=== PATIENT | male | born 1950 | race Caucasian/White ===

== ENCOUNTER 2016-03-28 15:13 | Emergency (ER) | payer MEDICARE, MEDICAID ==
[2016-03-28] MEDS ORDERED: Albuterol 2.5 MG/3 ML NEB.SOL* (0.083%) INH ONE (15:48)
[2016-03-28 15:51] VITALS: BP 120/59
--- NOTE | 2016-03-28 15:54 | UC ---
Respiratory Complaint HPI - HPI Summary HPI Summary: patient is [place] a [place], he has had a severe cough for the past week, now he has a sore throat as well. no fever. 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 Onset/Duration: Sudden Onset, Lasting Days Timing: Constant Severity Initially: Moderate Severity Currently: Moderate Pain Intensity: 7 Pain Scale Used: 0-10 Numeric Aggravating Factors: Deep Breaths, Recumbent Position, Nothing Alleviating Factors: Nothing Associated Signs And Symptoms: Positive: Dyspnea, Wheezing, URI, Nasal Congestion, Sinus Discomfort - Risk Factors Pulmonary Embolism Risk Factors: Negative Cardiac Risk Factors: Negative Tuberculosis Risk Factors: Negative - Allergies/Home Medications Allergies/Adverse Reactions: Allergies Allergy/AdvReac Type Severity Reaction Status Date / Time Sulfa Antibiotics Allergy Hives Verified 03/28/16 15:46 Tamsulosin [From Flomax] Allergy Unknown Verified 03/28/16 15:46 Reaction Details Home Medications: Home Medications Aspirin [Aspirin Adult Low Strengt] 81 mg PO 03/28/16 [History] Benztropine Mesylate 0.5 mg PO 03/28/16 [History] Carvedilol TAB* [Coreg TAB*] 03/28/16 [History] Docusate Sodium [Colace] 100 mg PO 03/28/16 [History] Finasteride TAB* [Proscar TAB*] 5 mg PO DAILY 03/28/16 [History Confirmed ] Haloperidol TAB* [Haldol TAB*] 0.5 mg PO BID 03/28/16 [History Confirmed ] Hydrocortisone (Topical) [Anti-Itch Maximum Strengt] 1 applic 03/28/16 [History] Lisinopril [Zestril 20 MG-] 20 mg PO DAILY 03/28/16 [History Confirmed 03/28/16] [place] Carbonate 03/28/16 [History] [place] Carbonate [Lithobid] 300 mg PO 03/28/16 [History] Multiple Vitamin [Multi Vitamin] 03/28/16 [History] OLANzapine TAB* [ZyPREXA TAB*] 10 mg PO DAILY 03/28/16 [History Confirmed ] Omeprazole CAP* [Prilosec CAP* 20 MG] 20 mg PO DAILY 03/28/16 [History Confirmed 03/28/16] Psyllium DASH* [Metamucil DASH*] 1 pkt PO DAILY 03/28/16 [History Confirmed ] Simvastatin TAB(NF) [Zocor 10 MG (NF)] 03/28/16 [History] PMH/Surg Hx/FS Hx/Imm Hx Previously Healthy: Yes Cardiovascular History Of: Reports: Cardiac Disorders, Hypertension - Surgical History Surgical History: Yes Surgery Procedure, Year, and Place: right wrist - Family History Known Family History: Negative: Hypertension - Social History Alcohol Use: None Substance Use Type: None Smoking Status (MU): Never Smoked Tobacco Review of Systems Skin: Negative Eyes: Negative ENT: Sore Throat Respiratory: Shortness Of Breath, Cough Cardiovascular: Negative Gastrointestinal: Negative Genitourinary: Negative Motor: Negative Neurovascular: Negative Musculoskeletal: Negative Neurological: Negative Psychological: Negative All Other Systems Reviewed And Are Negative: Yes Physical Exam Triage Information Reviewed: Yes Appearance: Well-Nourished, Ill-Appearing, Pain Distress Vital Signs Reviewed: Yes Eye Exam: Normal Eyes: Positive: Conjunctiva Clear ENT Exam: Normal ENT: Positive: Normal ENT inspection, Pharyngeal erythema, Nasal congestion, Nasal drainage, TM red, Tonsillar exudate Dental Exam: Normal Neck exam: Normal Neck: Positive: Supple, Nontender, Enlarged Nodes @ - left side of neck Respiratory Exam: Normal Respiratory: Positive: No respiratory distress, No accessory muscle use, Rhonchi , Wheezing, Inspiration Cardiovascular Exam: Normal Cardiovascular: Positive: RRR, No Murmur, Pulses Normal Abdominal Exam: Normal Abdomen Description: Positive: Nontender, No Organomegaly, Soft Bowel Sounds: Positive: Present Musculoskeletal Exam: Normal Musculoskeletal: Positive: Strength Intact, ROM Intact, No Edema Neurological Exam: Normal Neurological: Positive: Alert, Muscle Tone Normal Psychological Exam: Normal Skin Exam: Normal Respiratory Course/Dx - Course Course Of Treatment: Hx obtained, exam performed, albuterol administered with improvemend, chest xray was neg for acute disease, recommend follow up for possible nodule. medications prescribed. - Differential Dx/Diagnosis Differential Diagnosis/HQI/PQRI: Bronchitis, Influenza, Laryngitis, Sinusitis Provider Diagnoses: possible pulmonary nodule. cough. wheezing. sore throat Discharge - Discharge Plan Condition: Stable Disposition: HOME Patient Education Materials: Wheezing (ED) Additional Instructions: REcommnedations: 1. Follow up with your primary doctor about the xray results 2. Take the cough syrup as needed every 4 hours for cough 3. use the albuterol nebulizer every 4 hours as neede for cough/SOB/wheezing. 4. Increase fluid intake as tolerated and get plenty of rest.
--- NOTE | 2016-03-28 17:00 | RAD ---
INDICATION: Shortness of breath and cough. COMPARISON: There are no prior studies available for comparison. TECHNIQUE: Dual-energy PA and lateral views of the chest were obtained. FINDINGS: The heart is within normal limits in size. Mediastinal contours appear to be within normal limits. The lungs are underinflated and grossly clear. No pleural effusion is seen. There is a small 5 mm nodular density which projects above the left lung base only seen in the PA view. The results of this exam were discussed with the referring clinician. IMPRESSION: 1. POSSIBLE PULMONARY NODULE WITHIN THE LEFT LUNG. RECOMMEND A NONCONTRAST CT OF THE CHEST FOR FURTHER EVALUATION. 2. EXPIRATORY EXAM, NO EVIDENCE FOR ACUTE FINDING.
== END 2016-03-28 17:35 | disposition home or self-care (01) ==
LOC: UCEAST 15:13
DX: J02.9 Acute pharyngitis, unspecified (principal); R05 Cough; R06.2 Wheezing; Z88.1 Allergy status to other antibiotic agents; Z88.2 Allergy status to sulfonamides; I10 Essential (primary) hypertension; Z79.82 Long term (current) use of aspirin
CPT/HCPCS: 71020; 99202; G0463

== ENCOUNTER 2016-04-06 18:05 | Emergency (ER) | payer MEDICARE, MEDICAID ==
--- NOTE | 2016-04-06 21:32 | RAD ---
HISTORY: Cough, shortness of breath, pneumonia COMPARISONS: March 28, 2016 VIEWS: 2: Frontal dual-energy and lateral views of the chest. FINDINGS: CARDIOMEDIASTINAL SILHOUETTE: The cardiomediastinal silhouette is normal. JACK: The jack are normal. PLEURA: The costophrenic angles are sharp. No pleural abnormalities are noted. LUNG PARENCHYMA: The lung volumes are low. The lungs are clear. ABDOMEN: The upper abdomen is clear. There is no subphrenic gas. BONES AND SOFT TISSUES: No bone or soft tissue abnormalities are noted. OTHER: None. IMPRESSION: 1. LOW LUNG VOLUMES. 2. AGAIN NOTED IS A NODULAR DENSITY OVERLYING THE LEFT LUNG FIELD. NOTED ON THE PREVIOUS EXAMINATION, RECOMMEND FURTHER EVALUATION WITH CT OF THE CHEST IN THE NONACUTE SETTING. 3. OTHERWISE, NO ACTIVE CARDIAC PULMONARY DISEASE
[2016-04-06 21:40] LABS: Hematocrit 37 % (42-52); Mean Corpuscular HGB Conc 33 g/dl (31-36); Mean Corpuscular Hemoglobin 30 pg (27-31); Mean Corpuscular Volume 91 fL (80-94); Mean Platelet Volume 7 um3 (7.4-10.4); Red Blood Count 4.04 10^6/ul (4.0-5.4); Red Cell Distribution Width 14 % (10.5-15); White Blood Count 11.4 10^3/ul (3.5-10.8)
[2016-04-06 21:56] LABS: Albumin 3.9 g/dL (3.2-5.2); BUN/Creatinine Ratio 17.8 (8-20); Calcium 9.1 mg/dL (8.6-10.3); EGFR African American 108.9 (>60); EGFR Non-African American 84.7 (>60); Globulin 3.7 g/dL (2-4); Potassium 4.6 mmol/L (3.5-5.0); Total Bilirubin 0.2 mg/dL (0.2-1.0); Total Protein 7.6 g/dL (6.4-8.9)
[2016-04-06] MEDS ORDERED: predniSONE TAB* 20 MG PO ONE (22:24)
[2016-04-06] MEDS ORDERED: DOXYcycline CAP(*) 100 MG PO ONE (22:25)
[2016-04-06] MEDS: Albuterol/Ipratropium NEB.SOL* Albuterol 2.5 MG/Ipratropium 0.5 MG 3 ML INH SCH ×3 (22:42→23:38)
[2016-04-06] MEDS ORDERED: Iohexol 350* (CONTRAST) 500 ML MDV IV ONE (23:06)
[2016-04-07 00:03] VITALS: BP 132/68
--- NOTE | 2016-04-07 05:09 | ED ---
Shortness of Breath - HPI Summary HPI Summary: Patient presents for evaluation of shortness of breath and cough with preceding URI. Denies chest pain, systemic symptoms. No longer smokes. No specific aggrav factors. 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 Onset/Duration: Gradual Onset Alleviating Factors: Bronchodilators Associated Signs & Symptoms: Cough (Nonproductive) - Allergy/Home Medications Allergies/Adverse Reactions: Allergies Allergy/AdvReac Type Severity Reaction Status Date / Time Sulfa Antibiotics Allergy Hives Verified 03/28/16 15:46 Tamsulosin [From Flomax] Allergy Unknown Verified 03/28/16 15:46 Reaction Details PMH/Surg Hx/FS Hx/Imm Hx Endocrine/Hematology History: Denies: Hx Diabetes Cardiovascular History: Reports: Hx Hypertension Respiratory History: Reports: Hx Chronic Obstructive Pulmonary Disease (COPD), Other Respiratory Problems/Disorders - PNA History: Denies: Hx Dialysis, Hx Renal Disease - Surgical History Surgery Procedure, Year, and Place: right wrist Infectious Disease History: No Infectious Disease History: Denies: Traveled Outside the [place] in Last 30 Days - Family History Known Family History: Negative: Hypertension - Social History Alcohol Use: None Substance Use Type: Reports: None Smoking Status (MU): Never Smoked Tobacco Review of Systems Negative: Fever, Chills All Other Systems Reviewed And Are Negative: Yes Physical Exam Triage Information Reviewed: Yes Vital Signs On Initial Exam: Initial Vitals Temp Pulse Resp BP Pulse Ox 97.4 F 67 20 128/60 98 04/06/16 18:11 04/06/16 18:11 04/06/16 18:11 04/06/16 18:11 04/06/16 18:11 Vital Signs Reviewed: Yes Appearance: Positive: Well-Appearing, No Pain Distress, Well-Nourished Skin: Positive: Warm, Skin Color Reflects Adequate Perfusion, Dry Eyes: Positive: Normal, EOMI, KATERINA ENT: Positive: Normal ENT inspection, Hearing grossly normal, Pharynx normal Respiratory/Lung Sounds: Positive: Wheezes Cardiovascular: Positive: Normal, RRR, Pulses are Symmetrical in both Upper and Lower Extremities Abdomen Description: Positive: Nontender, No Organomegaly Musculoskeletal: Positive: Normal, Strength/ROM Intact Neurological: Positive: Normal, Sensory/Motor Intact, Alert, Oriented to Person Place, Time, CN Intact II-III, Reflexes Intact Diagnostics - Vital Signs Vital Signs Temp Pulse Resp BP Pulse Ox 04/07/16 00:02 98.0 F 68 18 132/68 04/06/16 22:26 68 18 125/69 100 04/06/16 20:15 97.9 F 71 18 147/66 100 04/06/16 19:24 97.4 F 74 18 145/62 100 04/06/16 18:11 97.4 F 67 20 128/60 98 - Laboratory Lab Results: Lab Results 04/06/16 04/06/16 04/06/16 Range/Units 21:32 21:32 21:32 WBC 11.4 H (3.5-10.8) 10^3/ul RBC 4.04 (4.0-5.4) 10^6/ul Hgb 12.0 L (14.0-18.0) g/dl Hct 37 L (42-52) % MCV 91 (80-94) fL MCH 30 (27-31) pg MCHC 33 (31-36) g/dl RDW 14 (10.5-15) % Plt Count 289 (150-450) 10^3/ul MPV 7 L (7.4-10.4) um3 Neut % (Auto) 68.5 (38-83) % Lymph % (Auto) 13.9 L (25-47) % Adams % (Auto) 11.8 H (1-9) % Eos % (Auto) 5.2 (0-6) % Baso % (Auto) 0.6 (0-2) % Absolute Neuts (auto) 7.8 H (1.5-7.7) 10^3/ul Absolute Lymphs (auto) 1.6 (1.0-4.8) 10^3/ul Absolute Monos (auto) 1.3 H (0-0.8) 10^3/ul Absolute Eos (auto) 0.6 (0-0.6) 10^3/ul Absolute Basos (auto) 0.1 (0-0.2) 10^3/ul Absolute Nucleated RBC 0 10^3/ul Nucleated RBC % 0 Sodium 130 L (133-145) mmol/L Potassium 4.6 (3.5-5.0) mmol/L Chloride 99 L (101-111) mmol/L Carbon Dioxide 27 (22-32) mmol/L Anion Gap 4 (2-11) mmol/L BUN 16 (6-24) mg/dL Creatinine 0.90 (0.67-1.17) mg/dL Est GFR ( Amer) 108.9 (>60) Est GFR (Non-Af Amer) 84.7 (>60) BUN/Creatinine Ratio 17.8 (8-20) Glucose 81 (70-100) mg/dL Lactic Acid 0.6 (0.5-2.0) mmol/L Calcium 9.1 (8.6-10.3) mg/dL Total Bilirubin 0.20 (0.2-1.0) mg/dL AST 18 (13-39) U/L ALT 20 (7-52) U/L Alkaline Phosphatase 72 (34-104) U/L Total Protein 7.6 (6.4-8.9) g/dL Albumin 3.9 (3.2-5.2) g/dL Globulin 3.7 (2-4) g/dL Albumin/Globulin Ratio 1.1 (1-3) Result Diagrams: 04/06/16 21:32 04/06/16 21:32 Lab Statement: Any lab studies that have been ordered have been reviewed, and results considered in the medical decision making process. Course/Dx - Diagnoses Differential Diagnosis/HQI/PQRI: Positive: COPD Exacerbation, Pulmonary Embolism Provider Diagnoses: COPD exacerbation Discharge - Discharge Plan Condition: Improved Disposition: HOME Prescriptions: DOXYcycline CAP(*) [DOXYcycline 100MG CAP(*)] 100 mg PO BID #20 cap predniSONE TAB* [Deltasone TAB*] 60 mg PO DAILY #4 tab Patient Education Materials: COPD (Chronic Obstructive Pulmonary Disease) (ED) Referrals: Non Staff,Doctor [Primary Care Provider] -
--- NOTE | 2016-04-07 07:56 | RAD ---
INDICATION: Shortness of breath. COMPARISON: Comparison is made with a prior chest x-ray study from April 06, 2016. TECHNIQUE: A CT angiogram of the chest was performed with intravenous following intravenous injection of 86 ml of Omnipaque 350 nonionic contrast. Contiguous axial sections were obtained from the lung apices through the lung bases. Images were reconstructed in the coronal and sagittal planes. FINDINGS: There is slight motion artifact limiting the evaluation of the pulmonary arteries slightly. No intraluminal filling defect or pulmonary embolism is seen. The heart is within normal limits in size. No pericardial effusion is present. The thoracic aorta is normal in caliber and demonstrates homogeneous contrast opacification. There are mildly prominent lymph nodes present scattered within the mediastinum measuring up to 1 cm in the subcarinal region. There are also calcified subcarinal and bilateral hilar lymph nodes suggestive of old granulomatous disease. There are small bilateral pleural effusions. There is mild dependent bilateral lower lobe subsegmental atelectasis. There are several small noncalcified bilateral pulmonary nodules. There is a 4 mm nodule present in the right lower lobe, a 6 mm nodule present within the right middle lobe, a 6 mm nodule in the left lower lobe and a 6 mm nodule within the left upper lobe. No significant focal osseous abnormality is seen. IMPRESSION: 1. SLIGHTLY LIMITED EXAM, NO EVIDENCE FOR PULMONARY EMBOLISM. 2. SMALL BILATERAL PLEURAL EFFUSIONS. 3. OLD GRANULOMATOUS DISEASE AND SEVERAL SMALL BILATERAL PULMONARY NODULES. RECOMMEND A FOLLOW-UP NONCONTRAST CT OF THE CHEST IN 6 MONTHS TIME.
== END 2016-04-07 00:02 | disposition home or self-care (01) ==
LOC: ED 18:05
DX: J44.1 Chronic obstructive pulmonary disease with (acute) exacerbation (principal); R05 Cough; R06.02 Shortness of breath
CPT/HCPCS: 36415; 71020; 71275; 80053; 83605; 85025; 93005; 99282; A9270-GY; J7512; Q9967

== ENCOUNTER 2016-07-10 15:31 | Emergency (ER) | payer MEDICARE, MEDICAID ==
[2016-07-10 16:30] VITALS: BP 122/51
[2016-07-10] MEDS ORDERED: Fluorescein Sodium TOPICAL* 1 MG TEST OPHTHALMIC ONE (16:44)
[2016-07-10] MEDS ORDERED: Eye Irrigation Solution 30 ML BOTTLE RIGHT EYE ONE (16:44)
--- NOTE | 2016-07-10 16:51 | UC ---
Eye Complaint HPI - HPI Summary HPI Summary: Woke yesterday with L eye irritation, burning, and light sensitivity. Denies injury or visual changes. No hx of eye surgery. - History of Current Complaint Chief Complaint: UCEye Stated Complaint: EYE IRRITATION Time Seen by Provider: 07/10/16 16:40 Hx Obtained From: Patient Onset/Duration: Sudden Onset Timing: Constant Severity Initially: Mild Severity Currently: Mild Character: Dull Aggravating Factor(s): Light Alleviating Factor(s): Nothing Associated Signs And Symptoms: Positive: Drainage (Clear). Negative: Vision Impairment Bilateral - Allergies/Home Medications Allergies/Adverse Reactions: Allergies Allergy/AdvReac Type Severity Reaction Status Date / Time Sulfa Antibiotics Allergy Hives Verified 07/10/16 16:22 Tamsulosin [From Flomax] Allergy Unknown Verified 07/10/16 16:22 Reaction Details PMH/Surg Hx/FS Hx/Imm Hx Endocrine History Of: Denies: Diabetes Cardiovascular History Of: Reports: Cardiac Disorders, Hypertension Respiratory History Of: Reports: COPD GI/ History Of: Denies: Renal Disease - Surgical History Surgical History: Yes Surgery Procedure, Year, and Place: right wrist - Family History Known Family History: Negative: Hypertension - Social History Occupation: Disabled Lives: [employer] Alcohol Use: None Substance Use Type: None Smoking Status (MU): Never Smoked Tobacco Review of Systems Constitutional: Negative Skin: Negative Eyes: Drainage, Eye Redness, Photophobia ENT: Negative Respiratory: Negative Cardiovascular: Negative Gastrointestinal: Negative Genitourinary: Negative Motor: Negative Neurovascular: Negative Musculoskeletal: Negative Neurological: Negative Psychological: Negative All Other Systems Reviewed And Are Negative: Yes Physical Exam Triage Information Reviewed: Yes Appearance: Well-Appearing, No Pain Distress, Well-Nourished Vital Signs: Initial Vital Signs Temp 98.6 F 07/10/16 16:23 Pulse 64 07/10/16 16:23 Resp 18 07/10/16 16:23 BP 122/51 07/10/16 16:23 Pulse Ox 100 07/10/16 16:23 Vital Signs Reviewed: Yes Eye Exam: Other - PERRL, no photophobia noted on exam Eyes: Positive: Conjunctiva Inflamed - L eye, Other: - L corneal abrasion on fluorescein exam; 2-3mm linear uptake on lateral edge of L cornea ENT Exam: Normal ENT: Positive: Normal ENT inspection, Hearing grossly normal, Pharynx normal, TMs normal Dental Exam: Normal Neck exam: Normal Neck: Positive: Supple, Nontender, No Lymphadenopathy Respiratory Exam: Normal Cardiovascular Exam: Normal Cardiovascular: Positive: RRR, No Murmur Musculoskeletal Exam: Normal Neurological Exam: Normal Psychological Exam: Normal Skin Exam: Normal Eye Complaint Course/Dx - Differential Dx/Diagnosis Provider Diagnoses: L corneal abrasion Discharge - Discharge Plan Condition: Stable Disposition: HOME Patient Education Materials: Corneal Abrasion (ED) Referrals: Antoine Fisher MD [Medical Doctor] - 2 Days
[2016-07-10] MEDS ORDERED: Erythromycin OPTH OINT* APPLIC OINT LEFT EYE ONE (17:00)
== END 2016-07-10 17:16 | disposition home or self-care (01) ==
LOC: UCEAST 15:31
DX: S05.02XA Injury of conjunctiva and corneal abrasion without foreign body, left eye, initial encounter (principal); X58.XXXA Exposure to other specified factors, initial encounter; Y93.9 Activity, unspecified; Y92.9 Unspecified place or not applicable; I10 Essential (primary) hypertension; J44.9 Chronic obstructive pulmonary disease, unspecified; Z88.2 Allergy status to sulfonamides; Z88.8 Allergy status to other drugs, medicaments and biological substances
CPT/HCPCS: 99202; A9270-GY; G0463

== ENCOUNTER 2017-01-19 10:27 | Emergency (ER) | payer MEDICARE, MEDICAID ==
[2017-01-19] MEDS ORDERED: Aspirin Low Dose CHEW TAB* 81 MG PO ONE (10:36)
[2017-01-19] MEDS ORDERED: methylPREDNISolone 125 MG* 2 ML VIAL IV ONE (10:55)
[2017-01-19] MEDS ORDERED: Albuterol/Ipratropium NEB.SOL* Albuterol 2.5 MG/Ipratropium 0.5 MG 3 ML INH ONE (10:55)
--- NOTE | 2017-01-19 11:19 | RAD ---
HISTORY: Chest pain COMPARISONS: April 06, 2016, CT of the chest dated April 06, 2016 VIEWS: 4: Frontal dual-energy and lateral views of the chest. FINDINGS: CARDIOMEDIASTINAL SILHOUETTE: The cardiomediastinal silhouette is normal. JACK: The jack are normal. PLEURA: The costophrenic angles are sharp. No pleural abnormalities are noted. LUNG PARENCHYMA: The lungs are stable. ABDOMEN: The upper abdomen is clear. There is no subphrenic gas. BONES AND SOFT TISSUES: No bone or soft tissue abnormalities are noted. OTHER: None. IMPRESSION: NO ACTIVE CARDIOPULMONARY DISEASE.
[2017-01-19 11:23] LABS: Hematocrit 33 % (42-52); Hemoglobin 10.6 g/dl (14.0-18.0); Mean Corpuscular HGB Conc 32 g/dl (31-36); Mean Corpuscular Hemoglobin 28 pg (27-31); Mean Corpuscular Volume 86 fL (80-94); Mean Platelet Volume 7 um3 (7.4-10.4); Red Blood Count 3.85 10^6/ul (4.0-5.4); Red Cell Distribution Width 16 % (10.5-15); White Blood Count 11.9 10^3/ul (3.5-10.8)
[2017-01-19 11:34] LABS: Urine Bacteria Absent (Absent); Urine Bilirubin Negative (Negative); Urine Glucose Negative (Negative); Urine Nitrite Negative (Negative)
[2017-01-19 11:37] LABS: Albumin 3.4 g/dL (3.2-5.2); BUN/Creatinine Ratio 22.8 (8-20); Calcium 9.3 mg/dL (8.6-10.3); EGFR African American 126.2 (>60); EGFR Non-African American 98.1 (>60); Globulin 3.8 g/dL (2-4); Total Bilirubin 0.4 mg/dL (0.2-1.0); Total Protein 7.2 g/dL (6.4-8.9)
[2017-01-19 11:40] LABS: Troponin I 0.01 ng/mL (<0.04)
[2017-01-19 12:09] LABS: TSH (Thyroid Stimulating Horm) 2.88 mcIU/mL (0.34-5.60)
[2017-01-19] MEDS ORDERED: Meclizine TAB* 12.5 MG PO ONE (12:50)
[2017-01-19 15:11] VITALS: BP 126/67
--- NOTE | 2017-01-26 12:30 | ED ---
John Hooks Gabriel, scribed for Pete Mendieta MD on 01/19/17 at 1045 . HPI Chest Pain - HPI Summary HPI Summary: This patient is a 66 year old M BIBA to [facility] accompanied by family with a chief complaint of CP when he woke up this morning. The patient rates the pain 8 /10 in severity and describes it as radiating down his left arm. Patient reports dizziness, elevated BP, and general malaise. Patient denies nausea and vomiting. - History of Current Complaint Chief Complaint: EDChestPainROMI Time Seen by Provider: 01/19/17 10:36 Hx Obtained From: Patient, Family/Marine Operations Coordinator Onset/Duration: Started Hours Ago - this morning Timing: Constant Pain Intensity: 8 Pain Scale Used: 0-10 Numeric Chest Pain Radiates: Yes Chest Pain Radiates To:: Arm - Left Associated Signs and Symptoms: Positive: Negative - nausea, Other: - dizziness, elevated BP, and general malaise. Negative: Vomiting - Allergy/Home Medications Allergies/Adverse Reactions: Allergies Allergy/AdvReac Type Severity Reaction Status Date / Time Sulfa Antibiotics Allergy Hives Verified 07/10/16 16:22 Tamsulosin [From Flomax] Allergy Unknown Verified 07/10/16 16:22 Reaction Details Home Medications: Home Medications Acetaminophen TAB* [Tylenol TAB*] 325 mg PO Q4H PRN 01/19/17 [History Confirmed 01/19/17] Artificial Tear Solution [Natural Balance Tears 70.01-0.3 %] 2 drop BOTH EYES TID 01/19/17 [History Confirmed 01/19/17] Benztropine TAB* [Cogentin TAB*] 0.5 mg PO DAILY 01/19/17 [History Confirmed ] Ergocalciferol [Vitamin D2] 50,000 unit PO MONTHLY 01/19/17 [History Confirmed 01/19/17] GuaiFENesin DM sugar free* [Robitussin DM sugar free*] 10 ml PO Q4HR PRN MDD 60ml 01/19/17 [History Confirmed 01/19/17] Ketoconazole 2 % CREAM (NF) [Nizoral 2% CREAM (NF)] 1 applic TOPICAL BID PRN [History Confirmed 01/19/17] Levothyroxine TAB* [Synthroid TAB*] 75 mcg PO QAM 01/19/17 [History Confirmed ] Frederic Carbonate TAB* 750 mg PO BEDTIME 01/19/17 [History Confirmed 01/19/17] Metoprolol Succinate XL TAB* [Toprol XL TAB*] 25 mg PO DAILY 01/19/17 [History Confirmed 01/19/17] Multivitamins/Minerals TAB* [Theragran/minerals TAB*] 1 tab PO DAILY 01/19/17 [ History Confirmed 01/19/17] Mupirocin 2% OINT* [Bactroban 2 % Oint*] 1 applic TOPICAL BID 01/19/17 [History Confirmed 01/19/17] Valsartan TAB* [Diovan TAB*] 80 mg PO DAILY 01/19/17 [History Confirmed 01/19/17 ] PMH/Surg Hx/FS Hx/Imm Hx Previously Healthy: No Endocrine/Hematology History: Denies: Hx Diabetes Cardiovascular History: Reports: Hx Hypertension Respiratory History: Reports: Hx Chronic Obstructive Pulmonary Disease (COPD), Other Respiratory Problems/Disorders - PNA History: Denies: Hx Dialysis, Hx Renal Disease - Surgical History Surgery Procedure, Year, and Place: right wrist - Family History Known Family History: Negative: Hypertension - Social History Alcohol Use: None Substance Use Type: Reports: None Smoking Status (MU): Never Smoked Tobacco Review of Systems Constitutional: Other - general malaise Positive: Other - elevated BP Negative: Vomiting, Nausea Neurological: Other - dizziness All Other Systems Reviewed And Are Negative: Yes Physical Exam - Summary Physical Exam Summary: VITAL SIGNS: Reviewed. GENERAL: ~Patient is a elderly male who is lying comfortable in the stretcher. ~ Patient is not in any acute respiratory distress. HEAD AND FACE: No signs of trauma. ~No ecchymosis, hematomas or skull depressions. No sinus tenderness. EYES: PERRLA, EOMI x 2, No injected conjunctiva, no nystagmus. EARS: Hearing grossly intact. Ear canals and tympanic membranes are within normal limits. MOUTH: Oropharynx within normal limits. NECK: Supple, trachea is midline, no adenopathy, no JVD, no carotid bruit, no c- spine tenderness, neck with full ROM. CHEST: Symmetric, no tenderness at palpation LUNGS: Clear to auscultation bilaterally. No crackles. Patient has a lot of diffuse wheezing CVS: Regular rate and rhythm, S1 and S2 present, no murmurs or gallops appreciated. ABDOMEN: Soft, non-tender. No signs of distention. No rebound no guarding, and no masses palpated. Bowel sounds are normal. EXTREMITIES: FROM in all major joints, no edema, no cyanosis or clubbing. NEURO: Alert and oriented x 3. No acute neurological deficits. Speech is normal and follows commands. SKIN: Dry and warm Triage Information Reviewed: Yes Vital Signs On Initial Exam: Initial Vitals Temp Pulse Resp BP Pulse Ox 97.9 F 75 20 110/57 100 01/19/17 10:42 01/19/17 10:42 01/19/17 10:42 01/19/17 10:42 01/19/17 10:42 Vital Signs Reviewed: Yes Diagnostics - Vital Signs Vital Signs Temp Pulse Resp BP Pulse Ox 01/19/17 14:00 82 15 98 01/19/17 13:30 74 18 116/55 100 01/19/17 13:00 75 15 118/53 98 01/19/17 12:30 73 12 109/51 100 01/19/17 12:00 77 16 112/51 98 01/19/17 11:30 70 18 105/49 98 01/19/17 11:28 77 16 98 01/19/17 11:00 104/53 01/19/17 10:44 23 01/19/17 10:42 97.9 F 75 20 110/57 100 - Laboratory Lab Results: Lab Results 01/19/17 01/19/17 01/19/17 Range/Units 11:09 11:09 11:09 WBC 11.9 H (3.5-10.8) 10^3/ul RBC 3.85 L (4.0-5.4) 10^6/ul Hgb 10.6 L (14.0-18.0) g/dl Hct 33 L (42-52) % MCV 86 (80-94) fL MCH 28 (27-31) pg MCHC 32 (31-36) g/dl RDW 16 H (10.5-15) % Plt Count 347 (150-450) 10^3/ul MPV 7 L (7.4-10.4) um3 Neut % (Auto) 73.7 (38-83) % Lymph % (Auto) 11.5 L (25-47) % [place] % (Auto) 11.4 H (1-9) % Eos % (Auto) 2.7 (0-6) % Baso % (Auto) 0.7 (0-2) % Absolute Neuts (auto) 8.8 H (1.5-7.7) 10^3/ul Absolute Lymphs (auto) 1.4 (1.0-4.8) 10^3/ul Absolute Monos (auto) 1.4 H (0-0.8) 10^3/ul Absolute Eos (auto) 0.3 (0-0.6) 10^3/ul Absolute Basos (auto) 0.1 (0-0.2) 10^3/ul Absolute Nucleated RBC 0.01 10^3/ul Nucleated RBC % 0 Sodium 133 (133-145) mmol/L Potassium 4.0 (3.5-5.0) mmol/L Chloride 101 (101-111) mmol/L Carbon Dioxide 26 (22-32) mmol/L Anion Gap 6 (2-11) mmol/L BUN 18 (6-24) mg/dL Creatinine 0.79 (0.67-1.17) mg/dL Est GFR ( Amer) 126.2 (>60) Est GFR (Non-Af Amer) 98.1 (>60) BUN/Creatinine Ratio 22.8 H (8-20) Glucose 91 (70-100) mg/dL Lactic Acid (0.5-2.0) mmol/L Calcium 9.3 (8.6-10.3) mg/dL Total Bilirubin 0.40 (0.2-1.0) mg/dL AST 15 (13-39) U/L ALT 16 (7-52) U/L Alkaline Phosphatase 96 (34-104) U/L Total Creatine Kinase 27 (10-223) U/L CK-MB (CK-2) 0.9 (0.6-6.3) ng/mL Troponin I 0.01 (<0.04) ng/mL B-Natriuretic Peptide 27 ( - 100) pg/mL Total Protein 7.2 (6.4-8.9) g/dL Albumin 3.4 (3.2-5.2) g/dL Globulin 3.8 (2-4) g/dL Albumin/Globulin Ratio 0.9 L (1-3) TSH 2.88 (0.34-5.60) mcIU/mL Urine Color Urine Appearance Urine pH (5-9) Ur Specific [place] (1.010-1.030) Urine Protein (Negative) Urine Ketones (Negative) Urine Blood (Negative) Urine Nitrate (Negative) Urine Bilirubin (Negative) Urine Urobilinogen (Negative) Ur Leukocyte Esterase (Negative) Urine WBC (Auto) (Absent) Urine RBC (Auto) (Absent) Urine Bacteria (Absent) Urine Glucose (Negative) 01/19/17 01/19/17 01/19/17 Range/Units 11:09 11:09 14:10 WBC (3.5-10.8) 10^3/ul RBC (4.0-5.4) 10^6/ul Hgb (14.0-18.0) g/dl Hct (42-52) % MCV (80-94) fL MCH (27-31) pg MCHC (31-36) g/dl RDW (10.5-15) % Plt Count (150-450) 10^3/ul MPV (7.4-10.4) um3 Neut % (Auto) (38-83) % Lymph % (Auto) (25-47) % [place] % (Auto) (1-9) % Eos % (Auto) (0-6) % Baso % (Auto) (0-2) % Absolute Neuts (auto) (1.5-7.7) 10^3/ul Absolute Lymphs (auto) (1.0-4.8) 10^3/ul Absolute Monos (auto) (0-0.8) 10^3/ul Absolute Eos (auto) (0-0.6) 10^3/ul Absolute Basos (auto) (0-0.2) 10^3/ul Absolute Nucleated RBC 10^3/ul Nucleated RBC % Sodium (133-145) mmol/L Potassium (3.5-5.0) mmol/L Chloride (101-111) mmol/L Carbon Dioxide (22-32) mmol/L Anion Gap (2-11) mmol/L BUN (6-24) mg/dL Creatinine (0.67-1.17) mg/dL Est GFR ( Amer) (>60) Est GFR (Non-Af Amer) (>60) BUN/Creatinine Ratio (8-20) Glucose (70-100) mg/dL Lactic Acid 1.4 (0.5-2.0) mmol/L Calcium (8.6-10.3) mg/dL Total Bilirubin (0.2-1.0) mg/dL AST (13-39) U/L ALT (7-52) U/L Alkaline Phosphatase (34-104) U/L Total Creatine Kinase (10-223) U/L CK-MB (CK-2) (0.6-6.3) ng/mL Troponin I 0.02 (<0.04) ng/mL B-Natriuretic Peptide ( - 100) pg/mL Total Protein (6.4-8.9) g/dL Albumin (3.2-5.2) g/dL Globulin (2-4) g/dL Albumin/Globulin Ratio (1-3) TSH (0.34-5.60) mcIU/mL Urine Color Yellow Urine Appearance Clear Urine pH 7.0 (5-9) Ur Specific [place] 1.006 L (1.010-1.030) Urine Protein Negative (Negative) Urine Ketones Negative (Negative) Urine Blood 1+ H (Negative) Urine Nitrate Negative (Negative) Urine Bilirubin Negative (Negative) Urine Urobilinogen Negative (Negative) Ur Leukocyte Esterase Negative (Negative) Urine WBC (Auto) Trace(0-5/hpf) (Absent) Urine RBC (Auto) Trace(0-2/hpf) (Absent) Urine Bacteria Absent (Absent) Urine Glucose Negative (Negative) Result Diagrams: 01/19/17 11:09 01/19/17 11:09 Lab Statement: Any lab studies that have been ordered have been reviewed, and results considered in the medical decision making process. - Radiology CXR Radiology Interpretation Completed By: Radiologist - NO ACTIVE CARDIOPULMONARY DISEASE. ED physician has reviewed this radiology report and agrees. - EKG 10:43 Cardiac Rate: NL EKG Rhythm: Sinus Rhythm - NSR at 75 BPM EKG Interpretation: No ST elevations, there is a Q wave in Lead III, normal axis Chest Pain Course/Dx - Course Assessment/Plan: In the ED course an IV access was obtained. Patient was placed in a unit secy. Patient was started with IV fluids. P/E reveals diffuse wheezing for which patient was given Duonebs and solumedrol. Labs without any significant abnormality except for WBCs 11.9, Chronic anemia. UA negative for UTI. Troponin #1: 0.01 and Troponin # 2 (4 hours later): 0.02. EKG shows a NSR at 75 BPM w/o ST elevations. CXR impression: No acute pathology. After above medications patients symptoms have improved. He was given Antivert for dizziness. After medications he feels better. I discussed all the findings and test results with the patient. Patient was instructed to return to the emergency room immediately if any of the symptoms return or worsens. Plan of care was discussed with the patient and understands and agrees. All questions were answered at patient satisfaction. There were no further complaints or concerns. Lung exam before discharge: CTA B/L. Good air exchange. No wheezing or crackles heard. CVS: S1 and S2 present. No murmurs appreciated. Patient is alert and oriented x 3. Patient is hemodynamically stable. Patient will be discharged home with follow up PCP in the next 2-3 days - Chest Pain Differential Diagnosis/HQI/PQRI: Acute MN, ACS, Angina, CHF, Chest Wall, GI Disease - Diagnoses Provider Diagnoses: SOB (shortness of breath), Chest pain Discharge - Discharge Plan Condition: Stable Disposition: HOME Patient Education Materials: Chest Pain (ED), Dyspnea (ED) Referrals: Luis Jones MD [Primary Care Provider] - 3 Days Additional Instructions: Return to emergency department for new or worsening symptoms. The documentation as recorded by the John salvador Gabriel accurately reflects the service I personally performed and the decisions made by , Pete Mendieta MD.
== END 2017-01-19 15:19 | disposition home or self-care (01) ==
LOC: ED 10:27
DX: R06.02 Shortness of breath (principal); R07.9 Chest pain, unspecified
CPT/HCPCS: 36415; 71020; 80053; 81003; 81015; 82550; 82553; 83605; 83880; 84443; 84484; 85025; 93005; 96374; 99282; A9270-GY; J2930

== ENCOUNTER 2017-05-20 18:20 | Emergency (ER) | payer MEDICARE, MEDICAID ==
[2017-05-20 19:32] LABS: Urine Appearance Clear; Urine Blood 2+ (Negative); Urine Color Yellow; Urine Ketones Negative (Negative); Urine Protein Negative (Negative); Urine Urobilinogen Negative (Negative)
[2017-05-20 19:49] LABS: ABS Basophils 0.1 10^3/ul (0-0.2); ABS Eosinophils 0.5 10^3/ul (0-0.6); ABS Lymphocytes 1.6 10^3/ul (1.0-4.8); ABS Monocytes 1.2 10^3/ul (0-0.8); ABS Neutrophils 7.5 10^3/ul (1.5-7.7); ABS Nucleated RBC 0 10^3/ul; Eosinophil % 4.5 % (0-6); Hematocrit 33 % (42-52); Lymphocyte % 14.6 % (25-47); Mean Corpuscular HGB Conc 33 g/dl (31-36); Mean Corpuscular Hemoglobin 29 pg (27-31); Mean Corpuscular Volume 88 fL (80-94); Nucleated Red Blood Cells % 0; Platelet Count 393 10^3/ul (150-450); Red Blood Count 3.79 10^6/ul (4.0-5.4); Red Cell Distribution Width 15 % (10.5-15); White Blood Count 10.8 10^3/ul (3.5-10.8)
[2017-05-20] MEDS ORDERED: Lithium Carbonate TAB* 300 MG PO SCH (21:00)
[2017-05-20] MEDS ORDERED: OLANzapine TAB* 10 MG PO SCH (21:00)
--- NOTE | 2017-05-20 21:31 | ED ---
Bonita Hooks Edward, scribed for Jigar Devine on 05/20/17 at 1852 . Psychiatric Complaint - HPI Summary HPI Summary: 66 y/o male presents to the ED c/o feelings that he would hurt himself today, worse this evening. Pt states he had a knife and stated he wanted the knife taken away from him. Denies SI, HI now. Associated sx: hallucinations (hearing voices) this morning, shakiness. PMHx schizophrenia. - History Of Current Complaint Chief Complaint: EDMentalHealth Time Seen by Provider: 05/20/17 18:44 Hx Obtained From: Patient Onset/Duration: Lasting Hours Character: Fearful Aggravating Factor(s): Nothing Alleviating Factor(s): Nothing Associated Signs And Symptoms: Positive: Hallucinating Has Suicidal: Reports: Thoughts - Allergies/Home Medications Allergies/Adverse Reactions: Allergies Allergy/AdvReac Type Severity Reaction Status Date / Time Sulfa (Sulfonamide Allergy Hives Verified 05/20/17 20:49 Antibiotics) tamsulosin Allergy Unknown Verified 05/20/17 20:49 Reaction Details Home Medications: Home Medications Acetaminophen [Pain Relief] 650 mg PO Q4HR PRN 05/20/17 [History Confirmed 05/20] Benztropine Mesylate 0.5 mg PO DAILY 05/20/17 [History Confirmed 05/20/17] Dextran 70/Hypromellose [Natural Balance Tears 70.01-0.3 %] 1 ermias BOTH EYES TID 05/20/17 [History Confirmed 05/20/17] Finasteride TAB* [Proscar TAB*] 5 mg PO DAILY 05/20/17 [History Confirmed ] Ketoconazole 2 % CREAM (NF) [Nizoral 2% CREAM (NF)] 1 applic TOPICAL BID [History Confirmed 05/20/17] Levothyroxine TAB* [Synthroid TAB*] 75 mcg PO 0800 05/20/17 [History Confirmed 05/20/17] [place] Carbonate 750 mg PO BEDTIME 05/20/17 [History Confirmed 05/20/17] Menthol/Zinc Oxide [Gold [place] Medicated Body Powdr] 113 gm TP PRN 05/20/17 [ History] Metoprolol Succinate XL TAB* [Toprol XL TAB*] 25 mg PO DAILY 05/20/17 [History Confirmed 05/20/17] OLANZapine [Zyprexa] 10 mg PO BEDTIME 05/20/17 [History Confirmed 05/20/17] Omeprazole CAP* [Prilosec CAP* 20 MG] 20 mg PO DAILY 05/20/17 [History Confirmed 05/20/17] PMH/Surg Hx/FS Hx/Imm Hx Previously Healthy: No Endocrine/Hematology History: Denies: Hx Diabetes Cardiovascular History: Reports: Hx Hypertension Respiratory History: Reports: Hx Chronic Obstructive Pulmonary Disease (COPD), Other Respiratory Problems/Disorders - PNA History: Denies: Hx Dialysis, Hx Renal Disease - Surgical History Surgery Procedure, Year, and Place: right wrist Infectious Disease History: No Infectious Disease History: Denies: Traveled Outside the [place] in Last 30 Days - Family History Known Family History: Negative: Hypertension - Social History Alcohol Use: None Substance Use Type: Reports: None Smoking Status (MU): Never Smoked Tobacco Review of Systems Constitutional: Negative Eyes: Negative ENT: Negative Cardiovascular: Negative Respiratory: Negative Gastrointestinal: Negative Genitourinary: Negative Musculoskeletal: Negative Skin: Negative Neurological: Negative Psychological: Normal All Other Systems Reviewed And Are Negative: Yes Physical Exam - Summary Physical Exam Summary: Appearance: Well appearing, no pain distress Skin: warm, dry, reflects adequate perfusion Head/face: normal Eyes: EOMI, KATERINA ENT: normal Neck: supple, non-tender Respiratory: CTA, breath sounds present Cardiovascular: RRR, pulses symmetrical Abdomen: non-tender, soft Bowel: present Musculoskeletal: normal, strength/ROM intact Neuro: normal, sensory motor intact, A&Ox3 Psych: anxious Triage Information Reviewed: Yes Vital Signs On Initial Exam: Initial Vitals Temp Pulse Resp BP Pulse Ox 98.2 F 79 19 129/68 98 05/20/17 18:28 05/20/17 18:28 05/20/17 18:28 05/20/17 18:28 05/20/17 18:28 Vital Signs Reviewed: Yes Diagnostics - Vital Signs Vital Signs Temp Pulse Resp BP Pulse Ox 05/20/17 18:28 98.2 F 79 19 129/68 98 - Laboratory Result Diagrams: 05/20/17 19:30 05/20/17 19:30 Lab Statement: Any lab studies that have been ordered have been reviewed, and results considered in the medical decision making process. Course/Dx - Course Assessment/Plan: 66 y/o male presents to the ED c/o feelings that he would hurt himself today, worse this evening. Pt states he had a knife and stated he wanted the knife taken away from him. Denies SI, HI now. Associated sx: hallucinations (hearing voices) this morning, shakiness. PMHx schizophrenia. Pt will be signed out to evening attending pending MHE. - Differential Dx/Clinical Impression Provider Diagnosis: Acute psychosis, Suicidal ideation Discharge - Sign-Out/Discharge Documenting (check all that apply): Sign-Out Patient Signing out patient TO: Marcial Centeno Receiving patient FROM: Jigar Devine - Discharge Plan Referrals: Jason Gold MD [Medical Doctor] - The documentation as recorded by the Bonita salvador Edward accurately reflects the service I personally performed and the decisions made by , Jigar Devine.
[2017-05-21 01:46] VITALS: BP 105/69
--- NOTE | 2017-05-21 04:53 | ED ---
Bobby Hooks Nikita, scribed for Marcial Centeno MD on 05/21/17 at 0037 . Progress - Progress Note Progress Note: This patient was signed out from Dr. Devine, pending disposition, awaiting MHE. MHE was done at 0030. Denies any current SI. Feels better than when he first got here. Not a danger to himself or others at this time. Agrees with plan outlined with mental health fuel manager. The patient will be discharged. - Consult/PCP Time Called: 00:20 Course/Dx - Diagnoses Provider Diagnoses: Acute psychosis, Suicidal ideation Discharge - Sign-Out/Discharge Documenting (check all that apply): Discharge - Discharge Plan Condition: Stable Disposition: HOME Referrals: Jason Gold MD [Medical Doctor] - Additional Instructions: Per completion of a mental health evaluation, you are cleared for release and do not require inpatient psychiatric hospitalization at this time. Please go to nearest emergency room or call 911 if safety concerns arise or condition worsens. [facility]........[phone] Suicide Prevention and Crisis Services........................[phone] National Suicide Prevention Lifeline............................[phone] ( [phone]) [facility].......................[phone] Alcoholics Anonymous...............................................[phone] [facility]..............[phone] [facility] Police..............................................[phone] The documentation as recorded by the Bobby salvador Nikita accurately reflects the service I personally performed and the decisions made by me, Marcial Centeno MD.
== END 2017-05-21 01:47 | disposition home or self-care (01) ==
LOC: ED 18:20
DX: F23 Brief psychotic disorder (principal); R45.851 Suicidal ideations; Z88.2 Allergy status to sulfonamides; Z88.8 Allergy status to other drugs, medicaments and biological substances; Z79.899 Other long term (current) drug therapy; F20.9 Schizophrenia, unspecified; I10 Essential (primary) hypertension; J44.9 Chronic obstructive pulmonary disease, unspecified
CPT/HCPCS: 36415; 80053; 80307; 80320; 80329; 81003; 81015; 84443; 85025; 87086; 99285; A9270-GY; G0480

== ENCOUNTER 2018-03-29 16:23 | Observation (INO) | payer MEDICARE, MEDICAID ==
--- NOTE | 2018-03-29 17:36 | ED ---
Neurological HPI - HPI Summary HPI Summary: A 67 y/o male who was brought in by his supervisor calibration has a chief complaint of a possible CVA on 03/29/18. Per supervisor calibration, the patient had slurred speech and seemed confused. The supervisor calibration wanted to take the patient to the ED to rule out a stroke. Currently the patient says that it hurts to swallow, rating his pain as an 8/10 in severity. Per triage note, "Pt ww/ caretake who states pt had slurred speech and confusion. Per caregiver speech is not slurred at this time. Pt negative for weakness. Negative for facial droop. Rt sided facial droop noted. Pt states he has cold." In the ED room the patient seems back to baseline per supervisor calibration. He denies a Hx of CVA. He denies fever, chills, erythema (eyes), sore throat, chest pain, shortness of breath, cough, abdominal pain, vomiting, nausea, dysuria, hematuria , myalgia, edema, rash and dizziness. 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 Negative: Dizziness, Nausea /Vomiting, Fever, Chest Pain - Allergy/Home Medications Allergies/Adverse Reactions: Allergies Allergy/AdvReac Type Severity Reaction Status Date / Time neomycin Allergy Unknown Verified 03/29/18 16:40 Reaction Details Sulfa (Sulfonamide Allergy Hives Verified 05/20/17 20:49 Antibiotics) tamsulosin Allergy Unknown Verified 05/20/17 20:49 Reaction Details PMH/Surg Hx/FS Hx/Imm Hx Endocrine/Hematology History: Denies: Hx Diabetes Cardiovascular History: Reports: Hx Hypertension Respiratory History: Reports: Hx Chronic Obstructive Pulmonary Disease (COPD), Other Respiratory Problems/Disorders - PNA History: Denies: Hx Dialysis, Hx Renal Disease - Surgical History Surgery Procedure, Year, and Place: right wrist Infectious Disease History: No Infectious Disease History: Denies: Traveled Outside the [place] in Last 30 Days - Family History Known Family History: Negative: Hypertension - Social History Alcohol Use: None Substance Use Type: Reports: None Smoking Status (MU): Never Smoked Tobacco Review of Systems Negative: Fever, Chills Negative: Erythema Negative: Sore Throat Negative: Chest Pain Negative: Shortness Of Breath, Cough Negative: Abdominal Pain, Vomiting, Nausea Negative: dysuria, hematuria Negative: Myalgia, Edema Negative: Rash Neurological: Negative - dizziness, Other - positive: slurred speech and confusion 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 (-) Distressed Skin: Warm, Dry HENT: Normocephalic; Atraumatic Eyes: Conjunctiva normal Neck: Musculoskeletal ROM normal neck. (-) JVD, (-) Stridor, (-) Tracheal deviation Cardio: Rhythm regular, rate normal, Heart sounds normal; Intact distal pulses; The pedal pulses are 2+ and symmetric. Radial pulses are 2+ and symmetric. (-) Murmur Pulmonary/Chest wall: Effort normal. (-) Respiratory distress, (-) Wheezes, (-) Rales Abd: Soft, (-) epigastric tenderness, (-) Distension, (-) Guarding, (-) Rebound Musculoskeletal: (-) Edema Lymph: (-) Cervical adenopathy Neuro: Alert, Oriented x3 Psych: Mood and affect Normal Triage Information Reviewed: Yes Vital Signs On Initial Exam: Initial Vitals Temp Pulse Resp BP Pulse Ox 97.1 F 74 18 140/87 99 03/29/18 16:34 03/29/18 16:34 03/29/18 16:34 03/29/18 16:34 03/29/18 16:34 Vital Signs Reviewed: Yes - Moni Coma Scale Best Eye Response: 4 - Spontaneous Best Motor Response: 6 - Obeys Commands Best Verbal Response: 5 - Oriented Coma Scale Total: 15 Diagnostics - Vital Signs Vital Signs Temp Pulse Resp BP Pulse Ox 03/29/18 17:18 72 27 120/62 100 03/29/18 17:00 72 23 99 03/29/18 16:49 76 15 132/62 100 03/29/18 16:48 73 13 100 03/29/18 16:34 97.1 F 74 18 140/87 99 - Laboratory Result Diagrams: 03/29/18 18:04 03/29/18 18:04 Lab Statement: Any lab studies that have been ordered have been reviewed, and results considered in the medical decision making process. - Radiology CXR Radiology Interpretation Completed By: Radiologist Summary of Radiographic Findings: LOW LUNG VOLUMES. NO ACTIVE CARDIOPULMONARY DISEASE. ED physician has reviewed this imaging report. - CT Brain CT Interpretation Completed By: Radiologist Summary of CT Findings: No acute intracranial pathology. ED physician has reviewed this imaging report. - EKG 17:27 Cardiac Rate: NL EKG Rhythm: Sinus Rhythm Summary of EKG Findings: Normal sinus rhythm at 75 bpm, no STEMI. Re-Evaluation - Re-Evaluation First Eval Re-Evaluation Time: 21:04 Change: Unchanged Comment: no change in status Course/Dx - Course Course Of Treatment: A 67 y/o male who was brought in by his supervisor calibration has a chief complaint of a possible CVA on 03/29/18. Per supervisor calibration, the patient had slurred speech and seemed confused but is now at baseline. The physical exam was unremarkable. GCS 15. CXR impression: LOW LUNG VOLUMES. NO ACTIVE CARDIOPULMONARY DISEASE. Brain CT was negative. EKG at 17:27 revealed Normal sinus rhythm at 75 bpm. In the ED course he was given Xanax PO. Lab results obtained and are WNL. Discussed case with Dr Cherry, neuro, and Dr. Mattson, hospitalist, who accepted the patient for admission. The patient is agreeable with this plan. - Diagnoses Provider Diagnoses: TIA (transient ischemic attack) - Physician Notifications Discussed Care Of Patient With: Mansi Mattson Time Discussed With Above Provider: 21:00 Instructed by Provider To: Admit As Inpatient Discharge - Sign-Out/Discharge Documenting (check all that apply): Patient Departure - admit Patient Received Moderate/Deep Sedation with Procedure: No - Discharge Plan Condition: Fair Disposition: ADMITTED TO [facility] Referrals: Hang Sesay MD [Primary Care Provider] - (2-3 days) Additional Instructions: Return to the ED if you experience any new or worsening symptoms. - Attestation Statements Document Initiated by Scribe: Yes Documenting Scribe: Omar Walker Provider For Whom Scribe is Documenting (Include Credential): Trung Morris MD Scribe Attestation: I, Omar Walker, scribed for Trung Morris MD on 03/29/18 at 2110. Status of Scribe Document: Ready Consult Consult: At 21:[address] Cherry, neuro, who recommends CTA and MRI in the morning.
[2018-03-29 18:17] LABS: ABS Basophils 0.1 10^3/ul (0-0.2); ABS Eosinophils 0.8 10^3/ul (0-0.6); ABS Lymphocytes 1.5 10^3/ul (1.0-4.8); ABS Monocytes 1.1 10^3/ul (0-0.8); ABS Nucleated RBC 0 10^3/ul; Eosinophil % 6.6 %; Hematocrit 36 % (42-52); Hemoglobin 11.6 g/dl (14.0-18.0); Lymphocyte % 13.2 %; Mean Corpuscular HGB Conc 32 g/dl (31-36); Mean Corpuscular Hemoglobin 30 pg (27-31); Mean Corpuscular Volume 91 fL (80-94); Mean Platelet Volume 7.8 fL (7.4-10.4); Nucleated Red Blood Cells % 0; Platelet Count 327 10^3/ul (150-450); Red Blood Count 3.91 10^6/ul (4.00-5.40); Red Cell Distribution Width 15 % (10.5-15); White Blood Count 11.5 10^3/ul (3.5-10.8)
[2018-03-29] MEDS ORDERED: ALPRAZolam TAB* 0.5 MG PO ONE (18:40)
[2018-03-29 18:50] LABS: Albumin/Globulin Ratio 1.2 (1-3); BUN/Creatinine Ratio 17.2 (8-20); Calcium 8.8 mg/dL (8.6-10.3); EGFR Non-African American 62.8 (>60); Globulin 3.4 g/dL (2-4); Potassium 4.8 mmol/L (3.5-5.0); Total Bilirubin 0.2 mg/dL (0.2-1.0); Total Protein 7.4 g/dL (6.4-8.9)
[2018-03-29] MEDS ORDERED: Aspirin 81 mg CHEW TAB* 81 MG TAB.CHEW PO ONE (21:08)
[2018-03-29 21:09] LABS: Urine Appearance Clear; Urine Bilirubin Negative (Negative); Urine Blood Negative (Negative); Urine Color Yellow; Urine Glucose Negative (Negative); Urine Ketones Negative (Negative); Urine Nitrite Negative (Negative); Urine Protein Negative (Negative); Urine Specific Gravity 1.019 (1.010-1.030); Urine Urobilinogen Positive (Negative)
[2018-03-29 21:34] LABS: Lithium 1.09 mmol/L (0.6-1.2)
[2018-03-29] MEDS ORDERED: Al Hydrox/Mg Hydrox/Simet LIQ* 30 ML UDC PO PRN (22:13)
[2018-03-29] MEDS ORDERED: GuaiFENesin DM* 5 ML UDC PO PRN (22:16)
[2018-03-29] MEDS ORDERED: Albuterol HFA INHALER* 8 gm MDI INH PRN (22:16)
[2018-03-29] MEDS ORDERED: Iohexol 350* (CONTRAST) 500 ML MDV IV ONE (22:21)
[2018-03-29] MEDS ORDERED: Cholecalciferol TAB* 1000 UNITS PO SCH (23:00)
--- NOTE | 2018-03-30 02:33 | HP ---
CC: Dr. Sesay; Dr. Cherry * HISTORY AND PHYSICAL: DATE OF ADMISSION: 03/29/18 PRIMARY CARE PROVIDER: Dr. Sesay. CHIEF COMPLAINT: Possibility of slurred speech several hours ago. HISTORY OF PRESENT ILLNESS: Shon Pugh is a 67-year-old male with history of schizoaffective disorder, borderline personality disorder, intellectual disability, who lives at [facility]. The patient apparently was noted during daytime activities by the daytime staff that his speech was slurred and maybe he had a facial droop. When the afternoon staff arrived at 4: 00 p.m., the patient appeared to be back at baseline. Nevertheless, the patient was brought in to the ED for evaluation. Here, he was noted to have flattening of the right nasolabial folds, but comparing with his ID photograph from 2016, it appears chronic. The patient himself has no complaints. As per the patient's sizer hand from [facility], the patient has a history of attention -seeking behavior and in the past, he would be having problems with walking that would go away instantly when someone would pay attention to him. The patient would also complain of problems with breathing in the past, but that will also improve after an attention was placed towards the patient. It is likely consistent with borderline personality disorder. Nevertheless, the ED provider asked the medicine service to place the patient on overnight observation to rule out TIA. PAST MEDICAL HISTORY: Due to the patient's intellectual disability, he is a very poor historian and the past medical history is obtained from medical records that were brought in from [facility] and the past diagnoses include: 1. Pseudoparkinsonism. 2. Obstructive sleep apnea. 3. Osteoarthritis. 4. Hypothyroidism. 5. Schizoaffective disorder. 6. Factitious disorder. 7. Pedophilia. 8. Borderline personality disorder. 9. Bipolar disorder. 10. Mild intellectual disability. 11. History of prostate cancer. 12. History of asthma/COPD. 13. Dilated cardiomyopathy. MEDICATIONS: At home, include: 1. Aspirin 81 mg daily. 2. Multivitamin 1 tablet daily. 3. Colace 200 mg twice a day. 4. Coreg 25 mg twice a day. 5. Simvastatin 10 mg at bedtime. 6. Metamucil 1 packet twice a day. 7. Vitamin D 50,000 units once a month. 8. Hydrocortisone cream 1% apply 3 times daily 7 days to affected area of the face. 9. Finasteride 5 mg daily. 10. Acetaminophen on a p.r.n. basis. 11. Omeprazole 20 mg daily. 12. Benztropine 0.5 mg daily. 13. Foss 150 mg at bedtime. 14. Olanzapine 10 mg at bedtime. 15. Foss 600 mg at bedtime. 16. Metoprolol succinate 25 mg daily. 17. Levothyroxine mcg daily. 18. Diovan 80 mg daily. 19. Guaifenesin on a p.r.n. basis. 20. Albuterol inhaler on a p.r.n. basis. 21. Incruse Ellipta 1 inhalation daily. 22. Flonase 2 squirts each nostril daily. 23. Naproxen 500 mg b.i.d. 24. Triamcinolone cream apply to groin p.r.n. ALLERGIES: SULFA, FLOMAX, NEOMYCIN, and TRIPLE ANTIBIOTIC OINTMENT. FAMILY HISTORY: Unobtainable. SOCIAL HISTORY: The patient had been in [place] for approximately 3 years according to his sizer hand. The patient himself thinks it has been 3 months. The patient is not aware and sizer hand is not aware of where he was before. I am unable to determine the patient's healthcare proxy. The patient himself stated that he has no family members that are living. As a contact information , I have provided an hospice plan administrator from [facility], Rick Bryant, telephone during the daytime is [phone], extension [phone], after hours is [phone]. I also have a name to a medical billing service, Ai May, with the telephone number of [phone], extension [phone]. REVIEW OF SYSTEMS: The patient is a very poor historian. He stated in the past , he had shortness of breath, but now he does not. He denies any history of slurred speech. He denies headaches. As per medical records, the patient has a history of inappropriate sexual, verbal, and assaultive behavior in the past, but at baseline, apparently, he is oriented x3. Per the patient's sizer hand, the patient has problems with gait occasionally and he is waiting for a walker. PHYSICAL EXAMINATION GENERAL: The patient is a very pleasant 67-year-old male, who is in no acute distress. The patient stated that the date is February 2018. He remembers his date of and he remembers his age. He is rather convoluted and poor historian overall. VITAL SIGNS: Blood pressure of 132/66, heart rate of 76 and regular, respiratory rate 20, oxygen saturation 100% on room air, temperature of 97.1. HEENT: Head atraumatic, normocephalic. Eyes: Pupils are equal and reactive to light and accommodation. Oropharynx is clear. Mucosa moist. NECK: Supple. No JVD, no bruit bilaterally. RESPIRATORY: Scattered wheezes at bilateral bases. CARDIOVASCULAR: Regular rate and rhythm. No murmur. ABDOMEN: Soft, nontender, mildly distended, and tympanic to percussion. EXTREMITIES: There is +1 pitting pedal edema bilaterally. Pulses are +2 bilaterally. There is no clubbing or cyanosis. NEURO: The patient has flattening of right nasolabial fold. Speech is clear. Otherwise, cranial nerves II through XII grossly intact. Motor strength is 5/5 bilaterally in all extremities. Sensation is grossly intact. PSYCHIATRIC: The patient is oriented x2. He has troubles with date recollection. Otherwise, very poor historian, poor recall. SKIN: On evaluation of the skin, the patient has ecchymotic areas in various stages of resolution in distal bilateral lower extremities. DIAGNOSTIC STUDIES/LAB DATA: White blood cell count of 11.5, hemoglobin 11.6, hematocrit 36, and platelets 327. Sodium was 137, potassium 4.8, chloride 105, carbon dioxide 27, BUN 20, creatinine 1.16. Liver functions are unremarkable. Troponin of 0. Urinalysis is grossly unremarkable. Foss level of 1.09. The patient's portable chest x-ray read by the radiologist as "low lung volumes. No active cardiopulmonary disease." Brain CT impression: "No acute intracranial pathology." The patient's EKG shows sinus rhythm with a heart rate of 75 beats per minute with QT interval of 479 milliseconds. ASSESSMENT AND PLAN: 1. In regards to the patient's questionable transient ischemic attack, at this point, the patient appears to have flattening of right nasolabial folds. I compared it with the patient's photo ID that is in his medical records in [facility] from 2016 and he has the same flattening of nasolabial fold at that point. Otherwise, he is neurologically intact. The patient is going to be placed on overnight observation on telemetry monitored bed. Unfortunately, tomorrow is Sunday and we cannot obtain echo with bubble study or an MRI for _ ____ urgent matters. I will place the patient on neuro checks every 2 hours. Continue his aspirin and then await Dr. Cherry's recommendation. Dr. Cherry was notified by the ED service about Neurology consult in the morning. 2. In regards to the patient's chronic medical condition, the patient is going to be continued on his antipsychotics from home. 3. In regards to the patient's bipolar disorder, lithium is going to be continued. His level is appropriate. 4. For his hypothyroidism, his levothyroxine is going to be continued. 5. For his hypertension, his valsartan is going to be continued. 6. For DVT prophylaxis, the patient is going to be placed on heparin subcutaneously. 7. The patient's code status is full. I am not aware to allocate healthcare proxy at this point and there is no recommendation of healthcare proxy and recommendation from that I received from [facility]. TIME SPENT: Approximately 72 minutes was spent on admission of this patient, more than half that time was spent [id number] with the patient during the interview and physical exam. [id number]/[facility] #: [id number] MTDJude
[2018-03-30 05:42] LABS: ABS Basophils 0.1 10^3/ul (0-0.2); ABS Eosinophils 0.9 10^3/ul (0-0.6); ABS Lymphocytes 1.6 10^3/ul (1.0-4.8); ABS Monocytes 1.1 10^3/ul (0-0.8); ABS Nucleated RBC 0 10^3/ul; Eosinophil % 8.1 %; Hematocrit 34 % (42-52); Hemoglobin 11.1 g/dl (14.0-18.0); Lymphocyte % 13.7 %; Mean Corpuscular HGB Conc 33 g/dl (31-36); Mean Corpuscular Hemoglobin 30 pg (27-31); Mean Corpuscular Volume 92 fL (80-94); Mean Platelet Volume 7.8 fL (7.4-10.4); Nucleated Red Blood Cells % 0; Platelet Count 291 10^3/ul (150-450); Red Blood Count 3.71 10^6/ul (4.00-5.40); Red Cell Distribution Width 15 % (10.5-15); White Blood Count 11.7 10^3/ul (3.5-10.8)
[2018-03-30] MEDS ORDERED: Levothyroxine TAB* 75 MCG TAB PO SCH (06:00)
[2018-03-30 06:11] LABS: CO2 Carbon Dioxide 24 mmol/L (22-32); Calcium 8.7 mg/dL (8.6-10.3); Chloride 105 mmol/L (101-111); Sodium 134 mmol/L (135-145)
[2018-03-30 06:15] LABS: Anion Gap 5 mmol/L (2-11)
[2018-03-30 06:17] LABS: BUN/Creatinine Ratio 18.4 (8-20); Blood Urea Nitrogen 19 mg/dL (6-24); Cholesterol 161 mg/dL; EGFR African American 87.2 (>60); Glucose 93 mg/dL (70-100); HDL Cholesterol 48.5 mg/dL; LDL Cholesterol 99 mg/dL; Triglycerides 68 mg/dL
[2018-03-30] MEDS ORDERED: Valsartan TAB* 80 MG PO SCH (09:00)
[2018-03-30] MEDS ORDERED: Docusate CAP* 100 MG PO SCH (09:00)
[2018-03-30] MEDS ORDERED: Metoprolol Succinate XL TAB* 25 MG PO SCH (09:00)
[2018-03-30] MEDS ORDERED: Hydrochlorothiazide TAB* 25 MG PO SCH (09:00)
[2018-03-30] MEDS ORDERED: Pantoprazole TAB * 40 MG TAB PO SCH (09:00)
[2018-03-30] MEDS ORDERED: Finasteride TAB* 5 MG PO SCH ×2 (09:00)
[2018-03-30] MEDS ORDERED: Aspirin EC TAB* 81 MG TAB.EC PO SCH (09:00)
--- NOTE | 2018-03-30 11:37 | PN ---
Progress Note - Progress Note Date of Service: 03/30/18 Note: Patient admitted overnight w/ possible RT facial droop, possible TIA. Patient states RT side face felt numb yesterday, and he 'didn't feel right." States LT arm feels weak. Aide in room from [facility], knows patient, states he is talking at baseline, walking, no apparent changes. Selected Entries 03/30/18 07:39 Temperature 36.7 C Pulse Rate 62 Respiratory 18 Rate Blood Pressure 126/63 (mmHg) Alert, oriented Mild RT facial droop Speech mildly dysarthric, may be baseline Lungs; clear Heart; RRR, no murmur Abdo: soft, NT Extrem: 1+ pitting edema bilat LE Neuro: motor 5/5 UE, LE, DTR symmetric, CN II-XII otherwise intact. Echo: pending CT brain: normal CTA head/neck: normal A/P: possible TIA. Discussed w/ Dr. Cherry, he will see patient later today. In my opinion could continue aspirin, have echo and MRI as outpatient. Likely discharge home today.
[2018-03-30 12:05] VITALS: BP 110/55
[2018-03-30] MEDS ORDERED: Carvedilol TAB* 25 MG PO SCH (12:15)
--- NOTE | 2018-03-30 16:54 | CONS ---
NEUROLOGY CONSULTATION: DATE OF CONSULT: 03/30/18 LOCATION: He is in an inpatient in room 445. REFERRING PROVIDER: Dr. Mattson. PRIMARY CARE PROVIDER: Dr. Sesay. CHIEF COMPLAINT: Slurred speech, facial weakness. HISTORY OF PRESENT ILLNESS: Shon Pugh is a 67-year-old resident of [facility], who reportedly yes ter morning had some slurred speech. There was also thought to be some facial asymmetry. The [facility] staff arrived at 4 and the morning staff advised that he should be taken to the emergency room . In the emergency room, he was noted to have some facial asymmetry and stuttering speech, which was felt to be unchanged from previously. Dr. Mattson compared an ID photograph from 2016 and the facial a symmetry was there then. One of the aides who is with him today said that when they came on duty yes afternoon, he seemed to be speaking normally and looked like he normally looks. He again toda y seems to be at his baseline according to his aide who is present today. PAST MEDICAL HISTORY: Notable for drug-induced parkinsonism, obstructive sleep apnea, hypothyroidism , schizoaffective disorder, pedophilia, factitious disorder, bipolar disorder, mild intellectual disa bility, asthma, prostate cancer, dilated cardiomyopathy. MEDICATIONS: At admission included: 1. Aspirin 81 mg p.o. daily. 2. Coreg 25 mg p.o. b.i.d. 3. Finasteride 5 mg p.o. daily. 4. Benztropine 0.5 mg p.o. daily. 5. [place] 750 mg p.o. q.h.s. 6. Metoprolol 25 mg p.o. daily. 7. Levothyroxine. 8. Diovan 80 mg p.o. daily. 9. Albuterol inhaler. 10. Flonase nasal spray. 11. Naproxen. ALLERGIES: He is allergic to SULFA DRUGS and NEOMYCIN. REVIEW OF SYSTEMS: From the patient is that he feels well. He says his balance is not that great. He says he has a bad tremor. He denies headache. PHYSICAL EXAM: He has been afebrile throughout his hospital stay, most recent blood pressure 110/55, heart rate is in the 60s and regular. Respiratory rate is 19 and oxygen saturation is 100% on room air. Heart tones are distant, but there are no murmurs. There are no cervical bruits. Oral mucosa is mois t and atraumatic. Neurological Exam: Pupils react equally from 3 to 2 mm. Eye movements are choppy, but full. Visual glass are full to confrontation. Facial musculature is notable for relative flattening of the righ t nasolabial fold, but pretty good facial movement. Facial sensation to light touch is intact bilate rally. Palate and tongue appear normal and he has stuttering and tremulous dysarthria, which his aid e says is his baseline. On motor exam, he has some rigidity in the limbs, but good strength. He has a pretty severe sustention and action tremor in both hands. He has good strength in the upper and l ower extremities proximally and distally. Finger taps are otherwise normal in the hands. Reflexes are brisk and symmetric in the upper extremi ties and at the knees. He is alert and cooperative after I wake him from a nap. He clearly has some impaired memory. Fund of knowledge is poor and language is relatively simple. DIAGNOSTIC STUDIES/LAB DATA: Includes a CT angiogram of the head interpreted as normal CT angiogram of the head. CT angiogram of the neck revealed no significant stenosis of the cervical blood vessels. CT scan of the brain was interpreted as showing an arachnoid cyst in the left middle cranial fossa, b ut no other abnormalities. EKG from yesterday revealed sinus rhythm, borderline prolonged QT interval, QT corrected of 479. Other laboratory data notable for normal chemistry profile on admission, cholesterol this morning 161 and LDL 99. Glucose normal at 78 yesterday. Troponin is 0. [place] level yesterday evening was 1. 09. Urinalysis is unremarkable. IMPRESSION AND PLAN: Impression is that of a brief episode of perhaps altered speech in a chronicall y disabled individual. He has some chronic facial asymmetry. Overall, it is a very unconvincing pres entation for transient ischemic attack. I would recommend treating with a dual antiplatelet therapy with Plavix 75 mg and aspirin 81 mg for 3 to 4 weeks and then going to Plavix monotherapy. I do not think he needs to be kept in the hospital for several days for an MRI scan, but this could be done as an outpatient next week. I will arrange that through my office. I will speak with Dr. Kelly about possibly transferring him back to his home . [id number]/[facility] #: [id number]
[2018-03-30] MEDS ORDERED: OLANzapine TAB* 10 MG PO SCH (21:00)
[2018-03-30] MEDS ORDERED: Lithium Carbonate TAB* 300 MG PO SCH (21:00)
[2018-03-31] MEDS ORDERED: Clopidogrel TAB* 75 MG PO SCH (09:00)
--- NOTE | 2018-03-31 12:37 | DS ---
CC: Dr. Hang Seasy at [place] * DISCHARGE SUMMARY: DATE OF ADMISSION: 03/29/18 DATE OF DISCHARGE: 03/30/18 PRIMARY DIAGNOSIS: Suspicion of transient ischemic attack, largely ruled out. SECONDARY DIAGNOSES: 1. Parkinsonism. 2. Obstructive sleep apnea. 3. Osteoarthritis. 4. Hypothyroidism. 5. Schizoaffective disorder. 6. Factitious disorder. 7. Pedophilia. 8. Borderline personality disorder. 9. Mild intellectual disability. 10. History of prostate cancer. 11. History of asthma. 12. Chronic obstructive pulmonary disease. 13. Dilated cardiomyopathy. MEDICATIONS ON DISCHARGE: 1. Acetaminophen 650 mg q.4 hours p.r.n. headache or fever. 2. Albuterol MDI 2 puffs q.4 hours as needed for wheezing. 3. Aspirin 81 mg p.o. daily. 4. Benztropine 0.5 mg p.o. daily. 5. Carvedilol 25 mg p.o. b.i.d. 6. Vitamin D 5000 units p.o. daily. 7. Colace 200 mg p.o. b.i.d. 8. Finasteride 5 mg p.o. daily. 9. Guaifenesin with dextromethorphan 10 mL q.4 hours p.r.n. cough. 10. Hydrocortisone 1% cream topically as needed to the affected areas. 11. Levothyroxine 75 mcg p.o. q.a.m. 12. [place] carbonate 750 mg p.o. q.h.s. 13. Multivitamin 1 tab p.o. daily. 14. Olanzapine 10 mg p.o. q.p.m. 15. Omeprazole 20 mg p.o. daily. 16. Psyllium husk 1 packet p.o. b.i.d. 17. Simvastatin 10 mg p.o. q.h.s. 18. Valsartan/hydrochlorothiazide 1 tab p.o. q.a.m. 19. Clopidogrel 75 mg p.o. daily. During the hospital stay, the patient's Toprol-XL was stopped because we could not find any rationale for being on 2 beta-blockers. Patient had clopidogrel added during this hospital stay, everything else has entirely remained the same. The patient was admitted with a possible right facial droop and trouble speaking. The patient is at baseline, lives at [facility] and has mild developmental delay and multiple psychiatric issues. The patient's the suspicion of right facial droop, which was investigated with head CT, which is negative for infarct and the CT angiogram of the head and neck, which was negative for stenosis or bleed or infarct. The patient had labor work including white count 11.7, hemoglobin of 34, platelets 291. His electrolytes, LFTs, cholesterol were normal. Troponin was 0. Urinalysis was negative. [place] level was 1.09. The patient had a Neurology consult with Dr. Cherry, who felt that there was no clear evidence of a TIA. The patient had a photograph himself on his ID from 7 years ago that showed the continued right facial droop. The aide of the patient stated his speech was at baseline, which was slightly dysarthric. Please see the history and physical for full details of this hospital stay. The patient is advised to have an MRI as an outpatient in the next several days. This would fully investigate whether there is a TIA or not. The patient also is ordered for an echocardiogram because of reported history of cardiomyopathy and the possibility of a cardioembolic source. This can be also accomplished as an outpatient. DISPOSITION: To home at [facility]. ACTIVITY: As tolerated. DIET: Low salt, low fat. [id number]/[facility] #: [id number] [facility]
== END 2018-03-30 15:30 | disposition home or self-care (01) ==
LOC: ED 16:23 → MEDTELE 22:13
PROVIDERS: ADMIT Internal Medicine; ATTEND Internal Medicine
DX: R41.0 Disorientation, unspecified (principal); Z88.2 Allergy status to sulfonamides; G20 Parkinson's disease; G47.33 Obstructive sleep apnea (adult) (pediatric); M19.90 Unspecified osteoarthritis, unspecified site; E03.9 Hypothyroidism, unspecified; F25.9 Schizoaffective disorder, unspecified; F68.10 Factitious disorder imposed on self, unspecified; F65.4 Pedophilia; F60.3 Borderline personality disorder; F70 Mild intellectual disabilities; Z85.46 Personal history of malignant neoplasm of prostate; J44.9 Chronic obstructive pulmonary disease, unspecified; I42.0 Dilated cardiomyopathy; Z79.82 Long term (current) use of aspirin
CPT/HCPCS: 36415; 70450; 70496; 70498; 71045; 80048; 80053; 80061; 80178; 81003; 83605; 84484; 85025; 93005; 99284; A9270-GY; G0378; G8978-GP-CI; G8979-GP-CI; G8980-GP-CI; Q9967

== ENCOUNTER 2018-06-26 10:34 | Emergency (ER) | payer MEDICARE, MEDICAID ==
--- OUTSIDE RECORDS SUMMARY | 2018-06-26 10:48 | XMS REPORT | Continuity of Care Document ---
:1950 External Reference #:[id number] Author Name Eleno Horta MD Address [facility] [place] [address] Care Team Providers Name Role Phone Hang Sesay MD Care Team Information [employer] Supervisor Unavailable Hang Sesay MD Primary Care Physician Unavailable Payers Date Identification Numbers Payment Provider Subscriber Policy Number: [id number] Medicare Shon Pugh PayID: [id number] [facility] [address] [place] [address] Policy Number: [id number] Medicaid/Medicare Shon Pugh Group Name: [facility] Federal [employer]Civil GP PayID: [id number] [address] [place] [address] Advance Directives Description No Information Available Problems Active Problems Provider Date Acquired hypothyroidism Onset: 10/09/2016 Bipolar disorder in full remission Onset: 03/15/2016 Borderline personality disorder Onset: 03/15/2016 Cardiomyopathy Onset: 10/09/2016 Essential hypertension Onset: 03/15/2016 Gastroesophageal reflux disease without Onset: 03/15/2016 esophagitis History of malignant neoplasm of prostate Onset: 03/15/2016 Lumbosacral spondylosis without myelopathy Onset: 03/15/2016 Lung mass Onset: 07/20/2016 Malignant tumor of prostate Onset: 03/14/2018 Mild mental handicap Onset: 03/15/2016 Mixed hyperlipidemia Onset: 03/15/2016 Pedophilia Onset: 03/15/2016 Primary gonarthrosis, bilateral Onset: 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/2016 Pulmonary sarcoidosis Onset: 10/09/2016 Schizoaffective disorder Onset: 03/15/2016 Tobacco use and exposure - finding Onset: 07/20/2016 Uncomplicated moderate persistent asthma Onset: 03/14/2018 Vitamin D deficiency Onset: 03/15/2016 Screening for malignant neoplasm of colon Elneo Horta MD Onset: 2018 Chronic obstructive lung disease Eleno Horta MD Onset: 06/20/2018 Family History Description No Information Available Social History Type Date Description Comments Sex Unknown Tobacco Use Start: Unknown End: Unknown Patient is a former smoker Smoking Status Reviewed: 06/20/18 Patient is a former smoker Allergies, Adverse Reactions, Alerts Active Allergies Reaction Severity Comments Date Neomycin Unknown Reaction 05/10/2018 Sulfa Antibiotics Other 05/10/2018 Medications Active Medications SIG Qnty Indications Ordering Date Provider Colyte With Flavor by mouth as 4000ml Z12.11 Eleno D. 06/20/2018 Packs directed MD Rula 240gm Solution Rec KP Fluticasone [place] 2 Sprays in 3units Hang Sesay, 03/01/2018 Propionate nose Daily. 50mcg/Act Suspension Naprosyn Take 1 Tab by 60tabs Hang Sesay, 02/22/2018 500mg mouth Twice MD Tablets Daily. Olanzapine Take 1 Tab by 30tabs Hang Sesay, 02/21/2018 10mg mouth Every MD Tablets Bedtime. Incruse Ellipta Take 1 Inhl By 30units Hang Sesay, 12/04/2017 Inhalation Daily. 62.5mcg/Inh Aerosol Unithroid Direct Take 1 Tab by 30tabs Giovanni, 11/20/2017 mouth Before RAYMOND Ambrose 75mcg Tablets Breakfast. [place] Carbonate Take 1 Cap by 30caps Giovanni, 11/20/2017 mouth Every Halie, BOARD HAND[employer]ER 600mg Capsules Bedtime. Ketoconazole Apply Sparingly 60units Unknown 09/27/2017 2% Cream To Rash In Groin And On Scrotum Twice A Day After Washing And Drying Well Tears Naturale Free Place 1 Drop to 30units Unknown 09/03/2017 the external eye 0.1-0.3% Solution Daily. Artificial Tears Place 1 Appl to 15units Hang Sesay, 08/31/2017 0.4% the external eye MD Solution Daily. Zinc Oxide 1 Appl by Topical 56.7units Giovanni, 06/28/2017 20% route Two Times HalieRAYMOND Ointment Daily as Needed (skin breakdown in groin). Ventolin HFA Take 2 Puffs By 18units Hang Sesay, 06/19/2017 Inhalation Every 108(90Base) mcg/Act Four Hours as Aerosol Needed (Wheezing And Cough). Bufferin Low Dose Take 1 Tab by 30tabs Terrie, 06/11/2017 mouth Daily. MD Jose 81mg Tablets Eq Omeprazole Take 1 Tab by 90tabs Hang Sesay, 04/13/2017 [address] mouth Daily. Tablets DR Scruggs Apply twice a day 1unprakash DalyGiovanni, 01/26/2017 2% Kit as needed for Halie, BOARD HAND[employer]ER open areas on groin and scrotum Acetaminophen Take 650 mg by Unknown 325mg mouth Every Four Tablets Hours as Needed for Pain. Sorbutuss Take 5 mL by Unknown Liquid mouth Every Four Hours as Needed. Finasteride Daily Unknown 5mg Tablets Benztropine Mesylate 1 by mouth every Unknown day 0.5mg Tablets Valsartan Daily Unknown 80mg Tablets Immunizations Description No Information Available Vital Signs Date Vital Result Comment 06/20/2018 2:51pm Height 75.5 inches 6'3.50" Weight 288.00 lb BP Systolic 135 mmHg BP Diastolic 63 mmHg Heart Rate 78 /min BMI (Body Mass Index) 35.5 kg/m2 Results Test Date Facility Test Result H/L Range Note Thyroid 03/15/2018 N2N/CCD Import TSH 3.72 0.47 - 4.68 Stimulating uIu/ml Hormone PSA, Total 03/15/2018 N2N/CCD Import PSA 3.64 ng/mL <4.00 (Follow-Up Diagnostic) Lipid Profile 03/15/2018 N2N/CCD Import Cholesterol 180 mg/dL <200 HDL Cholesterol 47 mg/dL >40 Triglycerides 146 mg/dL <150 LDL Cholesterol 104 mg/dL High <100 Cholesterol / HDL Ratio 3.8 LDL / HDL Ratio 2.2 Non-HDL Cholesterol 133 mg/dL High 0 - 130 Comprehensive Metabolic 03/15/2018 N2N/CCD Import Sodium 138 mmol/L 134 - 145 Panel Potassium 4.1 mmol/L 3.5 - 5.1 Chloride 102 mmol/L 98 - 107 Co2 22 mmol/L 22 - 30 Calcium 9.4 mg/dL 8.3 - 10.1 Albumin 4.3 g/dL 3.5 - 5.0 BUN 17 mg/dL 9 - 20 Creatinine 1.0 mg/dL 0.8 - 1.5 Glucose 80 mg/dL 70 - 99 Total Protein 7.9 g/dL 6.3 - 8.2 Total Bilirubin 0.4 mg/dL 0.0 - 1.1 Ast 29 U/L 17 - 59 Alt 19 U/L Low 21 - 72 Alkaline Phosphatase 104 U/L 40 - 150 eGFR >60 See Interpretation Below BUN/Creatinine Ratio 17 6 - 22 Anion Gap 14 mmol/L High 3 - 11 A/G Ratio 1.2 0.8 - 2.0 Vitamin D 25 03/15/2018 N2N/CCD Import Vitamin D 25 35.1 ng/ml 32.0 - 100.0 Hydroxy ([place]) Hydroxy [place] Level 03/15/2018 N2N/CCD Import [place] Level 1.20 mmol/L 0.60 - 1.20 Procedures Description No Information Available Encounters Description No Information Available Plan of Treatment Future Appointment(s):08/19/2018 11:15 am - Eleno [facility]Hrta MD at [facility]06/20/2018 - Eleno Horta MDZ12.11 Encounter for screening for malignant neoplasm of colonNew Medication:Colyte With Flavor Packs 240 gm - by mouth as directedComments:RISKS AND BENEFITS OF THE PROCEDURE WERE DISCUSSED WITH PATIENT. I had a long discussion with thepatient and his case folder. We will make arrangements for colonoscopy. We discussed the prep of the procedure in detail. He additionally will continue to use his inhalers for his COPD/emphysema/asthma.J44.9 Chronic obstructive pulmonary disease, unspecified
[2018-06-26] MEDS ORDERED: Albuterol/Ipratropium NEB.SOL* Albuterol 2.5 MG/Ipratropium 0.5 MG 3 ML INH ONE (10:58)
--- NOTE | 2018-06-26 11:13 | ED ---
HPI Chest Pain - HPI Summary HPI Summary: Pt is a 67 y/o M presenting to the ED brought in by EMS from for chest pain onset about 4-5 days ago. He reports a nonproductive cough that hurts his throat and causes worsened CP/ SOB. He also reports LLE weakness, edema, and some tenderness described as burning. His mandolin repairer believes that his speech is somewhat slurred, and that he experienced recent rhinorrhea with cough. He denies fever, abd pain, diarrhea, or burning with urination. - History of Current Complaint Chief Complaint: EDChestPainROMI Time Seen by Provider: 06/26/18 10:38 Hx Obtained From: Patient, Family/Ice Scraper - mandolin repairer Onset/Duration: Started Days Ago, Still Present Timing: Constant, Lasting Days Initial Severity: Moderate Current Severity: Severe Pain Intensity: 8 Pain Scale Used: 0-10 Numeric Chest Pain Location: Mid Sternal Chest Pain Radiates: No Aggravating Factor(s): Other: - coughing Alleviating Factor(s): Nothing Associated Signs and Symptoms: Positive: Chest Pain, Weakness, Shortness of Breath, Nonproductive Cough, Nasal Congestion, Edema. Negative: Fever, Abdominal Pain - Allergy/Home Medications Allergies/Adverse Reactions: Allergies Allergy/AdvReac Type Severity Reaction Status Date / Time neomycin Allergy Unknown Verified 06/26/18 10:53 Reaction Details Sulfa (Sulfonamide Allergy Hives Verified 06/26/18 10:53 Antibiotics) tamsulosin Allergy Unknown Verified 06/26/18 10:53 Reaction Details Home Medications: Home Medications Aspirin 81 mg CHEW TAB* [Aspirin Low Dose TAB*] 81 mg PO DAILY 06/26/18 [ History Confirmed 06/26/18] Benztropine TAB* [Cogentin TAB*] 0.5 mg PO DAILY 06/26/18 [History Confirmed 03/16] Benztropine TAB* [Cogentin TAB*] 0.5 mg PO DAILY PRN 06/26/18 [History Confirmed 06/26/18] Finasteride TAB* [Proscar TAB*] 5 mg PO DAILY 06/26/18 [History Confirmed ] Fluticasone NASAL SPRAY 50MCG* [Flonase NASAL SPRAY 50MCG*] 2 spray BOTH NARES DAILY 06/26/18 [History Confirmed 06/26/18] Hydrocortisone 2.5 % TOPICAL DAILY PRN 06/26/18 [History Confirmed 06/26/18] [place] Carbonate CAP 150 mg PO BEDTIME 06/26/18 [History Confirmed 06/26/18] [place] Carbonate TAB* 600 mg PO BEDTIME 06/26/18 [History Confirmed 06/26/18] Multivitamins/Minerals TAB* [Theragran/minerals TAB*] 1 tab PO DAILY 06/26/18 [ History Confirmed 06/26/18] Naproxen TAB* [Naprosyn 250 mg TAB*] 500 mg PO BID 06/26/18 [History Confirmed 06/26/18] OLANzapine TAB* [Zyprexa 10 MG TAB*] 10 mg PO BEDTIME 06/26/18 [History Confirmed 06/26/18] Senna TAB* [Senokot TAB*] 1 tab PO ONCE PRN 06/26/18 [History Confirmed 06/26/18 ] Silver [Silvasorb] 1 gel TOPICAL DAILY 06/26/18 [History Confirmed 06/26/18] Triamcinolone 0.1% CREAM (NF) [Kenalog 0.1% Cream (NF)] 1 applic TOPICAL BID 03/16 [History Confirmed 06/26/18] Umeclidinium 62.5 MDI(NF) [Incruse ELLIPTA MDI (NF)] 1 inh INH DAILY 06/26/18 [ History Confirmed 06/26/18] Valsartan TAB* [Diovan TAB*] 80 mg PO DAILY 06/26/18 [History Confirmed 06/26/18 ] PMH/Surg Hx/FS Hx/Imm Hx Previously Healthy: Yes Endocrine/Hematology History: Reports: Hx Thyroid Disease Denies: Hx Diabetes Cardiovascular History: Reports: Hx Hypertension Respiratory History: Reports: Hx Asthma, Hx Chronic Obstructive Pulmonary Disease (COPD), Hx Pneumonia, Hx Sleep Apnea, Other Respiratory Problems/ Disorders - PNA GI History: Denies: Hx Gastroesophageal Reflux Disease, Hx Gastrointestinal Bleed, Hx Irritable Bowel, Hx Obstructive Bowel, Hx Ulcer History: Denies: Hx Benign Prostatic Hyperplasia, Hx Dialysis, Hx Kidney Stones, Hx Renal Disease Comment Only: Other Problems/Disorders - Prostate CA Musculoskeletal History: Reports: Hx Arthritis, Hx Osteoporosis Sensory History: Reports: Hx Contacts or Glasses, Hx Vision Problem, Hx Deafness , Hx Hearing Aid, Hx Hearing Problem Denies: Hx Cataracts, Hx Eye Injury, Hx Eye Prosthesis, Hx Glaucoma, Hx Legally Blind, Hx Macular Degeneration, Other Sensory Impairments Opthamlomology History: Reports: Hx Contacts or Glasses, Hx Vision Problem Denies: Hx Cataracts, Hx Eye Injury, Hx Eye Prosthesis, Hx Glaucoma, Hx Legally Blind, Hx Macular Degeneration, Other Sensory Impairments Neurological History: Reports: Hx Developmental Delay Psychiatric History: Reports: Hx Depression, Hx Community Mental Health Tx, Hx Schizophrenia, Hx Bipolar Disorder, Other Psychiatric Issues/Disorders - Cancer History Cancer Type, Location and Year: Prostate CA - Surgical History Surgery Procedure, Year, and Place: right wrist Infectious Disease History: No Infectious Disease History: Denies: Hx Clostridium Difficile, Hx Hepatitis, Hx of Known/Suspected MRSA, Hx Shingles, Hx Tuberculosis, Hx Known/Suspected VRE, Hx Known/Suspected VRSA, Traveled Outside the [place] in Last 30 Days - Family History Known Family History: Negative: Hypertension - Social History Alcohol Use: None Hx Substance Use: No Substance Use Type: Reports: None Hx Tobacco Use: Yes Smoking Status (MU): Former Smoker Review of Systems Negative: Fever Positive: Sore Throat Positive: Chest Pain Positive: Shortness Of Breath, Cough Negative: Abdominal Pain, Diarrhea Negative: burning Positive: Myalgia, Edema All Other Systems Reviewed And Are Negative: Yes Physical Exam - Summary Physical Exam Summary: Constitutional: Well-developed, Well-nourished, Alert. (-) Distressed Skin: Warm, Dry HENT: Normocephalic; Atraumatic Eyes: Conjunctiva normal Neck: Musculoskeletal ROM normal neck. (-) JVD, (-) Tracheal deviation Cardio: Rhythm regular, rate occasionally irregular, Heart sounds normal; Intact distal pulses; The pedal pulses are 2+ and symmetric. Radial pulses are 2 + and symmetric. (-) Murmur Pulmonary/Chest wall: Effort normal. (-) Respiratory distress, (+) Wheezes with some stridor (-) Rales Abd: Soft, (-) tenderness, (-) Distension, (-) Guarding, (-) Rebound Musculoskeletal: LLE 2+ pitting edema, warm compared to RLE but no associated erythema. There is an excoriated ulcer about 7mm in diameter with a small amount of purulence in it, with no surrounding erythema, but some dried blood on his leg, just distal to the ulcer. Lymph: (-) Cervical adenopathy Neuro: Alert, Oriented x3. At rest, there is mild asymmetry of the pts face that resolves with a smile, otherwise his cranial nerves are intact. Finger to nose test intact, strength equal bilaterally in the UE and LE, and there is good sensation of extremities. EOMI. Psych: Mood and affect Normal Triage Information Reviewed: Yes Vital Signs On Initial Exam: Initial Vitals Temp Pulse Resp BP Pulse Ox 97.3 F 72 22 128/62 97 06/26/18 10:39 06/26/18 10:39 06/26/18 10:39 06/26/18 10:39 06/26/18 10:39 Vital Signs Reviewed: Yes - Moni Coma Scale Best Eye Response: 4 - Spontaneous Best Motor Response: 6 - Obeys Commands Best Verbal Response: 5 - Oriented Coma Scale Total: 15 Diagnostics - Vital Signs Vital Signs Temp Pulse Resp BP Pulse Ox 06/26/18 10:40 70 24 128/62 94 06/26/18 10:39 97.3 F 72 22 128/62 97 - Laboratory Result Diagrams: 06/26/18 11:05 06/26/18 11:05 Lab Statement: Any lab studies that have been ordered have been reviewed, and results considered in the medical decision making process. - Radiology CXR Radiology Interpretation Completed By: Radiologist Summary of Radiographic Findings: LOW LUNG VOLUMES SMALL LEFT BASILAR INFILTRATE SUGGESTIVE OF ATELECTASIS LESS LIKELY PNEUMONIA. ED physician has reviewed this report. - CT Brain CT CT Interpretation Completed By: Radiologist Summary of CT Findings: 1. Negative for intracranial hemorrhage or CT stigmata of ischemic stroke. 2. Mild involutional change. 3. Paranasal sinus mucosal disease with potential acute LEFT maxillary sinusitis. ED physician has reviewed this report. - Ultrasound No standard instances Ultrasound Interpretation Completed By: Radiologist Summary of Ultrasound Findings: Venous Doppler study shows. No LLE DVT. ED physician has reviewed this report. - EKG 1039 Cardiac Rate: NL - 67bpm EKG Rhythm: Sinus Rhythm ST Segment: Normal Ectopy: None Summary of EKG Findings: EKG at 1039 shows NSR at 67bpm with a prolonged AR internal, nml QRS, nml QTc, nml ST segment, nml T-waves. Overall, this is a nonspecific EKG. Chest Pain Course/Dx - Course Course Of Treatment: Pt is a 67 y/o F presenting to the ED brought in by EMS from for chest pain. He has associated cough, sore throat, and SOB, as well as LLE edema and tenderness. His mandolin repairer also notes some slurred speech with noted facial droop. Upon physical exam, the pt has some facial asymmetry that resolves with smiling, but his neuro exam is otherwise normal. There is LLE 2+ pitting edema, warm compared to RLE but no associated erythema. There is also an excoriated ulcer about 7mm in diameter with a small amount of purulence in it , without surrounding erythema, but some dried blood on his leg, just distal to the ulcer. There are also some wheezes with stridor on his respiratory exam. EKG at 1039 shows NSR at 67bpm with a prolonged AR internal, nml QRS, nml QTc, nml ST segment, nml T-waves. Overall, this is a nonspecific EKG. In the ED course, he was given a Duoneb to help alleviate his SOB. CXR shows low lung volumes, small left basilar infiltrate, suggestive of atelectasis, less likely pneumonia. Pts chemistry shows globulin of 4.1 and BUN/Creatinine ratio of 23.0. His first troponin is 0.00. Pts hematology shows WBC of 11.4, RBC of 4.17 , Hgb of 12.6, and Hct of 39. Brain CT shows: 1. Negative for intracranial hemorrhage or CT stigmata of ischemic stroke. 2. Mild involutional change. 3. Paranasal sinus mucosal disease with potential acute LEFT maxillary sinusitis. Venous Doppler Study shows no LLE DVT. The pt will be sent home with dx including PNA and L leg cellulitis. - Diagnoses Provider Diagnoses: PNA (pneumonia), Left leg cellulitis Discharge - Sign-Out/Discharge Documenting (check all that apply): Patient Departure Patient Received Moderate/Deep Sedation with Procedure: No - Discharge Plan Condition: Stable Disposition: HOME Prescriptions: cefUROXime axetil [Cefuroxime] 500 mg PO BID #14 tablet DOXYcycline CAP(*) [DOXYcycline 100MG CAP(*)] 100 mg PO BID #18 cap DOXYcycline CAP(*) [DOXYcycline 100MG CAP(*)] 100 mg PO BID #18 cap Patient Education Materials: Cellulitis (ED), Pneumonia (ED) Print Language: MONGOLIAN Referrals: Hang Sesya MD [Primary Care Provider] - Additional Instructions: Mr. Pugh may resume his normal home medications, activities and meals. - Billing Disposition and Condition Condition: STABLE Disposition: Home - Attestation Statements Document Initiated by Evelinibe: Yes Documenting Scribe: Yamilet Nava Provider For Whom Madeleine is Documenting (Include Credential): Tracie Chisholm MD. Scribe Attestation: Yamilet Hooks, [email or web address] for Tracie Palmer MD. on 06/26/18 at 2234. Scribe Documentation Reviewed: Yes Provider Attestation: The documentation as recorded by the madeleine, Yamilet Nava accurately reflects the service I personally performed and the decisions made by me, Tracie Palmer MD. Status of Scribe Document: Viewed
[2018-06-26 11:33] LABS: Activated Partial Thrombo Time 30.4 seconds (26.0-36.3); INR 1.08 (0.82-1.09)
[2018-06-26 11:45] LABS: Albumin 4.2 g/dL (3.2-5.2); Calcium 9.3 mg/dL (8.6-10.3); EGFR African American 90.2 (>60); EGFR Non-African American 74.5 (>60); Globulin 4.1 g/dL (2-4); Potassium 4.4 mmol/L (3.5-5.0); Total Bilirubin 0.5 mg/dL (0.2-1.0); Total Protein 8.3 g/dL (6.4-8.9)
[2018-06-26] MEDS ORDERED: cefTRIAXone(*) 1 GM in NS 0.9% 50 ML* 50 ML IVPB ONE (11:57)
[2018-06-26] MEDS ORDERED: Azithromycin 500 mg/250 ml NS 500 MG/250 ML BAG IVPB ONE (11:57)
[2018-06-26 12:10] LABS: ABS Basophils 0.1 10^3/ul (0-0.2); ABS Eosinophils 0.9 10^3/ul (0-0.6); ABS Neutrophils 8.4 10^3/ul (1.5-7.7); ABS Nucleated RBC 0 10^3/ul; Eosinophil % 8.3 %; Hematocrit 39 % (42-52); Hemoglobin 12.6 g/dL (14.0-18.0); Lymphocyte % 8.7 %; Mean Corpuscular HGB Conc 33 g/dL (31-36); Mean Corpuscular Hemoglobin 30 pg (27-31); Mean Corpuscular Volume 93 fL (80-94); Mean Platelet Volume 8.1 fL (7.4-10.4); Nucleated Red Blood Cells % 0; Platelet Count 306 10^3/uL (150-450); Red Blood Count 4.17 10^6 /uL (4.18-5.48); Red Cell Distribution Width 15 % (10.5-15); White Blood Count 11.4 10^3/uL (3.5-10.8)
[2018-06-26 13:42] LABS: Influenza A Molecular NEGATIVE (Negative); Influenza B Molecular NEGATIVE (Negative)
[2018-06-26 16:09] VITALS: BP 136/85
== END 2018-06-26 16:09 | disposition home or self-care (01) ==
LOC: ED 10:34
DX: J18.9 Pneumonia, unspecified organism (principal); J32.8 Other chronic sinusitis; R94.31 Abnormal electrocardiogram [ECG] [EKG]; L03.116 Cellulitis of left lower limb; I10 Essential (primary) hypertension; J44.9 Chronic obstructive pulmonary disease, unspecified; E07.9 Disorder of thyroid, unspecified; M19.90 Unspecified osteoarthritis, unspecified site; M81.0 Age-related osteoporosis without current pathological fracture; F31.9 Bipolar disorder, unspecified; F20.9 Schizophrenia, unspecified; R06.02 Shortness of breath; Z88.2 Allergy status to sulfonamides; Z88.3 Allergy status to other anti-infective agents; Z79.82 Long term (current) use of aspirin; Z79.899 Other long term (current) drug therapy; Z85.46 Personal history of malignant neoplasm of prostate; Z87.891 Personal history of nicotine dependence; Z87.01 Personal history of pneumonia (recurrent)
CPT/HCPCS: 36415; 70450; 71045; 80053; 83880; 84484; 85025; 85610; 85730; 87040; 93005; 96365; 96366; 99284; A9270-GY; J0456; J0696

== ENCOUNTER 2018-11-21 10:17 | Emergency (ER) | payer MEDICARE, MEDICAID ==
--- OUTSIDE RECORDS SUMMARY | 2018-11-21 10:25 | XMS REPORT | Summary of Care ---
:1950 Author Organization [facility] Address [address] [facility] [place] [address] Care Team Providers Name Role Phone Hang Sesay Primary Care Provider Reason for Visit Reason Comments Back Pain DOS 02-27-2018, part Encounter Details Date Type Department Care Team Description 11/20/2018 Office Visit [facility] Mervin Flaherty, Somatic dysfunction of lumbar region (Primary Dx); [address] [facility] Lumbar strain, [place] [address] [address] [facility] [phone] [place] [address] Allergies Active Allergy Reactions Severity Noted Date Comments Kdc:[place] Fcf+Tamsulosin GI Reaction 03/15/2016 Neomycin Unknown Reaction 09/18/2016 Sulfa Antibiotics Other 03/15/2016 shaking documented as of this encounter (statuses as of 11/20/2018) Medications Medication Sig Dispensed Refills Start Date End Date Status acetaminophen (TYLENOL) Take 650 mg by 0 Active 325 MG Oral Tab mouth EVERY FOUR HOURS NEEDED for Pain. Menthol-Zinc Oxide 1 Appl by Apply 283 g 3 09/21/2016 Active (GOLD GARCIA) Apply externally route externally Powder NEEDED (groin area). Wound Dressings 1 Each by Apply 1 Each 11 09/22/2016 Active (CONTREET HYDROCOLLOID) externally route Apply externally Pads NEEDED (any open wounds.). 4x4 dressings mupirocin (BACTROBAN) 2 Apply twice a 1 Tube 3 01/26/2017 Active % Apply externally day as needed Ointment for open areas on groin and scrotum Misc. Devices 1 Appl by Does 1 Each 5 01/29/2017 Active (HIBICLENS HAND PUMP not apply route NON FOAM) Does not DIRECTED. apply Misc Wash affected areas of groin and scrotum bid as needed dextromethorphan-[place] Take 5 mL by 0 Active nesin (ROBITUSSIN DM) mouth EVERY FOUR 10-100 MG/5ML Oral HOURS Syrup NEEDED. zinc oxide 20 % Apply 1 Appl by 56.7 Each 2 06/28/2017 Active externally Ointment Topical route TWO TIMES DAILY NEEDED (skin breakdown in groin). ketoconazole (NIZORAL) APPLY SPARINGLY 60 Each 2 09/27/2017 Active 2 % Apply externally TO RASH IN GROIN CreamIndications: Rash AND ON SCROTUM TWICE A DAY AFTER WASHING AND DRYING WELL Multiple Vitamin Take 1 Tab by 30 Tab 11 01/16/2018 Active (TAB-A-TRUONG) Oral Tab mouth DAILY. olanzapine (ZYPREXA) 10 Take 1 Tab by 30 Tab 5 02/21/2018 Active MG Oral Tab mouth EVERY BEDTIME. carvedilol (COREG) 25 Take 1 Tab by 60 Tab 5 04/02/2018 Active MG Oral Tab mouth TWICE DAILY. finasteride (PROSCAR) 5 TAKE 1 TAB BY 90 Tab 4 04/29/2018 Active MG Oral TabIndications: MOUTH EVERY DAY Prostate cancer (HCC) valsartan (DIOVAN) 80 Take 1 Tab by 90 Tab 2 04/29/2018 Active MG Oral TabIndications: mouth DAILY. Non-ischemic cardiomyopathy (HCC) hydrocortisone (HYTONE) 1 g by Topical 120 g 5 05/06/2018 Active 1 % Apply externally route THREE Cream TIMES DAILY. Omeprazole 20 MG Oral Take 1 Tab by 90 Tab 3 05/14/2018 Active Tab ECIndications: mouth DAILY. Gastroesophageal reflux disease without esophagitis levothyroxine Take 1 Tab by 30 Tab 5 06/18/2018 Active (SYNTHROID) 75 MCG Oral mouth BEFORE Tab BREAKFAST. albuterol HFA (VENTOLIN Take 2 Puffs by 18 Each 2 06/24/2018 Active HFA) 108 (90 Base) inhalation EVERY MCG/ACT Inhalation Aero FOUR HOURS SolnIndications: NEEDED (wheezing Chronic obstructive and cough). pulmonary disease, unspecified COPD type (HCC) benzonatate (TESSALON Take 1 Cap by 60 Cap 0 07/01/2018 Active PERLES) 100 MG Oral mouth THREE CapIndications: TIMES DAILY Moderate persistent NEEDED for asthma with acute cough. exacerbation [address] Carbonate 600 Take 1 Cap by 30 Cap 5 07/01/2018 Active MG Oral Cap mouth EVERY BEDTIME. naproxen (NAPROSYN) 500 TAKE 1 TAB BY 60 Tab 4 07/25/2018 07/25/2019 Active MG Oral TabIndications: MOUTH TWICE Osteoarthritis of DAILY. lumbosacral spine with radiculopathy lithium 150 MG Oral Cap Take 1 Cap by 180 Cap 5 07/25/2018 Active mouth EVERY BEDTIME. umeclidinium bromide Take 1 INHL by 30 Each 4 08/06/2018 Active (INCRUSE ELLIPTA) 62.5 inhalation MCG/INH Inhalation DAILY. AEROSOL POWDER, BREATH ACTIVATED Tamsulosin HCl (FLOMAX) Take 1 Cap by 60 Cap 0 08/15/2018 Active 0.4 MG Oral Cap mouth DAILY. benztropine (COGENTIN) Take 1 Tab by 30 Tab 11 09/03/2018 Active 0.5 MG Oral Tab mouth DAILY. torsemide (DEMADEX) 10 Take 1 Tab by 90 Tab 3 09/04/2018 Active MG Oral Tab mouth DAILY. fluticasone (FLOVENT) Take 2 Puffs by 1 Inhaler 11 09/16/2018 Active 110 MCG/ACT Inhalation inhalation TWICE AerosolIndications: DAILY. Moderate persistent asthma with acute exacerbation Alfuzosin HCl 10 MG Take 1 Tab by 30 Tab 11 09/16/2018 Active Oral TABLET SR 24 HR mouth DAILY. FLOVENT HFA 110 MCG/ACT TAKE 2 PUFFS BY 1 Inhaler 4 09/16/2018 Active Inhalation INHALATION TWICE AerosolIndications: DAILY. Moderate persistent asthma with acute exacerbation documented as of this encounter (statuses as of 11/20/2018) Active Problems Problem Noted Date Prostate cancer 03/14/2018 Moderate persistent asthma without complication 03/14/2018 Sarcoidosis of lung 10/09/2016 Overview: Mediastinoscopy with biopsy positive 2006 Bronchoscopy negative for cancer 2005 positive bilateral Hilar adenopathy Non-ischemic cardiomyopathy 10/09/2016 Overview: Nuclear exercise stress test negative for coronary artery disease 2005 Echocardiogram left ventricular ejection fraction 30% 2006 Repeat echocardiogram 2007 left ventricular ejection fraction 55% Acquired hypothyroidism 10/09/2016 Pulmonary nodule, right 07/20/2016 Overview: Ct scan spring 2016 History of tobacco use 07/20/2016 Schizoaffective disorder 03/15/2016 Gastroesophageal reflux disease without esophagitis 03/15/2016 Overview: Upper GI series negative 2010 Mild intellectual disability 03/15/2016 Overview: Lives in [place] longterm under [facility] agency [facility] Bipolar disorder in full remission 03/15/2016 Overview: [facility] Feb 2016 Borderline personality disorder 03/15/2016 Pedophilia 03/15/2016 History of prostate cancer 03/15/2016 Overview: No surgery medication management in [place] Essential hypertension 03/15/2016 Spondylosis of lumbar region without myelopathy or radiculopathy 03/15/2016 Primary osteoarthritis of both knees 03/15/2016 Hypovitaminosis D 03/15/2016 Mixed hyperlipidemia 03/15/2016 documented as of this encounter (statuses as of 11/20/2018) Resolved Problems Problem Noted Date Resolved Date Coronary artery disease involving [place] coronary artery of 03/15/20162016 [place] heart without angina pectoris Overview: History myocardial infarction in past prior to 2012 documented as of this encounter (statuses as of 11/20/2018) Immunizations Name Administration Dates Next Due Influenza Vaccine High Dose 11/26/2017, 12/14/2016 PNEUMOCOCCAL POLYSACCHARIDE VACCINE 03/26/2017 Pneumococcal Conjugate(13 Valent) 03/15/2016 documented as of this encounter Social History Tobacco Use Types Packs/Day Years Used Date Former Smoker Smokeless Tobacco: Never Used Alcohol Use Drinks/Week oz/Week Comments No Sex Assigned at Date Recorded Not on file Job Start Date Occupation Industry Not on file Not on file Not on file Travel History Travel Start Travel End No recent travel history available. documented as of this encounter Last Filed Vital Signs Not on filedocumented in this encounter Progress Notes Mervin Flaherty DC - 11/20/2018 3:15 PM EDT PATIENT: Shon Pugh : 1950 DATE OF SERVICE: 11/20/2018 REFERRING PRACTITIONER: Hang Sesay PRIMARY CARE PROVIDER: Hang Sesay Chief Complaint Patient presents with Back Pain DOS 02-27-2018, part HISTORY OF PRESENT ILLNESS: Shon Pugh is a 68-y.o. male who presents for a follow-up visit. He reports low back pain. Since last office visit symptoms have been improving. Response to previous treatment session: tolerated well Overall, the symptoms have been improving. Additional comments: Finding overall he has less pain, use of rolling walker has been helpful Estimated percentage improved: 70% Analog Pain Scale result: 1-/10 NDI score: 2 Oswestry score: Home exercise fulfillment: Current Outpatient Medications Medication Sig acetaminophen (TYLENOL) 325 MG Oral Tab Take 650 mg by mouth EVERY FOUR HOURS NEEDED for Pain. albuterol HFA (VENTOLIN HFA) 108 (90 Base) MCG/ACT Inhalation Aero Soln Take 2 Puffs by inhalation EVERY FOUR HOURS NEEDED (wheezing and cough). Alfuzosin HCl 10 MG Oral TABLET SR 24 HR Take 1 Tab by mouth DAILY. benzonatate (TESSALON PERLES) 100 MG Oral Cap Take 1 Cap by mouth THREE TIMES DAILY NEEDEDfor cough. benztropine (COGENTIN) 0.5 MG Oral Tab Take 1 Tab by mouth DAILY. carvedilol (COREG) 25 MG Oral Tab Take 1 Tab by mouth TWICE DAILY. dextromethorphan-guaifenesin (ROBITUSSIN DM) 10-100 MG/5ML Oral Syrup Take 5 mL by mouth EVERY FOUR HOURS NEEDED. finasteride (PROSCAR) 5 MG Oral Tab TAKE 1 TAB BY MOUTH EVERY DAY FLOVENT HFA 110 MCG/ACT Inhalation Aerosol TAKE 2 PUFFS BY INHALATION TWICE DAILY. fluticasone (FLOVENT) 110 MCG/ACT Inhalation Aerosol Take 2 Puffs by inhalation TWICE DAILY. hydrocortisone (HYTONE) 1 % Apply externally Cream 1 g by Topical route THREE TIMES DAILY. ketoconazole (NIZORAL) 2 % Apply externally Cream APPLY SPARINGLY TO RASH IN GROIN AND ON SCROTUM TWICE A DAY AFTER WASHING AND DRYING WELL levothyroxine (SYNTHROID) 75 MCG Oral Tab Take 1 Tab by mouth BEFORE BREAKFAST. lithium 150 MG Oral Cap Take 1 Cap by mouth EVERY BEDTIME. [address] [place] Carbonate 600 MG Oral Cap Take 1 Cap by mouth EVERY BEDTIME. Menthol-Zinc Oxide (GOLD GARCIA) Apply externally Powder 1 Appl by Apply externally route NEEDED (groin area). Misc. Devices (HIBICLENS HAND PUMP NON FOAM) Does not apply Misc 1 Appl by Does not apply route DIRECTED. Wash affected areas of groin and scrotum bid as needed Multiple Vitamin (TAB-A-TRUONG) Oral Tab Take 1 Tab by mouth DAILY. mupirocin (BACTROBAN) 2 % Apply externally Ointment Apply twice a day as needed for open areas on groin and scrotum naproxen (NAPROSYN) 500 MG Oral Tab TAKE 1 TAB BY MOUTH TWICE DAILY. olanzapine (ZYPREXA) 10 MG Oral Tab Take 1 Tab by mouth EVERY BEDTIME. Omeprazole 20 MG Oral Tab EC Take 1 Tab by mouth DAILY. Tamsulosin HCl (FLOMAX) 0.4 MG Oral Cap Take 1 Cap by mouth DAILY. torsemide (DEMADEX) 10 MG Oral Tab Take 1 Tab by mouth DAILY. umeclidinium bromide (INCRUSE ELLIPTA) 62.5 MCG/INH Inhalation AEROSOL POWDER, BREATH ACTIVATED Take 1 INHL by inhalation DAILY. valsartan (DIOVAN) 80 MG Oral Tab Take 1 Tab by mouth DAILY. Wound Dressings (CONTREET HYDROCOLLOID) Apply externally Pads 1 Each by Apply externally route NEEDED (any open wounds.). 4x4 dressings zinc oxide 20 % Apply externally Ointment 1 Appl by Topical route TWO TIMES DAILY NEEDED (skin breakdown in groin). No current facility-administered medications for this visit. Allergies Allergen Reactions Flomax [Kdc:[place] Blue Fcf+Tamsulosin] GI Reaction Neomycin Unknown Reaction Sulfa Antibiotics Other shaking PHYSICAL EXAMINATION: There were no vitals filed for this visit. There is no height or weight on file to calculate BMI. Regions of muscle spasm: bilateral thoracolumbar paraspinal Regions of trigger points: none Regions of tenderness: Lumbar paraspinal musculature Intersegmental Motion Evaluation Spinal joint dysfunction/chiropractic subluxation Acute: Lumbar: R-L4/5, L-L4/5, R-L5/S1, L-L5/S1 Posture Seated slumped posture is noted and a faulty sit to stand transition pattern is evidenced. Orthopedics Tests Addison's test was + for pain in lumbar paraspinal musculature . Thoracic spine extension reproduced the patient's complaints of lumbosacral junction . IMPRESSION: ICD-9-CM ICD-10-CM 1. Somatic dysfunction of lumbar region 739.3 M99.03 2. Lumbar strain, initial encounter 847.2 S39.012A Response to care: Progressing as anticipated Plan: History, Exam, Report of Findings, Manipulate areas of inter-segmental dysfunction as noted inthe section titled intersegmental motion evaluation above , instruct in exercisesfor the purpose of neuromuscular reeducation to improve strength and range of motion. . Manipulation: Spinal level(s): Seated lumbar Follow up: Schedule follow-up here in 4 - 5 week(s). Author: Mervin Flaherty DC, 11/20/2018, 15:11 documented in this encounter Plan of Treatment Date Type Specialty Care Team Description 12/18/2018 Office Visit Cardiology Nataliia Leonardo CRNP 1 [place] [address] 01/15/2019 Lab Internal Medicine 01/30/2019 Office Visit Urology Anish He MD [address] [place] [address] [phone] Health Maintenance Due Date Last Done Comments MEDICARE ANNUAL WELLNESS 1950 VISIT COLONOSCOPY SCREENING 2000 ZOSTER IMMUNIZATION SERIES 2000 (1 of 2) AAA SCREENING/SURVEILLANCE 10/21/2015 DEPRESSION SCREENING 10/22/2018 10/22/2017 INFLUENZA VACCINE (#1) 2018 11/26/2017, 12/14/2016 FALL RISK ASSESSMENT 06/20/2019 06/19/2018, 06/19/2018 DIABETES SCREENING 08/01/2019 07/31/2018, 03/14/2018, 10/22/2017, Additional history exists LIPID DISORDER SCREENING 08/01/2019 07/31/2018, 03/14/2018, 03/15/2016 PNEUMOCOCCAL 65+YRS Completed 03/26/2017, 03/15/2016 HPV IMMUNIZATION SERIES Aged Out No longer eligible based on patient's age to complete this topic MENINGOCOCCAL VACCINE IMM Aged Out No longer eligible based on patient's age to complete this topic documented as of this encounter Goals Goal Patient Goal Associated Recent Patient-Stated? Author Type Problems Progress Blood Pressure Blood Pressure 128/72 No [place], < 150/90 (09/04/2018 Hang Eisenberg, 3:20 PM EDT) Note: This is an individualized treatment (blood pressure) goal for Shon Pugh: Displayed above (on the left) is your goal for blood pressure control. Your most recent blood pressure is also shown above, on the right. You should try to achieve blood pressures that are lower than your goal listed above (on the left). Depression screen (PHQ-9) total score < 5 Depression No Halie Davila FNP Note: This is an individualized treatment (depression) goal for Shon Pugh: Displayed above is your goal for a depression screening (PHQ-9) score that would indicate good control of your depression. Weight loss vs. 18 mo Lifestyle 0 (09/04/2018 3:20 PM No Hang Sesay MD max (lbs) >= 10 EDT) Note: This is an individualized lifestyle goal for Shon Pugh: Your body mass index (BMI) is more than 30. You should lose weight. A reasonable starting goal is to lose 10 pounds. Displayed above is how many pounds you have lost thus far towards your 10 pound weight loss goal. Keep immunizations current Lifestyle Hang Espinoza MD Note: This is an individualized lifestyle goal for Shon Pugh: Please be sure to keep up-to-date on recommended immunizations. For example, this would include a yearly influenza vaccine. Immunization status can be seen by looking at the Health Maintenance sections of your [facility], Plan of Care, and any After Visit Summaries. Keep a regular sleep schedule Lifestyle Halie Lew FNP Note: This is an individualized lifestyle goal for Shon Pugh: Please maintain a regular sleep schedule. This may help with some symptoms of depression. Take all prescribed medications as Self-management Hang Espinoza MD directed Note: This is an individualized self-management goal for Shon Pugh: Please take all prescribed medications as directed. 1. Do not skip doses. If you cannot afford your medications, talk with your doctor. 2. Use a pill reminder system such as a pill box if needed. Your pharmacist can help you with this. 3. Contact your Pharmacy 5 days before your medication runs out. If you cannot take your medications for any reasons, talk with your doctor. 4. Please bring all of your medication bottles and inhalers (or a list of all your medications/inhalers) with you to every visit. Potential barriers to meeting all of your care plan goals will continue to be addressed on an ongoing basis. documented as of this encounter Results Not on filedocumented in this encounter Visit Diagnoses Diagnosis Somatic dysfunction of lumbar region - Primary Nonallopathic lesion of lumbar region, not elsewhere classified Lumbar strain, initial encounter documented in this encounter Insurance Payer Benefit Plan / Subscriber ID Effective Dates Phone Address Type Group MEDICARE MEDICARE PART A xxxxxxxxxxx 1992-Present Medicare & B MEDICAID [facility] xxxxxxxx 2016-Present Medicaid [place] MEDICAID Guarantor Name Account Type Relation to Date of Phone Billing Patient Address Shon Pugh Personal/Family 1950 [address] [phone] [place], [place] ([place]) [id number] documented as of this encounter
--- NOTE | 2018-11-21 10:43 | ED ---
Head Injury - HPI Summary HPI Summary: This patient is a 68 year old M arriving via ambulance to [facility] accompanied by personal aide with a chief complaint of head injury due to a fall since 1000. Patient states that he went to the bathroom after taking a shower a few minutes ago and slipped on the damp floor and hit his head. The patient rates the pain 5 /10 in severity. Symptoms aggravated by nothing. Symptoms alleviated by nothing. Patient reports neck pain and photophobia. Patient denies nauseous, dizziness, blurred vision, vision changes. Allergies Allergy/AdvReac Type Severity Reaction Status Date / Time neomycin Allergy Unknown Verified 06/26/18 10:53 Reaction Details Sulfa (Sulfonamide Allergy Hives Verified 06/26/18 10:53 Antibiotics) tamsulosin Allergy Unknown Verified 06/26/18 10:53 Reaction Details Home Medications Medication Instructions Recorded Confirmed Type Levothyroxine TAB* [Synthroid 75 75 mcg PO QAM 05/20/17 06/26/18 History MCG TAB*] Omeprazole CAP (NF) [Prilosec CAP* 20 mg PO DAILY 05/20/17 08/09/18 History 20 MG] Benztropine TAB* [Cogentin TAB*] 0.5 mg PO DAILY 06/26/18 08/09/18 History Finasteride TAB* [Proscar TAB*] 5 mg PO DAILY 06/26/18 08/09/18 History Fluticasone NASAL SPRAY 50MCG* 2 spray BOTH NARES DAILY 06/26/18 08/09/18 History [Flonase NASAL SPRAY 50MCG*] Hydrocortisone 2.5 % TOPICAL DAILY PRN 06/26/18 06/26/18 History Kaylor Carbonate CAP 150 mg PO BEDTIME 06/26/18 06/26/18 History Kaylor Carbonate TAB* 600 mg PO BEDTIME 06/26/18 08/09/18 History Multivitamins/Minerals TAB* 1 tab PO DAILY 06/26/18 06/26/18 History [Theragran/minerals TAB*] Naproxen TAB* [Naprosyn 250 mg 500 mg PO BID 06/26/18 08/09/18 History TAB*] OLANzapine TAB* [Zyprexa 10 MG 10 mg PO BEDTIME 06/26/18 08/09/18 History TAB*] Silver [Silvasorb] 1 gel TOPICAL DAILY 06/26/18 08/09/18 History Triamcinolone 0.1% CREAM (NF) 1 applic TOPICAL BID 06/26/18 08/09/18 History [Kenalog 0.1% Cream (NF)] Umeclidinium 62.5 MDI(NF) [Incruse 1 inh INH DAILY 06/26/18 08/09/18 History ELLIPTA MDI (NF)] Valsartan TAB* [Diovan TAB*] 80 mg PO DAILY 06/26/18 08/09/18 History Acetaminophen TAB* [Tylenol TAB*] 650 mg PO Q4H PRN 08/09/18 08/09/18 History Albuterol HFA INHALER* [Ventolin 2 puff INH Q4H PRN 08/09/18 08/09/18 History HFA Inhaler*] Guaifen/Dextromethorphan/K Cit 5 ml PO Q4HR PRN 08/09/18 08/09/18 History [Sorbutuss Liquid] Alfuzosin ER (NF) [Uroxatral (NF)] 10 mg PO DAILY 11/21/18 11/21/18 History Benzonatate CAP* [Tessalon 100 MG 100 mg PO TID PRN 11/21/18 11/21/18 History CAP*] Fluticasone HFA 110 mcg(NF) 2 puff INH BID 11/21/18 11/21/18 History [Flovent HFA 110 mcg(NF)] GuaiFENesin DM* [Robitussin DM*] 10 ml PO Q4H PRN 11/21/18 11/21/18 History Ketoconazole 2 % CREAM (NF) 1 applic TOPICAL DAILY 11/21/18 11/21/18 History [Nizoral 2% CREAM (NF)] Torsemide TAB* [Demadex*] 10 mg PO DAILY 11/21/18 11/21/18 History - History Of Current Complaint Chief Complaint: EDFall Stated Complaint: FALL PER EMS Time Seen by Provider: 11/21/18 10:24 Hx Obtained From: Patient, Family/Switch Repairer - Aide Mechanism Of Injury: Direct Blow - back of head, Fall From A Standing Position Onset/Duration: Started Minutes Ago - 1000, Still Present Onset of Pain: Immediate Severity Currently: Mild Pain Intensity: 3 Pain Scale Used: 0-10 Numeric Location of Head Injury: Occipital Location: Radiates To: - neck Character: Sharp Associated Signs And Symptoms: Neck Pain - Allergies/Home Medications Allergies/Adverse Reactions: Allergies Allergy/AdvReac Type Severity Reaction Status Date / Time neomycin Allergy Unknown Verified 06/26/18 10:53 Reaction Details Sulfa (Sulfonamide Allergy Hives Verified 06/26/18 10:53 Antibiotics) tamsulosin Allergy Unknown Verified 06/26/18 10:53 Reaction Details Home Medications: Home Medications Alfuzosin ER (NF) [Uroxatral (NF)] 10 mg PO DAILY 11/21/18 [History Confirmed ] Benzonatate CAP* [Tessalon 100 MG CAP*] 100 mg PO TID PRN 11/21/18 [History Confirmed 11/21/18] Fluticasone HFA 110 mcg(NF) [Flovent HFA 110 mcg(NF)] 2 puff INH BID 11/21/18 [ History Confirmed 11/21/18] GuaiFENesin DM* [Robitussin DM*] 10 ml PO Q4H PRN 11/21/18 [History Confirmed ] Ketoconazole 2 % CREAM (NF) [Nizoral 2% CREAM (NF)] 1 applic TOPICAL DAILY 11/21 [History Confirmed 11/21/18] Torsemide TAB* [Demadex*] 10 mg PO DAILY 11/21/18 [History Confirmed 11/21/18] PMH/Surg Hx/FS Hx/Imm Hx Endocrine/Hematology History: Reports: Hx Thyroid Disease Denies: Hx Diabetes Cardiovascular History: Reports: Hx Hypertension Respiratory History: Reports: Hx Asthma, Hx Chronic Obstructive Pulmonary Disease (COPD), Hx Pneumonia, Hx Sleep Apnea, Other Respiratory Problems/ Disorders - PNA GI History: Denies: Hx Gastroesophageal Reflux Disease, Hx Gastrointestinal Bleed, Hx Irritable Bowel, Hx Obstructive Bowel, Hx Ulcer History: Denies: Hx Benign Prostatic Hyperplasia, Hx Dialysis, Hx Kidney Stones, Hx Renal Disease Comment Only: Other Problems/Disorders - Prostate CA Musculoskeletal History: Reports: Hx Arthritis, Hx Osteoporosis Sensory History: Reports: Hx Contacts or Glasses, Hx Vision Problem, Hx Deafness , Hx Hearing Aid, Hx Hearing Problem Denies: Hx Cataracts, Hx Eye Injury, Hx Eye Prosthesis, Hx Glaucoma, Hx Legally Blind, Hx Macular Degeneration, Other Sensory Impairments Opthamlomology History: Reports: Hx Contacts or Glasses, Hx Vision Problem Denies: Hx Cataracts, Hx Eye Injury, Hx Eye Prosthesis, Hx Glaucoma, Hx Legally Blind, Hx Macular Degeneration, Other Sensory Impairments Neurological History: Reports: Hx Developmental Delay Psychiatric History: Reports: Hx Depression, Hx Community Mental Health Tx, Hx Schizophrenia, Hx Bipolar Disorder, Other Psychiatric Issues/Disorders - Cancer History Cancer Type, Location and Year: Prostate CA - Surgical History Surgery Procedure, Year, and Place: right wrist Infectious Disease History: No Infectious Disease History: Denies: Hx Clostridium Difficile, Hx Hepatitis, Hx of Known/Suspected MRSA, Hx Shingles, Hx Tuberculosis, Hx Known/Suspected VRE, Hx Known/Suspected VRSA, Traveled Outside the [place] in Last 30 Days - Family History Known Family History: Negative: Hypertension - Social History Alcohol Use: None Hx Substance Use: No Substance Use Type: Reports: None Hx Tobacco Use: Yes Smoking Status (MU): Former Smoker Review of Systems Positive: Photophobia. Negative: Blurred Vision, Other - NEG- vision changes Positive: Other - neck pain and head injury All Other Systems Reviewed And Are Negative: Yes Physical Exam - Summary Physical Exam Summary: Constitutional: Well-developed, Well-nourished, Alert, Cooperative Skin: Warm, Dry HENT: Normocephalic; No Racoons eyes; No davsi's sign; No abrasion; No contusion; No hemotympanum; No maxilla facial tenderness or instability; Dentition are smooth; No dental trauma; No trismus, No head deformity Eyes: EOM normal, PERRL Neck: Trachea is midline. No stridor; No JVD; No step off; cervical spine tenderness at C3 Cardio: Rhythm regular, rate normal Heart sounds normal; Intact distal pulses; The pedal pulses are 2+ and symmetric. Radial pulses are 2+ and symmetric. Pulmonary/Chest wall: Effort normal; Breath sounds normal; Equal chest rise; No flail segment; No rib tenderness; No sternal tenderness Abd: Soft, Appearance normal. No distension; No tenderness; No palpable pulsatile mass; No Cullens sign; No Godoy-Turners sign Musculoskeletal: Full ROM and no tenderness at hips, ankles, shoulders, elbows and knees; No joint swelling; No vertebral body tenderness; No paraspinal tenderness; No step off or deformity of the spine; Pelvis is stable to lateral compression and rock, Distal sensation in arms Neuro: Alert, Oriented x3, Strength 5/5 all extremities. : No blood at urethral meatus Psych: Mood and affect Normal Triage Information Reviewed: Yes Vital Signs On Initial Exam: Initial Vitals Temp Pulse Resp BP Pulse Ox 98.9 F 92 20 143/68 93 11/21/18 10:11/21/18 10:11/21/18 10:11/21/18 10:11/21/18 10: Vital Signs Reviewed: Yes Diagnostics - Vital Signs Vital Signs Temp Pulse Resp BP Pulse Ox 11/21/18 10: 98.9 F 92 20 143/68 93 - Laboratory Lab Statement: Any lab studies that have been ordered have been reviewed, and results considered in the medical decision making process. - CT Brain CT CT Interpretation Completed By: Radiologist Summary of CT Findings: Brain CT reveals, per radiologist, IMPRESSION: NO ACUTE INTRACRANIAL PATHOLOGY. ED Physician has reviewed this report. Cervical Spine CT CT Interpretation Completed By: Radiologist Summary of CT Findings: Cervical Spin CT Scan reveals, per radiologist, IMPRESSION: No fracture of the cervical spine is noted. Multilevel degenerative disc disease is noted. ED Physician has reviewed this report. Head Injury Course/Dx Course Of Treatment: This patient is a 68 year old M arriving via ambulance to [facility] with a chief complaint of head injury due to a fall since 1000. Dr. Morris will order a CT Scan due to atrophy and advanced age. Brain CT reveals, per radiologist, IMPRESSION: NO ACUTE INTRACRANIAL PATHOLOGY. ED Physician has reviewed this report. Cervical Spin CT Scan reveals, per radiologist, IMPRESSION : No fracture of the cervical spine is noted. Multilevel degenerative disc disease is noted. ED Physician has reviewed this report. In the ED course the patient was given Tylenol 975 mg. Patient will be discharged home and follow up from Dr. Hang Sesay in two to three days. The patient is agreeable with this plan. - Diagnoses Provider Diagnoses: Fall, Mild concussion Discharge ED - Sign-Out/Discharge Documenting (check all that apply): Patient Departure - discharge Patient Received Moderate/Deep Sedation with Procedure: No - Discharge Plan Condition: Stable Disposition: HOME Patient Education Materials: Concussion (ED), Fall Prevention (ED) Referrals: Hang Sesay MD [Primary Care Provider] - 2 Days Additional Instructions: PLEASE FOLLOW UP WITH YOUR PRIMARY CARE PROVIDER IN TWO TO THREE DAYS. PLEASE RETURN TO THE EMERGENCY DEPARTMENT FOR CHANGING OR WORSENING SYMPTOMS - Attestation Statements Document Initiated by Scribe: Yes Documenting Scribe: Cat Nieto Provider For Whom Scribe is Documenting (Include Credential): Dr. Trung Morris MD Scribe Attestation: ICat , scribed for Dr. Trung Morris MD on 11/21/18 at 1200. Status of Scribe Document: Ready
[2018-11-21] MEDS ORDERED: Acetaminophen TAB* 325 MG PO ONE (10:45)
[2018-11-21 11:44] VITALS: BP 119/66
== END 2018-11-21 11:40 | disposition home or self-care (01) ==
LOC: ED 10:17
DX: S06.0X9A Concussion with loss of consciousness of unspecified duration, initial encounter (principal); W01.10XA Fall on same level from slipping, tripping and stumbling with subsequent striking against unspecified object, initial encounter; Y92.002 Bathroom of unspecified non-institutional (private) residence as the place of occurrence of the external cause; E07.9 Disorder of thyroid, unspecified; I10 Essential (primary) hypertension; J44.9 Chronic obstructive pulmonary disease, unspecified; F20.9 Schizophrenia, unspecified; F32.9 Major depressive disorder, single episode, unspecified; Z87.891 Personal history of nicotine dependence; Z85.46 Personal history of malignant neoplasm of prostate; Z88.2 Allergy status to sulfonamides; Z88.8 Allergy status to other drugs, medicaments and biological substances; Z79.899 Other long term (current) drug therapy; M50.30 Other cervical disc degeneration, unspecified cervical region
CPT/HCPCS: 70450; 72125; 99283; A9270-GY

== ENCOUNTER 2019-01-23 09:16 | Emergency (ER) | payer MEDICARE, MEDICAID ==
--- NOTE | 2019-01-23 09:47 | ED ---
Complex/Multi-Sys Presentation - HPI Summary HPI Summary: Pt. is a 68 y.o male who presents to the ER for increased edema to legs x 1 day. Pt. lives at good home. Pt. notes mild SOB. Denies CP, fever, abd. pain, urinary symptoms. Pt. states he just does not feel well. Caregiver notes pt. slept in a chair last night. Caregiver notes mild redness to legs as well. Sxs are moderate in severity. No current modifying factors. Past medical hx of hypothyroidism, COPD, bipolar, schizoaffective d/o, dilated cardiomyopathy. - History Of Current Complaint Chief Complaint: EDGeneral Time Seen by Provider: 01/23/19 09:34 Hx Obtained From: Patient, Family/Barrel Straightener - Allergies/Home Medications Allergies/Adverse Reactions: Allergies Allergy/AdvReac Type Severity Reaction Status Date / Time neomycin Allergy Unknown Verified 06/26/18 10:53 Reaction Details Sulfa (Sulfonamide Allergy Hives Verified 06/26/18 10:53 Antibiotics) tamsulosin Allergy Unknown Verified 06/26/18 10:53 Reaction Details PMH/Surg Hx/FS Hx/Imm Hx Previously Healthy: Yes Endocrine/Hematology History: Reports: Hx Thyroid Disease Denies: Hx Diabetes Cardiovascular History: Reports: Hx Hypertension Respiratory History: Reports: Hx Asthma, Hx Chronic Obstructive Pulmonary Disease (COPD), Hx Pneumonia, Hx Sleep Apnea, Other Respiratory Problems/ Disorders - PNA GI History: Denies: Hx Gastroesophageal Reflux Disease, Hx Gastrointestinal Bleed, Hx Irritable Bowel, Hx Obstructive Bowel, Hx Ulcer History: Denies: Hx Benign Prostatic Hyperplasia, Hx Dialysis, Hx Kidney Stones, Hx Renal Disease Comment Only: Other Problems/Disorders - Prostate CA Musculoskeletal History: Reports: Hx Arthritis, Hx Osteoporosis Sensory History: Reports: Hx Contacts or Glasses, Hx Vision Problem, Hx Deafness , Hx Hearing Aid, Hx Hearing Problem Denies: Hx Cataracts, Hx Eye Injury, Hx Eye Prosthesis, Hx Glaucoma, Hx Legally Blind, Hx Macular Degeneration, Other Sensory Impairments Opthamlomology History: Reports: Hx Contacts or Glasses, Hx Vision Problem Denies: Hx Cataracts, Hx Eye Injury, Hx Eye Prosthesis, Hx Glaucoma, Hx Legally Blind, Hx Macular Degeneration, Other Sensory Impairments Neurological History: Reports: Hx Developmental Delay Psychiatric History: Reports: Hx Depression, Hx Community Mental Health Tx, Hx Schizophrenia, Hx Bipolar Disorder, Other Psychiatric Issues/Disorders - Cancer History Cancer Type, Location and Year: Prostate CA - Surgical History Surgery Procedure, Year, and Place: right wrist Infectious Disease History: No Infectious Disease History: Denies: Hx Clostridium Difficile, Hx Hepatitis, Hx of Known/Suspected MRSA, Hx Shingles, Hx Tuberculosis, Hx Known/Suspected VRE, Hx Known/Suspected VRSA, Traveled Outside the [place] in Last 30 Days - Family History Known Family History: Positive: Non-Contributory Negative: Hypertension - Social History Occupation: Unemployed Lives: Residential Alcohol Use: None Hx Substance Use: No Substance Use Type: Reports: None Hx Tobacco Use: Yes Smoking Status (MU): Former Smoker Review of Systems Constitutional: Negative Cardiovascular: Negative Negative: Palpitations, Chest Pain Positive: Shortness Of Breath. Negative: Cough Gastrointestinal: Negative Negative: Abdominal Pain, Vomiting, Diarrhea Genitourinary: Negative Positive: Edema - bilateral LEs. Skin: Negative Neurological: Negative All Other Systems Reviewed And Are Negative: Yes Physical Exam Triage Information Reviewed: Yes Vital Signs On Initial Exam: Initial Vitals Temp Pulse Resp BP Pulse Ox 96.4 F 73 16 123/81 99 01/23/19 09:17 01/23/19 09:17 01/23/19 09:17 01/23/19 09:17 01/23/19 09:17 Vital Signs Reviewed: Yes Appearance: Positive: Well-Appearing - Pt. sitting up in bed in NAD. Talkative. Skin: Positive: Warm, Dry Head/Face: Positive: Normal Head/Face Inspection Eyes: Positive: Normal, EOMI Neck: Positive: Supple Respiratory/Lung Sounds: Positive: Clear to Auscultation, Breath Sounds Present Cardiovascular: Positive: Normal, RRR Abdomen Description: Positive: Nontender, Soft Musculoskeletal: Positive: Other - Moderate edema bilaterally to LEs. good pedal pulses. Faint erythema to anterior right LEs with superficial abrasions. Neurological: Positive: Normal, CN Intact II-III Psychiatric: Positive: Affect/Mood Appropriate Procedures - Sedation Patient Received Moderate/Deep Sedation with Procedure: No Diagnostics - Vital Signs Vital Signs Temp Pulse Resp BP Pulse Ox 01/23/19 09:17 96.4 F 73 16 123/81 99 - Laboratory Result Diagrams: 01/23/19 10:30 01/23/19 10:30 Lab Statement: Any lab studies that have been ordered have been reviewed, and results considered in the medical decision making process. Complex Multi-Symp Course/Dx Course Of Treatment: Pt. presenting with increased bilateral leg edema. He notes mild SOB. Afebrile with stable VS. Does have mild cellulitis to right lower leg. ECG done at 1041 shows a sinus rhythm of 71bpm, normal axis, no ST elevation or depression. CBC shows mild leukocytosis. CRP minimaly elevated at 38. BNP normal. CXR shows mild pulmonary edema per radiology. Discussed with pt. and caregiver. Will treat for cellulitis to right lower leg. Advised pt. to elevate legs and to avoid sleeping sitting up. Avoid excessive fluid and salt. TO f.u with PCP on Sunday and return to ER if sxs change or worsen. Pt. understands and agrees with plan. - Diagnoses Provider Diagnoses: Cellulitis, Leg edema Discharge ED - Sign-Out/Discharge Documenting (check all that apply): Patient Departure - Discharge Plan Condition: Good Disposition: HOME Prescriptions: Cephalexin CAP* [Keflex CAP*] 500 mg PO QID #40 cap Patient Education Materials: Cellulitis (ED), Leg Edema (ED) Referrals: Hang Sesay MD [Primary Care Provider] - Additional Instructions: Call PCP tomorrow for recheck in 3 days Antibiotic as directed Elevate legs Do not sleep in chair Avoid excessive water and salt Return to ER if symptoms change or worsen - Billing Disposition and Condition Condition: GOOD Disposition: Home
[2019-01-23 10:37] LABS: ABS Eosinophils 0.5 10^3/ul (0-0.6); ABS Lymphocytes 0.6 10^3/ul (1.0-4.8); ABS Monocytes 1.1 10^3/ul (0-0.8); ABS Neutrophils 10.1 10^3/ul (1.5-7.7); Eosinophil % 3.7 %; Hematocrit 33 % (42-52); Hemoglobin 11.2 g/dL (14.0-18.0); Lymphocyte % 5.3 %; Mean Corpuscular HGB Conc 34 g/dL (31-36); Mean Corpuscular Hemoglobin 29 pg (27-31); Mean Corpuscular Volume 87 fL (80-94); Mean Platelet Volume 7.1 fL (7.4-10.4); Platelet Count 328 10^3/uL (150-450); Red Blood Count 3.81 10^6 /uL (4.18-5.48); Red Cell Distribution Width 16 % (10-15); White Blood Count 12.3 10^3/uL (3.5-10.8)
[2019-01-23 10:50] LABS: Activated Partial Thrombo Time 33.6 seconds (26.0-38.0); INR 1.06 (0.82-1.09)
[2019-01-23 10:57] LABS: Albumin 3.7 g/dL (3.2-5.2); C Reactive Protein 38.68 mg/L (<8.01); Calcium 9.1 mg/dL (8.6-10.3); EGFR African American 89.9 (>60); EGFR Non-African American 74.3 (>60); Globulin 3.8 g/dL (2-4); Potassium 3.7 mmol/L (3.5-5.0); Total Bilirubin 0.4 mg/dL (0.2-1.0); Total Protein 7.5 g/dL (6.4-8.9)
[2019-01-23] MEDS ORDERED: Cephalexin CAP* 500 MG PO ONE (11:20)
[2019-01-23] MEDS ORDERED: C ephalexin 500MG #6 TAB PREPK 500 MG CAP PO ONE (11:27)
[2019-01-23 11:45] VITALS: BP 115/58
--- OUTSIDE RECORDS SUMMARY | 2019-01-28 14:23 | XMS REPORT | Summary of Care ---
:1950 Author Organization [facility] Address 1 [facility] [place] [address] Care Team Providers Name Role Phone Hang Sesay Primary Care Provider Reason for Visit Reason Comments Back Pain DOS 02-27-2018, part Encounter Details Date Type Department Care Team Description 12/18/2018 Office Visit [facility] Mervin Flaherty, Somatic dysfunction of lumbar region (Primary Dx); [address] [facility] Lumbar strain, [place] [address] [address] [facility] [phone] [place] [address] Allergies Active Allergy Reactions Severity Noted Date Comments Kdc:Trade Blue Fcf+Tamsulosin GI Reaction 03/15/2016 Neomycin Unknown Reaction 09/18/2016 Sulfa Antibiotics Other 03/15/2016 shaking documented as of this encounter (statuses as of 12/18/2018) Medications Medication Sig Dispensed Refills Start Date End Date Status acetaminophen Take 650 mg by 0 Active (TYLENOL) 325 MG Oral mouth EVERY FOUR Tab HOURS NEEDED for Pain. Menthol-Zinc Oxide 1 Appl by Apply 283 g 3 09/21/2016 Active (GOLD GARCIA) Apply externally route externally Powder NEEDED (groin area). Wound Dressings 1 Each by Apply 1 Each 11 09/22/2016 Active (CONTREET externally route HYDROCOLLOID) Apply NEEDED (any externally Pads open wounds.). 4x4 dressings mupirocin (BACTROBAN) Apply twice a day 1 Tube 3 01/26/2017 Active 2 % Apply externally as needed for open Ointment areas on groin and scrotum Misc. Devices 1 Appl by Does not 1 Each 5 01/29/2017 Active (HIBICLENS HAND PUMP apply route NON FOAM) Does not DIRECTED. Wash apply Misc affected areas of groin and scrotum bid as needed dextromethorphan-guaif Take 5 mL by mouth 0 Active enesin (ROBITUSSIN DM) EVERY FOUR HOURS 10-100 MG/5ML Oral NEEDED. Syrup zinc oxide 20 % Apply 1 Appl by Topical 56.7 Each 2 06/28/2017 Active externally Ointment route TWO TIMES DAILY NEEDED (skin breakdown in groin). ketoconazole (NIZORAL) APPLY SPARINGLY TO 60 Each 2 09/27/2017 Active 2 % Apply externally RASH IN GROIN AND CreamIndications: Rash ON SCROTUM TWICE A DAY AFTER WASHING AND DRYING WELL Multiple Vitamin Take 1 Tab by 30 Tab 11 01/16/2018 Active (TAB-A-TRUONG) Oral Tab mouth DAILY. olanzapine (ZYPREXA) Take 1 Tab by 30 Tab 5 02/21/2018 Active 10 MG Oral Tab mouth EVERY BEDTIME. carvedilol (COREG) 25 Take 1 Tab by 60 Tab 5 04/02/2018 Active MG Oral Tab mouth TWICE DAILY. finasteride (PROSCAR) TAKE 1 TAB BY 90 Tab 4 04/29/2018 Active 5 MG Oral MOUTH EVERY DAY TabIndications: Prostate cancer (HCC) valsartan (DIOVAN) 80 Take 1 Tab by 90 Tab 2 04/29/2018 Active MG Oral mouth DAILY. TabIndications: Non-ischemic cardiomyopathy (HCC) hydrocortisone 1 g by Topical 120 g 5 05/06/2018 Active (HYTONE) 1 % Apply route THREE TIMES externally Cream DAILY. Omeprazole 20 MG Oral Take 1 Tab by 90 Tab 3 05/14/2018 Active Tab ECIndications: mouth DAILY. Gastroesophageal reflux disease without esophagitis albuterol HFA Take 2 Puffs by 18 Each 2 06/24/2018 Active (VENTOLIN HFA) 108 (90 inhalation EVERY Base) MCG/ACT FOUR HOURS Inhalation Aero NEEDED (wheezing SolnIndications: and cough). Chronic obstructive pulmonary disease, unspecified COPD type ([facility]) benzonatate (TESSALON Take 1 Cap by 60 Cap 0 07/01/2018 Active PERLES) 100 MG Oral mouth THREE TIMES CapIndications: DAILY NEEDED Moderate persistent for cough. asthma with acute exacerbation Painter Carbonate 600 Take 1 Cap by 30 Cap 5 07/01/2018 Active MG Oral Cap mouth EVERY BEDTIME. lithium 150 MG Oral Take 1 Cap by 180 Cap 5 07/25/2018 Active Cap mouth EVERY BEDTIME. umeclidinium bromide Take 1 INHL by 30 Each 4 08/06/2018 Active (INCRUSE ELLIPTA) 62.5 inhalation DAILY. MCG/INH Inhalation AEROSOL POWDER, BREATH ACTIVATED Tamsulosin HCl Take 1 Cap by 60 Cap 0 08/15/2018 Active (FLOMAX) 0.4 MG Oral mouth DAILY. Cap benztropine (COGENTIN) Take 1 Tab by 30 [...] 24 HR mouth DAILY. FLOVENT HFA 110 TAKE 2 PUFFS BY 1 Inhaler 4 09/16/2018 Active MCG/ACT Inhalation INHALATION TWICE AerosolIndications: DAILY. Moderate persistent asthma with acute exacerbation Incontinence Supply 1 Each by Does not 100 Each 4 11/25/2018 Active Disposable Does not apply route DAILY. apply Misc Incontinence briefs naproxen (NAPROSYN) Take 1 Tab by 60 Tab 4 12/03/2018 Active 500 MG Oral mouth TWICE DAILY. 0 TabIndications: Osteoarthritis of lumbosacral spine with radiculopathy naproxen (NAPROSYN) Take 1 Tab by 60 Tab 4 12/05/2018 Active 500 MG Oral mouth TWICE DAILY. 0 TabIndications: Osteoarthritis of lumbosacral spine with radiculopathy levothyroxine Take 1 Tab by 30 Tab 5 12/16/2018 Active (SYNTHROID) 75 MCG mouth BEFORE Oral Tab BREAKFAST. levothyroxine TAKE 1 TAB BY 30 Tab 4 12/16/2018 Active (SYNTHROID) 75 MCG MOUTH BEFORE Oral Tab BREAKFAST. documented as of this encounter (statuses as of 12/18/2018) Active Problems Problem Noted Date Prostate cancer [...] 03/15/2016 Overview: Lives [place] [facility] under [employer] agency [facility] Bipolar disorder in full remission 03/15/2016 Overview: [facility] Feb 2016 Borderline personality disorder 03/15/2016 Pedophilia 03/15/2016 History of prostate cancer 03/15/2016 Overview: No surgery medication management in [place] Essential hypertension 03/15/2016 Spondylosis of lumbar region without myelopathy or radiculopathy 03/15/2016 Primary osteoarthritis of both knees 03/15/2016 Hypovitaminosis D 03/15/2016 Mixed hyperlipidemia 03/15/2016 documented as of this encounter (statuses as of 12/18/2018) Resolved Problems Problem Noted Date Resolved Date Coronary artery disease involving [place] coronary artery of 03/15/20162016 [place] heart without angina pectoris Overview: History myocardial infarction in past prior to 2012 documented as of this encounter (statuses as of 12/18/2018) Immunizations Name Administration Dates Next Due Influenza Vaccine 65 Yrs + 11/25/2018 Influenza Vaccine High Dose 11/26/2017, 12/14/2016 PNEUMOCOCCAL [...] encounter Progress Notes Mervin Flaherty DC - 12/18/2018 3:00 PM EDT PATIENT: Shon Pugh : 1950 DATE OF SERVICE: 12/18/2018 REFERRING PRACTITIONER: Hang Sesay PRIMARY CARE PROVIDER: Hang Sesay Chief Complaint Patient presents with Back Pain DOS 02-27-2018, part HISTORY OF PRESENT ILLNESS: Shon Pugh is a 68-y.o. male who presents for a follow-up visit. He reports low back pain. Since last office visit symptoms have been improving. Response to previous treatment session: tolerated well Overall, the symptoms have been improving. Additional comments: Less use of his walker Estimated percentage improved: 75% Analog Pain Scale result: 1-10 NDI score: Oswestry score: Home exercise fulfillment: compliance with the home exercises was reported Current Outpatient Medications Medication Sig acetaminophen (TYLENOL) [...] g by Topical route THREE TIMES DAILY. Incontinence Supply Disposable Does not apply Misc 1 Each by Does not apply route DAILY. Incontinence briefs ketoconazole (NIZORAL) 2 % Apply externally Cream APPLY SPARINGLY TO RASH IN GROIN AND ON SCROTUM TWICE A DAY AFTER WASHING AND DRYING WELL levothyroxine (SYNTHROID) 75 MCG Oral Tab Take 1 Tab by mouth BEFORE BREAKFAST. levothyroxine (SYNTHROID) 75 MCG Oral Tab TAKE 1 TAB BY MOUTH BEFORE BREAKFAST. lithium 150 MG Oral Cap Take 1 Cap by mouth EVERY BEDTIME. Painter Carbonate 600 MG Oral Cap Take 1 [...] scrotum naproxen (NAPROSYN) 500 MG Oral Tab Take 1 Tab by mouth TWICE DAILY. naproxen (NAPROSYN) 500 MG Oral Tab Take 1 Tab by mouth TWICE DAILY. olanzapine (ZYPREXA) 10 MG Oral [...] for this visit. Allergies Allergen Reactions Flomax [Kdc:Trade Blue Fcf+Tamsulosin] GI Reaction Neomycin Unknown Reaction [...] Addison's test was + for pain in low back pain . Thoracic spine extension reproduced the patient's complaints of lumbosacral junction pain. IMPRESSION: ICD-9-CM ICD-10-CM 1. Somatic dysfunction of [...] Seated lumbar Follow up: Schedule follow-up here as needed if symptoms worsen. 6 weeks Author: Mervin Flaherty DC, 12/18/2018, 14:56 documented in this encounter Plan of Treatment Date Type Specialty Care Team Description 12/18/2018 Office Visit Cardiology Nataliia Leonardo, Non-ischemic cardiomyopathy (HCC) (Primary Dx); [facility] [employer] [facility] Coronary artery disease involving [place] coronary artery of [place] heart without angina pectoris; [address] Essential hypertension [place] [address] [phone] 01/15/2019 Lab Internal Medicine 01/30/2019 Office Visit Urology Anish He MD [address] [place] [address] [phone] Health Maintenance Due Date Last Done Comments MEDICARE ANNUAL WELLNESS 1950 VISIT COLONOSCOPY SCREENING 2000 ZOSTER IMMUNIZATION SERIES 2000 (1 of 2) AAA SCREENING/SURVEILLANCE 10/21/2015 FALL RISK ASSESSMENT 06/20/2019 06/19/2018, 06/19/2018 DIABETES SCREENING 08/01/2019 07/31/2018, 03/14/2018, 10/22/2017, Additional history exists LIPID DISORDER SCREENING 08/01/2019 07/31/2018, 03/14/2018, 03/15/2016 DEPRESSION SCREENING 11/26/2019 11/25/2018 PNEUMOCOCCAL 65+YRS Completed 03/26/2017, 03/15/2016 INFLUENZA VACCINE Completed 11/25/2018, 11/26/2017, 12/14/2016 HPV IMMUNIZATION SERIES Aged Out No longer eligible based on patient's age to complete this topic MENINGOCOCCAL VACCINE IMM Aged Out No longer eligible based on patient's age to complete this topic documented as of this encounter Goals Goal Patient Goal Associated Recent Patient-Stated? Author Type Problems Progress Blood Pressure Blood Pressure 128/72 No Lázaro, < 150/90 (11/25/2018 Hang Eisenberg, 11:23 AM EDT) Note: This is an individualized treatment [...] an individualized treatment (depression) goal for Shon Mazasusanna: Displayed above is your goal for a depression screening (PHQ-9) score that would indicate good control of your depression. Weight loss vs. 18 mo Lifestyle 0 (11/25/2018 11:23 AM No Hang Sesay MD max (lbs) >= 10 EDT) Note: This is an individualized lifestyle goal for Shon Pugh: Your body mass index (BMI) is more than 30. You should lose weight. A reasonable starting goal is to lose 10 pounds. Displayed above is how many pounds you have lost thus far towards your 10 pound weight loss goal. Keep immunizations current Lifestyle No Hang Sesay MD Note: This is an individualized lifestyle goal for Shon Mazasusanna: Please be sure to keep up-to-date on recommended immunizations. For example, this would include a yearly influenza vaccine. Immunization status can be seen by looking at the Health Maintenance sections of your [facility], Plan of Care, and any After Visit Summaries. Keep a regular sleep schedule Lifestyle No Halie Davila FNP Note: This is an individualized lifestyle [...] A xxxxxxxxxxx 1992-Present Medicare & B MEDICAID [facility] xxxxxxxx 2016-Present [place] Guarantor Name Account Type Relation to Date of Phone Billing Patient Address Shon Pugh Personal/Family 1950 [address] [phone] [place], [place] ([place]) [id number] documented as of this encounter
--- OUTSIDE RECORDS SUMMARY | 2019-01-28 14:23 | XMS REPORT | Summary of Care ---
:1950 Author Organization [facility] Address [address] [facility] [place] [address] Care Team Providers Name Role Phone Hang Sesay Primary Care Provider Reason for Visit Reason Comments Heart Problem 3 month. Feeling more SOB. Encounter Details Date Type Department Care Team Description 12/18/2018 Office Visit Augustin Nataliia Polanco, Non-ischemic cardiomyopathy (HCC) (Primary Dx); [facility] Coronary artery disease involving jackson coronary artery of jackson heart without angina pectoris; [address] [facility] [place] [address] [place] [address] Allergies Active Allergy Reactions Severity Noted Date Comments Kdc:Patterson Blue Fcf+Tamsulosin GI Reaction 03/15/2016 Neomycin Unknown Reaction 09/18/2016 Sulfa Antibiotics Other 03/15/2016 shaking documented as of this encounter (statuses as of 12/18/2018) Medications Medication Sig Dispensed Refills Start End Date Status Date acetaminophen Take 650 mg by 0 Active (TYLENOL) 325 MG Oral mouth EVERY FOUR Tab HOURS NEEDED for Pain. Menthol-Zinc Oxide 1 Appl by Apply 283 g 3 Active (GOLD GARCIA) Apply externally route 7 externally Powder NEEDED (groin area). Wound Dressings 1 Each by Apply 1 Each 11 Active (CONTREET externally route 7 HYDROCOLLOID) Apply NEEDED (any externally Pads open wounds.). 4x4 dressings mupirocin (BACTROBAN) Apply twice a 1 Tube 3 Active 2 % Apply externally day as needed 7 Ointment for open areas on groin and scrotum Misc. Devices 1 Appl by Does 1 Each 5 Active (HIBICLENS HAND PUMP not apply route 7 NON FOAM) Does not DIRECTED. apply Misc Wash affected areas of groin and scrotum bid as needed dextromethorphan-guai Take 5 mL by 0 Active fenesin (ROBITUSSIN mouth EVERY FOUR DM) 10-100 MG/5ML HOURS Oral Syrup NEEDED. zinc oxide 20 % Apply 1 Appl by 56.7 Each 2 Active externally Ointment Topical route 8 TWO TIMES DAILY NEEDED (skin breakdown in groin). ketoconazole APPLY SPARINGLY 60 Each 2 Active (NIZORAL) 2 % Apply TO RASH IN GROIN 8 externally AND ON SCROTUM CreamIndications: TWICE A DAY Rash AFTER WASHING AND DRYING WELL Multiple Vitamin Take 1 Tab by 30 Tab 11 Active (TAB-A-TRUONG) Oral Tab mouth DAILY. 8 olanzapine (ZYPREXA) Take 1 Tab by 30 Tab 5 Active 10 MG Oral Tab mouth EVERY 8 BEDTIME. carvedilol (COREG) 25 Take 1 Tab by 60 Tab 5 Active MG Oral Tab mouth TWICE 9 DAILY. finasteride (PROSCAR) TAKE 1 TAB BY 90 Tab 4 Active 5 MG Oral MOUTH EVERY DAY 9 TabIndications: Prostate cancer (HCC) valsartan (DIOVAN) 80 Take 1 Tab by 90 Tab 2 Active MG Oral mouth DAILY. 9 TabIndications: Non-ischemic cardiomyopathy (HCC) hydrocortisone 1 g by Topical 120 g 5 Active (HYTONE) 1 % Apply route THREE 9 externally Cream TIMES DAILY. Omeprazole 20 MG Oral Take 1 Tab by 90 Tab 3 Active Tab ECIndications: mouth DAILY. 9 Gastroesophageal reflux disease without esophagitis albuterol HFA Take 2 Puffs by 18 Each 2 Active (VENTOLIN HFA) 108 inhalation EVERY 9 (90 Base) MCG/ACT FOUR HOURS Inhalation Aero NEEDED (wheezing SolnIndications: and cough). Chronic obstructive pulmonary disease, unspecified COPD type ([facility]) benzonatate (TESSALON Take 1 Cap by 60 Cap 0 Active PERLES) 100 MG Oral mouth THREE 9 CapIndications: TIMES DAILY Moderate persistent NEEDED for asthma with acute cough. exacerbation Apple[place]old Carbonate 600 Take 1 Cap by 30 Cap 5 Active MG Oral Cap mouth EVERY 9 BEDTIME. lithium 150 MG Oral Take 1 Cap by 180 Cap 5 Active Cap mouth EVERY 9 BEDTIME. umeclidinium bromide Take 1 INHL by 30 Each 4 Active (INCRUSE ELLIPTA) inhalation 9 62.5 MCG/INH DAILY. Inhalation AEROSOL POWDER, BREATH ACTIVATED Tamsulosin HCl Take 1 Cap by 60 Cap 0 Active (FLOMAX) 0.4 MG Oral mouth DAILY. 9 Cap benztropine Take 1 Tab by 30 Tab 11 Active (COGENTIN) 0.5 MG mouth DAILY. 9 Oral Tab torsemide (DEMADEX) Take 1 Tab by 90 Tab 3 Active 10 MG Oral Tab mouth DAILY. 9 Alfuzosin HCl 10 MG Take 1 Tab by 30 Tab 11 Active Oral TABLET SR 24 HR mouth DAILY. 9 FLOVENT HFA 110 TAKE 2 PUFFS BY 1 Inhaler 4 Active MCG/ACT Inhalation INHALATION TWICE 9 AerosolIndications: DAILY. Moderate persistent asthma with acute exacerbation Incontinence Supply 1 Each by Does 100 Each 4 Active Disposable Does not not apply route 9 apply Misc DAILY. Incontinence briefs naproxen (NAPROSYN) Take 1 Tab by 60 Tab 4 12/03/19 Active 500 MG Oral mouth TWICE 9 20 TabIndications: DAILY. Osteoarthritis of lumbosacral spine with radiculopathy levothyroxine Take 1 Tab by 30 Tab 5 Active (SYNTHROID) 75 MCG mouth BEFORE 9 Oral Tab BREAKFAST. fluticasone (FLOVENT) Take 2 Puffs by 1 Inhaler 11 12/19/19 Discontinued 110 MCG/ACT inhalation TWICE 9 19 Inhalation DAILY. AerosolIndications: Moderate persistent asthma with acute exacerbation naproxen (NAPROSYN) Take 1 Tab by 60 Tab 4 12/19/19 Discontinued 500 MG Oral mouth TWICE 9 19 TabIndications: DAILY. Osteoarthritis of lumbosacral spine with radiculopathy levothyroxine TAKE 1 TAB BY 30 Tab 4 12/19/19 Discontinued (SYNTHROID) 75 MCG MOUTH BEFORE 9 19 Oral Tab BREAKFAST. documented as of this [...] Mild intellectual disability 03/15/2016 Overview: Lives [place] [address] [place] al[facility] under [employer] agency [facility] Bipolar disorder in full remission 03/15/2016 Overview: [facility] Feb 2016 Borderline personality disorder 03/15/2016 Pedophilia 03/15/2016 History of prostate cancer 03/15/2016 Overview: No surgery medication management in [place] Essential hypertension 03/15/2016 Spondylosis of lumbar region without myelopathy or radiculopathy 03/15/2016 Primary osteoarthritis of both knees 03/15/2016 Hypovitaminosis D 03/15/2016 Mixed hyperlipidemia 03/15/2016 documented as of this encounter (statuses as of 12/18/2018) Resolved Problems Problem Noted Date Resolved Date Coronary artery disease involving jackson coronary artery of 03/15/20162016 jackson heart without angina pectoris Overview: History myocardial [...] of this encounter Last Filed Vital Signs Vital Sign Reading Time Taken Comments Blood Pressure 104/52 12/18/2018 3:02 PM EDT Pulse 77 12/18/2018 3:02 PM EDT Temperature - - Respiratory Rate - - Oxygen Saturation 98% 12/18/2018 3:02 PM EDT Inhaled Oxygen Concentration - - Weight 132.5 kg (292 lb) 12/18/2018 3:02 PM EDT Height 190.5 cm (6' 3") 12/18/2018 3:02 PM EDT Body Mass Index 36.5 12/18/2018 3:02 PM EDT documented in this encounter Patient Instructions Patient InstructionsHuNataliia ratliff CRNP - 12/18/2018 3:30 PM EDT Need to continue with low salt, low fat diet, No more then 2 grams of salt per day. Restaurant foods, frozen foods, soups, deli meats, etc. have salt already in them do not add extra salt and try to avoid if possible. yourself. Need to check weight daily in the morning without clothes on prior to eating, and call if weight should go up 3 lbs over night, increased shortness of breath or unable to layflat due to shortness of breath. Due to increased shortness of breath and edema may need to consider restarting torsemide Patient as on coreg but not on medication list from housing facility Follow up in 6 monthsElectronically signed by Nataliia Leonardo CRNP at 2018 3:25 PM EDT documented in this encounter Progress Notes Nataliia Leonardo CRNP - 12/18/2018 3:30 PM EDT PATIENT: Shon Pugh : 1950 DATE OF SERVICE: 12/18/2018 REFERRING PRACTITIONER: Nataliia Leonardo PRIMARY CARE PROVIDER: Hang eSsay CHIEF COMPLAINT: Chief Complaint Patient presents with Heart Problem 3 month. Feeling more SOB. HISTORY OF PRESENT ILLNESS: Shon Pugh is a 68-y.o. male with HTN, hyperlipidemia, pulmonary sarcoidosis, COPD, schizoaffective disorder and bipolar disorder, OSAuntreated stopped using CPAP, and a mild nonischemic cardiomyopathy with 20% mid LAD lesion seen on cath in 2014. Echocardiogram 05/2018 ejection fraction 45-50%Grade I (mild) diastolic dysfunction Patient complains of feeling lame not being able to walk much feeling still. Feel he has tremors andshakes a lot. Patient state sitting at the dinner table and had acute episode of shortness of breath lasted until bed time. Has some off balance when he has a spell. Once the spell resolved he was able to lay flat. Has noted increased Past Medical History: Diagnosis Date Essential (primary) hypertension High cholesterol Patient Active Problem List Diagnosis Schizoaffective disorder (HCC) Gastroesophageal reflux disease without esophagitis Mild intellectual disability Bipolar disorder in full remission (HCC) Borderline personality disorder (HCC) Pedophilia History of prostate cancer Essential hypertension Spondylosis of lumbar region without myelopathy or radiculopathy Primary osteoarthritis of both knees Hypovitaminosis D Mixed hyperlipidemia Pulmonary nodule, right History of tobacco use Sarcoidosis of lung (HCC) Non-ischemic cardiomyopathy (HCC) Acquired hypothyroidism Prostate cancer (HCC) Moderate persistent asthma without complication History reviewed. No pertinent surgical history. Current Outpatient Medications Medication Sig acetaminophen (TYLENOL) [...] TAKE 2 PUFFS BY INHALATION TWICE DAILY. hydrocortisone (HYTONE) 1 % Apply [...] Take 1 Cap by mouth EVERY BEDTIME. Applewold Carbonate 600 MG Oral Cap Take 1 [...] for this visit. Allergies Allergen Reactions Flomax [Kdc:Patterson Blue Fcf+Tamsulosin] GI Reaction Neomycin Unknown Reaction Sulfa Antibiotics Other shaking Family History Family history unknown: Yes Social History Socioeconomic History Marital status: Spouse name: Not on file Number of children: Not on file Years of education: Not on file Highest education level: Not on file Occupational History Not on file Social Needs Financial resource strain: Not on file Food insecurity: Worry: Not on file Inability: Not on file Transportation needs: Medical: Not on file Non-medical: Not on file Tobacco Use Smoking status: Former Smoker Smokeless tobacco: Never Used Substance and Sexual Activity Alcohol use: No Drug use: No Sexual activity: Never Lifestyle Physical activity: Days per week: Not on file Minutes per session: Not on file Stress: Not on file Relationships Social connections: Talks on phone: Not on file Gets together: Not on file Attends rastafarian service: Not on file Active member of club or organization: Not on file Attends meetings of clubs or organizations: Not on file Relationship status: Not on file Intimate partner violence: Fear of current or ex partner: Not on file Emotionally abused: Not on file Physically abused: Not on file Forced sexual activity: Not on file Other Topics Concern Back Care Not Asked Bike Helmet Not Asked Blood Transfusions Not Asked Caffeine Concern Not Asked Exercise Yes Comment: walks daily Hobby Hazards Not Asked International Travel Not Asked Service Not Asked Occupational Exposure Not Asked Seat Belt Not Asked Self-Exams Not Asked Sleep Concern Not Asked Special Diet Yes Comment: low sodium Stress Concern Not Asked Weight Concern Not Asked Social History Narrative Lives in [facility] in [facility] alf Moved from [place], [place] REVIEW OF SYSTEMS: Patient denies fever, febrile illness. Positive fatigue. NEUROLOGIC: Denies transient ischemic attack or cerebrovascular accident signs or symptoms. Denies syncope or presyncopal episodes. CARDIOVASCULAR: denies chest pain, denies palpations, positive edema. RESPITATORY: positive shortness of breath, denies orthopnea. GASTROINTESTINAL: Denies melena. GENITOURINARY: Denies hematura or nocturia. MUSCULOSKELETAL: denies claudication. All other remaining systems are negative. Except that stated above in history of present illness PHYSICAL EXAMINATION: BP 104/52 | Pulse 77 | Ht 6' 3" (1.905 m) | Wt 292 lb (132.5 kg) | SpO2 98% | BMI 36.50 kg/m CONSTITUTIONAL: alert, oriented, no acute distress EYES: negative EARS/NOSE/MOUTH/THROAT: Head: Normocephalic, no lesions, without obvious abnormality. NECK: no bruit RESPIRATORY: diminished breath sounds right base CARDIOVASCULAR: regular rate and rhythm GASTROINTESTINAL: normal bowel sounds MUSCULOSKELETAL: negative VASCULAR: +1 edema left leg SKIN: warm and dry, intact NEUROLOGICAL: alert, oriented, normal speech, no focal findings or movement disorder noted PSYCHIATRIC: appropriate to circumstances HEMATOLOGIC/LYMPHATIC/IMMUNOLOGIC: not examined DIAGNOSTIC STUDIES: Lab Results Component Value Date CHOL 168 07/31/2018 TRIG 124 07/31/2018 HDL 48 07/31/2018 LDL 95 07/31/2018 LDLHDLRATIO 2.0 07/31/2018 CHOLHDLRATIO 3.5 07/31/2018 Lab Results Component Value Date NA 140 07/31/2018 K 4.1 07/31/2018 CL 102 07/31/2018 CO2 29 07/31/2018 GLUCOSE 82 07/31/2018 BUN 13 07/31/2018 CREATININE 0.9 07/31/2018 CALCIUM 8.8 07/31/2018 TP 8.1 07/31/2018 ALBUMIN 4.2 07/31/2018 AST 37 07/31/2018 ALT 20 (L) 07/31/2018 ALK 105 07/31/2018 TBILI 0.7 07/31/2018 EGFR >60 07/31/2018 IMPRESSION: ICD-9-CM ICD-10-CM 1. Non-ischemic cardiomyopathy (HCC) 425.4 I42.8 2. Coronary artery disease involving jackson coronary artery of jackson heart without angina pectoris 414.01 I25.10 3. Essential hypertension 401.9 I10 PLAN: Non-IschemicCardiomyopathy with NYHA ClassIIsymptoms: Recommendations are as follows: Most recent LV function:45-50% Beta-natali:coreg- at some point was stopped but unclear when. Due to low blood pressure will leave off at this time ANGELITA-inhibitor or ARB:myron Aldosterone Antagonist:held due to low blood pressure Diuretics:would restart torsemide 10 mg a day and adjust as needed left leg has significantmore swelling. Continue to follow blood work with primary care provider I again counseled on sodium restriction. Coronary Artery Disease,non obstructive:chest pain atypical does not appear ischemic I recommend the following medical regimen: Antiplatelets: Continue aspirin 81 mg daily for life. Statin:given his other medication and mild atherosclerotic heart disease Dr. Falcon felt the risk did not out weight the benefit. LDL is less than 100 Beta-natali:andACE-inhibitor:as above Patient Instructions Need to continue with low salt, low fat diet, No more then 2 grams of salt per day. Restaurant foods, frozen foods, soups, deli meats, etc. have salt already in them do not add extra salt and try to avoid if possible. yourself. Need to check weight daily in the morning without clothes on prior to eating, and call if weight should go up 3 lbs over night, increased shortness of breath or unable to layflat due to shortness of breath. Due to increased shortness of breath and edema may need to consider restarting torsemide Patient as on coreg but not on medication list from housing facility Author: RICARDO Garcia, 12/18/2018, 15:23 documented in this encounter Plan of Treatment Date Type Specialty Care Team Description 01/15/2019 Lab Internal Medicine 01/29/2019 Office Visit Neurology Mervin Flaherty DC [address] [place] [address] [phone] 01/30/2019 Office Visit Urology Anish He MD [address] [place] [address] [phone] Health Maintenance Due Date Last Done Comments [...] Type Problems Progress Blood Pressure Blood Pressure 104/52 No [place], < 150/90 (12/18/2018 Hang Eisenberg, 3:02 PM EDT) Note: This is an individualized [...] depression. Weight loss vs. 18 mo Lifestyle 3 (12/18/2018 3:02 PM Hang Espinoza MD max (lbs) >= 10 EDT) Note: [...] filedocumented in this encounter Visit Diagnoses Diagnosis Non-ischemic cardiomyopathy (HCC) - Primary Other primary cardiomyopathies Coronary artery disease involving jackson coronary artery of jackson heart without angina pectoris Essential hypertension Unspecified essential hypertension documented in this encounter Insurance Payer Benefit Plan / Subscriber ID Effective Dates Phone Address Type Group MEDICARE MEDICARE PART A xxxxxxxxxxx 1992-Present Medicare & B MEDICAID [facility] xxxxxxxx 2016-Present Medicaid [place] Guarantor Name Account Type Relation to Date of Phone Billing Patient Address Shon Pugh Personal/Family 1950 [address] [phone] [place], [place] (Work) [id number] documented as of this encounter
== END 2019-01-23 11:48 | disposition home or self-care (01) ==
LOC: ED 09:16
DX: L03.115 Cellulitis of right lower limb (principal); R60.0 Localized edema; I11.0 Hypertensive heart disease with heart failure; I50.9 Heart failure, unspecified; E03.9 Hypothyroidism, unspecified; J44.9 Chronic obstructive pulmonary disease, unspecified; F25.0 Schizoaffective disorder, bipolar type; R62.50 Unspecified lack of expected normal physiological development in childhood; Z87.891 Personal history of nicotine dependence; Z85.46 Personal history of malignant neoplasm of prostate; Z88.2 Allergy status to sulfonamides; Z88.8 Allergy status to other drugs, medicaments and biological substances
CPT/HCPCS: 36415; 71045; 80053; 83880; 85025; 85610; 85730; 86140; 93005; 99283; A9270-GY

== ENCOUNTER 2019-02-15 05:14 | Inpatient (IN) | payer MEDICARE, MEDICAID ==
--- NOTE | 2019-02-15 05:32 | ED ---
Syncope/Near Syncope - HPI Summary HPI Summary: 68 year old male presents to the ED by EMS for hip pain secondary to an unwitnessed fall at the [facility] disabilities home where he lives [employer]. Per patient , he got up from his bed to go to the bathroom when he fell and landed on his right hip. He reports syncope but denies head trauma. Patient has difficulty hearing and has difficulty articulating words due to his tremors. Per EMS, caregivers at his home called EMS after his fall. Per EMS, pulse O2 was low 80s so he was placed on O2 and given a DuoNeb. At 89% right now. Patient is confused at baseline and his swollen legs are normal. History of COPD, schizophrenia, depression, BPD, and developmental delay. Patient is a former tobacco smoker. - History Of Current Complaint Chief Complaint: EDFall Hx Obtained From: Patient, EMS Onset/Duration: Sudden Onset - Fall tonight, Lasting Minutes, Still Present Context: Unwitnessed Activity At Onset: Exertion - Walking from bed to bathroom Associated Head Trauma: No - Allergies/Home Medications Allergies/Adverse Reactions: Allergies Allergy/AdvReac Type Severity Reaction Status Date / Time neomycin Allergy Unknown Verified 06/26/18 10:53 Reaction Details Sulfa (Sulfonamide Allergy Hives Verified 06/26/18 10:53 Antibiotics) tamsulosin Allergy Unknown Verified 06/26/18 10:53 Reaction Details PMH/Surg Hx/FS Hx/Imm Hx Endocrine/Hematology History: Reports: Hx Thyroid Disease Denies: Hx Diabetes Cardiovascular History: Reports: Hx Hypertension Respiratory History: Reports: Hx Asthma, Hx Chronic Obstructive Pulmonary Disease (COPD), Hx Pneumonia, Hx Sleep Apnea, Other Respiratory Problems/ Disorders - PNA GI History: Denies: Hx Gastroesophageal Reflux Disease, Hx Gastrointestinal Bleed, Hx Irritable Bowel, Hx Obstructive Bowel, Hx Ulcer History: Denies: Hx Benign Prostatic Hyperplasia, Hx Dialysis, Hx Kidney Stones, Hx Renal Disease Comment Only: Other Problems/Disorders - Prostate CA Musculoskeletal History: Reports: Hx Arthritis, Hx Osteoporosis Sensory History: Reports: Hx Contacts or Glasses, Hx Vision Problem, Hx Deafness , Hx Hearing Aid, Hx Hearing Problem Denies: Hx Cataracts, Hx Eye Injury, Hx Eye Prosthesis, Hx Glaucoma, Hx Legally Blind, Hx Macular Degeneration, Other Sensory Impairments Opthamlomology History: Reports: Hx Contacts or Glasses, Hx Vision Problem Denies: Hx Cataracts, Hx Eye Injury, Hx Eye Prosthesis, Hx Glaucoma, Hx Legally Blind, Hx Macular Degeneration, Other Sensory Impairments Neurological History: Reports: Hx Developmental Delay Psychiatric History: Reports: Hx Depression, Hx Community Mental Health Tx, Hx Schizophrenia, Hx Bipolar Disorder, Other Psychiatric Issues/Disorders - Cancer History Cancer Type, Location and Year: Prostate CA - Surgical History Surgery Procedure, Year, and Place: right wrist Infectious Disease History: Unable to Obtain/Confirm Infectious Disease History: Denies: Hx Clostridium Difficile, Hx Hepatitis, Hx of Known/Suspected MRSA, Hx Shingles, Hx Tuberculosis, Hx Known/Suspected VRE, Hx Known/Suspected VRSA, Traveled Outside the [place] in Last 30 Days - Family History Known Family History: Positive: Non-Contributory Negative: Hypertension - Social History Alcohol Use: None Hx Substance Use: No Substance Use Type: Reports: None Hx Tobacco Use: Yes Smoking Status (MU): Former Smoker Review of Systems - ROS Summary Review of Systems Summary: Home Medications Medication Instructions Recorded Confirmed Type Levothyroxine TAB* [Synthroid 75 75 mcg PO QAM 05/20/17 01/17/19 History MCG TAB*] Omeprazole CAP (NF) [Prilosec CAP* 20 mg PO DAILY 05/20/17 01/17/19 History 20 MG] Finasteride TAB* [Proscar TAB*] 5 mg PO DAILY 06/26/18 01/17/19 History Fluticasone NASAL SPRAY 50MCG* 2 spray BOTH NARES DAILY 06/26/18 01/17/19 History [Flonase NASAL SPRAY 50MCG*] [place] Carbonate TAB* 600 mg PO BEDTIME 06/26/18 01/17/19 History Naproxen TAB* [Naprosyn 250 mg 500 mg PO BID 06/26/18 01/17/19 History TAB*] OLANzapine TAB* [Zyprexa 10 MG 10 mg PO BEDTIME 06/26/18 01/17/19 History TAB*] Umeclidinium 62.5 MDI(NF) [Incruse 1 inh INH DAILY 06/26/18 01/17/19 History ELLIPTA MDI (NF)] Valsartan TAB* [Diovan TAB*] 80 mg PO DAILY 06/26/18 01/17/19 History Albuterol HFA INHALER* [Ventolin 2 puff INH Q4H PRN 08/09/18 01/17/19 History HFA Inhaler*] Guaifen/Dextromethorphan/K Cit 5 ml PO Q4HR PRN 08/09/18 01/17/19 History [Sorbutuss Liquid] Ketoconazole 2 % CREAM (NF) 1 applic TOPICAL DAILY 11/21/18 01/17/19 History [Nizoral 2% CREAM (NF)] Cephalexin CAP* [Keflex CAP*] 500 mg PO QID #40 cap 01/23/19 Rx Negative: Fever Positive: Myalgia - Right hip pain Positive: Syncope All Other Systems Reviewed And Are Negative: Yes Physical Exam - Summary Physical Exam Summary: General: Obese male. No acute distress. Mild tremors. HEENT: Normocephalic, Atraumatic. Eyes: Conjuctiva normal, PERRL. Ears: TMs within normal limits. Nares: (-) discharge, (-) erythema. Oropharynx: Clear, mucous membranes moist, (-) exudates. Neck: Soft, FROM, (-) lymphadenopathy, (-) thyromegaly, (-) JVD. Cardiovascular: Normal sinus rhythm, (-) murmur. Lungs: Fair exchange. Clear to auscultation bilaterally, (-) rales, (-) rhonchi. Wheezes bilaterally upon inspiration and expiration. Abdomen: Soft, non-tender, non-distended, (-) organomegaly, normal bowel sounds. Back: (-) CVA tenderness Extremities: No edema. Musculoskeletal: Bilateral hip edema with no bruising or deformity. Mild erythema bilaterally. Good pulses bilaterally. Skin: Warm, dry, (-) rash. Neuro: Alert and oriented x3, no focal deficits. Psychiatric: Mood normal, affect odd and confused. Triage Information Reviewed: Yes Vital Signs On Initial Exam: Initial Vitals Temp Pulse Resp BP Pulse Ox 97.0 F 74 20 114/65 93 02/15/19 05:14 02/15/19 05:14 02/15/19 05:14 02/15/19 05:14 02/15/19 05:14 Vital Signs Reviewed: Yes Procedures - Sedation Patient Received Moderate/Deep Sedation with Procedure: No Diagnostics - Vital Signs Vital Signs Temp Pulse Resp BP Pulse Ox 02/15/19 05:14 97.0 F 74 20 114/65 93 - Laboratory Result Diagrams: 02/18/19 05:10 02/18/19 05:10 Lab Statement: Any lab studies that have been ordered have been reviewed, and results considered in the medical decision making process. - Radiology C Radiology Interpretation Completed By: ED Physician Summary of Radiographic Findings: No obvious infiltrate. An ED physician has interpreted and reviewed this XR. - EKG 0535 Cardiac Rate: NL - 74 bpm EKG Rhythm: Sinus Rhythm ST Segment: Normal Ectopy: None Summary of EKG Findings: EKG at 0535 reveals normal sinus rhythm with rate of 74 BPM, no acute changes, no ischemic changes. This EKG was reviewed and interpreted by Dr. Batista. Re-Evaluation - Re-Evaluation First Eval Re-Evaluation Time: 06:10 Change: Worse Comment: Patient complains of pain. I gave him Toridol. Second Eval Re-Evaluation Time: 07:00 Change: Unchanged Comment: Patient is 89 O2. I will give him DuoNeb and an ABG. Course/Dx Course Of Treatment: 68-year-old male from senior care presents after fall. Hip pain. Patient found to be hypoxic on EMS upon arrival. Given duo nebs here. X -ray demonstrates no obvious fracture. Patient given Toradol for pain. ABG is pending. Patient's INR changes shift. - Diagnoses Provider Diagnoses: COPD exacerbation, Hypoxemia Discharge ED - Sign-Out/Discharge Documenting (check all that apply): Sign-Out Patient Signing out patient TO: Josse Lowe - Patient is a signout to Dr. Lowe at change of shift 0700 on 02/15/19 - Discharge Plan Condition: Stable Disposition: ADMITTED TO [facility] - Billing Disposition and Condition Condition: STABLE Disposition: Admitted to [facility] - Attestation Statements Document Initiated by Scribe: Yes Documenting Scribe: Willis Gomez Provider For Whom Scribe is Documenting (Include Credential): Vanita Batista MD Scribe Attestation: Willis Hooks, scribed for Vanita Batista MD on 02/18/19 at 1947. Scribe Documentation Reviewed: Yes Provider Attestation: The documentation as recorded by the scribeWillis accurately reflects the service I personally performed and the decisions made by , Vanita Batista MD Status of Scribe Document: Viewed
--- OUTSIDE RECORDS SUMMARY | 2019-02-15 05:32 | XMS REPORT | Summary of Care ---
:1950 Author Organization [facility] Address [address] [address] Care Team Providers Name Role Phone Hang Sesay Faina Primary Care Provider Reason for Visit Reason Comments Follow Up 6 month f/u psa Encounter Details Date Type Department Care Team Description 01/30/2019 Office Visit [facility] Ying, Elevated prostate specific antigen (PSA) (Primary Dx); [address] [facility] MD Anish Benign prostatic [place] with [place] [address] [address] [phone] [place] [address] [phone] Allergies Active Allergy Reactions Severity Noted Date Comments Kdc:Anna Blue Fcf+Tamsulosin GI Reaction 03/15/2016 Neomycin Unknown Reaction 09/18/2016 Sulfa Antibiotics Other 03/15/2016 shaking documented as of this encounter (statuses as of 01/30/2019) Medications Medication Sig Dispensed Refills Start Date End Date Status acetaminophen Take 650 mg by 0 Active (TYLENOL) 325 MG Oral mouth EVERY FOUR Tab HOURS NEEDED for Pain. Wound Dressings 1 Each by Apply 1 Each 11 09/22/2016 Active (CONTREET externally route HYDROCOLLOID) Apply NEEDED (any externally Pads open wounds.). 4x4 dressings dextromethorphan-guaif Take 5 mL by mouth 0 Active enesin (ROBITUSSIN DM) EVERY FOUR HOURS 10-100 MG/5ML Oral NEEDED. Syrup zinc oxide 20 % Apply 1 Appl by Topical 56.7 Each 2 06/28/2017 Active externally Ointment route TWO TIMES DAILY NEEDED (skin breakdown in groin). carvedilol (COREG) 25 Take 1 Tab by 60 Tab 5 04/02/2018 Active MG Oral Tab mouth TWICE DAILY. finasteride (PROSCAR) TAKE 1 TAB BY 90 Tab 4 04/29/2018 Active 5 MG Oral MOUTH EVERY DAY TabIndications: Prostate cancer ([facility]) valsartan (DIOVAN) 80 Take 1 Tab by 90 Tab 2 04/29/2018 Active MG Oral mouth DAILY. TabIndications: Non-ischemic cardiomyopathy ([facility]) hydrocortisone 1 g by Topical 120 g [...] disease, unspecified COPD type ([facility]) Tamsulosin HCl Take 1 Cap by 60 Cap 0 08/15/2018 Active (FLOMAX) 0.4 MG Oral mouth DAILY. Cap benztropine (COGENTIN) Take 1 Tab by 30 Tab 11 09/03/2018 Active 0.5 MG Oral Tab mouth DAILY. Alfuzosin HCl 10 MG Take 1 Tab by 30 Tab 11 09/16/2018 Active Oral TABLET SR 24 HR mouth DAILY. FLOVENT HFA 110 TAKE 2 PUFFS BY 1 Inhaler 4 09/16/2018 Active MCG/ACT Inhalation INHALATION TWICE AerosolIndications: DAILY. Moderate persistent asthma with acute exacerbation levothyroxine Take 1 Tab by 30 Tab 5 12/16/2018 Active (SYNTHROID) 75 MCG mouth BEFORE Oral Tab BREAKFAST. Incontinence Supply 1 Each by Does not 105 Each 5 12/24/2018 Active Disposable (PREVAIL PM apply route FOUR BRIEF X-LARGE) Does TIMES DAILY. not apply Misc DX:R15.9 Incontinence Supply 1 Each by Does not 100 Each 4 12/27/2018 Active Disposable Does not apply route DAILY. apply MiscIndications: Incontinence Urinary incontinence, briefs unspecified type [id number]: [id number] olanzapine (ZYPREXA) TAKE 1 TABLET BY 30 Tab 4 01/10/2019 Active 10 MG Oral Tab MOUTH EVERY DAY Multiple Vitamin Take 1 Tab by 30 Tab 11 01/28/2019 Active (TAB-A-TRUONG) Oral Tab mouth DAILY. Gholson Carbonate 600 Take 1 Cap by 30 Cap 5 01/28/2019 Active MG Oral Cap mouth EVERY BEDTIME. umeclidinium bromide Take 1 INHL by 30 Each 5 01/28/2019 Active (INCRUSE ELLIPTA) 62.5 inhalation DAILY. MCG/INH Inhalation AEROSOL POWDER, BREATH ACTIVATED torsemide (DEMADEX) 20 Take 1 Tab by 30 Tab 6 01/29/2019 Active MG Oral Tab mouth DAILY. cephalexin discharge Take 500 mg by 0 Active (KEFLEX) 500 MG Oral mouth FOUR TIMES Cap DAILY. PEG Take by mouth. 0 Active [id number]-Na Sulf (GAVILYTE-C PO) silver antimicrobial by Apply 0 Active (SILVASORB) Apply externally route. externally Gel benzonatate (TESSALON Take 100 mg by 0 Active PERLES) 100 MG Oral mouth THREE TIMES Cap DAILY NEEDED for cough. documented as of this encounter (statuses as of 01/30/2019) Active Problems Problem Noted Date Prostate cancer [...] 03/15/2016 Overview: Lives [place] [facility] fdc under [facility] agency [facility] Bipolar disorder in full remission 03/15/2016 Overview: [facility] Feb 2016 Borderline personality disorder 03/15/2016 Pedophilia 03/15/2016 History of prostate cancer 03/15/2016 Overview: No surgery medication management in [place] Essential hypertension 03/15/2016 Spondylosis of lumbar region without myelopathy or radiculopathy 03/15/2016 Primary osteoarthritis of both knees 03/15/2016 Hypovitaminosis D 03/15/2016 Mixed hyperlipidemia 03/15/2016 documented as of this encounter (statuses as of 01/30/2019) Resolved Problems Problem Noted Date Resolved Date 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 03/15/20162016 eklutna heart without angina pectoris Overview: History myocardial infarction in past prior to 2012 documented as of this encounter (statuses as of 01/30/2019) Immunizations Name Administration Dates Next Due Influenza [...] Sign Reading Time Taken Comments Blood Pressure 123/63 01/30/2019 10:25 AM EST Pulse 76 01/30/2019 10:25 AM EST Temperature - - Respiratory Rate - - Oxygen Saturation - - Inhaled Oxygen Concentration - - Weight - - Height - - Body Mass Index - - documented in this encounter Progress Notes Anish He MD - 01/30/2019 10:30 AM EST PATIENT: Rahul Pugh : 1950 DATE OF SERVICE: 01/30/2019 REFERRING PRACTITIONER: Anish He PRIMARY CARE PROVIDER: Hang Sesay CHIEF COMPLAINT: No chief complaint on file. Subjective HISTORY OF PRESENT ILLNESS: Rahul Pugh is a 68-y.o. male who presents for followup of of Lower Urinray tract symptoms and PSA Was On Alfuzosin and Finasetride Will restart flomax His Lower Urinray tract symptoms are stable and PSA is satisfactory Results for RAHUL PUGH ( ) as of 01/30/2019 10:21 Ref. Range 07/26/2017 10:45 01/24/2018 10:51 03/14/2018 11:58 07/25/2018 10:34 10:25 PSA Latest Ref Range: <4.00 ng/mL 2.94 2.83 3.64 3.33 2.86 His PSA needs to be doubled as he is on finasteride but still lower than previous values He has had elevated PSA and negative prostate biopsy 2015. PSA: 6.79 (april 2015) declined to 4.8 (sep 2015). Negative prostate biopsy April 2015. No new complaints Current Outpatient Medications Medication Sig acetaminophen (TYLENOL) [...] (TESSALON PERLES) 100 MG Oral Cap Take 100 mg by mouth THREE TIMES DAILY NEEDED for cough. benztropine (COGENTIN) 0.5 MG Oral Tab Take 1 Tab by mouth DAILY. carvedilol (COREG) 25 MG Oral Tab Take 1 Tab by mouth TWICE DAILY. cephalexin discharge (KEFLEX) 500 MG Oral Cap Take 500 mg by mouth FOUR TIMES DAILY. dextromethorphan-guaifenesin (ROBITUSSIN DM) 10-100 MG/5ML Oral Syrup Take 5 mL by mouth EVERY FOUR HOURS NEEDED. finasteride (PROSCAR) 5 MG Oral Tab TAKE 1 TAB BY MOUTH EVERY DAY FLOVENT HFA 110 MCG/ACT Inhalation Aerosol TAKE 2 PUFFS BY INHALATION TWICE DAILY. hydrocortisone (HYTONE) 1 % Apply externally Cream 1 g by Topical route THREE TIMES DAILY. Incontinence Supply Disposable (PREVAIL PM BRIEF X-LARGE) Does not apply Misc 1 Each by Does not apply route FOUR TIMES DAILY. DX:R15.9 Incontinence Supply Disposable Does not apply Misc 1 Each by Does not apply route DAILY. Incontinence briefs [id number]: [id number] levothyroxine (SYNTHROID) 75 MCG Oral Tab Take 1 Tab by mouth BEFORE BREAKFAST. Gholson Carbonate 600 MG Oral Cap Take 1 Cap by mouth EVERY BEDTIME. Multiple Vitamin (TAB-A-TRUONG) Oral Tab Take 1 Tab by mouth DAILY. olanzapine (ZYPREXA) 10 MG Oral Tab TAKE 1 TABLET BY MOUTH EVERY DAY Omeprazole 20 MG Oral Tab EC Take 1 Tab by mouth DAILY. PEG [id number]-NaCl-NaSulf (GAVILYTE-C PO) Take by mouth. silver antimicrobial (SILVASORB) Apply externally Gel by Apply externally route. Tamsulosin HCl (FLOMAX) 0.4 MG Oral Cap Take 1 Cap by mouth DAILY. torsemide (DEMADEX) 20 MG Oral Tab Take 1 Tab by [...] for this visit. Allergies Allergen Reactions Flomax [Kdc:Anna Blue Fcf+Tamsulosin] GI Reaction Neomycin Unknown Reaction Sulfa Antibiotics Other shaking REVIEW OF SYSTEMS: All remaining review of systems was negative except for as noted in the history of present illness/subjective. Objective PHYSICAL EXAMINATION: VITALS: There were no vitals taken for this visit. There is no height or weight on file to calculate BMI. GENERAL: healthy, well nourished, in no distress. LUNGS: good air entry bilaterally, no crackles or wheezes. HEART: regular rhythm, no murmurs, no gallops, no rubs. ABDOMEN: no palpable masses, organomegaly or hernias, no peritoneal, flank or bladder tenderness. GENITOURINARY: defer exam. LABORATORY DATA: Urine today in the office is na DIAGNOSTIC DATA: Diagnostic tests reviewed today: labs Plan IMPRESSION/PLAN:LOWER URINRAY TRACT SYMPTOMS AND ELEVATED PSA FOLLOW UP Continue Alfuzoin and Finasteride Follow Up: Schedule follow-up here in 6 month(s) with PSA and if stable will follow up with annual PSA Author: Anish eH MD 01/30/2019 10:20 documented in this encounter Plan of Treatment Date Type Specialty Care Team Description 02/05/2019 Office Visit Neurology Mervin Flaherty [place] [address] [address] 02/05/2019 Office Visit Family Practice Anne-Marie Tavarez MD [address] [place] [address] [phone] 06/04/2019 Office Visit Cardiology Nataliia Leonardo CRNP [address] [address] Name Type Priority Associated Diagnoses Order Schedule PSA, TOTAL (FOLLOW-UP Lab Routine Elevated prostate specific Expected: 06/2018 DIAGNOSTIC) antigen (PSA) (Approximate), Expires: Benign prostatic 01/31/2020 hyperplasia with urinary obstruction Health Maintenance Due Date Last Done Comments MEDICARE ANNUAL WELLNESS 1950 VISIT Colonoscopy 2000 ZOSTER IMMUNIZATION SERIES 2000 (1 of 2) AAA SCREENING/SURVEILLANCE 10/21/2015 FALL RISK ASSESSMENT 06/20/2019 06/19/2018, 06/19/2018 LIPID DISORDER SCREENING 08/01/2019 07/31/2018, 03/14/2018, 03/15/2016 DEPRESSION SCREENING 11/26/2019 11/25/2018 DIABETES SCREENING 01/16/2020 01/15/2019, 07/31/2018, 03/14/2018, Additional history exists PNEUMOCOCCAL 65+YRS Completed 03/26/2017, 03/15/2016 INFLUENZA VACCINE Completed 11/25/2018, 11/26/2017, 12/14/2016 HPV IMMUNIZATION SERIES Aged Out No longer eligible based on patient's age to complete this topic MENINGOCOCCAL VACCINE IMM Aged Out No longer eligible based on patient's age to complete this topic documented as of this encounter Goals Goal Patient Goal Associated Recent Patient-Stated? Author Type Problems Progress Blood Pressure Blood Pressure 123/63 No [place], < 150/90 (01/30/2019 Hang Eisenberg, 10:25 AM EST) Note: This is an individualized treatment (blood pressure) goal for Rahul Pugh: Displayed above (on the left) is [...] is an individualized treatment (depression) goal for Rahul Pugh: Displayed above is your goal for a depression screening (PHQ-9) score that would indicate good control of your depression. Weight loss vs. 18 mo Lifestyle 0 (01/29/2019 1:51 PM No Hang Sesay MD max (lbs) >= 10 EST) Note: This is an individualized lifestyle goal for Rahul Pugh: Your body mass index (BMI) is more than 30. You should lose weight. A reasonable starting goal is to lose 10 pounds. Displayed above is how many pounds you have lost thus far towards your 10 pound weight loss goal. Keep immunizations current Lifestyle Hang Espinoza MD Note: This is an individualized lifestyle goal for Rahul Pugh: Please be sure to keep up-to-date on recommended immunizations. For example, this would include a yearly influenza vaccine. Immunization status can be seen by looking at the Health Maintenance sections of your [employer], Plan of Care, and any After Visit Summaries. Keep a regular sleep schedule Lifestyle No Halie Davila FNP Note: This is an individualized lifestyle goal for Rahul Pugh: Please maintain a regular sleep schedule. This may help with some symptoms of depression. Take all prescribed medications as Self-management Hang Esipnoza MD directed Note: This is an individualized self-management goal for Rahul Pugh: Please take all prescribed medications as [...] filedocumented in this encounter Visit Diagnoses Diagnosis Elevated prostate specific antigen (PSA) - Primary Benign prostatic hyperplasia with urinary obstruction documented in this encounter Insurance Payer Benefit Plan / Subscriber ID Effective Dates Phone Address Type Group MEDICARE MEDICARE PART A xxxxxxxxxxx 1992-Present Medicare & B MEDICAID [facility] xxxxxxxx 2016-Present Medicaid [place] MEDICAID Guarantor Name Account Type Relation to Date of Phone Billing Patient Address Rahul Pugh Personal/Family 1950 [address] [phone] [place], [place] (Work) [id number] documented as of this encounter
--- OUTSIDE RECORDS SUMMARY | 2019-02-15 05:32 | XMS REPORT | Summary of Care ---
:1950 Author Organization [facility] Address [address] [place] [address] Care Team Providers Name Role Phone Hang Sesay Faina Primary Care Provider Reason for Referral (Routine) Status Reason Specialty Diagnoses / Referred By Referred To Procedures Contact Contact Pending Review Diagnoses Pressure ulcer of coccygeal region, stage 2 (HCC) Daysi, Procedures PRESSURE REDUCING DEVICES /SKIN PROTECTION MD Anne-Marie [address] [place] [address] Reason for Visit Reason Comments Follow Up 1wk bilateral leg edema Encounter Details Date Type Department Care Team Description 02/05/2019 Office Visit Roshni Tavarez, Chronic diastolic heart failure (HCC) (Primary Dx); Practice MD Anne-Marie Benign prostatic hyperplasia with urinary obstruction; [facility] [address] Pressure ulcer of coccygeal region, stage 2 (HCC) [place] [address] [phone] Allergies Active Allergy Reactions Severity Noted Date Comments Kdc:[place] Fcf+Tamsulosin GI Reaction 03/15/2016 Neomycin Unknown Reaction 09/18/2016 Sulfa Antibiotics Other 03/15/2016 shaking documented as of this encounter (statuses as of 02/05/2019) Medications Medication Sig Dispensed Refills Start End Date Status Date acetaminophen Take 650 mg by 0 Active (TYLENOL) 325 MG Oral mouth EVERY FOUR Tab HOURS NEEDED for Pain. Wound Dressings 1 Each by Apply 1 Each Active (CONTREET externally route 7 HYDROCOLLOID) Apply NEEDED (any externally Pads open wounds.). 4x4 dressings dextromethorphan-guai Take 5 mL by 0 Active fenesin (ROBITUSSIN mouth EVERY FOUR DM) 10-100 MG/5ML HOURS Oral Syrup NEEDED. zinc oxide 20 % Apply 1 Appl by 56.7 Each 2 Active externally Ointment Topical route 8 TWO TIMES DAILY NEEDED (skin breakdown in groin). finasteride (PROSCAR) TAKE 1 TAB BY 90 Tab 4 Active 5 MG Oral MOUTH EVERY DAY 9 TabIndications: Prostate cancer ([facility]) valsartan (DIOVAN) 80 Take 1 Tab by 90 Tab 2 Active MG Oral mouth DAILY. 9 TabIndications: Non-ischemic cardiomyopathy ([facility]) hydrocortisone 1 g by Topical 120 g [...] Chronic obstructive pulmonary disease, unspecified COPD type ([facility]) Tamsulosin HCl Take 1 Cap by 60 Cap 0 Active (FLOMAX) 0.4 MG Oral mouth DAILY. 9 Cap benztropine Take 1 Tab by 30 Tab 11 Active (COGENTIN) 0.5 MG mouth DAILY. 9 Oral Tab Alfuzosin HCl 10 MG Take 1 Tab by 30 Tab 11 Active Oral TABLET SR 24 HR mouth DAILY. 9 FLOVENT HFA 110 TAKE 2 PUFFS BY 1 Inhaler 4 Active MCG/ACT Inhalation INHALATION TWICE 9 AerosolIndications: DAILY. Moderate persistent asthma with acute exacerbation levothyroxine Take 1 Tab by 30 Tab 5 Active (SYNTHROID) 75 MCG mouth BEFORE 9 Oral Tab BREAKFAST. Incontinence Supply 1 Each by Does 105 Each 5 Active Disposable (PREVAIL not apply route 9 PM BRIEF X-LARGE) FOUR TIMES Does not apply Misc DAILY. DX:R15.9 Incontinence Supply 1 Each by Does 100 Each 4 Active Disposable Does not not apply route 9 apply DAILY. MiscIndications: Incontinence Urinary incontinence, briefs unspecified type [id number]: [id number] olanzapine (ZYPREXA) TAKE 1 TABLET BY 30 Tab 4 Active 10 MG Oral Tab MOUTH EVERY DAY 9 Multiple Vitamin Take 1 Tab by 30 Tab 11 Active (TAB-A-TRUONG) Oral Tab mouth DAILY. 9 Allyn Carbonate 600 Take 1 Cap by 30 Cap 5 Active MG Oral Cap mouth EVERY 9 BEDTIME. umeclidinium bromide Take 1 INHL by 30 Each 5 Active (INCRUSE ELLIPTA) inhalation 9 62.5 MCG/INH DAILY. Inhalation AEROSOL POWDER, BREATH ACTIVATED torsemide (DEMADEX) Take 1 Tab by 30 Tab 6 Active 20 MG Oral Tab mouth DAILY. 9 PEG Take by mouth. 0 Active [id number]-N aSulf (GAVILYTE-C PO) silver antimicrobial by Apply 0 Active (SILVASORB) Apply externally externally Gel route. benzonatate (TESSALON Take 100 mg by 0 Active PERLES) 100 MG Oral mouth THREE Cap TIMES DAILY NEEDED for cough. lithium 150 MG Oral TAKE 1 CAP BY 30 Cap 4 Active Cap MOUTH EVERY 9 BEDTIME. Control Gel Formula 1 Appl by Apply 10 Each 1 Active Dressing (DUODERM CGF externally route 9 BORDER) Apply EVERY THREE externally Misc DAYS. carvedilol (COREG) 25 Take 1 Tab by 60 Tab 5 02/06/20 Discontinued MG Oral Tab mouth TWICE 9 19 DAILY. cephalexin discharge Take 500 mg by 0 02/06/20 Discontinued (KEFLEX) 500 MG Oral mouth FOUR TIMES 19 Cap DAILY. documented as of this encounter (statuses as of 02/05/2019) Active Problems Problem Noted Date Prostate cancer 03/14/2018 Moderate persistent asthma without complication 03/14/2018 Sarcoidosis of lung 10/09/2016 Overview: Mediastinoscopy with biopsy positive 2006 Bronchoscopy negative for cancer 2005 positive bilateral Hilar adenopathy Non-ischemic cardiomyopathy 10/09/2016 Overview: Nuclear exercise stress test negative for coronary artery disease 2005 Echocardiogram left ventricular ejection fraction 30% 2007 Repeat echocardiogram 2007 left ventricular ejection fraction 55% Acquired hypothyroidism 10/09/2016 Pulmonary nodule, right 07/20/2016 Overview: Ct scan spring 2016 History of tobacco use 07/20/2016 Schizoaffective disorder 03/15/2016 Gastroesophageal reflux disease without esophagitis 03/15/2016 Overview: Upper GI series negative 2010 Mild intellectual disability 03/15/2016 Overview: [place] longterm under [employer] [facility] Bipolar disorder in full remission 03/15/2016 Overview: [facility] Feb 2016 Borderline personality disorder 03/15/2016 Pedophilia 03/15/2016 History of prostate cancer 03/15/2016 Overview: No surgery medication management in [place] Essential hypertension 03/15/2016 Spondylosis of lumbar region without myelopathy or radiculopathy 03/15/2016 Primary osteoarthritis of both knees 03/15/2016 Hypovitaminosis D 03/15/2016 Mixed hyperlipidemia 03/15/2016 documented as of this encounter (statuses as of 02/05/2019) Resolved Problems Problem Noted Date Resolved Date Coronary artery disease involving modoc coronary artery of 03/15/20162016 modoc heart without angina pectoris Overview: History myocardial infarction in past prior to 2012 documented as of this encounter (statuses as of 02/05/2019) Immunizations Name Administration Dates Next Due Influenza [...] Sign Reading Time Taken Comments Blood Pressure 110/58 02/05/2019 3:43 PM EST Pulse 72 02/05/2019 3:43 PM EST Temperature 37.3 02/05/2019 3:43 PM C (99.2 EST F) Respiratory Rate - - Oxygen Saturation 94% 02/05/2019 3:43 PM EST Inhaled Oxygen Concentration - - Weight 135.1 kg (297 lb 12.8 oz) 02/05/2019 3:43 PM EST Height - - Body Mass Index 36.73 01/29/2019 1:51 PM EST documented in this encounter Patient Instructions Patient InstructionsAnne-Marie Tavarez MD - 02/05/2019 3:20 PM EST1. Apply DuoDerm every 72 hours on the buttock's ulcers 2. Continue Torsemide 20 mg once a day. Increase to Torsemide 40 mg ( 2 tablets of 20 mg) once a dayif weight is above 292 lb 3. Follow up in [address] Swannill documented in this encounter Progress Notes Anne-Marie Tavarez MD - 02/05/2019 3:20 PM EST Patient: Shon Pugh Date of Service: 02/05/2019 Subjective: Shon Pugh is a 68-y.o. male who presents for Chief Complaint Patient presents with Follow Up 1wk bilateral leg edema Patient comes follow up fluid retention, peripheral edema Feels better: lost 9 lb, reduced peripheral edema Complains of painful sores on the buttock's area Past Medical History: Diagnosis Date Essential (primary) hypertension High cholesterol Outpatient Medications as of 02/05/2019 Medication Sig Dispense Refill acetaminophen (TYLENOL) 325 MG Oral Tab Take 650 mg by mouth EVERY FOUR HOURS NEEDED for Pain. albuterol HFA (VENTOLIN HFA) 108 (90 Base) MCG/ACT Inhalation Aero Soln Take 2 Puffs by inhalation EVERY FOUR HOURS NEEDED (wheezing and cough). 18 Each 2 Alfuzosin HCl 10 MG Oral TABLET SR 24 HR Take 1 Tab by mouth DAILY. 30 Tab 11 benzonatate (TESSALON PERLES) 100 MG Oral Cap Take 100 mg by mouth THREE TIMES DAILY NEEDED for cough. benztropine (COGENTIN) 0.5 MG Oral Tab Take 1 Tab by mouth DAILY. 30 Tab 11 dextromethorphan-guaifenesin (ROBITUSSIN DM) 10-100 MG/5ML Oral Syrup Take 5 mL by mouth EVERY FOUR HOURS NEEDED. finasteride (PROSCAR) 5 MG Oral Tab TAKE 1 TAB BY MOUTH EVERY DAY 90 Tab 4 FLOVENT HFA 110 MCG/ACT Inhalation Aerosol TAKE 2 PUFFS BY INHALATION TWICE DAILY. 1 Inhaler 4 hydrocortisone (HYTONE) 1 % Apply externally Cream 1 g by Topical route THREE TIMES DAILY. 120 g 5 Incontinence Supply Disposable (PREVAIL PM BRIEF X-LARGE) Does not apply Misc 1 Each by Does not apply route FOUR TIMES DAILY. DX:R15.9 105 Each 5 Incontinence Supply Disposable Does not apply Misc 1 Each by Does not apply route DAILY. Incontinence briefs [id number]: [id number] 100 Each 4 levothyroxine (SYNTHROID) 75 MCG Oral Tab Take 1 Tab by mouth BEFORE BREAKFAST. 30 Tab 5 lithium 150 MG Oral Cap TAKE 1 CAP BY MOUTH EVERY BEDTIME. 30 Cap 4 Allyn Carbonate 600 MG Oral Cap Take 1 Cap by mouth EVERY BEDTIME. 30 Cap 5 Multiple Vitamin (TAB-A-TRUONG) Oral Tab Take 1 Tab by mouth DAILY. 30 Tab 11 olanzapine (ZYPREXA) 10 MG Oral Tab TAKE 1 TABLET BY MOUTH EVERY DAY 30 Tab 4 Omeprazole 20 MG Oral Tab EC Take 1 Tab by mouth DAILY. 90 Tab 3 PEG [id number]-NaCl-NaSulf (GAVILYTE-C PO) Take by mouth. silver antimicrobial (SILVASORB) Apply externally Gel by Apply externally route. Tamsulosin HCl (FLOMAX) 0.4 MG Oral Cap Take 1 Cap by mouth DAILY. 60 Cap 0 torsemide (DEMADEX) 20 MG Oral Tab Take 1 Tab by mouth DAILY. 30 Tab 6 umeclidinium bromide (INCRUSE ELLIPTA) 62.5 MCG/INH Inhalation AEROSOL POWDER, BREATH ACTIVATED Take 1 INHL by inhalation DAILY. 30 Each 5 valsartan (DIOVAN) 80 MG Oral Tab Take 1 Tab by mouth DAILY. 90 Tab 2 Wound Dressings (CONTREET HYDROCOLLOID) Apply externally Pads 1 Each by Apply externally route NEEDED (any open wounds.). 4x4 dressings 1 Each 11 zinc oxide 20 % Apply externally Ointment 1 Appl by Topical route TWO TIMES DAILY NEEDED (skin breakdown in groin). 56.7 Each 2 No current facility-administered medications on file as of 02/05/2019. Allergies Allergen Reactions Flomax [Kdc:[place] Fcf+Tamsulosin] GI Reaction Neomycin Unknown Reaction Sulfa Antibiotics Other shaking Review of Systems: All remaining review of systems was negative. Objective: BP 110/58 (BP Location: Left arm, Patient Position: Sitting) Pulse 72 Temp 99.2 F (37.3 C) Wt 297 lb 12.8 oz (135.1 kg) SpO2 94% BMI 36.73 kg/m2 GENERAL: alert, fatigued THROAT: lips, mucosa, and tongue normal: teeth and gums normal NECK: supple, symmetrical, trachea midline LUNGS: clear to auscultation bilaterally HEART: regular rate and rhythm, S1, S2 normal, no murmur, click, rub or gallop EXTREMITIES: edema +1 SKIN: Several ulcers on the buttocks area. No discharge, significant erythema ICD-9-CM ICD-10-CM 1. Chronic diastolic heart failure (HCC) 428.32 I50.32 NT PROBNP Improved BASIC METABOLIC PANEL 2. Benign prostatic hyperplasia with urinary obstruction 600.01 N40.1 PSA, TOTAL (FOLLOW-UP DIAGNOSTIC) 599.69 N13.8 3. Pressure ulcer of coccygeal region, stage 2 (HCC) 707.03 L89.152 PRESSURE REDUCING DEVICES /SKIN PROTECTION 707.22 Patient Instructions 1. Apply DuoDerm every 72 hours on the buttock's ulcers 2. Continue Torsemide 20 mg once a day. Increase to Torsemide 40 mg ( 2 tablets of 20 mg) once a dayif weight is above 292 lb 3. Follow up in [address] Sesay Author: Anne-Marie Tavarez MD documented in this encounter Plan of Treatment Date Type Specialty Care Team Description 02/20/2019 Office Visit Internal Medicine Hang Sesay MD [address] [place] [address] 03/05/2019 Office Visit Neurology Mervin Flaherty DC [address] [place] [address] 06/04/2019 Office Visit Cardiology Nataliia Leonardo CRNP [address] [place] [address] [address] 07/31/2019 Office Visit Urology Anish He MD [address] [place] [address] [phone] Health Maintenance Due Date Last Done Comments MEDICARE ANNUAL WELLNESS 1950 VISIT DTaP/Tdap/Td Vaccines (1 - 1961 Tdap) Colonoscopy 2000 ZOSTER IMMUNIZATION SERIES 2000 (1 of 2) AAA SCREENING/SURVEILLANCE 10/21/2015 FALL RISK ASSESSMENT 06/20/2019 06/19/2018, 06/19/2018 LIPID DISORDER SCREENING 08/01/2019 07/31/2018, 03/14/2018, 03/15/2016 DEPRESSION SCREENING 11/26/2019 11/25/2018 DIABETES SCREENING 01/16/2020 01/15/2019, 07/31/2018, 03/14/2018, Additional history exists PNEUMOCOCCAL 65+YRS Completed 03/26/2017, 03/15/2016 INFLUENZA VACCINE Completed 11/25/2018, 11/26/2017, 12/14/2016 HEPATITIS A IMMUNIZATION Aged Out No longer eligible SERIES based on patient's age to complete this topic HPV IMMUNIZATION SERIES Aged Out No longer eligible based on patient's age to complete this topic MENINGOCOCCAL VACCINE IMM Aged Out No longer eligible based on patient's age to complete this topic documented as of this encounter Goals Goal Patient Goal Associated Recent Patient-Stated? Author Type Problems Progress Blood Pressure Blood Pressure 110/58 No Lázaro, < 150/90 (02/05/2019 Hang Eisenberg, 3:43 PM EST) Note: This is an individualized treatment (blood pressure) goal for Shon Lexy: Displayed above (on the left) is your [...] an individualized treatment (depression) goal for Shon Lexy: Displayed above is your goal for a depression screening (PHQ-9) score that would indicate good control of your depression. Weight loss vs. 18 mo Lifestyle 8.9 (02/05/2019 3:43 PM No Lázaro, Hang Eisenberg MD max (lbs) >= 10 EST) Note: This is an individualized lifestyle goal for Shon Lexy: Your body mass index (BMI) is more [...] ongoing basis. documented as of this encounter Procedures Procedure Name Priority Date/Time Associated Diagnosis Comments PSA, TOTAL Routine 02/05/2019 4:16 PM Benign prostatic Results for this (FOLLOW-UP EST hyperplasia with procedure are in DIAGNOSTIC) urinary obstruction the results section. NT PROBNP Routine 02/05/2019 4:16 PM Chronic diastolic Results for this EST heart failure (HCC) procedure are in the results section. BASIC METABOLIC Routine 02/05/2019 4:16 PM Chronic diastolic Results for this PANEL EST heart failure (HCC) procedure are in the results section. documented in this encounter Results BASIC METABOLIC PANEL (02/05/2019 4:16 PM EST) Glucose 99 70 - 99 mg/dl [facility] BUN 27 (H) 9 - 20 mg/dl [facility] Creatinine 1.3 0.8 - 1.5 mg/dl [facility] Sodium 132 (L) 134 - 145 mmol/L [facility] Potassium 3.5 3.5 - 5.1 mmol/L [facility] Chloride 95 (L) 98 - 107 mmol/L [facility] CO2 31 (H) 22 - 30 mmol/L [facility] Calcium 9.0 8.3 - 10.1 mg/dl [facility] eGFR 55 See Interpretation [facility] Comment: Below ml/min/1.73ml [facility] Estimated GFR Interpretation: Sq LABORATORY Above 60ml/min/1.73m2 = Normal Renal Function 30-59 ml/min/1.73m2 = Stage 3 Chronic Kidney Disease 15-29 ml/min/1.73m2 = Stage 4 Chronic Kidney Disease Less than 15 ml/min/1.73m2 = Stage 5 Chronic Kidney Disease The GFR value is calculated using the Modification of Diet in Renal Disease ( MDRD) Study Equation which can be found at: https://www.kidney.org/content/hdbt-fufui-jwjppsez BUN/Creatinine 21 6 - 22 RATIO [facility]ATORY Anion Gap 6 3 - 11 mmol/L [facility] Specimen Blood - Blood specimen (specimen) Performing Organization Address City/State/Zipcode Phone Number [facility] [address] [place] [address] [phone] NT PROBNP (02/05/2019 4:16 PM EST) NT PRO BNP 384 (H) <125 pg/ml [facility] Comment: [facility] Recommended cut points for the diagnostic evaluation of heart failure patients with acute dyspnea* Ages (years) Optimal [place] (pg/ml) <50 450 50-75 900 >75 1800 *The [place] Journal of Cardiology NTproBNP results should be interpreted in the context of the overall picture. Serum concentrations of natriuretic peptides may be elevated in patients with acute myocardial infarction and renal insuffic iency. Certain drugs may alter results. Heterophilic antibodies are known to cause interference with immunoassays. Results which are inconsistent with clinical observation indicate a need for additional testing. NTproBNP testing performed on [employer]. Results will not correlate with other methodologies. Specimen Blood - Blood specimen (specimen) Performing Organization Address City/[facility]/Zipcode Phone Number [employer] [facility] [address] [place] [address] [address] PSA, TOTAL (FOLLOW-UP DIAGNOSTIC) (02/05/2019 4:16 PM EST) PSA 2.80 <4.00 ng/mL [facility] Comment: [facility] PSA is performed on the [employer] systems by immunoassay. Values obtained with different assay methods or kits cannot be used interchangeably. PSA levels in serum and plasma, regardless of level, should not be interpreted as absolute evidence of the presence o r absence of malignant disease. Serial test results obtained with the 2can PSA test, in patients who are clinically free of disease, should be used in conjunction with all relevant information sigrid ived from diagnostic tests, physical examination, and full medical history in accordance with appropriate patient management procedures. Specimen Blood - Blood specimen (specimen) Performing Organization Address [facility] Phone Number [facility] [address] [place] [address] documented in this encounter Visit Diagnoses Diagnosis Benign prostatic hyperplasia with urinary obstruction Chronic diastolic heart failure (HCC) Chronic diastolic heart failure Pressure ulcer of coccygeal region, stage 2 (HCC) Pressure ulcer, lower back documented in this encounter Insurance Payer Benefit Plan / Subscriber ID Effective Dates Phone Address Type Group MEDICARE MEDICARE PART A xxxxxxxxxxx 1992-Present Medicare & B MEDICAID [facility] xxxxxxxx 2016-Present Medicaid [place] MEDICA[place] Guarantor Name Account Type Relation to Date of Phone Billing Patient Address Shon Pugh Personal/Family 1950 [address] [phone] [place], [place] (Work) [id number] documented as of this encounter
--- OUTSIDE RECORDS SUMMARY | 2019-02-15 05:32 | XMS REPORT | Summary of Care ---
:1950 Author Organization [facility] Address [address] [facility] [place] [address] Care Team Providers Name Role Phone Hang Sesay Primary Care Provider Reason for Referral MRI/CAT/PET Scan (Routine) Status Reason Specialty Diagnoses / Procedures Referred By Contact Referred To Contact Closed Diagnoses Bilateral leg edema [place], Procedures VL LOWER EXTREMITY DUPLEX VEINS BILATERAL MD Anne-Marie [address] [place], [place] [id number] Reason for Visit Reason Comments Breathing Problem Encounter Details Date Type Department Care Team Description 01/29/2019 Office Visit [facility], Bilateral leg edema ( Primary Dx); Practice MD Anne-Marie Cellulitis of lower extremity, unspecified laterality; [address] Cardiomyopathy, unspecified type (HCC) [place] [address] [phone] Allergies Active Allergy Reactions Severity Noted Date Comments Kdc:[place] Blue Fcf+Tamsulosin GI Reaction 03/15/2016 Neomycin Unknown Reaction 09/18/2016 Sulfa Antibiotics Other 03/15/2016 shaking documented as of this encounter (statuses as of 01/29/2019) Medications Medication Sig Dispensed Refills Start End [...] Chronic obstructive pulmonary disease, unspecified COPD type ([facility]) Tamsulosin HCl Take 1 Cap by [...] MiscIndications: Incontinence Urinary incontinence, briefs unspecified type [id number]: [id number] olanzapine (ZYPREXA) TAKE 1 TABLET BY 30 Tab 4 Active 10 MG Oral Tab MOUTH EVERY DAY 9 Multiple Vitamin Take 1 Tab by 30 Tab 11 Active (TAB-A-TRUONG) Oral Tab mouth DAILY. 9 Crum Carbonate 600 Take 1 Cap by 30 Cap 5 Active MG Oral Cap mouth EVERY 9 BEDTIME. umeclidinium bromide Take 1 INHL by 30 Each 5 Active (INCRUSE ELLIPTA) inhalation 9 62.5 MCG/INH DAILY. Inhalation AEROSOL POWDER, BREATH ACTIVATED torsemide (DEMADEX) Take 1 Tab by 30 Tab 6 Active 20 MG Oral Tab mouth DAILY. 9 cephalexin discharge Take 500 mg by 0 Active (KEFLEX) 500 MG Oral mouth FOUR TIMES Cap DAILY. PEG Take by mouth. 0 Active [id number] aSulf (GAVILYTE-C PO) silver antimicrobial by Apply 0 Active (SILVASORB) Apply externally externally Gel route. benzonatate (TESSALON Take 100 mg by 0 Active PERLES) 100 MG Oral mouth THREE Cap TIMES DAILY NEEDED for cough. Menthol-Zinc Oxide 1 Appl by Apply 283 g 3 01/30/20 Discontinued (GOLD GARCIA) Apply externally route 7 19 externally Powder NEEDED (groin area). mupirocin (BACTROBAN) Apply twice a 1 Tube 3 01/30/20 Discontinued 2 % Apply externally day as needed 7 19 Ointment for open areas on groin and scrotum Misc. Devices 1 Appl by Does 1 Each 5 01/30/20 Discontinued (HIBICLENS HAND PUMP not apply route 7 19 NON FOAM) Does not DIRECTED. apply Misc Wash affected areas of groin and scrotum bid as needed ketoconazole APPLY SPARINGLY 60 Each 2 01/30/20 Discontinued (NIZORAL) 2 % Apply TO RASH IN GROIN 10 14 externally AND ON SCROTUM CreamIndications: TWICE A DAY Rash AFTER WASHING AND DRYING WELL benzonatate (TESSALON Take 1 Cap by 60 Cap 0 01/30/20 Discontinued PERLES) 100 MG Oral mouth THREE 11 14 CapIndications: TIMES DAILY Moderate persistent NEEDED for asthma with acute cough. exacerbation lithium 150 MG Oral Take 1 Cap by 180 Cap 5 01/30/20 Discontinued Cap mouth EVERY 9 19 BEDTIME. naproxen (NAPROSYN) Take 1 Tab by 60 Tab 4 01/30/20 Discontinued 500 MG Oral mouth TWICE 11 14 TabIndications: DAILY. Osteoarthritis of lumbosacral spine with radiculopathy olanzapine (ZYPREXA) Take 1 Tab by 30 Tab 5 01/30/20 Discontinued 10 MG Oral Tab mouth EVERY 9 BEDTIME. Multiple Vitamin TAKE 1 TAB BY 30 Tab 4 01/30/20 Discontinued (TAB-A-TRUONG) Oral Tab MOUTH DAILY. 9 19 documented as of this encounter (statuses as of 01/29/2019) Active Problems Problem Noted Date Prostate cancer [...] 03/15/2016 Overview: Lives [place] [facility] under [facility] Bipolar disorder in full remission 03/15/2016 Overview: [facility] Feb 2016 Borderline personality disorder 03/15/2016 Pedophilia 03/15/2016 History of prostate cancer 03/15/2016 Overview: No surgery medication management in [place] Essential hypertension 03/15/2016 Spondylosis of lumbar region without myelopathy or radiculopathy 03/15/2016 Primary osteoarthritis of both knees 03/15/2016 Hypovitaminosis D 03/15/2016 Mixed hyperlipidemia 03/15/2016 documented as of this encounter (statuses as of 01/29/2019) Resolved Problems Problem Noted Date Resolved Date Coronary artery disease involving jena coronary artery of 03/15/20162016 jena heart without angina pectoris Overview: History myocardial infarction in past prior to 2012 documented as of this encounter (statuses as of 01/29/2019) Immunizations Name Administration Dates Next Due Influenza [...] Sign Reading Time Taken Comments Blood Pressure 122/66 01/29/2019 1:51 PM EST Pulse 73 01/29/2019 1:51 PM EST Temperature 36.7 01/29/2019 1:51 PM C (98.1 EST F) Respiratory Rate - - Oxygen Saturation 96% 01/29/2019 1:51 PM EST Inhaled Oxygen Concentration - - Weight 139.1 kg (306 lb 11.2 oz) 01/29/2019 1:51 PM EST Height 191.8 cm (6' 3.5") 01/29/2019 1:51 PM EST Body Mass Index 37.83 01/29/2019 1:51 PM EST documented in this encounter Patient Instructions Patient InstructionsAnne-Marie Tavarez MD - 01/29/2019 1:40 PM EST1. Take Torsemide 20 mg 2 times a day 2. Follow up in 1 week and as needed documented in this encounter Progress Notes Anne-Marie Tavarez MD - 01/29/2019 1:40 PM EST Patient: Shon Pugh Date of Service: 01/29/2019 Subjective: Shon Pugh is a 68-y.o. male who presents for No chief complaint on file. Past Medical History: Diagnosis Date Essential (primary) hypertension High cholesterol TCM Statement. Review of the ER evaluation: I am seeing for transition of care following evaluation at the The date of ER evaluation - 01/23/19 Diagnosis: Cellulitis, leg edema I reviewed the discharge summary, discharge instructions, and pertinent additional documentation obtained during hospitalization. I reconciled the medications. I also reviewed the Transition of Care documentation done by staff. Coordination of care. (delete one and this phrase) - I am satisfied that appropriate referrals are in place to deal with the problems identified during hospitalization, and that the patient has adequate community resources and support in place. - Additional testing related to hospitalization was requested today: no See orders. I confirmed the patient's understanding of the diagnosis and plan of care. Specific education that was provided today: Patient Instructions 1. Take Torsemide 20 mg 2 times a day 2. Follow up in 1 week and as needed The current and discharge medications were reconciled by me, today The source document was Electronic summary of care Patient with history of cardiomyopathy presented to the ER with complains of increased SOB, peripheral edema, weight gain Evaluation at the ER: EKG - sinus rhythm, no change from previous EKG Chest X-ray: cardiomegaly, interstitial edema CMP - no significant abnormalities, CBC - mild leukocytosis, mild normocytic anemia, BNP - normal Patient was discharged on oral Keflex Mild redness on the R alex - resolved. Continues to complain of exertional SOB, bilateral leg edema, pain Gained 14 lb since last visit No chest pains, palpitations. Outpatient Medications as of 01/29/2019 Medication Sig Dispense Refill acetaminophen (TYLENOL) 325 [...] Tab by mouth DAILY. 30 Tab 11 benztropine (COGENTIN) 0.5 MG Oral Tab Take 1 Tab by mouth DAILY. 30 Tab 11 carvedilol (COREG) 25 MG Oral Tab Take 1 Tab by mouth TWICE DAILY. 60 Tab 5 dextromethorphan-guaifenesin (ROBITUSSIN DM) 10-100 MG/5ML Oral Syrup [...] Does not apply route DAILY. Incontinence briefs [id number]: [id number] 100 Each 4 levothyroxine (SYNTHROID) 75 MCG Oral Tab Take 1 Tab by mouth BEFORE BREAKFAST. 30 Tab 5 Crum Carbonate 600 MG Oral Cap Take 1 Cap by mouth EVERY BEDTIME. 30 Cap 5 Multiple Vitamin (TAB-A-TRUONG) Oral Tab Take 1 Tab by mouth DAILY. 30 Tab 11 olanzapine (ZYPREXA) 10 MG Oral Tab TAKE 1 TABLET BY MOUTH EVERY DAY 30 Tab 4 Omeprazole 20 MG Oral Tab EC Take 1 Tab by mouth DAILY. 90 Tab 3 Tamsulosin HCl (FLOMAX) 0.4 MG Oral Cap Take 1 Cap by mouth DAILY. 60 Cap 0 umeclidinium bromide (INCRUSE ELLIPTA) 62.5 MCG/INH Inhalation [...] current facility-administered medications on file as of 01/29/2019. Allergies Allergen Reactions Flomax [Kdc:[place] Blue Fcf+Tamsulosin] GI Reaction Neomycin Unknown Reaction Sulfa Antibiotics Other shaking Review of Systems: All remaining review of systems was negative. Objective: BP 122/66 (BP Location: Left arm, Patient Position: Sitting) Pulse 73 Temp 98.1 F (36.7 C)(Tympanic) Ht 6' 3.5" (1.918 m) Wt 306 lb 11.2 oz ( 139.1 kg) SpO2 96% BMI 37.83 kg/m2 GENERAL: alert, fatigued THROAT: lips, mucosa, and tongue normal: teeth and gums normal NECK: supple, symmetrical, trachea midline, no adenopathy and thyroid: not enlarged, symmetric, notenderness/mass/nodules LUNGS: bibasilar rales HEART: regular rate and rhythm, S1, S2 normal, no murmur, click, rub or gallop EXTREMITIES: edema +2 bilateral, more on the L, Bilateral calves tenderness Bilateral legs venous Doppler - negative for DVT by preliminary report ICD-9-CM ICD-10-CM 1. Bilateral leg edema Patient appears fluid overloaded despite normal BNP Likely due to CHF Will increase Torsemide to 20 mg PO bid until weight is down to baseline (292 lb ) - caregiver that comes today with the patient advised Will monitor closely 782.3 R60.0 VL LOWER EXTREMITY DUPLEX VEINS BILATERAL 2. Cellulitis of lower extremity, unspecified laterality Not found on today's exam Will complete Keflex as prescribed 682.6 L03.119 3. Cardiomyopathy, unspecified type (HCC) 425.4 I42.9 Patient Instructions 1. Take Torsemide 20 mg 2 times a day 2. Follow up in 1 week and as needed Author: Anne-Marie Tavarez MD documented in this encounter Plan of Treatment Date Type Specialty Care Team Description 01/30/2019 Office Visit Urology Anish He MD [address] [place] [address] [phone] 02/05/2019 Office Visit Neurology Mervin Flaherty DC [address] [place] [address] 02/05/2019 Office Visit Family Practice Anne-Marie Tavarez MD [address] [place] [address] [phone] 06/04/2019 Office Visit Cardiology Nataliia Leonardo CRNP [address] [place] [address] [phone] Name Type Priority Associated Diagnoses Date/Time VL LOWER EXTREMITY Imaging Routine Bilateral leg edema 01/29/2019 2:49 PM EST DUPLEX VEINS BILATERAL Health Maintenance Due Date Last Done Comments [...] Type Problems Progress Blood Pressure Blood Pressure 122/66 No [place], < 150/90 (01/29/2019 Hang Eisenberg, 1:51 PM EST) Note: This is an individualized [...] mo Lifestyle 0 (01/29/2019 1:51 PM No Lázaro, Hang Eisenberg MD max (lbs) >= 10 EST) Note: This is an individualized lifestyle goal for Shon Neddo: Your body mass index (BMI) is more [...] depression. Take all prescribed medications as Self-management No Hang Sesay MD directed Note: This is an individualized [...] filedocumented in this encounter Visit Diagnoses Diagnosis Bilateral leg edema - Primary Edema Cellulitis of lower extremity, unspecified laterality Cardiomyopathy, unspecified type (HCC) documented in this encounter Insurance Payer Benefit Plan / Subscriber ID Effective Dates Phone Address Type Group MEDICARE MEDICARE PART A xxxxxxxxxxx 1992-Present Medicare & B MEDICAID [facility] xxxxxxxx 2016-Present Medicaid [place] MEDICAID Guarantor Name Account Type Relation to Date of Phone Billing Patient Address Shon Pugh Personal/Family 1950 [address] [phone] [place], [place] ([place]) [id number] documented as of this encounter
[2019-02-15] MEDS: Albuterol/Ipratropium NEB.SOL* Albuterol 2.5 MG/Ipratropium 0.5 MG 3 ML INH SCH ×3 (05:48→06:09)
[2019-02-15 05:55] LABS: ABS Eosinophils 0.4 10^3/ul (0-0.6); ABS Lymphocytes 0.6 10^3/ul (1.0-4.8); Eosinophil % 2.9 %; Hematocrit 29 % (42-52); Hemoglobin 9.6 g/dL (14.0-18.0); Lymphocyte % 4.6 %; Mean Corpuscular HGB Conc 33 g/dL (31-36); Mean Corpuscular Hemoglobin 28 pg (27-31); Mean Corpuscular Volume 86 fL (80-94); Mean Platelet Volume 7.1 fL (7.4-10.4); Platelet Count 296 10^3/uL (150-450); Red Blood Count 3.39 10^6 /uL (4.18-5.48); Red Cell Distribution Width 16 % (10-15)
[2019-02-15 06:01] LABS: INR 1.19 (0.82-1.09)
[2019-02-15 06:11] LABS: Albumin 3.6 g/dL (3.2-5.2); Albumin/Globulin Ratio 1.1 (1-3); BUN/Creatinine Ratio 18.9 (8-20); Calcium 8.8 mg/dL (8.6-10.3); EGFR African American 71.5 (>60); EGFR Non-African American 59.1 (>60); Globulin 3.2 g/dL (2-4); Potassium 3.8 mmol/L (3.5-5.0); Total Bilirubin 0.4 mg/dL (0.2-1.0); Total Protein 6.8 g/dL (6.4-8.9)
[2019-02-15 06:13] LABS: Troponin I 0.01 ng/mL (<0.03)
[2019-02-15] MEDS ORDERED: Ketorolac INJ* 30 MG/ML 1 ML VIAL IV PUSH ONE (06:14)
[2019-02-15] MEDS ORDERED: Albuterol/Ipratropium NEB.SOL* Albuterol 2.5 MG/Ipratropium 0.5 MG 3 ML INH ONE (07:01)
--- NOTE | 2019-02-15 07:15 | ED ---
Progress - Progress Note Progress Note: This pt is a sign out from Dr. Batista to Dr. Lowe at shift change on at 0700 pending ABG and re-eval. Re-Evaluation - Re-Evaluation First Eval Re-Evaluation Time: 07:16 Change: Worse Comment: Recheck on patient and he is 86% on room air. He will receive his 5th duoneb. Will give him steroids, antibiotics, and admit to the hospitalist. Second Eval Re-Evaluation Time: 07:00 Change: Unchanged Comment: Patient is 89 O2. I will give him DuoNeb and an ABG. Course/Dx - Course Course Of Treatment: Patient signed out to me by Dr. Batista. Patient had a mechanical fall at his long term. Patient was hypoxemic and has a history of COPD. Upon my reevaluation, patient was satting 86% on room air and was about to receive his fifth DuoNeb treatment. Given patient's COPD history and continued wheezing, patient was given steroids, antibiotics, and admitted to the hospital. - Diagnoses Provider Diagnoses: COPD exacerbation, Hypoxemia - Provider Notifications Discussed Care Of Patient With: Laxmi Lao - hospitalist Time Discussed With Above Provider: 07:29 Instructed by Provider To: Admit As Inpatient Discharge ED - Sign-Out/Discharge Documenting (check all that apply): Patient Departure - Admit to [facility], Receiving Sign-Out Receiving patient FROM: Vanita Batista - Discharge Plan Condition: Stable Disposition: ADMITTED TO [facility] Referrals: Hang Sesay MD [Primary Care Provider] - - Billing Disposition and Condition Condition: STABLE Disposition: Admitted to [facility] - Attestation Statements Document Initiated by Lucia: Yes Documenting Scribe: Mara Hammond Provider For Whom Lucia is Documenting (Include Credential): Josse Lowe MD Scribe Attestation: Mara Hooks, scribed for Josse Lowe MD on 02/15/19 at 0848. Scribe Documentation Reviewed: Yes Provider Attestation: The documentation as recorded by the Mara salvador accurately reflects the service I personally performed and the decisions made by me, Josse Lowe MD Status of Scribe Document: Viewed
[2019-02-15] MEDS ORDERED: cefTRIAXone(*) 1 GM in NS 0.9% 50 ML* 50 ML IVPB ONE (07:20)
[2019-02-15] MEDS ORDERED: Azithromycin 500 mg/250 ml NS 500 MG/250 ML BAG IVPB ONE (07:20)
[2019-02-15] MEDS ORDERED: methylPREDNISolone 125 MG* 2 ML VIAL IV ONE (07:20)
[2019-02-15 08:55] LABS: Lithium 1.47 mmol/L (0.6-1.2)
[2019-02-15] MEDS ORDERED: Albuterol/Ipratropium NEB.SOL* Albuterol 2.5 MG/Ipratropium 0.5 MG 3 ML INH SCH ×2 (09:00→11:00)
[2019-02-15] MEDS ORDERED: Pantoprazole TAB * 40 MG TAB PO SCH (09:00)
--- NOTE | 2019-02-15 10:30 | HP ---
CC: Dr. Sesay* HISTORY AND PHYSICAL: DATE OF ADMISSION: 02/15/19 TIME OF ADMISSION: 8 o'clock a.m. PRIMARY CARE PHYSICIAN: Dr. Sesay. CHIEF COMPLIANT: Fall. HISTORY OF PRESENT ILLNESS: This is a 68-year-old man with history of parkinsonism, schizoaffective disorder, and intellectual disability as well as COPD and dilated cardiomyopathy, who presented to the emergency room early this morning after a fall at [facility] where he resides. The patient is a poor historian; however, [facility], who provides some additional history. She reports that around 3:40 a.m. today, he woke up and was unstable on his feet with his walker. Staff report that this is not particularly unusual for him; however, he fell and could not get up from the floor, which is unusual for him and staff was unable to help him stand, so they called EMS at that time and he was brought to the emergency department. Mr. Pugh does not recall any symptoms yesterday and denied any chest pain, shortness of breath, palpitations, dizziness, or lightheadedness; however, of note, he is a poor historian. At this time, his only complaint is right-sided pain, he points to his right hip and right lower quadrant. In the emergency department, he was found to be hypoxic on room air. He has no baseline O2 requirement and so he is treated for COPD exacerbation and we were asked to consider admission. PAST MEDICAL HISTORY: This is per his last hospitalization from March of this year. Parkinsonism, obstructive sleep apnea, osteoarthritis, hypothyroidism, schizoaffective disorder, factitious disorder, pedophilia, borderline personality disorder, intellectual disability, history of prostate cancer, history of asthma, COPD, and dilated cardiomyopathy. HOME MEDICATIONS: These are currently being reconciled by his ED RN, I will update this list when it is complete. FAMILY HISTORY: Unable to be obtained. SOCIAL HISTORY: He resides at the [facility]. April reports that he has no family and this is in accordance with prior H and Ps, at which time a healthcare proxy was unable to be obtained. It is unclear at this time who his healthcare proxy is. April's number is [phone], the phone number at the [facility] where he lives is [phone]. He reports that he is a former smoker. REVIEW OF SYSTEMS: Very limited due to the patient's mental status and speech; however, as per the HPI and remainder is otherwise negative. PHYSICAL EXAMINATION GENERAL: Alert, tachypneic man, who appears older than stated age, who is in no distress, but is unable to speak in a full sentence. VITAL SIGNS: Temperature 97.0, heart rate 80, respiratory rate 34, pulse ox 100 % on 6 L, blood pressure 123/48. HEENT: His pupils are 4 mm bilaterally and reactive to light. His oral mucosa is very dry. NECK: I cannot appreciate JVP; however, he has redundant skin. CHEST: He is in a regular rate and rhythm with no murmurs. His lung exam is limited by tachypnea, but I hear no wheezes or rhonchi. He has distant breath sounds and equal expansion of his chest. ABDOMEN: Obese, soft, and he has tenderness to deep palpation in the right lower quadrant, but no peritoneal signs, no guarding, no rebound, no rigidity. EXTREMITIES: He complains of pain in his right hip on passive flexion and extension. He has mildly erythematous legs bilaterally with 1+ pitting edema bilaterally. His skin on his feet is extremely dry, but there are no open sores or wounds. NEUROLOGIC: His strength in his upper extremities is 5/5, in his left lower extremity it is 5/5, in his right lower extremity it is 4/5. He has a left- sided facial droop and slurred speech. April says that the slurred speech is his baseline and his facial droop was noted since his March admission when he was admitted for concern for a TIA; however, his physical exam in March did not note slurred speech. DIAGNOSTIC STUDIES/LAB DATA: White blood cells 12.0, hemoglobin 9.6 from a baseline of 11, platelets 296. Sodium 134, potassium 3.8, chloride 99, bicarb 32, BUN 23, creatinine 1.22, glucose 105. Flu swab is negative. BNP is 36. Chest x-ray: The read is still pending from Radiology. My read shows very poor inspiration and cardiomegaly. A hip and pelvis x-ray read is also still pending. EKG: Normal sinus rhythm, normal axis, mildly prolonged QRS at 122 with a nonspecific pattern. No chamber hypertrophy. No Q waves and no ST or T-wave changes except T-wave flattening in III and aVF. There is another EKG done at 5:47, which was read as AFib; however, I think it was a poor baseline, as rhythm is regular. ASSESSMENT AND PLAN: This is a 68-year-old man with history of parkinsonism and psychiatric disease and chronic obstructive pulmonary disease, who presents to the emergency department with a mechanical fall at 3 o'clock this morning and is found to be hypoxic in the emergency department. 1. Mechanical fall. The differential for his fall at this point includes weakness from hypoxia, ambulatory dysfunction, parkinsonism, anemia, and polypharmacy. I suspect hypoxia is most likely. There is no reported loss of consciousness, and I will treat his hypoxia as below. I will get a CT head as well. 2. Acute hypoxic respiratory failure. He is quite tachypneic, but saturating well on 6 L currently in the emergency department. He has been treated with azithromycin and ceftriaxone in the emergency department as well as methylprednisone and a DuoNeb with little improvement. I will continue nebs and steroids and antibiotics and check a sputum culture and I will wait for the official read of the chest x-ray. He does not have overt risk factors for PE; however, we will keep this in mind. Alternatively, he has cardiomegaly on his chest x-ray and has never had an echocardiogram here, so we will order an echo for tomorrow. Of note, his BNP is low; however, he is morbidly obese. 3. Right hip/right lower quadrant pain. I will await the official read of the x- ray and if it is negative, I will pursue a pelvis CT. 4. Anemia. His hemoglobin is approximately 1.5 g below his baseline. This is concerning given his mechanical fall and given his localized pain to the right hip, I would like to pay more radiographic attention to his right hip with a pelvis CT as above. I will also check an FOBT and trend his hemoglobin. 5. Hypothyroidism. His TSH was within normal limits in the emergency department. 6. Schizoaffective disorder, factitious disorder, borderline personality disorder, pedophilia. Continue home antipsychotic medications after appropriate medication reconciliation. 7. Parkinsonism. Continue benztropine after appropriate medication reconciliation. 8. Slurred speech. Again, this was noted by the business account manager at the [facility], however, not on prior physical exams documented in our system. I need to obtain more collateral information from the staff at [facility] and I will call them next. 12. DVT prophylaxis. I am awaiting the medication reconciliation to be sure he is not on any anticoagulation as his INR is mildly elevated. 13. Diet. He reports history of diabetes; however, I do not see that on his prior admission. I will start diet for him after a swallow eval by Nursing. 14. Code status. I will also need to obtain this information from [facility]. According to the paper that arrived with him, he does not have a DNR and he also does not have a healthcare proxy. [id number]/[facility] #: [id number] ADDENDUM TO HISTORY AND PHYSICAL: I spoke with the nurse covering at [facility] today. Unfortunately, she does not know Mr. Pugh at baseline and she states no one is there who does know him. [id number]/[facility] #: [id number] ADDENDUM TO HISTORY AND PHYSICAL: I spoke with April again who was able to reach the business account manager at [facility]. He reported that Mr. Pugh's speech is always slurred. He always mumbles and it is always difficult to understand him. He also reported that he has COPD, chronic cough and has a tendency towards pneumonia, and reports that his health has been generally declining over the past few months but did not give any further details about that. [id number]/[facility] #: [id number] ROSIE
[2019-02-15] MEDS: Benztropine TAB* 1 MG PO SCH (10:58)
[2019-02-15] MEDS: Valsartan TAB* 80 MG PO SCH (10:58)
[2019-02-15] MEDS: Finasteride TAB* 5 MG PO SCH (10:59)
[2019-02-15] MEDS: Levothyroxine TAB* 75 MCG TAB PO SCH (10:59)
--- NOTE | 2019-02-15 11:34 | HP ---
HISTORY AND PHYSICAL: ADDENDUM: I spoke with the nurse covering at [facility] today. Unfortunately , she does not know Mr. Pugh at baseline and she states no one is there who does know him. [id number]/[facility] #: [id number] ROSIE
[2019-02-15] MEDS: CMC:Alfuzosin ER (NF) 10 MG TAB.ER PO SCH (11:37)
[2019-02-15] MEDS: Torsemide TAB* 20 MG PO SCH (11:37)
[2019-02-15] MEDS: methylPREDNISolone SOD 40 MG* 1 ML VIAL IV SCH ×2 (12:43→20:45)
--- NOTE | 2019-02-15 14:06 | PN ---
Hospitalist Progress Note Date of Service: 02/15/19 I have been calling [facility] repeatedly to find someone who knows Mr. Pugh' s baseline, but no one is answering. Will continue to try to reach someone who knows him.
[2019-02-15 16:18] LABS: Urine Appearance Clear; Urine Bilirubin Negative (Negative); Urine Blood 1+ (Negative); Urine Color Yellow; Urine Glucose Negative (Negative); Urine Ketones Negative (Negative); Urine Nitrite Negative (Negative); Urine Protein Negative (Negative); Urine Specific Gravity 1.009 (1.010-1.030); Urine Urobilinogen Negative (Negative)
[2019-02-15 16:20] LABS: Urine Bacteria Absent (Absent); Urine Red Blood Cell Trace(0-2/hpf) (Absent); Urine Squamous Epithelial Cell Present (Absent); Urine White Blood Cell Trace(0-5/hpf) (Absent)
--- NOTE | 2019-02-15 18:47 | HP ---
HISTORY AND PHYSICAL: ADDENDUM: I spoke with April again who was able to reach the watershed manager at [facility]. He reported that Mr. Pugh's speech is always slurred. He always mumbles and it is always difficult to understand him. He also reported that he has COPD, chronic cough and has a tendency towards pneumonia, and reports that his health has been generally declining over the past few months but did not give any further details about that. [id number]/[facility] #: [id number] ROSIE
[2019-02-15] MEDS: Mometasone 220 MCG MDI INH SCH (19:57)
[2019-02-15] MEDS: OLANzapine TAB* 10 MG PO SCH (20:45)
[2019-02-15] MEDS: Albuterol 2.5 MG/3 ML NEB.SOL* (0.083%) INH PRN (20:56)
[2019-02-15] MEDS ORDERED: Lithium Carbonate TAB* 300 MG PO SCH ×2 (21:00)
[2019-02-16] MEDS: methylPREDNISolone SOD 40 MG* 1 ML VIAL IV SCH ×3 (04:06→20:55)
[2019-02-16 06:28] LABS: ABS Lymphocytes 0.3 10^3/ul (1.0-4.8); ABS Monocytes 0.4 10^3/ul (0-0.8); ABS Neutrophils 18.4 10^3/ul (1.5-7.7); Hematocrit 30 % (42-52); Hemoglobin 9.7 g/dL (14.0-18.0); Lymphocyte % 1.8 %; Mean Corpuscular HGB Conc 33 g/dL (31-36); Mean Corpuscular Hemoglobin 29 pg (27-31); Mean Corpuscular Volume 87 fL (80-94); Mean Platelet Volume 7.1 fL (7.4-10.4); Platelet Count 272 10^3/uL (150-450); Red Blood Count 3.39 10^6 /uL (4.18-5.48); Red Cell Distribution Width 16 % (10-15); White Blood Count 19.1 10^3/uL (3.5-10.8)
[2019-02-16 06:48] LABS: Anion Gap 4 mmol/L (2-11); BUN/Creatinine Ratio 21.1 (8-20); Blood Urea Nitrogen 26 mg/dL (6-24); CO2 Carbon Dioxide 31 mmol/L (22-32); Calcium 8.6 mg/dL (8.6-10.3); Chloride 99 mmol/L (101-111); EGFR African American 70.8 (>60); EGFR Non-African American 58.5 (>60); Glucose 154 mg/dL (70-100); Potassium 4.3 mmol/L (3.5-5.0); Sodium 134 mmol/L (135-145)
[2019-02-16 07:10] LABS: Lithium 1.35 mmol/L (0.6-1.2)
[2019-02-16] MEDS: Albuterol 2.5 MG/3 ML NEB.SOL* (0.083%) INH PRN ×2 (08:17→19:58)
--- NOTE | 2019-02-16 08:17 | PN ---
Subjective Date of Service: 02/16/19 Interval History: CAT team called overnight for increased work of breathing and unresponsiveness. ABG unchanged, so no further intervention. When I came to see him this morning , he is indeed working much harder than yesterday and I counted his respiratory rate to be 40. He responds to loud voice but goes quickly back to sleep. He moves all extremities but does not intentionally respond to me. Objective Active Medications: Albuterol (Ventolin 2.5 Mg/3 Ml Neb.Nela*) 2.5 mg INH [id number] AWAKE PRN PRN Reason: sob/wheezing Last Admin: 02/15/19 20:56 Dose: 2.5 mg Alfuzosin HCl (Uroxatral (Nf)) 10 mg PO DAILY [facility] Last Admin: 02/15/19 11:37 Dose: 10 mg Azithromycin (Zithromax Tab*) 250 mg PO DAILY [facility] Benztropine Mesylate (Cogentin Tab*) 0.5 mg PO DAILY [facility] Last Admin: 02/15/19 10:58 Dose: 0.5 mg Finasteride (Proscar Tab*) 5 mg PO DAILY [facility] Last Admin: 02/15/19 10:59 Dose: 5 mg Heparin Sodium (Porcine) (Heparin Vial(*)) 5,000 units SUBCUT Q12HR [facility] Ceftriaxone Sodium 1 gm/ (Sodium Chloride) 50 mls @ 100 mls/hr IVPB Q24H [facility] Levothyroxine Sodium (Synthroid Tab*) 75 mcg PO QAM [facility] Last Admin: 02/15/19 10:59 Dose: 75 mcg Methylprednisolone Sodium Succinate (Solu-Medrol 40 Mg) 40 mg IV Q8H [facility] Last Admin: 02/16/19 04:06 Dose: 40 mg Mometasone Furoate (Asmanex 220 Mcg Mdi *) 1 puff INH QPM YESSICA Last Admin: 02/15/19 19:57 Dose: 1 puff Olanzapine (Zyprexa Tab*) 10 mg PO BEDTIME [facility] Last Admin: 02/15/19 20:45 Dose: 10 mg Pantoprazole Sodium (Protonix Tab*) 40 mg PO DAILY [facility] Torsemide (Demadex*) 20 mg PO DAILY [facility] Last Admin: 02/15/19 11:37 Dose: 20 mg Valsartan (Diovan Tab*) 80 mg PO DAILY [facility] Last Admin: 02/15/19 10:58 Dose: 80 mg Vital Signs - 8 hr 02/16/19 02/16/19 02/16/19 03:44 05:25 06:30 Temperature 97.8 F Pulse Rate 64 60 Respiratory 28 32 34 Rate Blood Pressure 110/51 (mmHg) O2 Sat by Pulse 96 99 96 Oximetry Oxygen Devices in Use Now: Nasal Cannula Appearance: drowsy, responds to loud voice, tachypneic, using accessory muscles Neck: - - unable to see jugular veins Respiratory: - - loud expiratory wheezing b/l Cardiovascular: NL Sounds; No Murmurs; No JVD Abdominal: - - obese, does not moan or grimmace to deep palpation Lymphatic: No Cervical Adenopathy Extremities: - - 1+ b/l edema, legs are pink Skin: No Rash or Ulcers Neurological: - - moves all extremities spontaneously, speech is garbled and unintentional Result Diagrams: 02/16/19 06:14 02/16/19 06:14 Assess/Plan/Problems-Billing Assessment: This is a 68 year old man with history of parkinsonism, shizoaffective disorder , borderline personality disorder, COPD, RIO who presented yesterday with a fall and was found to be hypoxic, being treated for a COPD exacerbation, when he worsened early childhood of 02/16 and 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, now less responsive - Patient Problems (1) Acute respiratory failure with hypoxia Current Visit: Yes Status: Acute Code(s): J96.01 - ACUTE RESPIRATORY FAILURE WITH HYPOXIA SNOMED Code(s): 08762079 Comment: likely related to COPD exacerbation (maybe also with some component of OHS/RIO, polypharmacy/lithium toxicity, ?pneumonia) now needing some mechanical support for work of breathing; transfer to ICU for vapotherm versus bipap now stat CXR now lactic acid stat echo today--CXR shows cardiomegaly, but volume status is very challenging (I have continued his home dose of torsemide for now) baseline is no home O2 requirement continue solumedrol, duonebs, azithro/ceftriaxone (2) Fall Current Visit: Yes Status: Acute Comment: most likely from hypoxia; alternatives include parkinsonism, polypharmacy/lithium toxicity, delirium, anemia had been complaining of hip pain. xray and CT are negative CT brain negative (3) Anemia Current Visit: Yes Status: Acute Code(s): D64.9 - ANEMIA, UNSPECIFIED SNOMED Code(s): 478372006 Comment: no overt signs of blood loss FOBT and iron studies are pending stable from yesterday (4) [place] toxicity Current Visit: Yes Status: Acute Code(s): T56.891A - TOXIC EFFECT OF OTH METALS, ACCIDENTAL (UNINTENTIONAL), INIT SNOMED Code(s): 419075736 Comment: level decreasing today lithium on hold since 02/15 (5) Parkinson disease Current Visit: Yes Status: Acute Code(s): G20 - PARKINSON'S DISEASE SNOMED Code(s): 00976198 Comment: continue benztropine (6) Schizo-affective psychosis Current Visit: No Status: Chronic Code(s): F25.9 - SCHIZOAFFECTIVE DISORDER , UNSPECIFIED SNOMED Code(s): 85922098 Comment: continue olanzapine; lithium on hold Status and Disposition: To ICU now. Discussed with CORY Ramos. Mr. Pugh has no family according to [facility] and no healthcare proxy. In his chart, Ethan Bryant is listed as a legal guardian, but the number is the [facility] administrative office, and they are not open today. I have been in touch with the manager demand of [facility], who does not know him closely. Her name is April and her number is in my H&P. A social work consult is pending.
[2019-02-16] MEDS ORDERED: Ipratropium 0.5MG/2.5ML NEB* 0.5 MG/2.5 ML NEB.SOLN INH PRN (08:21)
[2019-02-16] MEDS: Heparin VIAL(*) 5000 UNITS/ML VIAL (FIVE THOUSAND) SUBCUT SCH ×2 (08:44→20:55)
[2019-02-16] MEDS: cefTRIAXone(*) 1 GM in NS 0.9% 50 ML* 50 ML IVPB SCH (08:44)
[2019-02-16 08:45] LABS: % Iron Saturation 7 % (15-55); Iron 21 ug/dL (50-212); Total Iron Binding Capacity 307 mcg/dL (250-450); Transferrin 219 mg/dL (203-362)
[2019-02-16 09:08] LABS: Ferritin 35.6 ng/mL (24-336)
[2019-02-16 09:12] LABS: Folate > 20.00 ng/mL (>3.99)
[2019-02-16] MEDS: Benztropine TAB* 1 MG PO SCH (10:11)
[2019-02-16] MEDS: Azithromycin TAB* 250 MG PO SCH (10:11)
[2019-02-16] MEDS: CMC:Alfuzosin ER (NF) 10 MG TAB.ER PO SCH (10:11)
[2019-02-16] MEDS: Torsemide TAB* 20 MG PO SCH (10:12)
[2019-02-16] MEDS: Levothyroxine TAB* 75 MCG TAB PO SCH (10:12)
[2019-02-16] MEDS: Pantoprazole TAB * 40 MG TAB PO SCH (10:12)
[2019-02-16] MEDS: Valsartan TAB* 80 MG PO SCH (10:12)
[2019-02-16] MEDS: Finasteride TAB* 5 MG PO SCH (10:12)
[2019-02-16] MEDS ORDERED: Perflutren Lipid Microsphere* 3 ML VIAL ONE (10:51)
--- NOTE | 2019-02-16 11:56 | PN ---
Date of Service: 02/16/19 Critical Care Services: patient awake. following. answering my questions but developmentally delayed. patient stated to me that he is on home oxygen, 4 liters. he is not SOB or with increased respiratory rate patient's care home was then called but after several attempts to get information no one still can give us any significant medical hx on patient Vital Signs: Temp Pulse Resp BP SpO2 FiO2 97.7 F 61 29 103/50 100 60 02/16/19 11:32 02/16/19 11:15 02/16/19 11:15 02/16/19 11:15 02/16/19 11:15 02/16 11:41 Physical Exam: Gen: NAD. AO times 3. comfortable. No SOB Lungs: RRR Cardiac: Good BS's, no wheezing or rhonchi Abdomen: + BS's, non-tender to palpation Extremities: No DARIELA Neuro:slow to respond but following Fluid Balance (Past 24 Hours): I= O= Net Intake & Output 02/14/19 02/15/19 02/16/19 02/17/19 06:59 06:59 06:59 06:59 Intake Total 940 180 Output Total 300 400 Balance 640 -220 Weight 297 lb Intake: IV Fluids 50 Oral 890 180 Output: Urine 300 400 Other: # Bowel Movements 1 Estimated Stool Amount Small Labs: Laboratory Results - last 24 hr 02/15/19 02/15/19 02/15/19 14:09 16:07 20:18 WBC RBC Hgb Hct MCV MCH MCHC RDW Plt Count MPV Neut % (Auto) Lymph % (Auto) Sullivan % (Auto) Eos % (Auto) Baso % (Auto) Absolute Neuts (auto) Absolute Lymphs (auto) Absolute Monos (auto) Absolute Eos (auto) Absolute Basos (auto) Absolute Nucleated RBC Nucleated RBC % Patient Temperature ABG pH ABG pCO2 ABG pO2 ABG HCO3 ABG O2 Saturation ABG Base Excess Respiration Rate O2 Delivery Device Ventilator Type Vent Mode FiO2 Inspiratory Time PEEP Pressure Support Pressure Control EPAP IPAP BiPAP Sodium Potassium Chloride Carbon Dioxide Anion Gap BUN Creatinine Est GFR ( Amer) Est GFR (Non-Af Amer) BUN/Creatinine Ratio Glucose POC Glucose (mg/dL) Lactic Acid Calcium Iron TIBC % Saturation Unsat Iron Binding Transferrin Ferritin Troponin I 0.01 0.00 C-Reactive Protein Vitamin B12 Folate Urine Color Yellow Urine Appearance Clear Urine pH 6.0 Ur Specific [place] 1.009 L Urine Protein Negative Urine Ketones Negative Urine Blood 1+ A Urine Nitrate Negative Urine Bilirubin Negative Urine Urobilinogen Negative Ur Leukocyte Esterase Negative Urine WBC (Auto) Trace(0-5/hpf) Urine RBC (Auto) Trace(0-2/hpf) Ur Squamous Epith Cells Present A Urine Bacteria Absent Urine Glucose Negative [place] 02/16/19 02/16/19 02/16/19 04:26 04:32 06:14 WBC 19.1 H RBC 3.39 L Hgb 9.7 L Hct 30 L MCV 87 MCH 29 MCHC 33 RDW 16 H Plt Count 272 MPV 7.1 L Neut % (Auto) 95.9 Lymph % (Auto) 1.8 Sullivan % (Auto) 2.2 Eos % (Auto) 0.0 Baso % (Auto) 0.1 Absolute Neuts (auto) 18.4 H Absolute Lymphs (auto) 0.3 L Absolute Monos (auto) 0.4 Absolute Eos (auto) 0.0 Absolute Basos (auto) 0.0 Absolute Nucleated RBC 0.0 Nucleated RBC % 0.0 Patient Temperature Not Reportable ABG pH 7.36 ABG pCO2 53 H ABG pO2 88 ABG HCO3 27.4 ABG O2 Saturation 99.5 H ABG Base Excess 3.2 H Respiration Rate Not Reportable O2 Delivery Device nasal cannula Ventilator Type Not Reportable Vent Mode Not Reportable FiO2 40 Inspiratory Time Not Reportable PEEP Not Reportable Pressure Support Not Reportable Pressure Control Not Reportable EPAP Not Reportable IPAP Not Reportable BiPAP Not Reportable Sodium Potassium Chloride Carbon Dioxide Anion Gap BUN Creatinine Est GFR ( Amer) Est GFR (Non-Af Amer) BUN/Creatinine Ratio Glucose POC Glucose (mg/dL) 193 H Lactic Acid Calcium Iron TIBC % Saturation Unsat Iron Binding Transferrin Ferritin Troponin I C-Reactive Protein Vitamin B12 Folate Urine Color Urine Appearance Urine pH Ur Specific [place] Urine Protein Urine Ketones Urine Blood Urine Nitrate Urine Bilirubin Urine Urobilinogen Ur Leukocyte Esterase Urine WBC (Auto) Urine RBC (Auto) Ur Squamous Epith Cells Urine Bacteria Urine Glucose [place] 02/16/19 02/16/19 06:14 07:53 WBC RBC Hgb Hct MCV MCH MCHC RDW Plt Count MPV Neut % (Auto) Lymph % (Auto) Sullivan % (Auto) Eos % (Auto) Baso % (Auto) Absolute Neuts (auto) Absolute Lymphs (auto) Absolute Monos (auto) Absolute Eos (auto) Absolute Basos (auto) Absolute Nucleated RBC Nucleated RBC % Patient Temperature ABG pH ABG pCO2 ABG pO2 ABG HCO3 ABG O2 Saturation ABG Base Excess Respiration Rate O2 Delivery Device Ventilator Type Vent Mode FiO2 Inspiratory Time PEEP Pressure Support Pressure Control EPAP IPAP BiPAP Sodium 134 L Potassium 4.3 Chloride 99 L Carbon Dioxide 31 Anion Gap 4 BUN 26 H Creatinine 1.23 H Est GFR ( Amer) 70.8 Est GFR (Non-Af Amer) 58.5 BUN/Creatinine Ratio 21.1 H Glucose 154 H POC Glucose (mg/dL) Lactic Acid 1.0 Calcium 8.6 Iron 21 L TIBC 307 % Saturation 7 L Unsat Iron Binding < 292 Transferrin 219 Ferritin 35.6 Troponin I C-Reactive Protein 24.40 H Vitamin B12 395 Folate > 20.00 Urine Color Urine Appearance Urine pH Ur Specific [place] Urine Protein Urine Ketones Urine Blood Urine Nitrate Urine Bilirubin Urine Urobilinogen Ur Leukocyte Esterase Urine WBC (Auto) Urine RBC (Auto) Ur Squamous Epith Cells Urine Bacteria Urine Glucose [place] 1.35 H Impression: Underlying COPD PNA? with elevated WBC count with left shift change of mental status volume overload on CXR Plan: can restart lithium--doubt toxicity continue steroids, ceftriaxone and azithromycin place back on several liters [place]. Not requiring high flow now continue diuretics continue nebs can transfer to floor later today Critical Care Time: 45 minutes
--- NOTE | 2019-02-16 12:27 | ECHO ---
*[facility]* [place] [address] Fax #: [phone] Transthoracic Echocardiogram Patient: Shon Pugh : 1950 Study Date: 02/16/2019 Age: 68 Gender: M HR: 62 bpm Height: 68 in /172.7 cm BSA: 2.41 m^2 Weight: 295.4 lb /134.3 kg BMI: 45 kg/m^2 *Athletics Teacher: * Iqra Medrano [facility] *Referring Physician: * Laxmi Lao *Reading Physician: * Cheko Granados MD Indications: Resp Insufficiency. History: Chronic obstructive pulmonary disease. PMH: Cardiomyopathy. Conclusions Summary: - Left ventricle: The cavity size is mildly dilated. Wall thickness is mildly increased. Systolic function is mildly reduced. The estimated ejection fraction is 45-50%. Mild diffuse hypokinesis. - Right ventricle: The cavity size is normal. Systolic function is normal. - Left atrium: The atrium is mildly dilated. - Pulmonary arteries: Systolic pressure can not be accurately estimated. - No significant valvular abnormalities noted. Recommendations: Compared to prior study from 10/2016, findings are similar Study data: Transthoracic echocardiogram. Procedure: Transthoracic echocardiography was performed. Image quality was adequate. Intravenous Definity , 2 mlswas administered. Image enhancement administered by Keri intensive care unit RN Complete 2D, spectral Doppler, and color flow Doppler. Location: ICU Patient status: Inpatient. Patient room number: 4. Rhythm: Normal sinus rhythm. Findings Left ventricle: The cavity size is mildly dilated. Wall thickness is mildly increased. Systolic function is mildly reduced. The estimated ejection fraction is 45-50%. Mild diffuse hypokinesis. There is no consistent Doppler evidence of clinically significant diastolic dysfunction. Right ventricle: The cavity size is normal. Systolic function is normal. Left atrium: The atrium is mildly dilated. Right atrium: The atrium is at the upper limits of normal in size. Mitral valve: The leaflets are mildly thickened. There is no evidence of stenosis. There is trace regurgitation. Aortic valve: The valve is probably trileaflet. The leaflets are normal thickness. There is no evidence of stenosis. There is no significant regurgitation. Tricuspid valve: The leaflets are normal thickness. There is no evidence of stenosis. There is trace regurgitation. Pulmonic valve: Not well visualized. There is no significant regurgitation. Aorta: The aortic root appears normal. The aortic arch appears normal. Pericardium: There is no significant pericardial effusion. Pulmonary arteries: Systolic pressure can not be accurately estimated. Systemic veins: Inferior vena cava: Not well visualized. Measurements Left ventricle Value Ref Aortic valve continued Value Ref MELINDA, LAX (H) 6.1 cm 4.2 - 5.8 Peak v, S 1.21 m/sec ---- ESD, LAX (H) 4.9 cm 2.5 - 4.0 VTI, S 27.4 cm ---- FS, LAX (L) 20 % 25 - 43 Mean grad, S 3.0 mm Hg ---- PW, ED, LAX (H) 1.3 cm 0.6 - 1.0 Peak grad, S 6.0 mm Hg ---- E', lat baltazar, TDI (L) 9.4 cm/sec >=10.0 E/e', lat baltazar, 8 Mitral valve Value Ref TDI Peak E 0.75 m/sec ---- E', med baltazar, TDI (L) 6.2 cm/sec >=7.0 Peak A 0.59 m/sec -- -- E/e', med baltazar, 12 Decel time 166 ms ---- TDI Peak grad, D 2.2 mm Hg ---- E', avg, TDI 7.8 cm/sec Peak E/A ratio 1.3 ---- E/e', avg, TDI 10 <=14 Pulmonic valve Value Ref LVOT Value Ref Peak v, S 0.68 m/sec ---- Peak lavon, S 0.89 m/sec Peak grad, S 2.0 mm Hg ---- Mean grad, S 2 mm Hg Aortic root Value Ref Ventricular septum Value Ref Root diam 3.5 cm <4.4 IVS, ED (H) 1.3 cm 0.6 - 1.0 Ascending aorta Value Ref Right ventricle Value Ref AAo AP diam, S 3.2 cm ---- MELINDA, LAX 2.4 cm Aortic arch Value Ref Left atrium Value Ref Arch diam 3.4 cm ---- AP dim, ES 3.90 cm 3.00 - 4.00 Decending aorta Value Ref ML dim, A4C 6.1 cm Ijeoma peak lavon 0.82 m/sec ---- SI dim, A4C 6.3 cm Vol/bsa, ES, A/L (H) 40 ml/m^2 16 - 34 Pulmonary veins Value Ref Peak v, S 0.65 m/sec ---- Right atrium Value Ref Peak v, D 0.42 m/sec ---- SI dim, ES 5.3 cm 3.4 - 5.3 Peak S/D ratio 1.6 ---- ML dim, ES, A4C 3.9 cm 2.6 - 4.4 A rev duration 114 ms ---- Estimated RAP 8 mm Hg Aortic valve Value Ref Baltazar diam, ED 2.2 cm Legend: (L) and (H) enma values outside specified reference range. Prepared and electronically signed by Cheko Granados MD 02/16/2019 12:26
[2019-02-16] MEDS: Mometasone 220 MCG MDI INH SCH (19:55)
[2019-02-16] MEDS: Lithium Carbonate TAB* 300 MG PO SCH (20:17)
[2019-02-16] MEDS: OLANzapine TAB* 10 MG PO SCH (21:59)
[2019-02-17] MEDS: methylPREDNISolone SOD 40 MG* 1 ML VIAL IV SCH ×3 (04:26→21:17)
[2019-02-17] MEDS: Levothyroxine TAB* 75 MCG TAB PO SCH (08:32)
[2019-02-17] MEDS: Benztropine TAB* 1 MG PO SCH (08:32)
[2019-02-17] MEDS: Heparin VIAL(*) 5000 UNITS/ML VIAL (FIVE THOUSAND) SUBCUT SCH ×2 (08:32→21:20)
[2019-02-17] MEDS: Polyethylene Glycol 3350* 17 GM PACKET PO PRN (08:32)
[2019-02-17] MEDS: Finasteride TAB* 5 MG PO SCH (08:32)
[2019-02-17] MEDS: Pantoprazole TAB * 40 MG TAB PO SCH (08:33)
[2019-02-17] MEDS: Valsartan TAB* 80 MG PO SCH (08:33)
[2019-02-17] MEDS: Azithromycin TAB* 250 MG PO SCH (08:33)
[2019-02-17] MEDS: cefTRIAXone(*) 1 GM in NS 0.9% 50 ML* 50 ML IVPB SCH (09:43)
[2019-02-17] MEDS: Torsemide TAB* 20 MG PO SCH (09:44)
[2019-02-17] MEDS: CMC:Alfuzosin ER (NF) 10 MG TAB.ER PO SCH (09:44)
[2019-02-17] MEDS: Albuterol 2.5 MG/3 ML NEB.SOL* (0.083%) INH PRN (10:12)
--- NOTE | 2019-02-17 10:39 | PN ---
Subjective Date of Service: 02/17/19 Interval History: Mr. Pugh was transferred back to the floor yesterday and is much more alert today. [place] district branch manager Ethan is at the bedside, who knows him well. He thinks he is near his baseline except for his tachypnea. His mental status and speech he report are at baseline. Shon complained of midsternal chest pain this morning and I came to the bedside to see him. An EKG had no ischemic changes and a stat troponin was 0 and lactic acid was normal. There was also a nurse note of coughing when he was eating last night. Objective Active Medications: Albuterol (Ventolin 2.5 Mg/3 Ml Neb.Nela*) 2.5 mg INH [id number] AWAKE PRN PRN Reason: sob/wheezing Last Admin: 02/17/19 10:12 Dose: 2.5 mg Alfuzosin HCl (Uroxatral (Nf)) 10 mg PO DAILY [facility] Last Admin: 02/17/19 09:44 Dose: 10 mg Azithromycin (Zithromax Tab*) 250 mg PO DAILY [facility] Last Admin: 02/17/19 08:33 Dose: 250 mg Benztropine Mesylate (Cogentin Tab*) 0.5 mg PO DAILY [facility] Last Admin: 02/17/19 08:32 Dose: 0.5 mg Finasteride (Proscar Tab*) 5 mg PO DAILY [facility] Last Admin: 02/17/19 08:32 Dose: 5 mg Heparin Sodium (Porcine) (Heparin Vial(*)) 5,000 units SUBCUT Q12HR [facility] Last Admin: 02/17/19 08:32 Dose: 5,000 units Ceftriaxone Sodium 1 gm/ (Sodium Chloride) 50 mls @ 100 mls/hr IVPB Q24H [facility] Last Admin: 02/17/19 09:43 Dose: 100 mls/hr Ipratropium [place] (Atrovent 0.5 Mg Neb.Nela*) 0.5 mg INH Q6H PRN PRN Reason: SOB/WHEEZING Levothyroxine Sodium (Synthroid Tab*) 75 mcg PO QAM [facility] Last Admin: 02/17/19 08:32 Dose: 75 mcg [place] Carbonate ([place] Carbonate Tab*) 600 mg PO BEDTIME [facility] Last Admin: 02/16/19 20:17 Dose: Not Given Methylprednisolone Sodium Succinate (Solu-Medrol 40 Mg) 40 mg IV Q8H [facility] Last Admin: 02/17/19 04:26 Dose: 40 mg Mometasone Furoate (Asmanex 220 Mcg Mdi *) 1 puff INH QPM [facility] Last Admin: 02/16/19 19:55 Dose: 1 puff Olanzapine (Zyprexa Tab*) 10 mg PO BEDTIME [facility] Last Admin: 02/16/19 21:59 Dose: 10 mg Pantoprazole Sodium (Protonix Tab*) 40 mg PO DAILY [facility] Last Admin: 02/17/19 08:33 Dose: 40 mg Polyethylene Glycol/Electrolytes (Miralax*) 17 gm PO DAILY PRN PRN Reason: CONSTIPATION Last Admin: 02/17/19 08:32 Dose: 17 gm Torsemide (Demadex*) 20 mg PO DAILY [facility] Last Admin: 02/17/19 09:44 Dose: 20 mg Valsartan (Diovan Tab*) 80 mg PO DAILY [facility] Last Admin: 02/17/19 08:33 Dose: 80 mg Vital Signs - 8 hr 02/17/19 02/17/19 02/17/19 03:22 07:15 08:00 Temperature 97.4 F 98 F Pulse Rate 68 65 Respiratory 16 32 32 Rate Blood Pressure 103/40 112/45 (mmHg) O2 Sat by Pulse 99 100 Oximetry 02/17/19 10:23 Temperature Pulse Rate 66 Respiratory 19 Rate Blood Pressure (mmHg) O2 Sat by Pulse 99 Oximetry Oxygen Devices in Use Now: Nasal Cannula Appearance: alert, tachypneic, answers questions appropriately Eyes: No Scleral Icterus Ears/Nose/Mouth/Throat: NL Teeth, Lips, Gums Respiratory: - - diffuse severe expiratory wheezing, no rhonchi Cardiovascular: NL Sounds; No Murmurs; No JVD, RRR Abdominal: NL Sounds; No Tenderness; No Distention Lymphatic: No Cervical Adenopathy Extremities: - - 1+ edema b/l Neurological: NL Muscle Strength and Tone, - - moves all extremities spontaneously Result Diagrams: 02/16/19 06:14 02/16/19 06:14 Microbiology and Other Data: Microbiology 02/15/19 16:07 Urine Culture - Final Urine No Growth (<1,000 CFU/mL) 02/16/19 09:31 Nasal Screen MRSA (PCR) - Final Nasal Mrsa Not Detected Assess/Plan/Problems-Billing Assessment: This is a 68 year old man with history of parkinsonism, shizoaffective disorder , borderline personality disorder, COPD, RIO who presented 02/15 with a fall and was found to be hypoxic, being treated for a COPD exacerbation, when 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 and 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, transfererd to ICU 02/16 for vapotherm for work of breathing, now back on 4 south - Patient Problems (1) Acute respiratory failure with hypoxia Current Visit: Yes Status: Acute Code(s): J96.01 - ACUTE RESPIRATORY FAILURE WITH HYPOXIA SNOMED Code(s): 99408303 Comment: likely related to COPD exacerbation (maybe also with some component of OHS/RIO, ?polypharmacy, ?pneumonia) mental status markedly improved today, tachypnea ongoing echo showed mildly depressed ef; volume status challenging; I continued home dose of torsemide baseline is no home O2 requirement continue solumedrol, duonebs, azithro/ceftriaxone consult pulm today (2) Fall Current Visit: Yes Status: Acute Comment: most likely from hypoxia; alternatives include parkinsonism, polypharmacy/lithium toxicity, delirium, anemia had been complaining of hip pain. xray and CT are negative CT brain negative (3) Anemia Current Visit: Yes Status: Acute Code(s): D64.9 - ANEMIA, UNSPECIFIED SNOMED Code(s): 275242887 Comment: no overt signs of blood loss FOBT and iron studies are pending (4) [place] toxicity Current Visit: Yes Status: Acute Code(s): T56.891A - TOXIC EFFECT OF OTH METALS, ACCIDENTAL (UNINTENTIONAL), INIT SNOMED Code(s): 242376671 Comment: likely due to PATRICA resumed yesterday (5) Parkinson disease Current Visit: Yes Status: Acute Code(s): G20 - PARKINSON'S DISEASE SNOMED Code(s): 07655277 Comment: continue benztropine (6) Schizo-affective psychosis Current Visit: No Status: Chronic Code(s): F25.9 - SCHIZOAFFECTIVE DISORDER , UNSPECIFIED SNOMED Code(s): 48344515 Comment: continue olanzapine and lithium Status and Disposition: PT consult today Mr. Pugh has no family according to [facility] and no healthcare proxy. In his chart, Ethan Bryant is listed as a legal guardian, but the number is the [facility] administrative office, and they are not open today. I have been in touch with the corporate operations compliance manager of [facility], who does not know him closely. Her name is April and her number is in my H&P. A social work consult is pending.
--- NOTE | 2019-02-17 13:24 | CONSULT ---
Subjective Date of Service: 02/17/19 Interval History: Mr. Pugh is a 68 yo male with PMH significant for Parkinson's disease, shizoaffective disorder, borderline personality disorder, COPD, and RIO; who presented to the emergency after a fall and was found to be hypoxic. He was admitted for a COPD exacerbation. During his stay he required transfer to the ICU for vapotherm due to increased work of breathing and has since been transferred back to the medical floor. He was documented at admission as having bilateral buttock, stage 2 pressure injuries. NSG has been using barrier cream to the area. He was developed another small open area on the left buttock during his stay. Patient seen and examined at bedside. Verbal consent obtained for wound consultation and photograph of wound. Family History: Unchanged from Admission Social History: Unchanged from Admission Past Medical History: Unchanged from Admission Review of Systems - Measurements Intake and Output: Intake and Output Last 24 Hours 02/15/19 02/16/19 02/17/19 02/18/19 06:59 06:59 06:59 06:59 Intake Total 940 1500 Output Total 300 1075 Balance 640 425 Weight 297 lb Intake: IV Fluids 50 Oral 890 1500 Output: Urine 300 1075 Other: # Bowel Movements 1 Estimated Stool Amount Small - Review of Systems Constitutional Symptoms: Negative: Fever, Other - Chills Objective Active Medications: Albuterol (Ventolin 2.5 Mg/3 Ml Neb.Nela*) 2.5 mg INH [id number] AWAKE PRN Reason: sob/wheezing Alfuzosin HCl (Uroxatral (Nf)) 10 mg PO DAILY [facility] Azithromycin (Zithromax Tab*) 250 mg PO DAILY [facility] Benztropine Mesylate (Cogentin Tab*) 0.5 mg PO DAILY [facility] Finasteride (Proscar Tab*) 5 mg PO DAILY [facility] Heparin Sodium (Porcine) (Heparin Vial(*)) 5,000 units SUBCUT Q12HR [facility] Ceftriaxone Sodium 1 gm/ (Sodium Chloride) 50 mls @ 100 mls/hr IVPB Q24H [facility] Ipratropium Saline (Atrovent 0.5 Mg Neb.Nela*) 0.5 mg INH Q6H PRN Reason: SOB/ WHEEZING Levothyroxine Sodium (Synthroid Tab*) 75 mcg PO QAM [facility] [place] Carbonate ([place] Carbonate Tab*) 600 mg PO BEDTIME [facility] Methylprednisolone Sodium Succinate (Solu-Medrol 40 Mg) 40 mg IV Q8H [facility] Mometasone Furoate (Asmanex 220 Mcg Mdi *) 1 puff INH QPM [facility] Olanzapine (Zyprexa Tab*) 10 mg PO BEDTIME [facility] Pantoprazole Sodium (Protonix Tab*) 40 mg PO DAILY [facility] Polyethylene Glycol/Electrolytes (Miralax*) 17 gm PO DAILY PRN Reason: CONSTIPATION Torsemide (Demadex*) 20 mg PO DAILY [facility] Valsartan (Diovan Tab*) 80 mg PO DAILY [facility] Vital Signs 02/17/19 02/17/19 02/17/19 07:15 08:00 10:23 Temperature 98 F Pulse Rate 65 66 Respiratory 32 32 19 Rate Blood Pressure 112/45 (mmHg) O2 Sat by Pulse 100 99 Oximetry Oxygen Devices in Use Now: Nasal Cannula Appearance: NAD, laying in bed Ears/Nose/Mouth/Throat: Mucous Membranes Moist Respiratory: Symmetrical Chest Expansion and Respiratory Effort Skin: - - See skin note below Neurological: Alert and Oriented x 3 Nutrition: Taking PO's Result Diagrams: 02/18/19 05:10 02/18/19 05:10 Additional Lab and Data: Above labs were pulled into the note, when the note was edited prior to signing. Please see labs below from day of consultation. Laboratory Tests 02/15/19 02/16/19 02/16/19 05:45 06:14 06:14 WBC 19.1 H Hgb 9.7 L Hct 30 L Plt Count 272 Sodium 134 L Potassium 4.3 Chloride 99 L Carbon Dioxide 31 BUN 26 H Creatinine 1.23 H Glucose 154 H Total Protein 6.8 Albumin 3.6 Skin Deviation Note - Skin Deviation Findings Buttocks - There are 3 open areas to the buttocks. The area on the left buttock , measures 2.5 cm x 1.1 cm x 0.1 cm. The wound base is red epithelial tissue. There is scant drainage. There is no odor. The periwound with slight dark erythema discoloration. The open area towards midline of the left buttock, measures 0.4 cm x 0.4 cm x 0.1 cm. The wound base is red epithelial tissue. There is scant drainage. There is no odor. The periwound with slight dark erythema discoloration. The wound to the right buttock is 0.8 cm x 1 cm x 0.1 cm. The wound base is red epithelial tissue. There is scant drainage. There is no odor. The periwound with slight dark erythema discoloration. The surrounding skin is intact. Wound Problem/Plan Assessment: Mr. Pugh is a 68 yo male with PMH significant for Parkinson's disease, shizoaffective disorder, borderline personality disorder, COPD, and RIO; who presented to the emergency after a fall and was found to be hypoxic. He was admitted for a COPD exacerbation. During his stay he required transfer to the ICU for vapotherm due to increased work of breathing and has since been transferred back to the medical floor. He was documented at admission as having bilateral buttock, stage 2 pressure injuries. He was developed another small open area on the left buttock during his stay. 1. Open areas to bilateral buttocks, stage 2 pressure injuries. Recommend washing the area with soap and water. Apply barrier cream (orange top) as needed. Frequent turning and repositioning. Use a friction reduction device to move Pt in bed. Will add a prealbumin to the last labs to assess nutritional status. 2. COPD exacerbation with hypoxia. Currently receiving steroids, this may affect wound healing. 3. Diet. Regular diet. 4. Code Status. Full Code Status. 5. Disposition. Inpatient, disposition per primary medicine team. TIME SPENT: Time for this wound consultation was 20 minutes and 10 minutes was spent with the patient discussing past medical history; assessing, measuring, and photographing the wounds; and repositioning the patient. Is Patient a Wound Clinic Patient: No Attending: Mariela Aguila
[2019-02-17] MEDS: Albuterol 2.5 MG/3 ML NEB.SOL* (0.083%) INH SCH ×4 (14:59→23:27)
[2019-02-17] MEDS: Mometasone 220 MCG MDI INH SCH (19:48)
[2019-02-17] MEDS: OLANzapine TAB* 10 MG PO SCH (21:17)
[2019-02-17] MEDS: Lithium Carbonate TAB* 300 MG PO SCH (21:17)
[2019-02-18] MEDS: Albuterol 2.5 MG/3 ML NEB.SOL* (0.083%) INH SCH ×4 (03:54→19:13)
[2019-02-18] MEDS: methylPREDNISolone SOD 40 MG* 1 ML VIAL IV SCH ×3 (04:42→21:05)
[2019-02-18 05:22] LABS: Hematocrit 32 % (42-52); Hemoglobin 10.2 g/dL (14.0-18.0); Mean Corpuscular HGB Conc 32 g/dL (31-36); Mean Corpuscular Hemoglobin 28 pg (27-31); Mean Corpuscular Volume 88 fL (80-94); Mean Platelet Volume 7.5 fL (7.4-10.4); Platelet Count 309 10^3/uL (150-450); Red Blood Count 3.68 10^6 /uL (4.18-5.48); Red Cell Distribution Width 16 % (10-15); White Blood Count 21.3 10^3/uL (3.5-10.8)
[2019-02-18 05:38] LABS: Lithium 1.19 mmol/L (0.6-1.2)
[2019-02-18 05:39] LABS: BUN/Creatinine Ratio 28.7 (8-20); C Reactive Protein 11.08 mg/L (<8.01); Calcium 8.9 mg/dL (8.6-10.3); EGFR African American 76.5 (>60); EGFR Non-African American 63.2 (>60); Magnesium 2.6 mg/dL (1.9-2.7); Potassium 4.7 mmol/L (3.5-5.0)
[2019-02-18 06:10] LABS: ABS Lymphocytes 0.3 10^3/ul (1.0-4.8); ABS Monocytes 0.5 10^3/ul (0-0.8); ABS Neutrophils 20.5 10^3/ul (1.5-7.7); Lymphocyte % 1.5 %
--- NOTE | 2019-02-18 09:45 | PN ---
Subjective Date of Service: 02/18/19 Interval History: I was called to the bedside for unresponsiveness by Shon's nurse Dom. We evaluated him together, and indeed he is unresponsive to sternal rub and loud shouting. He is tachypneic. His vitals have been stable. His night was reportedly uneventful and his overnight RN reported a restful night's sleep, but overnight they were able to arouse him. Objective Active Medications: Albuterol (Ventolin 2.5 Mg/3 Ml Neb.Nela*) 2.5 mg INH [id number] AWAKE PRN PRN Reason: sob/wheezing Last Admin: 02/17/19 10:12 Dose: 2.5 mg Albuterol (Ventolin 2.5 Mg/3 Ml Neb.Nela*) 2.5 mg INH [id number] AWAKE [facility] Last Admin: 02/18/19 07:47 Dose: 2.5 mg Alfuzosin HCl (Uroxatral (Nf)) 10 mg PO DAILY [facility] Last Admin: 02/17/19 09:44 Dose: 10 mg Azithromycin (Zithromax Tab*) 250 mg PO DAILY [facility] Last Admin: 02/17/19 08:33 Dose: 250 mg Benztropine Mesylate (Cogentin Tab*) 0.5 mg PO DAILY [facility] Last Admin: 02/17/19 08:32 Dose: 0.5 mg Finasteride (Proscar Tab*) 5 mg PO DAILY [facility] Last Admin: 02/17/19 08:32 Dose: 5 mg Heparin Sodium (Porcine) (Heparin Vial(*)) 5,000 units SUBCUT Q12HR [facility] Last Admin: 02/17/19 21:20 Dose: 5,000 units Ceftriaxone Sodium 1 gm/ (Sodium Chloride) 50 mls @ 100 mls/hr IVPB Q24H [facility] Last Admin: 02/17/19 09:43 Dose: 100 mls/hr Ipratropium [place] (Atrovent 0.5 Mg Neb.Nela*) 0.5 mg INH Q6H PRN PRN Reason: SOB/WHEEZING Levothyroxine Sodium (Synthroid Tab*) 75 mcg PO QAM [facility] Last Admin: 02/17/19 08:32 Dose: 75 mcg [place] Carbonate ([place] Carbonate Tab*) 600 mg PO BEDTIME [facility] Last Admin: 02/17/19 21:17 Dose: 600 mg Methylprednisolone Sodium Succinate (Solu-Medrol 40 Mg) 40 mg IV Q8H [facility] Last Admin: 02/18/19 04:42 Dose: 40 mg Mometasone Furoate (Asmanex 220 Mcg Mdi *) 1 puff INH QPM [facility] Last Admin: 02/17/19 19:48 Dose: 1 puff Olanzapine (Zyprexa Tab*) 10 mg PO BEDTIME [facility] Last Admin: 02/17/19 21:17 Dose: 10 mg Pantoprazole Sodium (Protonix Tab*) 40 mg PO DAILY [facility] Last Admin: 02/17/19 08:33 Dose: 40 mg Polyethylene Glycol/Electrolytes (Miralax*) 17 gm PO DAILY PRN PRN Reason: CONSTIPATION Last Admin: 02/17/19 08:32 Dose: 17 gm Torsemide (Demadex*) 20 mg PO DAILY [facility] Last Admin: 02/17/19 09:44 Dose: 20 mg Valsartan (Diovan Tab*) 80 mg PO DAILY [facility] Last Admin: 02/17/19 08:33 Dose: 80 mg Vital Signs - 8 hr 02/18/19 02/18/19 02/18/19 03:15 07:45 08:15 Temperature 97.0 F 97.4 F Pulse Rate 71 65 71 Respiratory 20 20 16 Rate Blood Pressure 135/47 109/53 (mmHg) O2 Sat by Pulse 99 97 99 Oximetry Oxygen Devices in Use Now: Nasal Cannula Appearance: unarousable, tachypneic, no distress, resists passive motion of his extremities Eyes: No Scleral Icterus Respiratory: - - increased work of breathing, diffuse severe wheezes Cardiovascular: NL Sounds; No Murmurs; No JVD, RRR Abdominal: NL Sounds; No Tenderness; No Distention Extremities: - - 1+ edema b/l Neurological: - - face is asymmetric Result Diagrams: 02/18/19 05:10 02/18/19 05:10 Microbiology and Other Data: Microbiology 02/15/19 16:07 Urine Culture - Final Urine No Growth (<1,000 CFU/mL) 02/16/19 09:31 Nasal Screen MRSA (PCR) - Final Nasal Mrsa Not Detected Assess/Plan/Problems-Billing Assessment: This is a 68 year old man with history of parkinsonism, shizoaffective disorder , borderline personality disorder, COPD, RIO who presented 02/15 with a fall and was found to be hypoxic, being treated for a COPD exacerbation, when 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 - Patient Problems (1) Unresponsive Current Visit: Yes Status: Acute Comment: Vitals stable Stat ABG shows normal pH with pCO2 of 64 and pO2 of 64 Check CTA chest to rule out PE, check stat CT brain Discussed with Plant Chief; transfer to ICU now for bipap versus vapotherm (2) Acute respiratory failure with hypoxia Current Visit: Yes Status: Acute Code(s): J96.01 - ACUTE RESPIRATORY FAILURE WITH HYPOXIA SNOMED Code(s): 23321569 Comment: likely related to COPD exacerbation (maybe also with some component of OHS/RIO, ?polypharmacy, ?pneumonia) Also with some concern for PE given his failure to improve; will get CTA now mental status had improved markedly yesterday; now worsened echo showed mildly depressed ef; volume status challenging; I continued home dose of torsemide baseline is no home O2 requirement continue solumedrol, duonebs, azithro/ceftriaxone no pulm coverage; attempted to consult pulm yesterday (3) Fall Current Visit: Yes Status: Acute Comment: most likely from hypoxia; alternatives include parkinsonism, polypharmacy/lithium toxicity, delirium, anemia had been complaining of hip pain. xray and CT are negative CT brain negative at admission (4) Anemia Current Visit: Yes Status: Acute Code(s): D64.9 - ANEMIA, UNSPECIFIED SNOMED Code(s): 579195320 Comment: no overt signs of blood loss FOBT pending iron studies consistent with iron deficiency; unable to take PO at this time but should have po iron later (5) [place] toxicity Current Visit: Yes Status: Acute Code(s): T56.891A - TOXIC EFFECT OF OTH METALS, ACCIDENTAL (UNINTENTIONAL), INIT SNOMED Code(s): 348698881 Comment: likely due to PATRICA resumed 02/16 (6) Parkinson disease Current Visit: Yes Status: Acute Code(s): G20 - PARKINSON'S DISEASE SNOMED Code(s): 52313393 Comment: continue benztropine (7) Schizo-affective psychosis Current Visit: No Status: Chronic Code(s): F25.9 - SCHIZOAFFECTIVE DISORDER , UNSPECIFIED SNOMED Code(s): 72102121 Comment: continue olanzapine and lithium Status and Disposition: to ICU stat Mr. Pugh has no family according to [facility] and no healthcare proxy. In his chart, Ethan Bryant is listed as a legal guardian, but the number is the [facility] administrative office, and they are not open today. I have been in touch with the salon/spa manager of [facility], who does not know him closely. Her name is April and her number is in my H&P. A social work consult is pending.
[2019-02-18] MEDS ORDERED: Iohexol 350* (CONTRAST) 500 ML MDV IV ONE (12:08)
[2019-02-18] MEDS: cefTRIAXone(*) 1 GM in NS 0.9% 50 ML* 50 ML IVPB SCH (12:16)
[2019-02-18] MEDS: Benztropine TAB* 1 MG PO SCH (12:16)
[2019-02-18] MEDS: CMC:Alfuzosin ER (NF) 10 MG TAB.ER PO SCH (12:17)
[2019-02-18] MEDS: Azithromycin TAB* 250 MG PO SCH (12:17)
[2019-02-18] MEDS: Pantoprazole TAB * 40 MG TAB PO SCH (12:17)
[2019-02-18] MEDS: Heparin VIAL(*) 5000 UNITS/ML VIAL (FIVE THOUSAND) SUBCUT SCH ×2 (12:17→21:05)
[2019-02-18] MEDS: Levothyroxine TAB* 75 MCG TAB PO SCH (12:18)
[2019-02-18] MEDS: Finasteride TAB* 5 MG PO SCH (12:25)
[2019-02-18] MEDS: Torsemide TAB* 20 MG PO SCH (12:25)
[2019-02-18] MEDS: Valsartan TAB* 80 MG PO SCH (13:57)
--- NOTE | 2019-02-18 15:25 | PN ---
Date of Service: 02/18/19 Vital Signs: Temp Pulse Resp BP SpO2 FiO2 98.7 F 78 31 126/63 95 60 02/18/19 10:20 02/18/19 15:00 02/18/19 15:00 02/18/19 15:00 02/18/19 15:00 02/16 11:41 Physical Exam: Gen:nad HEENT: NC, NT Lungs: clear to ausculation b/l Cardiac: s1 s2 no murmur Abdomen: soft non tender non distended Extremities:wnl Neuro:alert and aware Fluid Balance (Past 24 Hours): I= O= Net Intake & Output 02/16/19 02/17/19 02/18/19 02/19/19 06:59 06:59 06:59 06:59 Intake Total 940 1500 2400 816 Output Total 300 1075 1075 Balance 747 585 4115 -259 Weight 297 lb 287 lb Intake: IV Fluids 50 IVPB 76 abx 56 ns 20 Oral 890 1500 2400 740 Output: Urine 300 1075 1075 Other: Estimated Void Large Large # Bowel Movements 1 Estimated Stool Amount Small # Voids 1 1 Labs: Laboratory Results - last 24 hr 02/16/19 02/18/19 02/18/19 12:15 05:10 05:10 WBC 21.3 H RBC 3.68 L Hgb 10.2 L Hct 32 L MCV 88 MCH 28 MCHC 32 RDW 16 H Plt Count 309 MPV 7.5 Neut % (Auto) 96.2 Lymph % (Auto) 1.5 [place] % (Auto) 2.2 Eos % (Auto) 0.0 Baso % (Auto) 0.1 Absolute Neuts (auto) 20.5 H Absolute Lymphs (auto) 0.3 L Absolute Monos (auto) 0.5 Absolute Eos (auto) 0.0 Absolute Basos (auto) 0.0 Absolute Nucleated RBC 0.0 Nucleated RBC % 0.0 ABG pH ABG pCO2 ABG pO2 ABG HCO3 ABG O2 Saturation ABG Base Excess Sodium 134 L Potassium 4.7 Chloride 98 L Carbon Dioxide 34 H Anion Gap 2 BUN 33 H Creatinine 1.15 Est GFR ( Amer) 76.5 Est GFR (Non-Af Amer) 63.2 BUN/Creatinine Ratio 28.7 H Glucose 171 H Calcium 8.9 Magnesium 2.6 C-Reactive Protein 11.08 H Procalcitonin <0.10 [place] 1.19 02/18/19 09:20 WBC RBC Hgb Hct MCV MCH MCHC RDW Plt Count MPV Neut % (Auto) Lymph % (Auto) [place] % (Auto) Eos % (Auto) Baso % (Auto) Absolute Neuts (auto) Absolute Lymphs (auto) Absolute Monos (auto) Absolute Eos (auto) Absolute Basos (auto) Absolute Nucleated RBC Nucleated RBC % ABG pH 7.39 ABG pCO2 64 H ABG pO2 64 L ABG HCO3 33.4 H ABG O2 Saturation 96.4 ABG Base Excess 11.0 H Sodium Potassium Chloride Carbon Dioxide Anion Gap BUN Creatinine Est GFR ( Amer) Est GFR (Non-Af Amer) BUN/Creatinine Ratio Glucose Calcium Magnesium C-Reactive Protein Procalcitonin [place] Impression: critical care consulted for unresponsiveness of patient Plan: 68 year old man with history of parkinsonism, shizoaffective disorder, borderline personality disorder, COPD, RIO who presented 02/15 with a fall and was found to be hypoxic, being treated for a COPD exacerbation, when he worsened [employer] of 02/16 and 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, transfererd to ICU 02/16 for vapotherm for work of breathing, now back on 4 [address],, this morning with decreased responsiveness again, however while being transferred pt became arousable and back to baseline. acute on chronic hypoxic hypercapnic respiratory failure in the setting of copd , rio, ohs patient refuses to bipap at night with elevated pco2 levels contributing to his lethargy will attempt to place bipap qhs and if intolerant would suggest nasal cpap adjusted to comfort ct brain and ct PE neg cont abx no need for ICU level of care at this time would avoid sedatives and narcotics Critical Care Time: 45
[2019-02-18] MEDS: Mometasone 220 MCG MDI INH SCH (19:21)
[2019-02-18] MEDS: Lithium Carbonate TAB* 300 MG PO SCH (21:12)
[2019-02-18] MEDS: OLANzapine TAB* 10 MG PO SCH (21:12)
[2019-02-18] MEDS: Polyethylene Glycol 3350* 17 GM PACKET PO PRN (21:12)
[2019-02-19] MEDS: Albuterol 2.5 MG/3 ML NEB.SOL* (0.083%) INH SCH ×4 (00:31→19:25)
[2019-02-19] MEDS: methylPREDNISolone SOD 40 MG* 1 ML VIAL IV SCH (04:25)
--- NOTE | 2019-02-19 09:20 | PN ---
Subjective Date of Service: 02/19/19 Interval History: Having shortness of breath. Reports no chest pain There is occasional cough. Family History: Unchanged from Admission Social History: Unchanged from Admission Past Medical History: Unchanged from Admission Objective Active Medications: Albuterol (Ventolin 2.5 Mg/3 Ml Neb.Nela*) 2.5 mg INH [id number] AWAKE PRN PRN Reason: sob/wheezing Last Admin: 02/17/19 10:12 Dose: 2.5 mg Albuterol (Ventolin 2.5 Mg/3 Ml Neb.Nela*) 2.5 mg INH [id number] AWAKE [facility] Last Admin: 02/19/19 06:58 Dose: 2.5 mg Alfuzosin HCl (Uroxatral (Nf)) 10 mg PO DAILY [facility] Last Admin: 02/18/19 12:17 Dose: 10 mg Azithromycin (Zithromax Tab*) 250 mg PO DAILY [facility] Last Admin: 02/18/19 12:17 Dose: 250 mg Benztropine Mesylate (Cogentin Tab*) 0.5 mg PO DAILY [facility] Last Admin: 02/18/19 12:16 Dose: 0.5 mg Finasteride (Proscar Tab*) 5 mg PO DAILY [facility] Last Admin: 02/18/19 12:25 Dose: 5 mg Heparin Sodium (Porcine) (Heparin Vial(*)) 5,000 units SUBCUT Q12HR [facility] Last Admin: 02/18/19 21:05 Dose: 5,000 units Ceftriaxone Sodium 1 gm/ (Sodium Chloride) 50 mls @ 100 mls/hr IVPB Q24H [facility] Last Admin: 02/18/19 12:16 Dose: 100 mls/hr Ipratropium [place] (Atrovent 0.5 Mg Neb.Nela*) 0.5 mg INH Q6H PRN PRN Reason: SOB/WHEEZING Levothyroxine Sodium (Synthroid Tab*) 75 mcg PO QAM [facility] Last Admin: 02/18/19 12:18 Dose: 75 mcg [place] Carbonate ([place]ue Carbonate Tab*) 600 mg PO BEDTIME [facility] Last Admin: 02/18/19 21:12 Dose: 600 mg Mometasone Furoate (Asmanex 220 Mcg Mdi *) 1 puff INH QPM [facility] Last Admin: 02/18/19 19:21 Dose: 1 puff Olanzapine (Zyprexa Tab*) 10 mg PO BEDTIME [facility] Last Admin: 02/18/19 21:12 Dose: 10 mg Pantoprazole Sodium (Protonix Tab*) 40 mg PO DAILY [facility] Last Admin: 02/18/19 12:17 Dose: 40 mg Polyethylene Glycol/Electrolytes (Miralax*) 17 gm PO DAILY PRN PRN Reason: CONSTIPATION Last Admin: 02/18/19 21:12 Dose: 17 gm Prednisone (Deltasone Tab*) 40 mg PO DAILY [facility] Torsemide (Demadex*) 20 mg PO DAILY [facility] Last Admin: 02/18/19 12:25 Dose: 20 mg Valsartan (Diovan Tab*) 80 mg PO DAILY [facility] Last Admin: 02/18/19 13:57 Dose: 80 mg Vital Signs - 8 hr 02/19/19 02/19/19 03:29 07:01 Temperature 98.0 F Pulse Rate 76 741 Respiratory 30 18 Rate Blood Pressure 129/52 (mmHg) O2 Sat by Pulse 95 90 Oximetry Oxygen Devices in Use Now: Nasal Cannula Appearance: He is sitting on bed, not in distress, staff member is in room for help with feeding. Respiratory: - - No use of accessory muscles, there is wheezing throughout. Cardiovascular: RRR, - - 1+ pitting edema bilateral lower extremities. Extremities: - - 1+ pitting edema bilateral lower extremities Neurological: Alert and Oriented x 3 Result Diagrams: 02/18/19 05:10 02/18/19 05:10 Microbiology and Other Data: Microbiology 02/15/19 16:07 Urine Culture - Final Urine No Growth (<1,000 CFU/mL) 02/16/19 09:31 Nasal Screen MRSA (PCR) - Final Nasal Mrsa Not Detected Assess/Plan/Problems-Billing Assessment: This is a 68 year old man with history of Parkinson's disease, shizoaffective disorder, borderline personality disorder, COPD, RIO who presented 02/15 with a fall and was found to be hypoxic, being treated for a COPD exacerbation, 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 - Patient Problems (1) Acute respiratory failure with hypoxia Current Visit: Yes Status: Acute Code(s): J96.01 - ACUTE RESPIRATORY FAILURE WITH HYPOXIA SNOMED Code(s): 30060264 Comment: likely related to COPD exacerbation (maybe also with some component of OHS/RIO, ?polypharmacy, ?pneumonia) CTA is negative for PE. echo showed mildly depressed ef; volume status challenging; I continued home dose of torsemide Is not on home oxygen. Change solumedrol to prednisone continue duonebs, rocephin/azithromycin follow up on pulmonary recommendations (2) Fall Current Visit: Yes Status: Acute Comment: most likely from hypoxia; alternatives include parkinsonism, polypharmacy/lithium toxicity, delirium, anemia had been complaining of hip pain. xray and CT are negative CT brain negative at admission (3) Anemia Current Visit: Yes Status: Acute Code(s): D64.9 - ANEMIA, UNSPECIFIED SNOMED Code(s): 674113761 Comment: no overt signs of blood loss FOBT pending iron studies consistent with iron deficiency will start iron supplements. (4) Hypothyroid Current Visit: No Status: Chronic Code(s): E03.9 - HYPOTHYROIDISM, UNSPECIFIED SNOMED Code(s): 26848462 Comment: on levothyroxine (5) Schizo-affective psychosis Current Visit: No Status: Chronic Code(s): F25.9 - SCHIZOAFFECTIVE DISORDER , UNSPECIFIED SNOMED Code(s): 09131401 Comment: continue olanzapine and lithium (6) Sleep apnea in adult Current Visit: No Status: Chronic Code(s): G47.30 - SLEEP APNEA, UNSPECIFIED SNOMED Code(s): 11666782 Comment: used CPAP last night, yesterday he was hard to arouse. today morning he was awake/alert/following commands (7) Leukocytosis Current Visit: Yes Status: Acute Code(s): D72.829 - ELEVATED WHITE BLOOD CELL COUNT, UNSPECIFIED SNOMED Code(s): 832506224 Comment: WBC is trending up, could be due to steroids he is on antibiotics for hypoxia/COPD exacerbation. no fever. Status and Disposition: to ICU stat Mr. Pugh has no family according to [employer] and no healthcare proxy. In his chart, Ethan Bryant is listed as a legal guardian, but the number is the [employer] administrative office. Point of contact would him manager of [employer] , who does not know him closely. Her name is April and her number is in the H& P. A social work consult is pending.
[2019-02-19] MEDS: Heparin VIAL(*) 5000 UNITS/ML VIAL (FIVE THOUSAND) SUBCUT SCH ×2 (10:50→20:30)
[2019-02-19] MEDS: Finasteride TAB* 5 MG PO SCH (10:50)
[2019-02-19] MEDS: Azithromycin TAB* 250 MG PO SCH (10:50)
[2019-02-19] MEDS: Benztropine TAB* 1 MG PO SCH (10:50)
[2019-02-19] MEDS: Levothyroxine TAB* 75 MCG TAB PO SCH (10:50)
[2019-02-19] MEDS: CMC:Alfuzosin ER (NF) 10 MG TAB.ER PO SCH (10:50)
[2019-02-19] MEDS: Valsartan TAB* 80 MG PO SCH (10:50)
[2019-02-19] MEDS: Pantoprazole TAB * 40 MG TAB PO SCH (10:50)
[2019-02-19] MEDS: Torsemide TAB* 20 MG PO SCH (10:50)
[2019-02-19] MEDS: predniSONE TAB* 20 MG PO SCH (10:50)
[2019-02-19] MEDS: Ferrous Sulfate TAB* 325 MG PO SCH (10:50)
[2019-02-19] MEDS: Polyethylene Glycol 3350* 17 GM PACKET PO PRN (11:04)
[2019-02-19] MEDS: cefTRIAXone(*) 1 GM in NS 0.9% 50 ML* 50 ML IVPB SCH (11:05)
[2019-02-19] MEDS: Mometasone 220 MCG MDI INH SCH (19:25)
[2019-02-19] MEDS: Lithium Carbonate TAB* 300 MG PO SCH (20:28)
[2019-02-19] MEDS: OLANzapine TAB* 10 MG PO SCH (20:28)
[2019-02-20] MEDS: Albuterol 2.5 MG/3 ML NEB.SOL* (0.083%) INH SCH ×4 (00:18→19:19)
--- NOTE | 2019-02-20 09:03 | PN ---
Subjective Date of Service: 02/20/19 Interval History: No acute issues overnight. Did not wear the CPAP last night, this morning is awake and answering questions. Has no complaints this morning. Per Nurse: he might be having stomach discomfort. Family History: Unchanged from Admission Social History: Unchanged from Admission Past Medical History: Unchanged from Admission Objective Active Medications: Albuterol (Ventolin 2.5 Mg/3 Ml Neb.Nela*) 2.5 mg INH [id number] AWAKE PRN PRN Reason: sob/wheezing Last Admin: 02/17/19 10:12 Dose: 2.5 mg Albuterol (Ventolin 2.5 Mg/3 Ml Neb.Nela*) 2.5 mg INH [id number] AWAKE [facility] Last Admin: 02/20/19 07:36 Dose: 2.5 mg Alfuzosin HCl (Uroxatral (Nf)) 10 mg PO DAILY [facility] Last Admin: 02/19/19 10:50 Dose: 10 mg Azithromycin (Zithromax Tab*) 250 mg PO DAILY [facility] Last Admin: 02/19/19 10:50 Dose: 250 mg Benztropine Mesylate (Cogentin Tab*) 0.5 mg PO DAILY [facility] Last Admin: 02/19/19 10:50 Dose: 0.5 mg Ferrous Sulfate (Ferrous Sulfate Tab*) 325 mg PO DAILY [facility] Last Admin: 02/19/19 10:50 Dose: 325 mg Finasteride (Proscar Tab*) 5 mg PO DAILY [facility] Last Admin: 02/19/19 10:50 Dose: 5 mg Heparin Sodium (Porcine) (Heparin Vial(*)) 5,000 units SUBCUT Q12HR [facility] Last Admin: 02/19/19 20:30 Dose: 5,000 units Ceftriaxone Sodium 1 gm/ (Sodium Chloride) 50 mls @ 100 mls/hr IVPB Q24H [facility] Last Admin: 02/19/19 11:05 Dose: 100 mls/hr Ipratropium [place] (Atrovent 0.5 Mg Neb.Nela*) 0.5 mg INH Q6H PRN PRN Reason: SOB/WHEEZING Levothyroxine Sodium (Synthroid Tab*) 75 mcg PO QAM [facility] Last Admin: 02/19/19 10:50 Dose: 75 mcg [place] Carbonate ([place] Carbonate Tab*) 600 mg PO BEDTIME [facility] Last Admin: 02/19/19 20:28 Dose: 600 mg Mometasone Furoate (Asmanex 220 Mcg Mdi *) 1 puff INH QPM [facility] Last Admin: 02/19/19 19:25 Dose: 1 puff Olanzapine (Zyprexa Tab*) 10 mg PO BEDTIME [facility] Last Admin: 02/19/19 20:28 Dose: 10 mg Pantoprazole Sodium (Protonix Tab*) 40 mg PO DAILY [facility] Last Admin: 02/19/19 10:50 Dose: 40 mg Polyethylene Glycol/Electrolytes (Miralax*) 17 gm PO DAILY PRN PRN Reason: CONSTIPATION Last Admin: 02/19/19 11:04 Dose: 17 gm Prednisone (Deltasone Tab*) 40 mg PO DAILY [facility] Last Admin: 02/19/19 10:50 Dose: 40 mg Torsemide (Demadex*) 20 mg PO DAILY [facility] Last Admin: 02/19/19 10:50 Dose: 20 mg Valsartan (Diovan Tab*) 80 mg PO DAILY [facility] Last Admin: 02/19/19 10:50 Dose: 80 mg Vital Signs - 8 hr 02/20/19 02/20/19 04:00 07:45 Temperature 97.7 F Pulse Rate 66 68 Respiratory 19 17 Rate Blood Pressure 119/64 (mmHg) O2 Sat by Pulse 100 98 Oximetry Oxygen Devices in Use Now: Nasal Cannula Appearance: He is sitting up on the bed, not in distress Eyes: PERRLA Respiratory: Symmetrical Chest Expansion and Respiratory Effort, - - mild wheezing, no use of accessory muscles. Cardiovascular: NL Sounds; No Murmurs; No JVD, RRR, - - trace lower extremity edema Extremities: - - trace lower extremity edema, no calf tenderness Neurological: Alert and Oriented x 3, - - slow slighlty slurred speech. 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 - Patient Problems (1) Acute respiratory failure with hypoxia Current Visit: Yes Status: Acute Code(s): J96.01 - ACUTE RESPIRATORY FAILURE WITH HYPOXIA SNOMED Code(s): 99424246 Comment: likely related to COPD exacerbation (maybe also with some component of OHS/RIO, ?polypharmacy, ?pneumonia) CTA is negative for PE. echo showed mildly depressed ef; volume status challenging; continue torsemide and steroids. Is not on home oxygen. Change solumedrol to prednisone continue duonebs, rocephin/azithromycin follow up on pulmonary recommendations (2) Fall Current Visit: Yes Status: Acute Comment: most likely from hypoxia; alternatives include parkinsonism, polypharmacy/lithium toxicity, delirium, anemia had been complaining of hip pain. xray and CT are negative CT brain negative at admission (3) Anemia Current Visit: Yes Status: Acute Code(s): D64.9 - ANEMIA, UNSPECIFIED SNOMED Code(s): 669644706 Comment: no overt signs of blood loss FOBT pending iron studies consistent with iron deficiency will start iron supplements. (4) Hypothyroid Current Visit: No Status: Chronic Code(s): E03.9 - HYPOTHYROIDISM, UNSPECIFIED SNOMED Code(s): 43030354 Comment: on levothyroxine (5) Schizo-affective psychosis Current Visit: No Status: Chronic Code(s): F25.9 - SCHIZOAFFECTIVE DISORDER , UNSPECIFIED SNOMED Code(s): 83068988 Comment: continue olanzapine and lithium (6) Sleep apnea in adult Current Visit: No Status: Chronic Code(s): G47.30 - SLEEP APNEA, UNSPECIFIED SNOMED Code(s): 08215594 Comment: used CPAP night 02/18 today morning he was awake/alert/following commands (7) Leukocytosis Current Visit: Yes Status: Acute Code(s): D72.829 - ELEVATED WHITE BLOOD CELL COUNT, UNSPECIFIED SNOMED Code(s): 643494148 Comment: WBC is trending up, could be due to steroids he is on antibiotics for hypoxia/COPD exacerbation. no fever. (8) COPD exacerbation Current Visit: Yes Status: Acute Code(s): J44.1 - CHRONIC OBSTRUCTIVE PULMONARY DISEASE W (ACUTE) EXACERBATION SNOMED Code(s): 417808069 Comment: Improving Continue prednisone and duonebs. Supplemental O2 to keep O2 > 90% imaging sugguestive of possible pnuemonia: continue rocephin, and azithromycin. Status [facility] Disposition[facility] Will see if he qualifies for home oxygen and discussed with CM for discharge planning. PT to see patient as well.
[2019-02-20] MEDS ORDERED: Calcium Carbonate CHEW TAB* 500 MG (TUMS) PO PRN (09:16)
[2019-02-20] MEDS: Polyethylene Glycol 3350* 17 GM PACKET PO PRN (09:33)
[2019-02-20] MEDS: Torsemide TAB* 20 MG PO SCH (09:34)
[2019-02-20] MEDS: Heparin VIAL(*) 5000 UNITS/ML VIAL (FIVE THOUSAND) SUBCUT SCH ×2 (09:34→19:58)
[2019-02-20] MEDS: CMC:Alfuzosin ER (NF) 10 MG TAB.ER PO SCH (09:34)
[2019-02-20] MEDS: Levothyroxine TAB* 75 MCG TAB PO SCH (09:34)
[2019-02-20] MEDS: Azithromycin TAB* 250 MG PO SCH (09:34)
[2019-02-20] MEDS: cefTRIAXone(*) 1 GM in NS 0.9% 50 ML* 50 ML IVPB SCH (09:34)
[2019-02-20] MEDS: predniSONE TAB* 20 MG PO SCH (09:34)
[2019-02-20] MEDS: Pantoprazole TAB * 40 MG TAB PO SCH (09:34)
[2019-02-20] MEDS: Valsartan TAB* 80 MG PO SCH (09:35)
[2019-02-20] MEDS: Ferrous Sulfate TAB* 325 MG PO SCH (09:35)
[2019-02-20] MEDS: Benztropine TAB* 1 MG PO SCH (09:35)
[2019-02-20] MEDS: Finasteride TAB* 5 MG PO SCH (09:35)
[2019-02-20] MEDS: OLANzapine TAB* 10 MG PO SCH (19:58)
[2019-02-20] MEDS: Lithium Carbonate TAB* 300 MG PO SCH (19:58)
[2019-02-20] MEDS: Mometasone 220 MCG MDI INH SCH (20:18)
[2019-02-21] MEDS: Albuterol 2.5 MG/3 ML NEB.SOL* (0.083%) INH SCH ×2 (01:05→07:43)
[2019-02-21] MEDS: Albuterol 2.5 MG/3 ML NEB.SOL* (0.083%) INH PRN ×2 (04:19→13:16)
[2019-02-21] MEDS: CMC:Alfuzosin ER (NF) 10 MG TAB.ER PO SCH (08:58)
[2019-02-21] MEDS: Valsartan TAB* 80 MG PO SCH (08:58)
[2019-02-21] MEDS: Ferrous Sulfate TAB* 325 MG PO SCH (08:58)
[2019-02-21] MEDS: predniSONE TAB* 20 MG PO SCH (08:58)
[2019-02-21] MEDS: Benztropine TAB* 1 MG PO SCH (08:58)
[2019-02-21] MEDS: cefTRIAXone(*) 1 GM in NS 0.9% 50 ML* 50 ML IVPB SCH (08:59)
[2019-02-21] MEDS: Finasteride TAB* 5 MG PO SCH (08:59)
[2019-02-21] MEDS: Torsemide TAB* 20 MG PO SCH (08:59)
[2019-02-21] MEDS: Azithromycin TAB* 250 MG PO SCH (08:59)
[2019-02-21] MEDS: Heparin VIAL(*) 5000 UNITS/ML VIAL (FIVE THOUSAND) SUBCUT SCH (08:59)
[2019-02-21] MEDS: Pantoprazole TAB * 40 MG TAB PO SCH (08:59)
[2019-02-21] MEDS: Levothyroxine TAB* 75 MCG TAB PO SCH (08:59)
[2019-02-21] MEDS: Polyethylene Glycol 3350* 17 GM PACKET PO PRN (10:35)
[2019-02-21] MEDS ORDERED: Polyethylene Glycol 3350* 17 GM PACKET PO ONE (11:00)
[2019-02-21] MEDS ORDERED: Bisacodyl SUPP* 10 MG SUPP PR ONE (11:00)
--- NOTE | 2019-02-21 11:00 | DS ---
CC: Dr. Hang Sesay DISCHARGE SUMMARY: DATE OF ADMISSION: 02/15/19 DATE OF DISCHARGE: 02/21/19 PRIMARY CARE PROVIDER: Dr. Hang Sesay REASON FOR THE ADMISSION: Fall. DISCHARGE DIAGNOSES: Include: 1. [place] toxicity 2. Acute hypoxic ventilatory failure due to chronic obstructive pulmonary disease exacerbation. 3. History of schizoaffective disorder. 4. History of hypothyroidism. 5. History of anemia. 6. History of probable sleep apnea. HOSPITAL COURSE: This is a 68-year-old male with past medical history of schizoaffective disorder, o n lithium; history of hypothyroidism; COPD; parkinsonism, who is admitted to the hospital after havin g a fall. The patient was found to be having acute weakness from hypoxia, ambulatory dysfunction and probable polypharmacy. Admission lab, the patient was found to have a lithium level of 1.47. The p atient used to take lithium 600 mg at bedtime and 300 mg in the morning, we adjusted this to just lit hium 600 mg at bedtime, stopped the a.m. dose. Additionally, the patient was also found to have acute hypoxic respiratory failure with tachypnea, saturating well on 6 L nasal cannula, not on home oxygen . He was found to have COPD exacerbation, was treated on IV Solu-Medrol, DuoNeb, antibiotics with Ro cephin, azithromycin. The patient finished a total of 5 days of azithromycin and Rocephin. The jose alberto ent was eventually converted to prednisone. We will recommended the patient continue prednisone 40 m g up until 02/25/19. The patient was also found to have a right hip right lower quadrant abdominal p ain, for which we did imaging. The patient continued to improve. The patient had episodes of lethargy, which improved through the c ourse, but it was felt that the patient has probable sleep apnea. The patient was placed 1 night on CPAP, after which his mentation was improving. Imaging throughout the hospital course included brain CT, which showed stable chronic findings relate d to most recent CT dated 11/20/18 with no acute intracranial abnormality. The patient also had pelvic CT done, which revealed no acute fracture or dislocation, and was found t o have chronic and degenerative changes. Also, underwent a venous Doppler study, which revealed no right lower activity DVT. The patient also had an echocardiogram done, which revealed ejection fraction of 45% to 50% with mild diffuse hypokinesis. The patient also had a chest x-ray, which revealed lower lung volume with pulm onary interstitial edema and left basilar atelectasis versus consolidation. Also, he had an abdomina l x-ray, which revealed some negative exam. The patient also underwent a chest/thorax CTA, which reve aled limited study. No central pulmonary embolism seen. Also, had a moderate-sized bilateral pleura l effusion and bilateral dependent infiltrate and left upper lobe with pulmonary nodules, which are u nchanged. The patient was seen by physical therapy as well as speech therapy for swallow evaluation. The patient is on a regular unrestricted diet, however, the patient is told to alternate liquids and solids. DISCHARGE DISPOSITION: The patient is to be transferred to [facility]. THE PATIENT'S DISCHARGE CONDITION: Fair/stable. PHYSICAL EXAM: Blood pressure of 114/50, saturation of 99% on 2 L nasal cannula, heart rate of 66, t emperature 97.2 Fahrenheit. General: This is a well-developed well-nourished male in no acute distr ess. Slightly dysarthric, motor is 5/5 in all 4 extremities. Pupils are equal, round and reactive t o light. There is no nystagmus. Heart: Regular rate and rhythm, no murmurs rubs or gallops. Lungs : They are clear to auscultation without any wheezing, whales or rhonchi. Abdomen: Bowel sounds are normoactive in all 4 quadrants. Abdomen is soft, nontender, nondistended. There is no lower extremi ty edema, no calf tenderness. The patient had a wound at the bilateral buttocks and sacrum. Recommendation is to apply a barrier c senia for that. DISCHARGE MEDICATIONS: Include: 1. Prednisone 40 mg to finish the dose until 02/25/19. 2. Albuterol 2.5 mg nebulization treatment every 4 hours as needed when awake. 3. Alfuzosin 10 mg daily. 4. Benztropine 0.5 mg daily. 5. Finasteride 5 mg daily 6. Fluticasone HFA 110 mcg 1 puff b.i.d. 7. Levothyroxine 75 mcg daily. 8. [place] carbonate 600 mg at bedtime. 9. Olanzapine 10 mg at bedtime. 10. Omeprazole 20 mg daily 11. Torsemide 20 mg daily. 12. Valsartan 80 mg daily. 13. Calcium carbonate 500 mg every 4 hours as needed for indigestion. 14. Ferrous sulfate 325 mg daily. 15. Fluticasone nasal spray 2 sprays both nares daily as needed. 16. Guaifenesin dextromethorphan K citrate 5 mL every 4 hours as needed for cough. 17. Ipratropium nebulization 0.5 mg inhaled every 6 hours as needed. 18. Ketoconazole/hydrocortisone 30 g daily as needed for rash. 19. [place] carbonate 600 mg at bedtime. 20. Polyethylene glycol 17 g daily. 21. Aty-C-Gohvhqa 1 tab daily. 22. Ellipta Incruse 1 inhaled multi-dose inhaler 1 inhaled daily. [id number]/[facility] #: [id number]
[2019-02-21] MEDS ORDERED: Sodium Phosphate ADULT ENEMA* 118 ml bottle PR ONE (13:00)
--- NOTE | 2019-02-21 13:30 | PN ---
Subjective Date of Service: 02/21/19 Interval History: Plan was to discharge the patient to [facility] for [facility]. He had no acute issues overnight, but has not had a BM X few days. Family History: Unchanged from Admission Social History: Unchanged from Admission Past Medical History: Unchanged from Admission Objective Active Medications: Albuterol (Ventolin 2.5 Mg/3 Ml Neb.Nela*) 2.5 mg INH RT.[id number] AWAKE PRN PRN Reason: sob/wheezing Last Admin: 02/21/19 13:16 Dose: 2.5 mg Alfuzosin HCl (Uroxatral (Nf)) 10 mg PO DAILY [facility] Last Admin: 02/21/19 08:58 Dose: 10 mg Azithromycin (Zithromax Tab*) 250 mg PO DAILY [facility] Last Admin: 02/21/19 08:59 Dose: 250 mg Benztropine Mesylate (Cogentin Tab*) 0.5 mg PO DAILY [facility] Last Admin: 02/21/19 08:58 Dose: 0.5 mg Calcium Carbonate (Tums*) 500 mg PO Q4H PRN PRN Reason: INDIGESTION Ferrous Sulfate (Ferrous Sulfate Tab*) 325 mg PO DAILY [facility] Last Admin: 02/21/19 08:58 Dose: 325 mg Finasteride (Proscar Tab*) 5 mg PO DAILY [facility] Last Admin: 02/21/19 08:59 Dose: 5 mg Heparin Sodium (Porcine) (Heparin Vial(*)) 5,000 units SUBCUT Q12HR [facility] Last Admin: 02/21/19 08:59 Dose: 5,000 units Ceftriaxone Sodium 1 gm/ (Sodium Chloride) 50 mls @ 100 mls/hr IVPB Q24H [facility] Last Admin: 02/21/19 08:59 Dose: 100 mls/hr Ipratropium Burke (Atrovent 0.5 Mg Neb.Nela*) 0.5 mg INH Q6H PRN PRN Reason: SOB/WHEEZING Levothyroxine Sodium (Synthroid Tab*) 75 mcg PO QAM [facility] Last Admin: 02/21/19 08:59 Dose: 75 mcg [place] Carbonate ([place] Carbonate Tab*) 600 mg PO BEDTIME [facility] Last Admin: 02/20/19 19:58 Dose: 600 mg Mometasone Furoate (Asmanex 220 Mcg Mdi *) 1 puff INH QPM [facility] Last Admin: 02/20/19 20:18 Dose: 1 puff Olanzapine (Zyprexa Tab*) 10 mg PO BEDTIME [facility] Last Admin: 02/20/19 19:58 Dose: 10 mg Pantoprazole Sodium (Protonix Tab*) 40 mg PO DAILY [facility] Last Admin: 02/21/19 08:59 Dose: 40 mg Polyethylene Glycol/Electrolytes (Miralax*) 17 gm PO DAILY PRN PRN Reason: CONSTIPATION Last Admin: 02/21/19 10:35 Dose: 17 gm Prednisone (Deltasone Tab*) 40 mg PO DAILY [facility] Last Admin: 02/21/19 08:58 Dose: 40 mg Torsemide (Demadex*) 20 mg PO DAILY [facility] Last Admin: 02/21/19 08:59 Dose: 20 mg Valsartan (Diovan Tab*) 80 mg PO DAILY [facility] Last Admin: 02/21/19 08:58 Dose: 80 mg Vital Signs - 8 hr 02/21/19 02/21/19 02/21/19 07:19 08:00 10:30 Temperature 98.6 F Pulse Rate 76 Respiratory 28 22 Rate Blood Pressure 133/59 (mmHg) O2 Sat by Pulse 100 96 Oximetry 02/21/19 02/21/19 11:44 13:20 Temperature 97.6 F Pulse Rate 79 79 Respiratory 24 20 Rate Blood Pressure 113/47 (mmHg) O2 Sat by Pulse 96 99 Oximetry Oxygen Devices in Use Now: Nasal Cannula Appearance: lying in home, not in distress Respiratory: Symmetrical Chest Expansion and Respiratory Effort, Clear to Auscultation Cardiovascular: NL Sounds; No Murmurs; No JVD, RRR, - - trace lower extremity edema, no calf tenderness Abdominal: NL Sounds; No Tenderness; No Distention, No Hepatosplenomegaly Neurological: Alert and Oriented x 3, NL Muscle Strength and Tone Result Diagrams: 02/18/19 05:10 02/18/19 05:10 Additional Lab and Data: Above labs were pulled into the note, when the note was edited prior to signing. Please see labs below from day of consultation. Laboratory Tests 02/15/19 02/16/19 02/16/19 05:45 06:14 06:14 WBC 19.1 H Hgb 9.7 L Hct 30 L Plt Count 272 Sodium 134 L Potassium 4.3 Chloride 99 L Carbon Dioxide 31 BUN 26 H Creatinine 1.23 H Glucose 154 H Total Protein 6.8 Albumin 3.6 Microbiology and Other Data: Microbiology 02/15/19 16:07 Urine Culture - Final Urine No Growth (<1,000 CFU/mL) 02/16/19 09:31 Nasal Screen MRSA (PCR) - Final Nasal Mrsa Not Detected Assess/Plan/Problems-Billing Assessment: This is a 68 year old man with history of Parkinson's disease, shizoaffective disorder, borderline personality disorder, COPD, RIO who presented 02/15 with a fall and was found to be hypoxic, being treated for a COPD exacerbation, 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 - Patient Problems (1) Acute respiratory failure with hypoxia Current Visit: Yes Status: Acute Code(s): J96.01 - ACUTE RESPIRATORY FAILURE WITH HYPOXIA SNOMED Code(s): 06016964 Comment: likely related to COPD exacerbation (maybe also with some component of OHS/RIO, ?polypharmacy, ?pneumonia) CTA is negative for PE. echo showed mildly depressed ef; volume status challenging; continue torsemide and steroids. Is not on home oxygen. Change solumedrol to prednisone finished rocephin/azithromycin follow up on pulmonary recommendations (2) Fall Current Visit: Yes Status: Acute Comment: most likely from hypoxia; alternatives include parkinsonism, polypharmacy/lithium toxicity, delirium, anemia had been complaining of hip pain. xray and CT are negative CT brain negative at admission (3) Anemia Current Visit: Yes Status: Acute Code(s): D64.9 - ANEMIA, UNSPECIFIED SNOMED Code(s): 876207446 Comment: no overt signs of blood loss FOBT pending iron studies consistent with iron deficiency will start iron supplements. (4) Hypothyroid Current Visit: No Status: Chronic Code(s): E03.9 - HYPOTHYROIDISM, UNSPECIFIED SNOMED Code(s): 97816638 Comment: on levothyroxine (5) Schizo-affective psychosis Current Visit: No Status: Chronic Code(s): F25.9 - SCHIZOAFFECTIVE DISORDER , UNSPECIFIED SNOMED Code(s): 99879291 Comment: continue olanzapine and lithium (6) Sleep apnea in adult Current Visit: No Status: Chronic Code(s): G47.30 - SLEEP APNEA, UNSPECIFIED SNOMED Code(s): 71411151 Comment: used CPAP night 02/18 today morning he was awake/alert/following commands he is supposed to use Bipap but does not wear it because he does not like it. he refuses it. (7) Leukocytosis Current Visit: Yes Status: Acute Code(s): D72.829 - ELEVATED WHITE BLOOD CELL COUNT, UNSPECIFIED SNOMED Code(s): 479476824 Comment: WBC is trending up, could be due to steroids he is on antibiotics for hypoxia/COPD exacerbation. no fever. (8) COPD exacerbation Current Visit: Yes Status: Acute Code(s): J44.1 - CHRONIC OBSTRUCTIVE PULMONARY DISEASE W (ACUTE) EXACERBATION SNOMED Code(s): 822399238 Comment: Improving Continue prednisone and duonebs. Supplemental O2 to keep O2 > 90% finished rocephin and azithromycin (9) Constipated Current Visit: Yes Status: Acute Code(s): K59.00 - CONSTIPATION, UNSPECIFIED SNOMED Code(s): 70694116 Comment: miralax given today recal supppsitory given today will give fleet enema. Status and Disposition: Placement, has a bed to [facility]- but pending a bowel movement.
[2019-02-21 17:35] VITALS: BP 138/67
[2019-02-21] MEDS: Lithium Carbonate TAB* 300 MG PO SCH (18:01)
[2019-02-21] MEDS: Mometasone 220 MCG MDI INH SCH (19:45)
== END 2019-02-21 19:15 | DRG 190 ==
LOC: ED 05:14 → MEDTELE 08:10 → ICU 02-16 08:00 → MEDTELE 02-16 12:38 → ICU 02-18 10:34 → MED 02-18 15:01
PROVIDERS: ADMIT Internal Medicine; ATTEND Internal Medicine
PROC: 5A09357 Assistance with Respiratory Ventilation, Less than 24 Consecutive Hours, Continuous Positive Airway Pressure (ICD-10-PCS; principal; 2019-02-16)
DX: J44.1 Chronic obstructive pulmonary disease with (acute) exacerbation (principal); J96.21 Acute and chronic respiratory failure with hypoxia; B44.0 Invasive pulmonary aspergillosis; E66.2 Morbid (severe) obesity with alveolar hypoventilation; F68.10 Factitious disorder imposed on self, unspecified; I42.0 Dilated cardiomyopathy; Z68.41 Body mass index [BMI] 40.0-44.9, adult; G20 Parkinson's disease; F25.9 Schizoaffective disorder, unspecified; F60.3 Borderline personality disorder; L89.322 Pressure ulcer of left buttock, stage 2; L89.312 Pressure ulcer of right buttock, stage 2; W19.XXXA Unspecified fall, initial encounter; D64.9 Anemia, unspecified; T43.595A Adverse effect of other antipsychotics and neuroleptics, initial encounter; E87.70 Fluid overload, unspecified; D72.829 Elevated white blood cell count, unspecified; E03.9 Hypothyroidism, unspecified; K59.00 Constipation, unspecified; I10 Essential (primary) hypertension; M19.90 Unspecified osteoarthritis, unspecified site; M81.0 Age-related osteoporosis without current pathological fracture; F31.9 Bipolar disorder, unspecified; F79 Unspecified intellectual disabilities; Z66 Do not resuscitate; Z79.890 Hormone replacement therapy; Z28.21 Immunization not carried out because of patient refusal; Y92.9 Unspecified place or not applicable; Z88.1 Allergy status to other antibiotic agents; Z88.2 Allergy status to sulfonamides; Z88.8 Allergy status to other drugs, medicaments and biological substances; Z87.891 Personal history of nicotine dependence; Z85.46 Personal history of malignant neoplasm of prostate; Z79.899 Other long term (current) drug therapy; Z79.51 Long term (current) use of inhaled steroids
CPT/HCPCS: 36415; 36600; 70450; 71045; 71046; 71275; 72192; 74018; 80048; 80053; 80178; 81003; 81015; 82607; 82728; 82746; 82803; 83540; 83550; 83605; 83735; 83880; 84134; 84145; 84484; 85025; 85610; 86140; 87086; 87641; 93005; 93306; 94640; 94660; 96374; 99285; A9270-GY; C8929; G8978-GP-CK; G8978-GP-CL; G8979-GP-CI; G8979-GP-CJ; J0456; J0696; J1644; J1885; J2920; J2930; J7512; Q9967

== ENCOUNTER 2019-06-11 11:09 | Emergency (ER) | payer MEDICARE, MEDICAID ==
--- OUTSIDE RECORDS SUMMARY | 2019-06-11 11:23 | XMS REPORT | Summary of Care ---
:[address] [facility] Address [address] [facility] [place] [address] Care Team Providers Name Role Phone Hang Sesay Primary Care Provider Reason for Visit Reason Comments Follow Up Encounter Details Date Type Department Care Team Description 06/04/2019 Office Visit [place] Nataliia Polanco, Non-ischemic cardiomyopathy (HCC) (Primary Dx); Cardiology [employer] Chronic diastolic heart failure (HCC); [address] [facility] [address] [facility] Hyperlipidemia, [place] [address] [place] [address] Allergies Active Allergy Reactions Severity Noted Date Comments Kdc:[place] Fcf+Tamsulosin GI Reaction 03/15/2016 Neomycin Unknown Reaction 09/18/2016 Sulfa Antibiotics Other 03/15/2016 shaking documented as of this encounter (statuses as of 06/04/2019) Medications Medication Sig Dispensed Refills Start Date End Date Status acetaminophen Take 650 mg by 0 Active (TYLENOL) 325 MG Oral mouth EVERY SIX Tab HOURS NEEDED. Wound Dressings 1 Each by Apply 1 [...] MOUTH EVERY DAY TabIndications: Prostate cancer (HCC) hydrocortisone 1 g by Topical 120 [...] pulmonary disease, unspecified COPD type ([facility]) Tamsulosin HCl Take 1 Cap by 60 Cap 0 08/15/2018 Active (FLOMAX) 0.4 MG Oral mouth DAILY. Cap Incontinence Supply 1 Each by Does not 105 Each 5 12/24/2018 Active Disposable (PREVAIL PM apply route FOUR BRIEF X-LARGE) Does TIMES DAILY. not apply Misc DX:R15.9 Incontinence Supply 1 Each by Does not 100 Each 4 12/27/2018 Active Disposable Does not apply route DAILY. apply MiscIndications: Incontinence Urinary incontinence, briefs unspecified type [id number] olanzapine (ZYPREXA) TAKE 1 TABLET BY 30 Tab 4 01/10/2019 Active 10 MG Oral Tab MOUTH EVERY DAY Multiple Vitamin Take 1 Tab by 30 Tab 11 01/28/2019 Active (TAB-A-TRUONG) Oral Tab mouth DAILY. [place] Carbonate 600 Take 1 Cap by 30 Cap 5 01/28/2019 Active MG Oral Cap mouth EVERY BEDTIME. PEG Take by mouth. 0 Active [id number]-Na Sulf (GAVILYTE-C PO) silver antimicrobial by Apply 0 Active (SILVASORB) Apply externally route. externally Gel benzonatate (TESSALON Take 100 mg by 0 Active PERLES) 100 MG Oral mouth THREE TIMES Cap DAILY NEEDED for cough. lithium 150 MG Oral TAKE 1 CAP BY 30 Cap 4 02/03/2019 Active Cap MOUTH EVERY BEDTIME. Control Gel Formula 1 Appl by Apply 10 Each 1 02/05/2019 Active Dressing (DUODERM CGF externally route BORDER) Apply EVERY THREE DAYS. externally Misc valsartan (DIOVAN) 80 Take 1 Tab by 90 Tab 2 02/20/2019 Active MG Oral mouth DAILY. TabIndications: Non-ischemic cardiomyopathy (HCC) fluticasone (FLONASE) Morrill 1 Morrill in 0 Active 50 MCG/ACT Nasal nose NEEDED. Suspension albuterol-ipratropium 1 mg by 0 Active (DUO-NEB) 0.5-2.5 (3) Inhalation-SVN MG/3ML Inhalation route NEEDED. Solution Elastic Bandages & by Does not apply 0 Active Supports (MEDICAL route. COMPRESSION SOCKS) Does not apply Misc FLOVENT HFA 110 INHALE 1 PUFF 1 Puff 4 04/24/2019 Active MCG/ACT Inhalation TWICE DAILY "RINSE AerosolIndications: MOUTH AFTER USE" Moderate persistent asthma with acute exacerbation INCRUSE ELLIPTA 62.5 INHALE 1 PUFF 30 Each 4 04/24/2019 Active MCG/INH Inhalation EVERY DAY AEROSOL POWDER, BREATH ACTIVATEDIndications: Moderate persistent asthma with acute exacerbation GAVILAX Oral 17GM BY MOUTH 17 g 4 04/24/2019 Active PowderIndications: EVERY DAY Personal history of prostate cancer torsemide (DEMADEX) 20 Take 1 Tab by 30 Tab 5 05/08/2019 Active MG Oral Tab mouth DAILY. benztropine (COGENTIN) Take 1 Tab by 30 Tab 11 05/15/2019 Active 0.5 MG Oral Tab mouth DAILY. Alfuzosin HCl 10 MG 1 TAB BY MOUTH 30 Tab 4 05/26/2019 Active Oral TABLET SR 24 EVERY DAY HRIndications: Benign prostatic hyperplasia, unspecified whether lower urinary tract symptoms present levothyroxine 1 TAB BY MOUTH 30 Tab 5 06/03/2019 Active (SYNTHROID) 75 MCG EVERY DAY Oral Tab documented as of this encounter (statuses as of 06/04/2019) Active Problems Problem Noted Date Prostate cancer 03/14/2018 Centrilobular emphysema 03/14/2018 Overview: [facility] admission winter 2018 for copd exacarbation Sarcoidosis of lung 10/09/2016 Overview: Mediastinoscopy with [...] spring 2016 History of tobacco use 07/20/2016 Overview: 2 pack per day 30 years Schizoaffective disorder 03/15/2016 Gastroesophageal reflux disease without esophagitis 03/15/2016 Overview: Upper GI series negative 2010 Mild intellectual disability 03/15/2016 Overview: Lives [place] [facility] custodial under [employer] [facility] Bipolar disorder in full remission 03/15/2016 Overview: [facility] Feb 2016 Borderline personality disorder 03/15/2016 Pedophilia 03/15/2016 History of prostate cancer 03/15/2016 Overview: No surgery medication management in [place] Essential hypertension 03/15/2016 Spondylosis of lumbar region without myelopathy or radiculopathy 03/15/2016 Primary osteoarthritis of both knees 03/15/2016 Hypovitaminosis D 03/15/2016 Mixed hyperlipidemia 03/15/2016 documented as of this encounter (statuses as of 06/04/2019) Resolved Problems Problem Noted Date Resolved Date Coronary artery disease involving [place] coronary artery of 03/15/20162016 [place] heart without angina pectoris Overview: History myocardial infarction in past prior to 2012 documented as of this encounter (statuses as of 06/04/2019) Immunizations Name Administration Dates Next Due Influenza Vaccine 65 Yrs + 11/25/2018 Influenza Vaccine High Dose 11/26/2017, 12/14/2016 PNEUMOCOCCAL POLYSACCHARIDE VACCINE 03/26/2017 Pneumococcal Conjugate(13 Valent) 03/15/2016 documented as of this encounter Social History Tobacco Use Types Packs/Day Years Used Date Former Smoker Smokeless Tobacco: Never Used Alcohol Use Drinks/Week oz/Week Comments No Sex Assigned at Date Recorded Not on file documented as of this encounter Last Filed Vital Signs Not on filedocumented in this encounter Patient Instructions Patient InstructionsNataliia Leonardo CRNP - 06/04/2019 2:00 PM EDT Need to continue with low salt, low fat diet, No more then 2 grams of salt per day, fluid restriction of 2 liters of fluids a day. Restaurant foods, frozen foods, soups, deli meats, etc. have salt already in them do not add extra salt and try to avoid if possible. yourself. Need to check weight dailyin the morning without clothes on prior to eating, and call if weight should go up 3 lbs over night,increased shortness of breath or unable to lay flat due to shortness of breath. Follow up in 6 monthsElectronically signed by Nataliia Leonardo CRNP at 2019 2:27 PM EDT documented in this encounter Plan of Treatment Date Type Specialty Care Team Description 06/23/2019 Office Visit Internal Medicine Fransico Osei, PA [address] [place] [address] [phone] 07/31/2019 Office Visit Urology Anish He MD [address] [place] [address] [phone] Name Type Priority Associated Diagnoses Order Schedule MAGNESIUM LEVEL Lab Routine Chronic diastolic heart Expected: 06/04/2019 failure (HCC) (Approximate), Expires: 06/03/2020 LIPID PROFILE Lab Routine Hyperlipidemia, Expected: 06/04/2019 unspecified hyperlipidemia (Approximate), type Expires: 06/03/2020 COMPREHENSIVE METABOLIC Lab Routine Chronic diastolic heart Expected: 06/03 PANEL failure (HCC) (Approximate), Expires: 06/03/2020 Health Maintenance Due Date Last Done Comments CT Colonography 1950 Colonoscopy 1950 Sigmoidoscopy 1950 ZOSTER IMMUNIZATION SERIES 2000 (1 of 2) AAA SCREENING/SURVEILLANCE 10/21/2015 FALL RISK ASSESSMENT 06/20/2019 06/19/2018, 06/19/2018 DTaP/Tdap/Td Vaccines (1 - 07/04/2019 Postponed from Tdap) 1961 (Other) LIPID DISORDER SCREENING 08/01/2019 07/31/2018, 03/14/2018, 03/15/2016 FIT/FOBT 11/06/2019 11/05/2018 DEPRESSION SCREENING 11/26/2019 11/25/2018 MEDICARE ANNUAL WELLNESS 04/09/2020 Postponed from VISIT 1950 (Other) DIABETES SCREENING 05/07/2020 05/08/2019, 04/09/2019, 02/05/2019, Additional history exists Cologuard 04/24/2022 04/24/2019 Colorectal Cancer Screening 04/24/2022 PNEUMOCOCCAL 65+YRS Completed 03/26/2017, 03/15/2016 INFLUENZA VACCINE [...] Type Problems Progress Blood Pressure Blood Pressure 124/58 No Lázaro, < 150/90 (05/08/2019 Hang Eisenberg, 10:33 AM EDT) Note: This is an individualized [...] depression. Weight loss vs. 18 mo Lifestyle 14.7 (05/08/2019 10:33 AM Hang Espinoza MD max (lbs) >= 10 [...] encounter Visit Diagnoses Diagnosis Non-ischemic cardiomyopathy (HCC) Other primary cardiomyopathies Chronic diastolic heart failure (HCC) Chronic diastolic heart failure Hyperlipidemia, unspecified hyperlipidemia type documented in this encounter Insurance Payer Benefit Plan / Subscriber ID Effective Dates Phone Address Type Group MEDICARE MEDICARE PART A [id number] 1992-Present Medicare & B MEDICAID [facility] [id number] 2016-Present Medicaid ID MEDICAID Guarantor Name Account Type Relation to Date of Phone Billing Patient Address Shon Pugh Personal/Family 1950 [address] [phone] [place], [place] ([place]) [id number] documented as of this encounter
--- OUTSIDE RECORDS SUMMARY | 2019-06-11 11:23 | XMS REPORT | Summary of Care ---
:1950 Author Organization [facility] Address [address] [facility] [place] [address] Care Team Providers Name Role Phone Hang Sesay Primary Care Provider Reason for Visit Reason Comments Results Patient here to discuss lab results. Encounter Details Date Type Department Care Team Description 05/08/2019 Office Visit [facility] Hang Sesay Hypokalemia ( Primary Dx); Medicine MD Faina History of tobacco use; [address] Centrilobular emphysema (HCC); [place] [address] [place] [address] History of anemia; [phone] Acquired hypothyroidism; [phone] Sarcoidosis of lung (HCC); (Fax) Essential hypertension; Restrictive lung disease; Venous stasis; Ataxia; Pressure injury of left buttock, stage 1 Allergies Active Allergy Reactions Severity Noted Date Comments Kdc:Oslo Blue Fcf+Tamsulosin GI Reaction 03/15/2016 Neomycin Unknown Reaction 09/18/2016 Sulfa Antibiotics Other 03/15/2016 shaking documented as of this encounter (statuses as of 05/09/2019) Medications Medication Sig Dispensed Refills Start End Status Date Date acetaminophen Take 650 mg by 0 Active (TYLENOL) 325 MG mouth EVERY SIX Oral Tab HOURS NEEDED. Wound Dressings 1 Each by Apply 1 Each Active (CONTREET externally route 7 HYDROCOLLOID) Apply NEEDED (any externally Pads open wounds.). 4x4 dressings dextromethorphan-gua Take 5 mL by 0 Active ifenesin (ROBITUSSIN mouth EVERY FOUR DM) 10-100 MG/5ML HOURS Oral Syrup NEEDED. zinc oxide 20 % 1 Appl by 56.7 Each 2 Active Apply externally Topical route 8 Ointment TWO TIMES DAILY NEEDED (skin breakdown in groin). finasteride TAKE 1 TAB BY 90 Tab 4 Active (PROSCAR) 5 MG Oral MOUTH EVERY DAY 9 TabIndications: Prostate cancer (HCC) hydrocortisone 1 g by Topical 120 g 5 Active (HYTONE) 1 % Apply route THREE 9 externally Cream TIMES DAILY. Omeprazole 20 MG Take 1 Tab by 90 Tab 3 Active Oral Tab mouth DAILY. 9 ECIndications: Gastroesophageal reflux disease without esophagitis albuterol HFA Take 2 Puffs by 18 Each 2 Active (VENTOLIN HFA) 108 inhalation EVERY 9 (90 Base) MCG/ACT FOUR HOURS Inhalation Aero NEEDED (wheezing SolnIndications: and cough). Chronic obstructive pulmonary disease, unspecified COPD type ([facility]) Tamsulosin HCl Take 1 Cap by 60 Cap 0 Active (FLOMAX) 0.4 MG Oral mouth DAILY. 9 Cap benztropine Take 1 Tab by 30 Tab 11 Active (COGENTIN) 0.5 MG mouth DAILY. 9 Oral Tab Alfuzosin HCl 10 MG Take 1 Tab by 30 Tab 11 Active Oral TABLET SR 24 HR mouth DAILY. 9 levothyroxine Take 1 Tab by 30 Tab [...] route 9 apply DAILY. MiscIndications: Incontinence Urinary briefs incontinence, [id number]: unspecified type [id number] olanzapine (ZYPREXA) TAKE 1 TABLET BY 30 Tab 4 Active 10 MG Oral Tab MOUTH EVERY DAY 9 Multiple Vitamin Take 1 Tab by 30 Tab 11 Active (TAB-A-TRUONG) Oral mouth DAILY. 9 Tab Meredosia Carbonate Take 1 Cap by 30 Cap 5 Active 600 MG Oral Cap mouth EVERY 9 BEDTIME. PEG Take by mouth. 0 Active [id number]- NaSulf (GAVILYTE-C PO) silver antimicrobial by Apply 0 Active (SILVASORB) Apply externally externally Gel route. benzonatate Take 100 mg by 0 Active (TESSALON PERLES) mouth THREE 100 MG Oral Cap TIMES DAILY NEEDED for cough. lithium 150 MG Oral TAKE 1 CAP BY 30 Cap 4 Active Cap MOUTH EVERY 9 BEDTIME. Control Gel Formula 1 Appl by Apply 10 Each 1 Active Dressing (DUODERM externally route 9 CGF BORDER) Apply EVERY THREE externally Misc DAYS. valsartan (DIOVAN) Take 1 Tab by 90 Tab 2 Active 80 MG Oral mouth DAILY. 9 TabIndications: Non-ischemic cardiomyopathy (HCC) fluticasone Cohutta 1 Cohutta in 0 Active (FLONASE) 50 MCG/ACT nose NEEDED. Nasal Suspension albuterol-ipratropiu 1 mg by 0 Active m (DUO-NEB) 0.5-2.5 Inhalation-SVN (3) MG/3ML route NEEDED. Inhalation Solution Elastic Bandages & by Does not 0 Active Supports (MEDICAL apply route. COMPRESSION SOCKS) Does not apply Misc FLOVENT HFA 110 INHALE 1 PUFF 1 Puff 4 Active MCG/ACT Inhalation TWICE DAILY 0 AerosolIndications: "RINSE MOUTH Moderate persistent AFTER USE" asthma with acute exacerbation INCRUSE ELLIPTA 62.5 INHALE 1 PUFF 30 Each 4 Active MCG/INH Inhalation EVERY DAY 0 AEROSOL POWDER, BREATH ACTIVATEDIndications : Moderate persistent asthma with acute exacerbation GAVILAX Oral 17GM BY MOUTH 17 g 4 Active PowderIndications: EVERY DAY 0 Personal history of prostate cancer torsemide (DEMADEX) Take 1 Tab by 30 Tab 5 Active 20 MG Oral Tab mouth DAILY. 0 torsemide (DEMADEX) Take 1 Tab by 30 Tab 6 Discontinued 20 MG Oral Tab mouth DAILY. 9 020 (Provider Discontinued) valsartan (DIOVAN) TAKE 1 TAB BY 30 Tab 4 Discontinued 80 MG Oral MOUTH DAILY. 9 020 (Duplicate TabIndications: Order) Non-ischemic cardiomyopathy (HCC) Polyethylene Glycol Take 17 g by 0 Discontinued 3350 (MIRALAX PO) mouth DAILY. 020 (Provider Discontinued) potassium chloride 10 mEq by 0 Discontinued 10 MEQ/100ML Intravenous 020 (Provider Intravenous Solution route DAILY AT Discontinued) 1400. ferrous sulfate 325 Take 1 Tab by 30 Tab 5 Discontinued (65 Fe) MG Oral Tab mouth DAILY. 0 020 (Provider Discontinued) documented as of this encounter (statuses as of 05/09/2019) Active Problems Problem Noted Date Prostate cancer 03/14/2018 Centrilobular emphysema 03/14/2018 Overview: [facility] admission winter 2018 for copd exacarbation Sarcoidosis [...] Mild intellectual disability 03/15/2016 Overview: Lives in [facility] under [employer] agency [facility] Bipolar disorder in full remission 03/15/2016 Overview: [facility] Feb 2016 Borderline personality disorder 03/15/2016 Pedophilia 03/15/2016 History of prostate cancer 03/15/2016 Overview: No surgery medication management in [place] Essential hypertension 03/15/2016 Spondylosis of lumbar region without myelopathy or radiculopathy 03/15/2016 Primary osteoarthritis of both knees 03/15/2016 Hypovitaminosis D 03/15/2016 Mixed hyperlipidemia 03/15/2016 documented as of this encounter (statuses as of 05/09/2019) Resolved Problems Problem Noted Date Resolved Date Coronary artery disease involving otoe-[place]ouria coronary artery of 03/15/20162016 otoe-[place] heart without angina pectoris Overview: History myocardial infarction in past prior to 2012 documented as of this encounter (statuses as of 05/09/2019) Immunizations Name Administration Dates Next Due Influenza [...] Sign Reading Time Taken Comments Blood Pressure 124/58 05/08/2019 10:33 AM EDT Pulse 74 05/08/2019 10:33 AM EDT Temperature - - Respiratory Rate - - Oxygen Saturation - - Inhaled Oxygen Concentration - - Weight 132.5 kg (292 lb) 05/08/2019 10:33 AM EDT Height 191.8 cm (6' 3.5") 05/08/2019 10:33 AM EDT Body Mass Index 36.02 05/08/2019 10:33 AM EDT documented in this encounter Patient Instructions Patient InstructionsHang Sesay MD - 05/08/2019 10:00 AM EDTTorsemide 20 mg once daily Stop potassium Stop ferrous sulfate Stop miralax Continue the two inhalers and use the duoneb as needed Compression stockings both legs below knee sent to [facility] New walker rolling order sent in Use walker all the time Blood work today documented in this encounter Progress Notes Hang Sesay MD - 05/08/2019 10:00 AM EDT PATIENT: Shon Pugh : 1950 DATE OF SERVICE: 05/08/2019 CHIEF COMPLAINT: Chief Complaint Patient presents with ? Results Patient here to discuss lab results. Subjective HISTORY OF PRESENT ILLNESS: Shon Pugh is a 68-y.o. male. HPI Here for follow up to pfts showing mild obstructive disease and moderate to severe restrictive disease he is an ex smoker and about 40-50 pack per day years quit 20 years ago he has no history of asthma He is obese and is mentally challenged He is largely sedentary He is here with aid from [employer] who has multiple other questions 1. Get new wheelchair with chair and wheels 2. Get medication refills 3. Review medications 4. Stop miralax no constipation 5. Look at buttock skin aide feels he has pressure sore they use donut pillow aid notes no redness or drianage and he denies pain 6. Follow up labs normal bnp and mild chronic normocytic anemia Lab Results Component Value Date WBC 11.30 (H) 05/08/2019 HGB 11.6 (L) 05/08/2019 HCT 38.0 (L) 05/08/2019 PLAT 301 05/08/2019 Mild elevation of white blood cell count he denies fevers chills or infectious symptoms Patient Active Problem List Diagnosis ? Schizoaffective disorder (HCC) ? Gastroesophageal reflux disease without esophagitis ? Mild intellectual disability ? Bipolar disorder in full remission (HCC) ? Borderline personality disorder (HCC) ? Pedophilia ? History of prostate cancer ? Essential hypertension ? Spondylosis of lumbar region without myelopathy or radiculopathy ? Primary osteoarthritis of both knees ? Hypovitaminosis D ? Mixed hyperlipidemia ? Pulmonary nodule, right ? History of tobacco use ? Sarcoidosis of lung (HCC) ? Non-ischemic cardiomyopathy (HCC) ? Acquired hypothyroidism ? Prostate cancer (HCC) ? Centrilobular emphysema (HCC) Family History Family history unknown: Yes Current Outpatient Medications Medication Sig ? acetaminophen (TYLENOL) 325 MG Oral Tab Take 650 mg by mouth EVERY SIX HOURS NEEDED. ? albuterol HFA (VENTOLIN HFA) 108 (90 Base) MCG/ACT Inhalation Aero Soln Take 2 Puffs by inhalation EVERY FOUR HOURS NEEDED (wheezing and cough). ? albuterol-ipratropium (DUO-NEB) 0.5-2.5 (3) MG/3ML Inhalation Solution 1 mg by Inhalation-SVN route NEEDED. ? Alfuzosin HCl 10 MG Oral TABLET SR 24 HR Take 1 Tab by mouth DAILY. ? benzonatate (TESSALON PERLES) 100 MG Oral Cap Take 100 mg by mouth THREE TIMES DAILY NEEDED for cough. ? benztropine (COGENTIN) 0.5 MG Oral Tab Take 1 Tab by mouth DAILY. ? Control Gel Formula Dressing (DUODERM CGF BORDER) Apply externally Misc 1 Appl by Apply externally route EVERY THREE DAYS. ? dextromethorphan-guaifenesin (ROBITUSSIN DM) 10-100 MG/5ML Oral Syrup Take 5 mL by mouth EVERY FOUR HOURS NEEDED. ? Elastic Bandages & Supports (MEDICAL COMPRESSION SOCKS) Does not apply Misc by Does not apply route. ? finasteride (PROSCAR) 5 MG Oral Tab TAKE 1 TAB BY MOUTH EVERY DAY ? FLOVENT HFA 110 MCG/ACT Inhalation Aerosol INHALE 1 PUFF TWICE DAILY "RINSE MOUTH AFTER USE" ? fluticasone (FLONASE) 50 MCG/ACT Nasal Suspension Cohutta 1 Cohutta in nose NEEDED. ? GAVILAX Oral Powder 17GM BY MOUTH EVERY DAY ? hydrocortisone (HYTONE) 1 % Apply externally Cream 1 g by Topical route THREE TIMES DAILY. ? Incontinence Supply Disposable (PREVAIL PM BRIEF X-LARGE) Does not apply Misc 1 Each by Doesnot apply route FOUR TIMES DAILY. DX:R15.9 ? Incontinence Supply Disposable Does not apply Misc 1 Each by Does not apply route DAILY. Incontinence briefs [id number]: [id number] ? INCRUSE ELLIPTA 62.5 MCG/INH Inhalation AEROSOL POWDER, BREATH ACTIVATED INHALE 1 PUFF EVERYDAY ? levothyroxine (SYNTHROID) 75 MCG Oral Tab Take 1 Tab by mouth BEFORE BREAKFAST. ? lithium 150 MG Oral Cap TAKE 1 CAP BY MOUTH EVERY BEDTIME. ? Meredosia Carbonate 600 MG Oral Cap Take 1 Cap by mouth EVERY BEDTIME. ? Multiple Vitamin (TAB-A-TRUONG) Oral Tab Take 1 Tab by mouth DAILY. ? olanzapine (ZYPREXA) 10 MG Oral Tab TAKE 1 TABLET BY MOUTH EVERY DAY ? Omeprazole 20 MG Oral Tab EC Take 1 Tab by mouth DAILY. ? PEG [id number]-[id number]-NaCl-NaSulf (GAVILYTE-C PO) Take by mouth. ? silver antimicrobial (SILVASORB) Apply externally Gel by Apply externally route. ? Tamsulosin HCl (FLOMAX) 0.4 MG Oral Cap Take 1 Cap by mouth DAILY. ? torsemide (DEMADEX) 20 MG Oral Tab Take 1 Tab by mouth DAILY. ? valsartan (DIOVAN) 80 MG Oral Tab Take 1 Tab by mouth DAILY. ? Wound Dressings (CONTREET HYDROCOLLOID) Apply externally Pads 1 Each by Apply externally route NEEDED (any open wounds.). 4x4 dressings ? zinc oxide 20 % Apply externally Ointment 1 Appl by Topical route TWO TIMES DAILY NEEDED (skin breakdown in groin). No current facility-administered medications for this visit. Allergies Allergen Reactions ? Flomax [Kdc:Oslo Blue Fcf+Tamsulosin] GI Reaction ? Neomycin Unknown Reaction ? Sulfa Antibiotics Other shaking Social History Socioeconomic History ? Marital status: Spouse name: Not on file ? Number of children: Not on file ? Years of education: Not on file ? Highest education level: Not on file Occupational History ? Not on file Social Needs ? Financial resource strain: Not on file ? Food insecurity Worry: Not on file Inability: Not on file ? Transportation needs Medical: Not on file Non-medical: Not on file Tobacco Use ? Smoking status: Former Smoker ? Smokeless tobacco: Never Used Substance and Sexual Activity ? Alcohol use: No ? Drug use: No ? Sexual activity: Never Lifestyle ? Physical activity Days per week: Not on file Minutes per session: Not on file ? Stress: Not on file Relationships ? Social connections Talks on phone: Not on file Gets together: Not on file Attends orthodoxy service: Not on file Active member of club or organization: Not on file Attends meetings of clubs or organizations: Not on file Relationship status: Not on file ? Intimate partner violence Fear of current or ex partner: Not on file Emotionally abused: Not on file Physically abused: Not on file Forced sexual activity: Not on file Other Topics Concern ? Back Care Not Asked ? Bike Helmet Not Asked ? Blood Transfusions Not Asked ? Caffeine Concern Not Asked ? Exercise Yes Comment: walks daily ? Hobby Hazards Not Asked ? International Travel Not Asked ? Service Not Asked ? Occupational Exposure Not Asked ? Seat Belt Not Asked ? Self-Exams Not Asked ? Sleep Concern Not Asked ? Special Diet Yes Comment: low sodium ? Stress Concern Not Asked ? Weight Concern Not Asked Social History Narrative Lives in [facility] in [facility] Moved from [place], [place] ROS no gastro-intestinal symptoms no nausea and vomitting or gastroesophageal reflux disease Wt Readings from Last 3 Encounters: 05/08/19 292 lb (132.5 kg) 04/09/19 286 lb (129.7 kg) 02/05/19 297 lb 12.8 oz (135.1 kg) no cardiovascular symptoms no chest pain No new genito-urinary symptoms Stable mental health issues All rest of the 12 item ROS is negative. Objective PHYSICAL EXAM: VITALS: BP 124/58 | Pulse 74 | Ht 6' 3.5" (1.918 m) | Wt 292 lb (132.5 kg) | BMI 36.02 kg/m Body mass index is 36.02 kg/m. Physical Exam 1x1 cm left buttock stage I decubitus ulcer no redness drainage or foul smell no there ulcers seen Chest: clear to auscultation, no wheezes, rales or rhonchi, symmetric air entry , decreased breath sounds throughout. S1 and S2 normal, no murmurs, clicks, gallops or rubs. Regular rate and rhythm. Chest is clear; no wheezes or rales. No JVD There is trace bilateral ankle edema with no tenderness to palpation, erythema, or heat to the touch. ASSESSMENT / IMPRESSION: ICD-9-CM ICD-10-CM 1. Hypokalemia check potassium And reduce potassium From twice daily To once daily 276.8 E87.6 COMPREHENSIVE METABOLIC PANEL 2. History of tobacco use V15.82 Z87.891 3. Centrilobular emphysema (HCC) continue inhalers stable 492.8 J43.2 4. History of anemia stop iron and repeat ferritin and complete blood count 2 month V12.3 Z86.2 CBCWITH DIFFERENTIAL FERRITIN 5. Acquired hypothyroidism stable continue current medications 244.9 E03.9 6. Sarcoidosis of lung (HCC) 135 D86.0 517.8 7. Essential hypertension at goal continue current medications 401.9 I10 8. Restrictive lung disease due to obesity and deconditioning 518.89 J98.4 9. Venous stasis use below knee compression stocking prescription sent in 459.81 I87.8 DME EQUIPMENT GENERIC (AMB) 10. Ataxia wheeled walker order sent in 781.3 R27.0 DME WALKER (AMB) 11. Pressure injury of left buttock, stage 1 topical bacitracin and keep it covered use donut pillow 707.05 L89.321 707.21 I spent 40 minutes with the patient, greater than half of this time in direct face to face counseling regarding the condition and the plan of care. Patient Instructions Torsemide 20 mg once daily Stop potassium Stop ferrous sulfate Stop miralax Continue the two inhalers and use the duoneb as needed Compression stockings both legs below knee sent to [facility] New walker rolling order sent in Use walker all the time Blood work today Hang Sesay MD 05/08/2019 17:17 documented in this encounter Plan of Treatment Date Type Specialty Care Team Description 06/04/2019 Office Visit Cardiology Nataliia Leonardo CRNP [address] [place] [address] 06/23/2019 Office Visit Internal Medicine Fransico Osei PA [address] [place] [address] [phone] 07/31/2019 Office Visit Urology Anish He MD [address] [place] [address] Health Maintenance Due Date Last Done Comments CT Colonography 1950 Colonoscopy 1950 Sigmoidoscopy 1950 ZOSTER IMMUNIZATION SERIES 2000 (1 of 2) AAA SCREENING/SURVEILLANCE 10/21/2015 Colorectal Cancer Screening 04/25/2019 FALL RISK ASSESSMENT 06/20/2019 06/19/2018, 06/19/2018 DTaP/Tdap/Td Vaccines (1 - 07/04/2019 Postponed from Tdap) 1961 (Other) LIPID DISORDER SCREENING 08/01/2019 07/31/2018, 03/14/2018, 03/15/2016 FIT/FOBT 11/06/2019 11/05/2018 DEPRESSION SCREENING 11/26/2019 11/25/2018 Colonoscopy 03/22/2020 Postponed from 2000 (Other) MEDICARE ANNUAL WELLNESS 04/09/2020 Postponed from VISIT 1950 (Other) DIABETES SCREENING 05/07/2020 05/08/2019, 04/09/2019, 02/05/2019, Additional history exists Cologuard Screening 04/24/2022 04/24/2019 FIT-DNA 04/24/2022 04/24/2019 PNEUMOCOCCAL 65+YRS Completed 03/26/2017, 03/15/2016 INFLUENZA VACCINE [...] 18 mo Lifestyle 14.7 (05/08/2019 10:33 AM No Hang Sesay MD max (lbs) [...] encounter Procedures Procedure Name Priority Date/Time Associated Comments Diagnosis CBC WITH DIFFERENTIAL Routine 05/08/2019 11:14 History of anemia Results for this AM EDT procedure are in the results section. FERRITIN Routine 05/08/2019 11:14 History of anemia Results for this AM EDT procedure are in the results section. COMPREHENSIVE Routine 05/08/2019 11:14 Hypokalemia Results for this METABOLIC PANEL AM EDT procedure are in the results section. documented in this encounter Results FERRITIN (05/08/2019 11:14 AM EDT) Ferritin 42.9 18.0 - 464.0 NG/ML [facility] Specimen Blood - Blood specimen (specimen) Performing Organization Address City/State/Zipcode Phone Number [facility] [address] [place] [address] CBC WITH DIFFERENTIAL (05/08/2019 11:14 AM EDT) WBC Count 11.30 (H) 4.23 - 9.07 K/uL [facility] RBC Count 4.04 (L) 4.30 - 5.89 M/UL [facility] Hemoglobin 11.6 (L) 13.7 - 17.5 g/dL [facility] Hematocrit 38.0 (L) 40.1 - 51.0 % [facility] MCV 94.1 (H) 79.0 - 92.2 FL [facility] MCH 28.7 25.7 - 32.2 PG [facility] MCHC 30.5 (L) 32.3 - 36.5 g/dL [facility] Platelet Count 301 163 - 337 K/uL [facility] MPV 9.7 9.4 - 12.4 FL [facility] RDW 16.0 (H) 11.6 - 14.4 % [facility] Neutrophil % 76.4 (H) 34.0 - 67.9 % [facility] Lymphocyte % 8.2 (L) 21.8 - 53.1 % [facility] Monocyte % 10.0 5.3 - 12.2 % [facility] Eosinophil % 4.4 0.8 - 7.0 % [facility] Basophil % 0.7 0.2 - 1.2 % [facility] nRBC % 0.0 0.0 - 0.2 % [facility] Neutrophil # 8.63 (H) 1.78 - 5.38 K/UL [facility] Lymphocyte # 0.93 (L) 1.32 - 3.57 K/UL [facility] Monocyte # 1.13 (H) 0.30 - 0.82 K/UL [facility] Eosinophil # 0.50 0.04 - 0.54 K/UL [facility] Basophil # 0.08 0.01 - 0.08 K/UL [facility] Immature Gran % 0.3 0.0 - 0.4 % [facility] Immature Gran # 0.03 0.00 - 0.03 K/uL [facility] NRBC # 0.00 0.00 - 0.12 K/uL [facility] Specimen Blood - Blood specimen (specimen) Performing Organization Address City/State/Zipcode Phone Number [facility] [address] [place] [address] COMPREHENSIVE METABOLIC PANEL (05/08/2019 11:14 AM EDT) Sodium 135 134 - 145 mmol/L [facility] Potassium 3.7 3.5 - 5.1 mmol/L [facility] Chloride 95 (L) 98 - 107 mmol/L [facility] CO2 36 (H) 22 - 30 mmol/L [facility] Calcium 8.9 8.3 - 10.1 mg/dl [facility] Albumin 3.8 3.5 - 5.0 g/dl [facility] BUN 21 (H) 9 - 20 mg/dl [facility] Creatinine 1.1 0.8 - 1.5 mg/dl [facility] Glucose 90 70 - 99 mg/dl [facility] Total Protein 7.3 6.3 - 8.2 g/dl [facility] Total Bilirubin 0.4 0.0 - 1.1 MG/DL [facility] AST 28 17 - 59 U/L [facility] ALT 19 (L) 21 - 72 U/L [facility] Alkaline 77 40 - 150 U/L [facility] LABORATORY eGFR >60 See Interpretation [facility] Comment: Below ml/min/1.73ml GROUP Estimated GFR Interpretation: LABORATORY Above 60ml/min/1.73m2 = Normal Renal Function 30-59 ml/min/1.73m2 = Stage 3 Chronic Kidney Disease 15-29 ml/min/1.73m2 = Stage 4 Chronic Kidney Disease Less than 15 ml/min/1.73m2 = Stage 5 Chronic Kidney Disease The GFR value is calculated using the Modification of Diet in Renal Disease ( MDRD) Study Equation which can be found at: https://www.kidney.org/content/jbax-nfgkd-vuoqzdid BUN/Creatinine 19 6 - 22 RATIO [facility] LABORATORY Anion Gap 4 3 - 11 mmol/L [facility] A/G Ratio 1.1 0.8 - 2.0 ratio [facility] Specimen Blood - Blood specimen (specimen) Performing Organization Address City/State/Zipcode Phone Number [facility] [address] [place] [address] [phone] documented in this encounter Visit Diagnoses Diagnosis History of tobacco use Personal history of tobacco use, presenting hazards to health Centrilobular emphysema (HCC) Other emphysema Hypokalemia Hypopotassemia History of anemia Personal history of diseases of blood and blood-forming organs Acquired hypothyroidism Unspecified hypothyroidism Sarcoidosis of lung (HCC) Sarcoidosis Essential hypertension Unspecified essential hypertension Restrictive lung disease Other diseases of lung, not elsewhere classified Venous stasis Unspecified venous (peripheral) insufficiency Ataxia Lack of coordination Pressure injury of left buttock, stage 1 documented in this encounter Insurance Payer Benefit Plan / Subscriber ID Effective Dates Phone Address Type Group MEDICARE MEDICARE PART A [id number] 1992-Present Medicare & B MEDICAID [facility] [id number] 2016-Present Medicaid [place] Guarantor Name Account Type Relation to Date of Phone Billing Patient Address Shon Pugh Personal/Family 1950 [address] [phone] [place], [place] (Work) [id number] documented as of this encounter
--- NOTE | 2019-06-11 11:30 | ED ---
HPI Chest Pain - HPI Summary HPI Summary: 68 year old M presenting to [facility] with a chief complaint of chest pain and shortness of breath since earlier today. The patient's advocate from [employer] reports that the patient has gained approximately 14 pounds in the last two days and has had increased leg swelling. Patient reports increased urination. He rates the pain 4/10 in severity. Symptoms aggravated by nothing. Symptoms alleviated by nothing. Patient denies any nausea or vomiting. Medication list reviewed. Allergy list reviewed. - History of Current Complaint Chief Complaint: EDChestWallPain Time Seen by Provider: 06/11/19 11:21 Hx Obtained From: Patient, Other: - Advocate Onset/Duration: Still Present Timing: Constant Current Severity: Moderate Pain Intensity: 4 Pain Scale Used: 0-10 Numeric Aggravating Factor(s): Nothing Alleviating Factor(s): Nothing Associated Signs and Symptoms: Positive: Calf Pain/Swelling - Swelling, Other: - Weight gain, increased urination. Negative: Nausea, Vomiting - Additional Pertinent History Primary Care Physician: MAGED - Allergy/Home Medications Allergies/Adverse Reactions: Allergies Allergy/AdvReac Type Severity Reaction Status Date / Time neomycin Allergy Unknown Verified 06/26/18 10:53 Reaction Details Sulfa (Sulfonamide Allergy Hives Verified 06/26/18 10:53 Antibiotics) tamsulosin Allergy Unknown Verified 06/26/18 10:53 Reaction Details Home Medications: Home Medications Levothyroxine TAB* [Synthroid 75 MCG TAB*] 75 mcg PO QAM 05/20/17 [History Confirmed 02/15/19] Omeprazole CAP (NF) [Prilosec CAP* 20 MG] 20 mg PO DAILY 05/20/17 [History Confirmed 02/15/19] Finasteride TAB* [Proscar TAB*] 5 mg PO DAILY 06/26/18 [History Confirmed ] Fluticasone NASAL SPRAY 50MCG* [Flonase NASAL SPRAY 50MCG*] 2 spray BOTH NARES DAILY 06/26/18 [History Confirmed 02/15/19] OLANzapine TAB* [Zyprexa 10 MG TAB*] 10 mg PO BEDTIME 06/26/18 [History Confirmed 02/15/19] Umeclidinium 62.5 MDI(NF) [Incruse ELLIPTA MDI (NF)] 1 inh INH DAILY 06/26/18 [ History Confirmed 02/15/19] Valsartan TAB* [Diovan TAB*] 80 mg PO DAILY 06/26/18 [History Confirmed 02/15/19 ] Albuterol HFA INHALER* [Ventolin HFA Inhaler*] 2 puff INH Q4H PRN 08/09/18 [ History Confirmed 02/15/19] Guaifen/Dextromethorphan/K Cit [Sorbutuss Liquid] 5 ml PO Q4HR PRN 08/09/18 [ History Confirmed 02/15/19] Alfuzosin ER (NF) [Uroxatral (NF)] 10 mg PO DAILY 02/15/19 [History Confirmed ] Benztropine Mesylate 0.5 mg PO DAILY 02/15/19 [History Confirmed 02/15/19] Fluticasone HFA 110 mcg(NF) [Flovent HFA 110 mcg(NF)] 1 puff INH BID 02/15/19 [ History Confirmed 02/15/19] Ketoconazole/Hydrocortisone [Hydrocort 2.5%-Ketoconazole 2%] 30 gm TP DAILY PRN 02/15/19 [History Confirmed 02/15/19] Silver [Silvasorb] 1 gel EX EVERY OTHER DAY 02/15/19 [History Confirmed 02/15/19 ] Tab-A-Vit 1 tab PO DAILY 02/15/19 [History Confirmed 02/15/19] Torsemide TAB* [Demadex 20 MG*] 20 mg PO DAILY 02/15/19 [History Confirmed 02/15] Albuterol 2.5MG/3ML (0.083%)* [Ventolin 2.5 MG/3 ML NEB.FABY*] 2.5 mg INH RT.Q6HR -WHILE AWAKE PRN neb.soln 02/21/19 [Rx] Calcium Carbonate CHEW TAB* [Tums*] 500 mg PO Q4H PRN tab.chew 02/21/19 [Rx] Ferrous Sulfate TAB* 325 mg PO DAILY tab 02/21/19 [Rx] Ipratropium 0.5MG/2.5ML NEB* [Atrovent 0.5 MG NEB.FABY*] 0.5 mg INH Q6H PRN neb.soln 02/21/19 [Rx] [place] Carbonate TAB* 600 mg PO BEDTIME tab 02/21/19 [Rx] Polyethylene Glycol 3350* [Miralax (17 GM DOSE DASH)] 17 gm PO DAILY PRN packet 02/21/19 [Rx] predniSONE 20 mg TAB [Deltasone 20 MG TAB*] 40 mg PO DAILY tab 02/21/19 [Rx] PMH/Surg Hx/FS Hx/Imm Hx Endocrine/Hematology History: Reports: Hx Thyroid Disease Denies: Hx Diabetes Cardiovascular History: Reports: Hx Hypertension Respiratory History: Reports: Hx Asthma, Hx Chronic Obstructive Pulmonary Disease (COPD), Hx Pneumonia, Hx Sleep Apnea, Other Respiratory Problems/ Disorders - PNA GI History: Denies: Hx Gastroesophageal Reflux Disease, Hx Gastrointestinal Bleed, Hx Irritable Bowel, Hx Obstructive Bowel, Hx Ulcer History: Denies: Hx Benign Prostatic Hyperplasia, Hx Dialysis, Hx Kidney Stones, Hx Renal Disease Comment Only: Other Problems/Disorders - Prostate CA Musculoskeletal History: Reports: Hx Arthritis, Hx Osteoporosis Sensory History: Reports: Hx Contacts or Glasses, Hx Vision Problem, Hx Deafness , Hx Hearing Aid, Hx Hearing Problem Denies: Hx Cataracts, Hx Eye Injury, Hx Eye Prosthesis, Hx Glaucoma, Hx Legally Blind, Hx Macular Degeneration, Other Sensory Impairments Opthamlomology History: Reports: Hx Contacts or Glasses, Hx Vision Problem Denies: Hx Cataracts, Hx Eye Injury, Hx Eye Prosthesis, Hx Glaucoma, Hx Legally Blind, Hx Macular Degeneration, Other Sensory Impairments Neurological History: Reports: Hx Developmental Delay Psychiatric History: Reports: Hx Depression, Hx Community Mental Health Tx, Hx Schizophrenia, Hx Bipolar Disorder, Other Psychiatric Issues/Disorders - Cancer History Cancer Type, Location and Year: Prostate CA - Surgical History Surgical History: Yes Surgery Procedure, Year, and Place: right wrist Infectious Disease History: No Infectious Disease History: Denies: Hx Clostridium Difficile, Hx Hepatitis, Hx of Known/Suspected MRSA, Hx Shingles, Hx Tuberculosis, Hx Known/Suspected VRE, Hx Known/Suspected VRSA, Traveled Outside the [place] in Last 30 Days - Family History Known Family History: Negative: Hypertension - Social History Alcohol Use: None Hx Substance Use: No Substance Use Type: Reports: None Hx Tobacco Use: Yes Smoking Status (MU): Former Smoker Review of Systems Positive: Other - Weight gain Positive: Chest Pain Positive: Shortness Of Breath Negative: Vomiting, Nausea Positive: other - Increased urination Positive: Other - Leg swelling All Other Systems Reviewed And Are Negative: Yes Physical Exam - Summary Physical Exam Summary: VITAL SIGNS: Reviewed. GENERAL: Patient is an obese male who is lying comfortable in the stretcher. Patient is not in any acute respiratory distress. HEAD AND FACE: No signs of trauma. No ecchymosis, hematomas or skull depressions. No sinus tenderness. EYES: PERRL, EOMI x 2, No injected conjunctiva, no nystagmus. EARS: Hearing grossly intact. Ear canals and tympanic membranes are within normal limits. MOUTH: Oropharynx within normal limits. NECK: Supple, trachea is midline, no adenopathy, no JVD, no carotid bruit, no c- spine tenderness, neck with full ROM. CHEST: Symmetric, no tenderness at palpation. LUNGS: Crackles in the bases of the lungs. CVS: Regular rate and rhythm, S1 and S2 present, no murmurs or gallops appreciated. ABDOMEN: Soft, non-tender. No signs of distention. No rebound, no guarding, and no masses palpated. Bowel sounds are normal. EXTREMITIES: FROM in all major joints, bilateral 2+ lower extremity pitting edema, no cyanosis or clubbing. NEURO: Alert and oriented x 3. No acute neurological deficits. Speech is normal and follows commands. SKIN: Dry and warm. Triage Information Reviewed: Yes Vital Signs On Initial Exam: Initial Vitals Temp Pulse Resp BP Pulse Ox 97 F 68 22 130/54 98 06/11/19 11:20 06/11/19 11:20 06/11/19 11:20 06/11/19 11:20 06/11/19 11:20 Vital Signs Reviewed: Yes Procedures - Sedation Patient Received Moderate/Deep Sedation with Procedure: No Diagnostics - Vital Signs Vital Signs Temp Pulse Resp BP Pulse Ox 06/11/19 11:20 97 F 68 22 130/54 98 - Laboratory Result Diagrams: 06/11/19 11:53 06/11/19 11:53 Lab Statement: Any lab studies that have been ordered have been reviewed, and results considered in the medical decision making process. - Radiology Chest x-ray Radiology Interpretation Completed By: Radiologist Summary of Radiographic Findings: LOW LUNG VOLUMES. NO ACTIVE CARDIOPULMONARY DISEASE. ED physician has reviewed this report. - EKG 11:23 Cardiac Rate: NL - 68 BPM EKG Rhythm: Sinus Rhythm Summary of EKG Findings: No ST elevations, poor quality EKG. Compared to EKG done on 02/18/19, no changes. ED physician has reviewed and interpreted this EKG. Chest Pain Course/Dx - Course Assessment/Plan: 68 year old M presented to [facility] with a chief complaint of chest pain and shortness of breath since earlier today. The patient's advocate from [employer] reports that the patient has gained approximately 14 pounds in the last two days and has had increased leg swelling. Patient reports increased urination. He rates the pain 4/10 in severity. Symptoms aggravated by nothing. Symptoms alleviated by nothing. Patient denies any nausea or vomiting. Medication list reviewed. Allergy list reviewed. In the ED course the patient was placed on a surveillance monitor, IV access was obtained, IV fluids started. Aspirin was given for his CP. Chest x-ray impression: Low lung volumes and no active cardiopulmonary disease. Past medical records reviewed. Blood test w/o a significant abnormality except for slight anemia with a hemoglobin 11.3, hematocrit 35, chloride 98, carbon dioxide 33 and TSH 7.55. Patient is asymptomatic. He denies any chest palpitations. The second troponin is 0.00. Patient reports that all symptoms have resolved. Patient Heart score is: 3 therefore, low suspicion for CAD. Patient is not hypoxic or tachycardic. Wells criteria 0. Therefore, no suspicion for PE. Patient has no abdominal bruit thus no suspicion for AAA. Patients pain does not radiate to the back and pain has resolved thus low suspicion for aortic dissection. I discussed all the findings and test results with the patient. Patient was instructed to return to the emergency room immediately if any of the symptoms return or worsen. Patient understands and agrees. Plan of care was discussed with the patient and patient understands and agrees. All questions were answered at patient satisfaction. There were no further complaints or concerns. PE before discharge : CVS: S1 and S2 present. No murmurs appreciated. Abdominal exam before discharge: Soft, non-tender. No signs of distention. No rebound no guarding, and no masses palpated. Bowel sounds are normal. Patient is alert and oriented x 3. Patient is hemodynamically stable. - Chest Pain Differential Diagnosis/HQI/PQRI: Acute PA, ACS, Angina, CHF, Chest Wall, GI Disease, Lower Respiratory Infection, Pulmonary Edema - Diagnoses Provider Diagnoses: Atypical chest pain - Critical Care Time Critical Care Statement: Critical care time is provided exclusive of any time spent performing procedures. Discharge ED - Sign-Out/Discharge Documenting (check all that apply): Patient Departure - Discharge Plan Condition: Stable Disposition: HOME Patient Education Materials: Chest Pain (ED) Referrals: Hang Sesay MD [Primary Care Provider] - 3 Days Additional Instructions: Follow up with your primary care provider within 3 days for chest pain noted today. Return to the ED for any worsening or new symptoms. - Billing Disposition and Condition Condition: STABLE Disposition: Home - Attestation Statements Document Initiated by Evelinibe: Yes Documenting Scribe: Shelia Garvey Provider For Whom Lucia is Documenting (Include Credential): Pete Mendieta MD Scribe Attestation: Shelia Hooks scribed for Pete Mendieta MD on 06/11/19 at 2050. Scribe Documentation Reviewed: Yes Provider Attestation: The documentation as recorded by the Shelia salvador accurately reflects the service I personally performed and the decisions made by , Pete Mendieta MD Status of Scribe Document: Viewed
[2019-06-11] MEDS ORDERED: Albuterol/Ipratropium NEB.SOL* (2.5/0.5 MG) 3 ML NEB.SOLN INH ONE (11:33)
[2019-06-11 12:05] LABS: ABS Basophils 0.1 10^3/ul (0-0.2); ABS Eosinophils 0.5 10^3/ul (0-0.6); ABS Lymphocytes 0.8 10^3/ul (1.0-4.8); ABS Monocytes 1.1 10^3/ul (0-0.8); ABS Neutrophils 5.6 10^3/ul (1.5-7.7); Hematocrit 35 % (42-52); Hemoglobin 11.3 g/dL (14.0-18.0); Lymphocyte % 9.7 %; Mean Corpuscular HGB Conc 33 g/dL (31-36); Mean Corpuscular Hemoglobin 29 pg (27-31); Mean Corpuscular Volume 89 fL (80-94); Mean Platelet Volume 7.5 fL (7.4-10.4); Nucleated Red Blood Cells % 0.2; Platelet Count 261 10^3/uL (150-450); Red Blood Count 3.87 10^6 /uL (4.18-5.48); Red Cell Distribution Width 14 % (10-15)
[2019-06-11] MEDS ORDERED: Aspirin 81 mg CHEW TAB* 81 MG TAB.CHEW PO ONE (12:20)
[2019-06-11 12:26] LABS: ALT 10 U/L (7-52); AST < 3 U/L (13-39); Albumin 3.7 g/dL (3.2-5.2); Alkaline Phosphatase 90 U/L (34-104); Anion Gap 5 mmol/L (2-11); BUN/Creatinine Ratio 15.3 (8-20); Blood Urea Nitrogen 17 mg/dL (6-24); CO2 Carbon Dioxide 33 mmol/L (22-32); Calcium 9.3 mg/dL (8.6-10.3); Chloride 98 mmol/L (101-111); Creatine Kinase 38 U/L (10-223); EGFR African American 79.7 (>60); EGFR Non-African American 65.9 (>60); Globulin 3.8 g/dL (2-4); Glucose 92 mg/dL (70-100); Magnesium 2.3 mg/dL (1.9-2.7); Potassium 3.8 mmol/L (3.5-5.0); Sodium 136 mmol/L (135-145); Total Protein 7.5 g/dL (6.4-8.9)
[2019-06-11 12:28] LABS: Troponin I 0.01 ng/mL (<0.03)
[2019-06-11 12:30] LABS: CKMB ng/mL 1.6 ng/mL (0.6-6.3)
[2019-06-11 13:00] LABS: TSH (Thyroid Stimulating Horm) 7.55 mcIU/mL (0.34-5.60)
[2019-06-11 15:22] VITALS: BP 116/55
== END 2019-06-11 15:24 | disposition home or self-care (01) ==
LOC: ED 11:09
DX: R07.89 Other chest pain (principal); R06.02 Shortness of breath; R60.9 Edema, unspecified; I10 Essential (primary) hypertension; J44.9 Chronic obstructive pulmonary disease, unspecified; R94.31 Abnormal electrocardiogram [ECG] [EKG]; Z87.891 Personal history of nicotine dependence; Z79.890 Hormone replacement therapy; Z79.52 Long term (current) use of systemic steroids; Z79.899 Other long term (current) drug therapy; Z85.46 Personal history of malignant neoplasm of prostate; Z88.2 Allergy status to sulfonamides
CPT/HCPCS: 36415; 71045; 80053; 82550; 82553; 83605; 83735; 83880; 84443; 84484; 85025; 85730; 93005; 99284; A9270-GY

== ENCOUNTER 2020-02-17 10:38 | Inpatient (IN) ==
[2020-02-17] MEDS ORDERED: NS 0.9% 1000 ml BAG 1,000 ML IV ONE (10:49)
[2020-02-17 11:25] LABS: ABS Eosinophils 0.4 10^3/ul (0-0.6); ABS Lymphocytes 0.7 10^3/ul (1.0-4.8); ABS Monocytes 0.8 10^3/ul (0-0.8); ABS Neutrophils 3.7 10^3/ul (1.5-7.7); Eosinophil % 7.3 %; Hematocrit 35 % (42-52); Hemoglobin 11.6 g/dL (14.0-18.0); Mean Corpuscular HGB Conc 33 g/dL (31-36); Mean Corpuscular Hemoglobin 29 pg (27-31); Mean Corpuscular Volume 88 fL (80-94); Mean Platelet Volume 7.6 fL (7.4-10.4); Platelet Count 221 10^3/uL (150-450); Red Blood Count 4.01 10^6 /uL (4.18-5.48); Red Cell Distribution Width 16 % (10-15); White Blood Count 5.7 10^3/uL (3.5-10.8)
[2020-02-17 11:34] LABS: Activated Partial Thrombo Time 34.2 seconds (26.0-38.0); INR 1.12 (0.82-1.09); Urine Appearance Cloudy; Urine Bilirubin Negative (Negative); Urine Blood Negative (Negative); Urine Color Straw; Urine Glucose Negative (Negative); Urine Ketones Negative (Negative); Urine Nitrite Negative (Negative); Urine Protein Negative (Negative); Urine Specific Gravity 1.004 (1.010-1.030); Urine Urobilinogen Negative (Negative)
[2020-02-17 11:36] LABS: Urine Bacteria Absent (Absent); Urine Red Blood Cell 1+(3-5/hpf) (Absent); Urine White Blood Cell 3+(>20/hpf) (Absent)
[2020-02-17 11:43] LABS: BNP 152 pg/mL (<=100)
[2020-02-17 11:52] LABS: Ammonia 27 mcmol/L (16-53)
[2020-02-17 11:54] LABS: ALT 14 U/L (7-52); AST 13 U/L (13-39); Albumin 3.4 g/dL (3.2-5.2); Alkaline Phosphatase 117 U/L (34-104); Anion Gap 4 mmol/L (2-11); BUN/Creatinine Ratio 22.9 (8-20); Blood Urea Nitrogen 22 mg/dL (6-24); CO2 Carbon Dioxide 33 mmol/L (22-32); Calcium 8.8 mg/dL (8.6-10.3); Chloride 101 mmol/L (101-111); EGFR Non-African American 77.7 (>60); Globulin 3.3 g/dL (2-4); Glucose 94 mg/dL (70-100); Magnesium 2.3 mg/dL (1.9-2.7); Potassium 3.6 mmol/L (3.5-5.0); Sodium 138 mmol/L (135-145); Total Protein 6.7 g/dL (6.4-8.9)
[2020-02-17 11:57] LABS: Alcohol, S < 10 mg/dL (<10)
[2020-02-17] MEDS ORDERED: cefTRIAXone 1 gm/50 mL NS BAG 1 GM/50 ML BAG IV ONE (12:27)
[2020-02-17 13:29] LABS: Lithium 1.08 mmol/L (0.6-1.2)
[2020-02-17] MEDS ORDERED: Ondansetron 4 mg VIAL 2 MG/ML 2 ml VIAL IV PRN (13:51)
[2020-02-17] MEDS ORDERED: Albuterol/Ipratropium NEB.SOL (2.5/0.5 MG) 3 ML NEB.SOLN INH PRN (14:08)
[2020-02-17] MEDS ORDERED: NS 0.9% 1000 ml BAG 1,000 ML IV SCH (14:15)
[2020-02-17] MEDS ORDERED: Potassium Chlor 20 meq TAB.ER PO ONE (14:54)
[2020-02-17] MEDS ORDERED: Albuterol/Ipratropium NEB.SOL (2.5/0.5 MG) 3 ML NEB.SOLN INH SCH (15:00)
[2020-02-17 15:12] LABS: Influenza A Molecular Negative (Negative); Influenza B Molecular Negative (Negative)
[2020-02-17 15:42] LABS: Urine Benzodiazepine Screen None Detected (None Detect); Urine Cannabinoids Screen None Detected (None Detect); Urine Opiates Screen None Detected (None Detect)
[2020-02-17] MEDS: Enoxaparin 40 MG/0.4 ML SYR SUBCUT SCH (16:16)
[2020-02-17] MEDS: KCL 10 MEQ/50 ML IVPREMIX 10 MEQ/50 ML BAG IV SCH ×3 (17:08→20:20)
[2020-02-17] MEDS: Mometasone 220 MCG MDI INH SCH (19:29)
[2020-02-17] MEDS: Albuterol HFA INHALER 8 gm MDI INH PRN (19:29)
[2020-02-17] MEDS: EPINEPHrine,Rac 2.25% NEB.SOL 0.5 ML INH PRN ×2 (20:05→23:45)
[2020-02-17] MEDS ORDERED: Furosemide 20 mg/2 ml IV VIAL IV ONE (22:03)
[2020-02-18] MEDS: Cefepime 1 GM in Dextrose 1 GM/50 ML BAG IV SCH ×3 (00:56→22:22)
[2020-02-18] MEDS: EPINEPHrine,Rac 2.25% NEB.SOL 0.5 ML INH PRN (03:23)
[2020-02-18 06:53] LABS: ABS Eosinophils 0.2 10^3/ul (0-0.6); ABS Lymphocytes 0.5 10^3/ul (1.0-4.8); ABS Monocytes 0.8 10^3/ul (0-0.8); Eosinophil % 2.3 %; Hematocrit 33 % (42-52); Mean Corpuscular HGB Conc 33 g/dL (31-36); Mean Corpuscular Hemoglobin 29 pg (27-31); Mean Corpuscular Volume 88 fL (80-94); Mean Platelet Volume 7.9 fL (7.4-10.4); Platelet Count 241 10^3/uL (150-450); Red Blood Count 3.77 10^6 /uL (4.18-5.48); Red Cell Distribution Width 16 % (10-15); White Blood Count 7.6 10^3/uL (3.5-10.8)
[2020-02-18 07:03] LABS: Albumin 3.2 g/dL (3.2-5.2); BUN/Creatinine Ratio 18.3 (8-20); Calcium 8.3 mg/dL (8.6-10.3); EGFR African American 97.5 (>60); EGFR Non-African American 80.6 (>60); Globulin 3.2 g/dL (2-4); Potassium 3.7 mmol/L (3.5-5.0); Total Bilirubin 0.3 mg/dL (0.2-1.0); Total Protein 6.4 g/dL (6.4-8.9)
[2020-02-18] MEDS ORDERED: Potassium Chlor 20 meq TAB.ER PO ONE (07:51)
[2020-02-18] MEDS ORDERED: Furosemide 20 mg/2 ml IV VIAL IV ONE ×2 (07:52→18:02)
[2020-02-18] MEDS ORDERED: Perflutren Lipid Microsphere 3 ML VIAL ONE (08:01)
[2020-02-18] MEDS: SPIRIVA Respimat (tiotropium) 2.5 mcg/inh Inhaler INH SCH (08:20)
[2020-02-18] MEDS: CMC: Alfuzosin ER 10 mg TAB.ER (NF) 10 MG TAB.ER PO SCH (08:41)
[2020-02-18] MEDS: Fluticasone NASAL SPRAY 50MCG 16 gm SPRAY BTL BOTH NARES SCH (08:42)
[2020-02-18] MEDS ORDERED: cefTRIAXone 1 gm/50 mL NS BAG 1 GM/50 ML BAG IVPB SCH (12:00)
[2020-02-18] MEDS: Enoxaparin 40 MG/0.4 ML SYR SUBCUT SCH (15:12)
[2020-02-18] MEDS: Mometasone 220 MCG MDI INH SCH ×2 (20:22→20:24)
[2020-02-19] MEDS ORDERED: Furosemide 20 mg/2 ml IV VIAL IV SLOW PU ONE (01:00)
[2020-02-19 06:30] LABS: Lithium 0.91 mmol/L (0.6-1.2)
[2020-02-19 06:33] LABS: CO2 Carbon Dioxide 31 mmol/L (22-32); Calcium 8.6 mg/dL (8.6-10.3); Chloride 101 mmol/L (101-111); Sodium 139 mmol/L (135-145)
[2020-02-19 06:38] LABS: BUN/Creatinine Ratio 12.3 (8-20); Blood Urea Nitrogen 10 mg/dL (6-24); EGFR African American 114.3 (>60); EGFR Non-African American 94.5 (>60); Glucose 83 mg/dL (70-100)
[2020-02-19 06:46] LABS: Anion Gap 7 mmol/L (2-11)
[2020-02-19] MEDS: SPIRIVA Respimat (tiotropium) 2.5 mcg/inh Inhaler INH SCH (07:51)
[2020-02-19 08:41] LABS: Hematocrit 36 % (42-52); Hemoglobin 11.4 g/dL (14.0-18.0); Mean Corpuscular HGB Conc 32 g/dL (31-36); Mean Corpuscular Hemoglobin 29 pg (27-31); Mean Corpuscular Volume 91 fL (80-94); Red Blood Count 3.91 10^6 /uL (4.18-5.48); Red Cell Distribution Width 17 % (10-15); White Blood Count 6.5 10^3/uL (3.5-10.8)
[2020-02-19 09:03] LABS: ABS Eosinophils 0.3 10^3/ul (0-0.6); ABS Lymphocytes 0.7 10^3/ul (1.0-4.8); ABS Monocytes 0.9 10^3/ul (0-0.8); ABS Neutrophils 4.6 10^3/ul (1.5-7.7); Lymphocyte % 10.8 %; Platelet Count Platelets clumped. 10^3/uL (150-450)
[2020-02-19] MEDS ORDERED: Albuterol/Ipratropium NEB.SOL (2.5/0.5 MG) 3 ML NEB.SOLN ONE (09:15)
[2020-02-19] MEDS ORDERED: Albuterol/Ipratropium NEB.SOL (2.5/0.5 MG) 3 ML NEB.SOLN INH PRN (09:17)
[2020-02-19] MEDS: CMC: Alfuzosin ER 10 mg TAB.ER (NF) 10 MG TAB.ER PO SCH (10:00)
[2020-02-19] MEDS: Cefepime 1 GM in Dextrose 1 GM/50 ML BAG IV SCH ×2 (10:58→21:28)
[2020-02-19] MEDS: Fluticasone NASAL SPRAY 50MCG 16 gm SPRAY BTL BOTH NARES SCH (10:58)
[2020-02-19] MEDS: Enoxaparin 40 MG/0.4 ML SYR SUBCUT SCH (15:17)
[2020-02-19 15:50] LABS: T4, Total 18.49 mcg/dL (6.09-12.23)
[2020-02-19 15:54] LABS: Free T3 4.8 pg/mL (2.5-3.9)
[2020-02-19 15:56] LABS: Free T4 3.76 ng/dL (0.61-1.12)
[2020-02-19] MEDS: Albuterol HFA INHALER 8 gm MDI INH PRN (20:33)
[2020-02-20] MEDS: Mometasone 220 MCG MDI INH SCH ×2 (00:02→18:00)
[2020-02-20] MEDS ORDERED: Potassium Chlor 20 meq TAB.ER PO ONE ×2 (07:58)
[2020-02-20] MEDS ORDERED: Furosemide 40 mg/4 ml IV VIAL IV ONE (08:02)
[2020-02-20] MEDS: SPIRIVA Respimat (tiotropium) 2.5 mcg/inh Inhaler INH SCH (08:28)
[2020-02-20] MEDS ORDERED: methylPREDNISolone SOD 40 mg/ml 1 ml VIAL IV ONE (08:36)
[2020-02-20] MEDS: Fluticasone NASAL SPRAY 50MCG 16 gm SPRAY BTL BOTH NARES SCH (09:00)
[2020-02-20] MEDS: CMC: Alfuzosin ER 10 mg TAB.ER (NF) 10 MG TAB.ER PO SCH (09:01)
[2020-02-20 11:11] LABS: ABS Eosinophils 0.2 10^3/ul (0-0.6); ABS Lymphocytes 0.5 10^3/ul (1.0-4.8); ABS Monocytes 0.7 10^3/ul (0-0.8); ABS Neutrophils 9.2 10^3/ul (1.5-7.7); Eosinophil % 1.8 %; Hematocrit 35 % (42-52); Hemoglobin 11.6 g/dL (14.0-18.0); Mean Corpuscular HGB Conc 33 g/dL (31-36); Mean Corpuscular Hemoglobin 29 pg (27-31); Mean Corpuscular Volume 89 fL (80-94); Mean Platelet Volume 7.7 fL (7.4-10.4); Platelet Count 223 10^3/uL (150-450); Red Blood Count 3.99 10^6 /uL (4.18-5.48); Red Cell Distribution Width 16 % (10-15); White Blood Count 10.6 10^3/uL (3.5-10.8)
[2020-02-20 11:20] LABS: Albumin 3.6 g/dL (3.2-5.2); BUN/Creatinine Ratio 13.6 (8-20); Calcium 9.4 mg/dL (8.6-10.3); EGFR African American 114.3 (>60); EGFR Non-African American 94.5 (>60); Globulin 3.6 g/dL (2-4); Magnesium 2.3 mg/dL (1.9-2.7); Phosphorus 2.1 mg/dL (2.5-5.0); Potassium 4.1 mmol/L (3.5-5.0); Total Bilirubin 0.6 mg/dL (0.2-1.0); Total Protein 7.2 g/dL (6.4-8.9)
[2020-02-20] MEDS: Cefepime 1 GM in Dextrose 1 GM/50 ML BAG IV SCH ×2 (11:41→22:31)
[2020-02-20 14:24] LABS: BUN/Creatinine Ratio 15.9 (8-20); Calcium 9.3 mg/dL (8.6-10.3); EGFR African American 112.7 (>60); EGFR Non-African American 93.2 (>60); Magnesium 2.4 mg/dL (1.9-2.7); Potassium 4.2 mmol/L (3.5-5.0)
[2020-02-20] MEDS: Enoxaparin 40 MG/0.4 ML SYR SUBCUT SCH (16:11)
[2020-02-20] MEDS: methylPREDNISolone SOD 40 mg/ml 1 ml VIAL IV SCH (22:17)
[2020-02-21] MEDS: SPIRIVA Respimat (tiotropium) 2.5 mcg/inh Inhaler INH SCH (07:52)
[2020-02-21] MEDS: methylPREDNISolone SOD 40 mg/ml 1 ml VIAL IV SCH ×2 (09:58→23:23)
[2020-02-21] MEDS ORDERED: Furosemide 40 mg/4 ml IV VIAL IV ONE (10:11)
[2020-02-21] MEDS: CMC: Alfuzosin ER 10 mg TAB.ER (NF) 10 MG TAB.ER PO SCH (10:27)
[2020-02-21] MEDS: Fluticasone NASAL SPRAY 50MCG 16 gm SPRAY BTL BOTH NARES SCH (10:28)
[2020-02-21] MEDS: Cefepime 1 GM in Dextrose 1 GM/50 ML BAG IV SCH (10:31)
[2020-02-21 11:14] LABS: Calcium 9.5 mg/dL (8.6-10.3); Magnesium 2.7 mg/dL (1.9-2.7); Potassium 4.7 mmol/L (3.5-5.0)
[2020-02-21 11:19] LABS: BUN/Creatinine Ratio 22.2 (8-20); EGFR Non-African American 108.2 (>60)
[2020-02-21 11:28] LABS: ABS Lymphocytes 0.7 10^3/ul (1.0-4.8); ABS Monocytes 0.7 10^3/ul (0-0.8); Hematocrit 37 % (42-52); Hemoglobin 11.7 g/dL (14.0-18.0); Lymphocyte % 4.6 %; Mean Corpuscular HGB Conc 32 g/dL (31-36); Mean Corpuscular Hemoglobin 28 pg (27-31); Mean Corpuscular Volume 90 fL (80-94); Platelet Count 203 10^3/uL (150-450); Red Blood Count 4.14 10^6 /uL (4.18-5.48); Red Cell Distribution Width 16 % (10-15); White Blood Count 14.3 10^3/uL (3.5-10.8)
[2020-02-21] MEDS: Enoxaparin 40 MG/0.4 ML SYR SUBCUT SCH (18:52)
[2020-02-21] MEDS ORDERED: cefTRIAXone 1 gm/50 mL NS BAG 1 GM/50 ML BAG IVPB SCH (22:00)
[2020-02-22 05:38] LABS: ABS Lymphocytes 0.5 10^3/ul (1.0-4.8); ABS Monocytes 0.4 10^3/ul (0-0.8); ABS Neutrophils 14.2 10^3/ul (1.5-7.7); Hematocrit 37 % (42-52); Hemoglobin 12.2 g/dL (14.0-18.0); Lymphocyte % 3.3 %; Mean Corpuscular HGB Conc 33 g/dL (31-36); Mean Corpuscular Hemoglobin 29 pg (27-31); Mean Corpuscular Volume 89 fL (80-94); Mean Platelet Volume 7.7 fL (7.4-10.4); Platelet Count 227 10^3/uL (150-450); Red Blood Count 4.22 10^6 /uL (4.18-5.48); Red Cell Distribution Width 16 % (10-15)
[2020-02-22 06:00] LABS: BUN/Creatinine Ratio 32.1 (8-20); Calcium 9.4 mg/dL (8.6-10.3); EGFR African American 114.3 (>60); EGFR Non-African American 94.5 (>60); Magnesium 2.7 mg/dL (1.9-2.7); Phosphorus 3.6 mg/dL (2.5-5.0); Potassium 4.5 mmol/L (3.5-5.0)
[2020-02-22] MEDS: Mometasone 220 MCG MDI INH SCH ×2 (07:53→21:28)
[2020-02-22] MEDS: Fluticasone NASAL SPRAY 50MCG 16 gm SPRAY BTL BOTH NARES SCH (09:41)
[2020-02-22] MEDS: SPIRIVA Respimat (tiotropium) 2.5 mcg/inh Inhaler INH SCH (09:41)
[2020-02-22] MEDS: CMC: Alfuzosin ER 10 mg TAB.ER (NF) 10 MG TAB.ER PO SCH (09:41)
[2020-02-22] MEDS: methylPREDNISolone SOD 40 mg/ml 1 ml VIAL IV SCH ×2 (09:45→21:29)
[2020-02-22] MEDS ORDERED: Zosyn per Pharmacy NOTE FOLLOW UP SCH (10:00)
[2020-02-22] MEDS ORDERED: Piperacillin/Tazobac ADVAN 3.375 GM in NS 0.9% 100 ml BAG 100 ML IV ONE (10:00)
[2020-02-22] MEDS: Linezolid 600 MG IVPREMIX(*) 600 MG/300 ML BAG IVPB SCH ×2 (10:45→21:29)
[2020-02-22] MEDS: ZOSYN 3.375 GM Q8H per EXTENDED INFUSION IV SCH ×2 (15:21→23:24)
[2020-02-22] MEDS: Enoxaparin 40 MG/0.4 ML SYR SUBCUT SCH (16:42)
[2020-02-22] MEDS: Albuterol/Ipratropium NEB.SOL (2.5/0.5 MG) 3 ML NEB.SOLN INH SCH (23:58)
[2020-02-23 04:56] LABS: ABS Lymphocytes 0.6 10^3/ul (1.0-4.8); ABS Monocytes 0.3 10^3/ul (0-0.8); ABS Neutrophils 9.3 10^3/ul (1.5-7.7); Hematocrit 38 % (42-52); Hemoglobin 12.6 g/dL (14.0-18.0); Lymphocyte % 5.5 %; Mean Corpuscular HGB Conc 33 g/dL (31-36); Mean Corpuscular Hemoglobin 29 pg (27-31); Mean Corpuscular Volume 89 fL (80-94); Platelet Count 184 10^3/uL (150-450); Red Blood Count 4.32 10^6 /uL (4.18-5.48); Red Cell Distribution Width 16 % (10-15); White Blood Count 10.2 10^3/uL (3.5-10.8)
[2020-02-23 05:25] LABS: BUN/Creatinine Ratio 39.5 (8-20); Calcium 9.2 mg/dL (8.6-10.3); EGFR Non-African American 101.7 (>60); Magnesium 2.7 mg/dL (1.9-2.7); Phosphorus 3.4 mg/dL (2.5-5.0); Potassium 4.6 mmol/L (3.5-5.0)
[2020-02-23] MEDS: ZOSYN 3.375 GM Q8H per EXTENDED INFUSION IV SCH ×3 (05:35→22:43)
[2020-02-23] MEDS: methylPREDNISolone SOD 40 mg/ml 1 ml VIAL IV SCH ×2 (07:41→21:12)
[2020-02-23] MEDS: Albuterol/Ipratropium NEB.SOL (2.5/0.5 MG) 3 ML NEB.SOLN INH SCH (07:59)
[2020-02-23] MEDS ORDERED: Furosemide 20 mg/2 ml IV VIAL IV ONE (09:59)
[2020-02-23] MEDS: CMC: Alfuzosin ER 10 mg TAB.ER (NF) 10 MG TAB.ER PO SCH (10:42)
[2020-02-23] MEDS: Fluticasone NASAL SPRAY 50MCG 16 gm SPRAY BTL BOTH NARES SCH (10:46)
[2020-02-23] MEDS: Linezolid 600 MG IVPREMIX(*) 600 MG/300 ML BAG IVPB SCH ×2 (10:49→21:31)
[2020-02-23] MEDS: Enoxaparin 40 MG/0.4 ML SYR SUBCUT SCH (16:11)
[2020-02-24 04:47] LABS: ABS Lymphocytes 0.5 10^3/ul (1.0-4.8); ABS Monocytes 0.4 10^3/ul (0-0.8); ABS Neutrophils 10.3 10^3/ul (1.5-7.7); Hematocrit 36 % (42-52); Hemoglobin 11.9 g/dL (14.0-18.0); Lymphocyte % 4.2 %; Mean Corpuscular HGB Conc 33 g/dL (31-36); Mean Corpuscular Hemoglobin 29 pg (27-31); Mean Corpuscular Volume 88 fL (80-94); Mean Platelet Volume 8.4 fL (7.4-10.4); Platelet Count 194 10^3/uL (150-450); Red Blood Count 4.13 10^6 /uL (4.18-5.48); Red Cell Distribution Width 16 % (10-15); White Blood Count 11.3 10^3/uL (3.5-10.8)
[2020-02-24 05:11] LABS: BUN/Creatinine Ratio 44.7 (8-20); Blood Urea Nitrogen 34 mg/dL (6-24); CO2 Carbon Dioxide 37 mmol/L (22-32); Calcium 8.8 mg/dL (8.6-10.3); Chloride 100 mmol/L (101-111); EGFR Non-African American 101.7 (>60); Glucose 170 mg/dL (70-100); Potassium 4.5 mmol/L (3.5-5.0); Sodium 137 mmol/L (135-145)
[2020-02-24] MEDS: ZOSYN 3.375 GM Q8H per EXTENDED INFUSION IV SCH ×3 (06:05→23:25)
[2020-02-24] MEDS: methylPREDNISolone SOD 40 mg/ml 1 ml VIAL IV SCH (07:55)
[2020-02-24] MEDS: Fluticasone NASAL SPRAY 50MCG 16 gm SPRAY BTL BOTH NARES SCH (09:32)
[2020-02-24] MEDS: Linezolid 600 MG IVPREMIX(*) 600 MG/300 ML BAG IVPB SCH ×2 (10:41→22:15)
[2020-02-24] MEDS: CMC: Alfuzosin ER 10 mg TAB.ER (NF) 10 MG TAB.ER PO SCH (11:45)
[2020-02-24] MEDS: Enoxaparin 40 MG/0.4 ML SYR SUBCUT SCH (16:06)
[2020-02-24] MEDS ORDERED: NS 0.9% 100 ml BAG 100 ML ONE (22:12)
[2020-02-25 05:49] LABS: ABS Eosinophils 0.1 10^3/ul (0-0.6); ABS Lymphocytes 1.6 10^3/ul (1.0-4.8); ABS Neutrophils 6.1 10^3/ul (1.5-7.7); Eosinophil % 1.6 %; Hematocrit 36 % (42-52); Hemoglobin 11.5 g/dL (14.0-18.0); Lymphocyte % 17.6 %; Mean Corpuscular HGB Conc 32 g/dL (31-36); Mean Corpuscular Hemoglobin 28 pg (27-31); Mean Corpuscular Volume 88 fL (80-94); Mean Platelet Volume 8.6 fL (7.4-10.4); Platelet Count 170 10^3/uL (150-450); Red Blood Count 4.05 10^6 /uL (4.18-5.48); Red Cell Distribution Width 16 % (10-15); White Blood Count 8.8 10^3/uL (3.5-10.8)
[2020-02-25 07:06] LABS: CO2 Carbon Dioxide 38 mmol/L (22-32); Calcium 8.3 mg/dL (8.6-10.3); Chloride 100 mmol/L (101-111); Sodium 138 mmol/L (135-145)
[2020-02-25 07:11] LABS: BUN/Creatinine Ratio 42.1 (8-20); Blood Urea Nitrogen 32 mg/dL (6-24); EGFR Non-African American 101.7 (>60); Glucose 102 mg/dL (70-100)
[2020-02-25] MEDS: ZOSYN 3.375 GM Q8H per EXTENDED INFUSION IV SCH ×3 (07:27→23:39)
[2020-02-25] MEDS ORDERED: Furosemide 40 mg/4 ml IV VIAL IV SLOW PU ONE (09:08)
[2020-02-25] MEDS: CMC: Alfuzosin ER 10 mg TAB.ER (NF) 10 MG TAB.ER PO SCH (09:32)
[2020-02-25] MEDS: Fluticasone NASAL SPRAY 50MCG 16 gm SPRAY BTL BOTH NARES SCH (11:35)
[2020-02-25] MEDS: Linezolid 600 MG IVPREMIX(*) 600 MG/300 ML BAG IVPB SCH ×2 (11:46→22:16)
[2020-02-25] MEDS: Enoxaparin 40 MG/0.4 ML SYR SUBCUT SCH (16:12)
[2020-02-26] MEDS: ZOSYN 3.375 GM Q8H per EXTENDED INFUSION IV SCH ×3 (06:26→23:27)
[2020-02-26] MEDS: CMC: Alfuzosin ER 10 mg TAB.ER (NF) 10 MG TAB.ER PO SCH (09:35)
[2020-02-26] MEDS: Fluticasone NASAL SPRAY 50MCG 16 gm SPRAY BTL BOTH NARES SCH (09:38)
[2020-02-26] MEDS: Linezolid 600 MG IVPREMIX(*) 600 MG/300 ML BAG IVPB SCH ×2 (10:38→22:16)
[2020-02-26] MEDS ORDERED: NS 0.9% 100 ml BAG 100 ML ONE (16:07)
[2020-02-26] MEDS: Enoxaparin 40 MG/0.4 ML SYR SUBCUT SCH (16:07)
[2020-02-27] MEDS: ZOSYN 3.375 GM Q8H per EXTENDED INFUSION IV SCH (06:27)
[2020-02-27] MEDS: CMC: Alfuzosin ER 10 mg TAB.ER (NF) 10 MG TAB.ER PO SCH (08:29)
[2020-02-27 09:35] LABS: ABS Eosinophils 0.3 10^3/ul (0-0.6); ABS Lymphocytes 1.7 10^3/ul (1.0-4.8); ABS Monocytes 1.3 10^3/ul (0-0.8); ABS Neutrophils 7.4 10^3/ul (1.5-7.7); Eosinophil % 2.4 %; Hematocrit 36 % (42-52); Hemoglobin 11.8 g/dL (14.0-18.0); Lymphocyte % 16.1 %; Mean Corpuscular HGB Conc 33 g/dL (31-36); Mean Corpuscular Hemoglobin 29 pg (27-31); Mean Corpuscular Volume 87 fL (80-94); Mean Platelet Volume 9.1 fL (7.4-10.4); Platelet Count 164 10^3/uL (150-450); Red Blood Count 4.07 10^6 /uL (4.18-5.48); Red Cell Distribution Width 16 % (10-15); White Blood Count 10.6 10^3/uL (3.5-10.8)
[2020-02-27 09:57] LABS: BUN/Creatinine Ratio 31.6 (8-20); Calcium 8.4 mg/dL (8.6-10.3); EGFR African American 117.7 (>60); EGFR Non-African American 97.2 (>60); Potassium 3.9 mmol/L (3.5-5.0)
[2020-02-27] MEDS: Fluticasone NASAL SPRAY 50MCG 16 gm SPRAY BTL BOTH NARES SCH (14:48)
[2020-02-27] MEDS: Enoxaparin 40 MG/0.4 ML SYR SUBCUT SCH (16:07)
[2020-02-28 05:02] LABS: ABS Eosinophils 0.3 10^3/ul (0-0.6); ABS Lymphocytes 1.5 10^3/ul (1.0-4.8); ABS Monocytes 1.2 10^3/ul (0-0.8); ABS Neutrophils 8.3 10^3/ul (1.5-7.7); Eosinophil % 2.5 %; Hematocrit 34 % (42-52); Hemoglobin 11.1 g/dL (14.0-18.0); Lymphocyte % 13.6 %; Mean Corpuscular HGB Conc 33 g/dL (31-36); Mean Corpuscular Hemoglobin 29 pg (27-31); Mean Corpuscular Volume 87 fL (80-94); Mean Platelet Volume 8.9 fL (7.4-10.4); Platelet Count 151 10^3/uL (150-450); Red Blood Count 3.86 10^6 /uL (4.18-5.48); Red Cell Distribution Width 16 % (10-15); White Blood Count 11.3 10^3/uL (3.5-10.8)
[2020-02-28 05:26] LABS: BUN/Creatinine Ratio 28.6 (8-20); Calcium 8.6 mg/dL (8.6-10.3); EGFR African American 121.2 (>60); EGFR Non-African American 100.2 (>60); Magnesium 2.5 mg/dL (1.9-2.7)
[2020-02-28] MEDS: CMC: Alfuzosin ER 10 mg TAB.ER (NF) 10 MG TAB.ER PO SCH (09:01)
[2020-02-28] MEDS: Fluticasone NASAL SPRAY 50MCG 16 gm SPRAY BTL BOTH NARES SCH (09:09)
[2020-02-28] MEDS: Enoxaparin 40 MG/0.4 ML SYR SUBCUT SCH (16:00)
[2020-02-29] MEDS: CMC: Alfuzosin ER 10 mg TAB.ER (NF) 10 MG TAB.ER PO SCH (09:42)
[2020-02-29] MEDS: Fluticasone NASAL SPRAY 50MCG 16 gm SPRAY BTL BOTH NARES SCH (09:43)
[2020-02-29] MEDS: Enoxaparin 40 MG/0.4 ML SYR SUBCUT SCH (17:42)
[2020-03-01] MEDS: Fluticasone NASAL SPRAY 50MCG 16 gm SPRAY BTL BOTH NARES SCH (08:45)
[2020-03-01] MEDS: CMC: Alfuzosin ER 10 mg TAB.ER (NF) 10 MG TAB.ER PO SCH (08:45)
[2020-03-01] MEDS: Enoxaparin 40 MG/0.4 ML SYR SUBCUT SCH (17:30)
[2020-03-02] MEDS: Fluticasone NASAL SPRAY 50MCG 16 gm SPRAY BTL BOTH NARES SCH (09:34)
[2020-03-02] MEDS: CMC: Alfuzosin ER 10 mg TAB.ER (NF) 10 MG TAB.ER PO SCH (09:34)
[2020-03-02] MEDS: Enoxaparin 40 MG/0.4 ML SYR SUBCUT SCH (16:32)
[2020-03-03 05:16] LABS: Hematocrit 34 % (42-52); Hemoglobin 11.2 g/dL (14.0-18.0); Mean Corpuscular HGB Conc 33 g/dL (31-36); Mean Corpuscular Hemoglobin 29 pg (27-31); Mean Corpuscular Volume 88 fL (80-94); Mean Platelet Volume 7.8 fL (7.4-10.4); Platelet Count 230 10^3/uL (150-450); Red Blood Count 3.88 10^6 /uL (4.18-5.48); Red Cell Distribution Width 16 % (10-15); White Blood Count 13.9 10^3/uL (3.5-10.8)
[2020-03-03 05:56] LABS: Calcium 8.5 mg/dL (8.6-10.3); EGFR African American 126.9 (>60); EGFR Non-African American 104.9 (>60); Potassium 4.2 mmol/L (3.5-5.0)
[2020-03-03] MEDS: CMC: Alfuzosin ER 10 mg TAB.ER (NF) 10 MG TAB.ER PO SCH (08:16)
[2020-03-03] MEDS: Fluticasone NASAL SPRAY 50MCG 16 gm SPRAY BTL BOTH NARES SCH (11:23)
[2020-03-03] MEDS: Enoxaparin 40 MG/0.4 ML SYR SUBCUT SCH (17:31)
[2020-03-04] MEDS: CMC: Alfuzosin ER 10 mg TAB.ER (NF) 10 MG TAB.ER PO SCH (08:52)
[2020-03-04 11:43] LABS: Hematocrit 34 % (42-52); Hemoglobin 11.3 g/dL (14.0-18.0); Mean Corpuscular HGB Conc 33 g/dL (31-36); Mean Corpuscular Hemoglobin 29 pg (27-31); Mean Corpuscular Volume 87 fL (80-94); Mean Platelet Volume 7.8 fL (7.4-10.4); Platelet Count 277 10^3/uL (150-450); Red Blood Count 3.94 10^6 /uL (4.18-5.48); Red Cell Distribution Width 16 % (10-15); White Blood Count 15.2 10^3/uL (3.5-10.8)
[2020-03-04] MEDS: Fluticasone NASAL SPRAY 50MCG 16 gm SPRAY BTL BOTH NARES SCH (11:45)
[2020-03-04] MEDS ORDERED: Piperacillin/Tazobac ADVAN 3.375 GM in NS 0.9% 100 ml BAG 100 ML IV ONE (12:21)
[2020-03-04] MEDS ORDERED: Vancomycin 1,500 MG in NS 0.9% 250 ml 250 ML IVPB ONE (12:22)
[2020-03-04 12:24] LABS: ABS Basophils 0.1 10^3/ul (0-0.2); ABS Eosinophils 0.4 10^3/ul (0-0.6); ABS Lymphocytes 1.2 10^3/ul (1.0-4.8); ABS Monocytes 1.7 10^3/ul (0-0.8); ABS Neutrophils 11.9 10^3/ul (1.5-7.7); Eosinophil % 2.5 %; Lymphocyte % 7.7 %
[2020-03-04] MEDS ORDERED: Zosyn per Pharmacy NOTE FOLLOW UP SCH (13:00)
[2020-03-04] MEDS ORDERED: Vancomycin per Pharmacy 1 EA NOTE FOLLOW UP SCH (13:00)
[2020-03-04] MEDS: Enoxaparin 40 MG/0.4 ML SYR SUBCUT SCH (17:41)
[2020-03-04] MEDS: ZOSYN 3.375 GM Q8H per EXTENDED INFUSION IV SCH (17:41)
[2020-03-05] MEDS: ZOSYN 3.375 GM Q8H per EXTENDED INFUSION IV SCH ×3 (00:22→15:58)
[2020-03-05] MEDS: Vancomycin 1,500 MG in NS 0.9% 250 ml 250 ML IVPB SCH ×2 (05:46→18:15)
[2020-03-05 06:57] LABS: EGFR African American 108.1 (>60); EGFR Non-African American 89.4 (>60)
[2020-03-05] MEDS: Fluticasone NASAL SPRAY 50MCG 16 gm SPRAY BTL BOTH NARES SCH (10:21)
[2020-03-05] MEDS: CMC: Alfuzosin ER 10 mg TAB.ER (NF) 10 MG TAB.ER PO SCH (10:23)
[2020-03-05] MEDS: Nystatin TOP POWDER 15 GM BTL TOPICAL SCH ×2 (11:15→20:22)
[2020-03-05] MEDS: Enoxaparin 40 MG/0.4 ML SYR SUBCUT SCH (15:57)
[2020-03-06] MEDS: ZOSYN 3.375 GM Q8H per EXTENDED INFUSION IV SCH ×3 (01:42→16:03)
[2020-03-06] MEDS ORDERED: Vancomycin Trough Check NOTE FOLLOW UP ONE (05:30)
[2020-03-06 07:06] LABS: ABS Eosinophils 0.5 10^3/ul (0-0.6); ABS Lymphocytes 0.8 10^3/ul (1.0-4.8); ABS Monocytes 1.3 10^3/ul (0-0.8); Hematocrit 33 % (42-52); Hemoglobin 10.8 g/dL (14.0-18.0); Lymphocyte % 6.2 %; Mean Corpuscular HGB Conc 32 g/dL (31-36); Mean Corpuscular Hemoglobin 28 pg (27-31); Mean Corpuscular Volume 88 fL (80-94); Mean Platelet Volume 7.7 fL (7.4-10.4); Platelet Count 289 10^3/uL (150-450); Red Cell Distribution Width 16 % (10-15); White Blood Count 12.6 10^3/uL (3.5-10.8)
[2020-03-06 07:17] LABS: BUN/Creatinine Ratio 21.3 (8-20); Calcium 8.5 mg/dL (8.6-10.3); EGFR African American 124.9 (>60); EGFR Non-African American 103.3 (>60); Potassium 3.6 mmol/L (3.5-5.0)
[2020-03-06 07:28] LABS: EGFR African American 128.9 (>60); EGFR Non-African American 106.5 (>60); Vancomycin Trough 15.3 mcg/mL
[2020-03-06] MEDS: Vancomycin 1,500 MG in NS 0.9% 250 ml 250 ML IVPB SCH (07:42)
[2020-03-06] MEDS: Fluticasone NASAL SPRAY 50MCG 16 gm SPRAY BTL BOTH NARES SCH (09:40)
[2020-03-06] MEDS: Nystatin TOP POWDER 15 GM BTL TOPICAL SCH ×2 (09:40→20:50)
[2020-03-06] MEDS: CMC: Alfuzosin ER 10 mg TAB.ER (NF) 10 MG TAB.ER PO SCH (09:40)
[2020-03-06] MEDS: Enoxaparin 40 MG/0.4 ML SYR SUBCUT SCH (15:22)
[2020-03-07] MEDS ORDERED: Furosemide 40 mg/4 ml IV VIAL IV SLOW PU ONE ×2 (00:44→06:48)
[2020-03-07 06:21] LABS: ABS Basophils 0.1 10^3/ul (0-0.2); ABS Eosinophils 0.5 10^3/ul (0-0.6); ABS Lymphocytes 0.7 10^3/ul (1.0-4.8); ABS Monocytes 1.3 10^3/ul (0-0.8); Eosinophil % 3.2 %; Hematocrit 33 % (42-52); Lymphocyte % 4.6 %; Mean Corpuscular HGB Conc 33 g/dL (31-36); Mean Corpuscular Hemoglobin 29 pg (27-31); Mean Corpuscular Volume 87 fL (80-94); Mean Platelet Volume 7.2 fL (7.4-10.4); Platelet Count 310 10^3/uL (150-450); Red Blood Count 3.82 10^6 /uL (4.18-5.48); Red Cell Distribution Width 16 % (10-15); White Blood Count 15.6 10^3/uL (3.5-10.8)
[2020-03-07 07:05] LABS: Calcium 8.6 mg/dL (8.6-10.3); Potassium 3.8 mmol/L (3.5-5.0)
[2020-03-07 07:11] LABS: BUN/Creatinine Ratio 20.5 (8-20); EGFR African American 111.2 (>60); EGFR Non-African American 91.9 (>60)
[2020-03-07] MEDS: Nystatin TOP POWDER 15 GM BTL TOPICAL SCH ×2 (08:50→20:37)
[2020-03-07] MEDS: Fluticasone NASAL SPRAY 50MCG 16 gm SPRAY BTL BOTH NARES SCH (08:50)
[2020-03-07] MEDS: CMC: Alfuzosin ER 10 mg TAB.ER (NF) 10 MG TAB.ER PO SCH (08:50)
[2020-03-07] MEDS ORDERED: Potassium Chloride LIQUID 20 MEQ/15 ML LIQUID PO ONE (10:43)
[2020-03-07] MEDS: Enoxaparin 40 MG/0.4 ML SYR SUBCUT SCH (17:02)
[2020-03-08] MEDS ORDERED: Vancomycin Trough Check NOTE FOLLOW UP ONE (06:00)
[2020-03-08] MEDS ORDERED: methylPREDNISolone SOD 40 mg/ml 1 ml VIAL IV ONE (08:39)
[2020-03-08] MEDS: CMC: Alfuzosin ER 10 mg TAB.ER (NF) 10 MG TAB.ER PO SCH (09:02)
[2020-03-08] MEDS: Fluticasone NASAL SPRAY 50MCG 16 gm SPRAY BTL BOTH NARES SCH (09:02)
[2020-03-08] MEDS: Nystatin TOP POWDER 15 GM BTL TOPICAL SCH ×2 (09:02→20:58)
[2020-03-08] MEDS: Mometasone/Formoter 200/5 MDI INH SCH ×2 (09:14→19:40)
[2020-03-08] MEDS: SPIRIVA Respimat (tiotropium) 2.5 mcg/inh Inhaler INH SCH (13:14)
[2020-03-08] MEDS: Enoxaparin 40 MG/0.4 ML SYR SUBCUT SCH (15:26)
[2020-03-08] MEDS: Albuterol HFA INHALER 8 gm MDI INH PRN (19:41)
[2020-03-09] MEDS: Mometasone/Formoter 200/5 MDI INH SCH (07:12)
[2020-03-09] MEDS: SPIRIVA Respimat (tiotropium) 2.5 mcg/inh Inhaler INH SCH (07:14)
[2020-03-09] MEDS: CMC: Alfuzosin ER 10 mg TAB.ER (NF) 10 MG TAB.ER PO SCH (08:39)
[2020-03-09] MEDS: Fluticasone NASAL SPRAY 50MCG 16 gm SPRAY BTL BOTH NARES SCH (08:40)
[2020-03-09] MEDS: Nystatin TOP POWDER 15 GM BTL TOPICAL SCH (08:45)
[2020-03-09 12:28] VITALS: BP 129/68
== END 2020-03-09 15:00 | DRG 871 ==
LOC: ED 10:38 → ICU 13:14 → MED 02-18 21:49 → ICU 02-19 08:58 → MEDTELE 02-20 22:06 → ICU 02-21 11:15 → MEDTELE 03-04 09:13 → ICU 03-07 03:42
PROVIDERS: ADMIT Internal Medicine; ATTEND Internal Medicine

== ENCOUNTER 2020-03-28 00:55 | Inpatient (IN) ==
[2020-03-28] MEDS ORDERED: Albuterol HFA INHALER 8 gm MDI INH ONE (01:02)
[2020-03-28 01:24] LABS: ABS Lymphocytes 0.3 10^3/ul (1.0-4.8); ABS Monocytes 0.8 10^3/ul (0-0.8); ABS Neutrophils 10.3 10^3/ul (1.5-7.7); Eosinophil % 0.1 %; Hematocrit 33 % (42-52); Hemoglobin 10.8 g/dL (14.0-18.0); Lymphocyte % 2.8 %; Mean Corpuscular HGB Conc 33 g/dL (31-36); Mean Corpuscular Hemoglobin 28 pg (27-31); Mean Corpuscular Volume 85 fL (80-94); Mean Platelet Volume 7.5 fL (7.4-10.4); Platelet Count 200 10^3/uL (150-450); Red Blood Count 3.85 10^6 /uL (4.18-5.48); Red Cell Distribution Width 18 % (10-15); White Blood Count 11.4 10^3/uL (3.5-10.8)
[2020-03-28] MEDS ORDERED: methylPREDNISolone 125 mg 2 ML VIAL ONE (01:25)
[2020-03-28 01:30] LABS: INR 1.3 (0.82-1.09)
[2020-03-28 01:40] LABS: ALT 42 U/L (7-52); AST 44 U/L (13-39); Albumin 3.1 g/dL (3.2-5.2); Albumin/Globulin Ratio 0.8 (1-3); Alkaline Phosphatase 133 U/L (34-104); Anion Gap 7 mmol/L (2-11); BUN/Creatinine Ratio 13.7 (8-20); Blood Urea Nitrogen 18 mg/dL (6-24); CO2 Carbon Dioxide 33 mmol/L (22-32); Calcium 8.7 mg/dL (8.6-10.3); Chloride 90 mmol/L (101-111); EGFR African American 65.6 (>60); EGFR Non-African American 54.3 (>60); Globulin 3.7 g/dL (2-4); Glucose 131 mg/dL (70-100); Potassium 4.2 mmol/L (3.5-5.0); Sodium 130 mmol/L (135-145); Total Protein 6.8 g/dL (6.4-8.9)
[2020-03-28 01:45] LABS: Troponin I 0.66 ng/mL (<0.03)
[2020-03-28] MEDS ORDERED: methylPREDNISolone 125 mg 2 ML VIAL IV ONE (01:51)
[2020-03-28 02:20] LABS: Lithium 0.62 mmol/L (0.6-1.2)
[2020-03-28] MEDS ORDERED: NS 0.9% 1000 ml BAG 1,000 ML IV SCH (04:45)
[2020-03-28] MEDS ORDERED: Enoxaparin 40 MG/0.4 ML SYR SUBCUT SCH (05:00)
[2020-03-28] MEDS ORDERED: Remdesivir 100 mg Vial 200 MG in NS 0.9% 250 ml 210 ML IV ONE (05:00)
[2020-03-28] MEDS ORDERED: Iodixanol (CONTRAST) 320 MG/ML 100 ML SDV IV ONE (05:09)
[2020-03-28 05:12] LABS: Troponin I 0.62 ng/mL (<0.03)
[2020-03-28] MEDS ORDERED: Lactated Ringers 1000 ml BAG 1,000 ML IV SCH (08:00)
[2020-03-28] MEDS: Azithromycin 500 mg/250 ml NS 500 MG/250 ML BAG IVPB SCH (08:03)
[2020-03-28] MEDS: Enoxaparin 60 MG/0.6 ML SYR SUBCUT SCH ×2 (08:57→21:02)
[2020-03-28] MEDS: CMCS:Alfuzosin ER 10 mg TAB.ER (NF) 10 MG TAB.ER PO SCH (08:58)
[2020-03-28] MEDS: Fluticasone NASAL SPRAY 50MCG 16 gm SPRAY BTL BOTH NARES SCH (08:59)
[2020-03-28] MEDS: Mometasone/Formoter 200/5 MDI INH SCH ×2 (09:10→20:54)
[2020-03-28] MEDS: SPIRIVA Respimat (tiotropium) 2.5 mcg/inh Inhaler INH SCH (09:10)
[2020-03-28] MEDS: cefTRIAXone 1 gm/50 mL NS BAG 1 GM/50 ML BAG IVPB SCH (09:11)
[2020-03-28 09:21] LABS: Magnesium 2.1 mg/dL (1.9-2.7); Phosphorus 4.4 mg/dL (2.5-5.0)
[2020-03-28 09:39] LABS: Influenza A Molecular Negative (Negative); Influenza B Molecular Negative (Negative)
[2020-03-28 09:51] LABS: Troponin I 0.36 ng/mL (<0.03)
[2020-03-28] MEDS ORDERED: Levothyroxine 100 MCG/5 ML VIAL ONE (11:23)
[2020-03-28] MEDS: Dexamethasone IV 4 MG/ML VIAL 1 ml VIAL IV SLOW PU SCH (11:33)
[2020-03-28 15:38] LABS: Urine Appearance Cloudy; Urine Bilirubin Negative (Negative); Urine Blood 3+ (Negative); Urine Color Yellow; Urine Glucose Negative (Negative); Urine Ketones Negative (Negative); Urine Nitrite Negative (Negative); Urine Protein 1+(30 mg/dL) (Negative); Urine Specific Gravity 1.011 (1.010-1.030); Urine Urobilinogen Negative (Negative)
[2020-03-28 15:43] LABS: Urine Bacteria Absent (Absent); Urine Red Blood Cell 3+(>10/hpf) (Absent); Urine Squamous Epithelial Cell Present (Absent); Urine White Blood Cell Trace(0-5/hpf) (Absent)
[2020-03-28] MEDS: Albuterol HFA INHALER 8 gm MDI INH PRN (20:55)
[2020-03-28] MEDS: Famotidine IV 10 MG/ML 2 ml VIAL (20 mg) IV SLOW PU SCH (21:04)
[2020-03-28] MEDS ORDERED: Haloperidol 5 mg/ml SDV IV/IM 5 MG/ML AMP IV SLOW PU PRN (21:58)
[2020-03-28] MEDS ORDERED: Haloperidol 5 mg/ml SDV IV/IM 5 MG/ML AMP ONE (22:01)
[2020-03-28] MEDS ORDERED: diPHENhydraMINE IV 50 MG/ML 1 ml VIAL (BENADRYL) ONE (23:17)
[2020-03-29] MEDS: Levothyroxine 100 MCG/5 ML VIAL IV SCH (05:34)
[2020-03-29 06:07] LABS: ABS Lymphocytes 0.2 10^3/ul (1.0-4.8); ABS Monocytes 0.7 10^3/ul (0-0.8); ABS Neutrophils 14.1 10^3/ul (1.5-7.7); Hematocrit 31 % (42-52); Lymphocyte % 1.5 %; Mean Corpuscular HGB Conc 33 g/dL (31-36); Mean Corpuscular Hemoglobin 28 pg (27-31); Mean Corpuscular Volume 86 fL (80-94); Mean Platelet Volume 8.1 fL (7.4-10.4); Platelet Count 215 10^3/uL (150-450); Red Blood Count 3.59 10^6 /uL (4.18-5.48); Red Cell Distribution Width 18 % (10-15)
[2020-03-29 06:26] LABS: Albumin 2.9 g/dL (3.2-5.2); Albumin/Globulin Ratio 0.8 (1-3); BUN/Creatinine Ratio 27.6 (8-20); Calcium 8.2 mg/dL (8.6-10.3); EGFR African American 84.7 (>60); Globulin 3.5 g/dL (2-4); Potassium 4.4 mmol/L (3.5-5.0); Total Bilirubin 0.3 mg/dL (0.2-1.0); Total Protein 6.4 g/dL (6.4-8.9)
[2020-03-29 06:39] LABS: INR 1.26 (0.82-1.09)
[2020-03-29] MEDS: CMCS:Alfuzosin ER 10 mg TAB.ER (NF) 10 MG TAB.ER PO SCH (08:03)
[2020-03-29] MEDS: Fluticasone NASAL SPRAY 50MCG 16 gm SPRAY BTL BOTH NARES SCH (08:06)
[2020-03-29] MEDS: Azithromycin 500 mg/250 ml NS 500 MG/250 ML BAG IVPB SCH (08:13)
[2020-03-29] MEDS: Dexamethasone IV 4 MG/ML VIAL 1 ml VIAL IV SLOW PU SCH (08:18)
[2020-03-29] MEDS: Enoxaparin 60 MG/0.6 ML SYR SUBCUT SCH ×2 (08:18→21:02)
[2020-03-29] MEDS: Famotidine IV 10 MG/ML 2 ml VIAL (20 mg) IV SLOW PU SCH ×2 (08:27→21:02)
[2020-03-29] MEDS: SPIRIVA Respimat (tiotropium) 2.5 mcg/inh Inhaler INH SCH (08:43)
[2020-03-29] MEDS: Albuterol HFA INHALER 8 gm MDI INH PRN ×2 (08:44→21:40)
[2020-03-29] MEDS: Mometasone/Formoter 200/5 MDI INH SCH ×2 (08:45→21:43)
[2020-03-29] MEDS: cefTRIAXone 1 gm/50 mL NS BAG 1 GM/50 ML BAG IVPB SCH (09:19)
[2020-03-29] MEDS: Remdesivir 100 mg Vial 100 MG in NS 0.9% 250 ml 230 ML IV SCH (09:26)
[2020-03-30 05:06] LABS: ABS Lymphocytes 0.3 10^3/ul (1.0-4.8); ABS Neutrophils 11.5 10^3/ul (1.5-7.7); Hematocrit 32 % (42-52); Hemoglobin 10.3 g/dL (14.0-18.0); Lymphocyte % 2.5 %; Mean Corpuscular HGB Conc 32 g/dL (31-36); Mean Corpuscular Hemoglobin 28 pg (27-31); Mean Corpuscular Volume 87 fL (80-94); Mean Platelet Volume 7.9 fL (7.4-10.4); Platelet Count 242 10^3/uL (150-450); Red Cell Distribution Width 18 % (10-15); White Blood Count 12.8 10^3/uL (3.5-10.8)
[2020-03-30 05:10] LABS: INR 1.29 (0.82-1.09)
[2020-03-30] MEDS: Levothyroxine 100 MCG/5 ML VIAL IV SCH (05:15)
[2020-03-30 05:23] LABS: Albumin/Globulin Ratio 0.9 (1-3); BUN/Creatinine Ratio 30.9 (8-20); Calcium 8.5 mg/dL (8.6-10.3); EGFR African American 96.3 (>60); EGFR Non-African American 79.6 (>60); Globulin 3.3 g/dL (2-4); Potassium 4.4 mmol/L (3.5-5.0); Total Bilirubin 0.2 mg/dL (0.2-1.0); Total Protein 6.3 g/dL (6.4-8.9)
[2020-03-30] MEDS: Enoxaparin 60 MG/0.6 ML SYR SUBCUT SCH ×2 (08:03→21:20)
[2020-03-30] MEDS: Famotidine IV 10 MG/ML 2 ml VIAL (20 mg) IV SLOW PU SCH ×2 (08:03→21:19)
[2020-03-30] MEDS: Dexamethasone IV 4 MG/ML VIAL 1 ml VIAL IV SLOW PU SCH (08:03)
[2020-03-30] MEDS: Fluticasone NASAL SPRAY 50MCG 16 gm SPRAY BTL BOTH NARES SCH (08:04)
[2020-03-30] MEDS: Azithromycin 500 mg/250 ml NS 500 MG/250 ML BAG IVPB SCH (09:19)
[2020-03-30] MEDS: cefTRIAXone 1 gm/50 mL NS BAG 1 GM/50 ML BAG IVPB SCH (09:20)
[2020-03-30] MEDS: CMCS:Alfuzosin ER 10 mg TAB.ER (NF) 10 MG TAB.ER PO SCH (09:29)
[2020-03-30] MEDS: Remdesivir 100 mg Vial 100 MG in NS 0.9% 250 ml 230 ML IV SCH (10:43)
[2020-03-30] MEDS: SPIRIVA Respimat (tiotropium) 2.5 mcg/inh Inhaler INH SCH (15:02)
[2020-03-30] MEDS: Mometasone/Formoter 200/5 MDI INH SCH ×2 (15:02→19:41)
[2020-03-31] MEDS: Levothyroxine 100 MCG/5 ML VIAL IV SCH (05:44)
[2020-03-31] MEDS: Mometasone/Formoter 200/5 MDI INH SCH ×2 (08:11→19:47)
[2020-03-31] MEDS: SPIRIVA Respimat (tiotropium) 2.5 mcg/inh Inhaler INH SCH (08:11)
[2020-03-31] MEDS: Azithromycin 500 mg/250 ml NS 500 MG/250 ML BAG IVPB SCH (08:30)
[2020-03-31] MEDS: cefTRIAXone 1 gm/50 mL NS BAG 1 GM/50 ML BAG IVPB SCH (08:46)
[2020-03-31] MEDS: CMCS:Alfuzosin ER 10 mg TAB.ER (NF) 10 MG TAB.ER PO SCH (08:47)
[2020-03-31] MEDS: Famotidine IV 10 MG/ML 2 ml VIAL (20 mg) IV SLOW PU SCH ×2 (08:48→19:47)
[2020-03-31] MEDS: Dexamethasone IV 4 MG/ML VIAL 1 ml VIAL IV SLOW PU SCH (08:49)
[2020-03-31 09:25] LABS: ABS Lymphocytes 0.6 10^3/ul (1.0-4.8); ABS Monocytes 1.2 10^3/ul (0-0.8); ABS Neutrophils 10.2 10^3/ul (1.5-7.7); Eosinophil % 0.2 %; Hematocrit 33 % (42-52); Hemoglobin 10.5 g/dL (14.0-18.0); Lymphocyte % 5.1 %; Mean Corpuscular HGB Conc 32 g/dL (31-36); Mean Corpuscular Hemoglobin 27 pg (27-31); Mean Corpuscular Volume 86 fL (80-94); Mean Platelet Volume 7.7 fL (7.4-10.4); Platelet Count 303 10^3/uL (150-450); Red Blood Count 3.84 10^6 /uL (4.18-5.48); Red Cell Distribution Width 18 % (10-15); White Blood Count 12.1 10^3/uL (3.5-10.8)
[2020-03-31] MEDS: Enoxaparin 60 MG/0.6 ML SYR SUBCUT SCH ×2 (10:52→19:46)
[2020-03-31 11:06] LABS: Albumin 2.8 g/dL (3.2-5.2); Calcium 8.6 mg/dL (8.6-10.3); Potassium 4.3 mmol/L (3.5-5.0); Total Bilirubin 0.2 mg/dL (0.2-1.0)
[2020-03-31 11:12] LABS: Albumin/Globulin Ratio 0.8 (1-3); BUN/Creatinine Ratio 28.6 (8-20); EGFR Non-African American 82.6 (>60); Globulin 3.4 g/dL (2-4); Total Protein 6.2 g/dL (6.4-8.9)
[2020-03-31] MEDS: Remdesivir 100 mg Vial 100 MG in NS 0.9% 250 ml 230 ML IV SCH (12:05)
[2020-03-31] MEDS: Albuterol HFA INHALER 8 gm MDI INH PRN (16:17)
[2020-03-31] MEDS: Fluticasone NASAL SPRAY 50MCG 16 gm SPRAY BTL BOTH NARES SCH (17:53)
[2020-04-01] MEDS: Levothyroxine 100 MCG/5 ML VIAL IV SCH (06:12)
[2020-04-01] MEDS: SPIRIVA Respimat (tiotropium) 2.5 mcg/inh Inhaler INH SCH (07:47)
[2020-04-01] MEDS: Mometasone/Formoter 200/5 MDI INH SCH ×2 (07:47→19:36)
[2020-04-01] MEDS: cefTRIAXone 1 gm/50 mL NS BAG 1 GM/50 ML BAG IVPB SCH (07:57)
[2020-04-01 08:19] LABS: Hematocrit 34 % (42-52); Hemoglobin 10.9 g/dL (14.0-18.0); Mean Corpuscular HGB Conc 32 g/dL (31-36); Mean Corpuscular Hemoglobin 28 pg (27-31); Mean Corpuscular Volume 87 fL (80-94); Mean Platelet Volume 7.5 fL (7.4-10.4); Platelet Count 333 10^3/uL (150-450); Red Blood Count 3.93 10^6 /uL (4.18-5.48); Red Cell Distribution Width 18 % (10-15); White Blood Count 10.8 10^3/uL (3.5-10.8)
[2020-04-01 08:37] LABS: Albumin 2.7 g/dL (3.2-5.2); Albumin/Globulin Ratio 0.9 (1-3); Calcium 8.3 mg/dL (8.6-10.3); EGFR African American 103.9 (>60); EGFR Non-African American 85.9 (>60); Globulin 3.1 g/dL (2-4); Potassium 4.3 mmol/L (3.5-5.0); Total Bilirubin 0.3 mg/dL (0.2-1.0); Total Protein 5.8 g/dL (6.4-8.9)
[2020-04-01] MEDS: Dexamethasone IV 4 MG/ML VIAL 1 ml VIAL IV SLOW PU SCH (09:21)
[2020-04-01] MEDS: Remdesivir 100 mg Vial 100 MG in NS 0.9% 250 ml 230 ML IV SCH (09:21)
[2020-04-01] MEDS: Famotidine IV 10 MG/ML 2 ml VIAL (20 mg) IV SLOW PU SCH ×2 (09:22→19:38)
[2020-04-01] MEDS: CMCS:Alfuzosin ER 10 mg TAB.ER (NF) 10 MG TAB.ER PO SCH (09:45)
[2020-04-01 09:49] LABS: ABS Eosinophils 0.1 10^3/ul (0-0.6); ABS Lymphocytes 0.7 10^3/ul (1.0-4.8); ABS Neutrophils 9.1 10^3/ul (1.5-7.7); Eosinophil % 0.9 %
[2020-04-01] MEDS: Albuterol HFA INHALER 8 gm MDI INH PRN (09:49)
[2020-04-01] MEDS: Enoxaparin 60 MG/0.6 ML SYR SUBCUT SCH ×2 (11:31→19:39)
[2020-04-01] MEDS: Fluticasone NASAL SPRAY 50MCG 16 gm SPRAY BTL BOTH NARES SCH (12:59)
[2020-04-02] MEDS: Levothyroxine 100 MCG/5 ML VIAL IV SCH (05:17)
[2020-04-02 06:32] LABS: Albumin 2.7 g/dL (3.2-5.2); Albumin/Globulin Ratio 0.9 (1-3); BUN/Creatinine Ratio 30.2 (8-20); Calcium 8.6 mg/dL (8.6-10.3); EGFR African American 106.7 (>60); EGFR Non-African American 88.2 (>60); Potassium 4.6 mmol/L (3.5-5.0); Total Bilirubin 0.2 mg/dL (0.2-1.0); Total Protein 5.7 g/dL (6.4-8.9)
[2020-04-02] MEDS: cefTRIAXone 1 gm/50 mL NS BAG 1 GM/50 ML BAG IVPB SCH (07:49)
[2020-04-02] MEDS: CMCS:Alfuzosin ER 10 mg TAB.ER (NF) 10 MG TAB.ER PO SCH (07:50)
[2020-04-02] MEDS: Dexamethasone IV 4 MG/ML VIAL 1 ml VIAL IV SLOW PU SCH (07:50)
[2020-04-02] MEDS: Enoxaparin 60 MG/0.6 ML SYR SUBCUT SCH ×2 (07:51→19:30)
[2020-04-02] MEDS: Famotidine IV 10 MG/ML 2 ml VIAL (20 mg) IV SLOW PU SCH ×2 (07:51→19:30)
[2020-04-02] MEDS: Fluticasone NASAL SPRAY 50MCG 16 gm SPRAY BTL BOTH NARES SCH (07:51)
[2020-04-02] MEDS: Mometasone/Formoter 200/5 MDI INH SCH ×2 (08:24→20:57)
[2020-04-02] MEDS: SPIRIVA Respimat (tiotropium) 2.5 mcg/inh Inhaler INH SCH (08:24)
[2020-04-02] MEDS ORDERED: Albuterol 2.5mg/3 ml (0.083%) NEB.SOLN INH PRN (13:11)
[2020-04-03] MEDS: Levothyroxine 100 MCG/5 ML VIAL IV SCH (05:14)
[2020-04-03] MEDS: SPIRIVA Respimat (tiotropium) 2.5 mcg/inh Inhaler INH SCH (09:09)
[2020-04-03] MEDS: Mometasone/Formoter 200/5 MDI INH SCH ×2 (09:09→20:30)
[2020-04-03] MEDS: CMCS:Alfuzosin ER 10 mg TAB.ER (NF) 10 MG TAB.ER PO SCH (09:12)
[2020-04-03] MEDS: cefTRIAXone 1 gm/50 mL NS BAG 1 GM/50 ML BAG IVPB SCH (09:14)
[2020-04-03] MEDS: Dexamethasone IV 4 MG/ML VIAL 1 ml VIAL IV SLOW PU SCH (09:15)
[2020-04-03] MEDS: Enoxaparin 60 MG/0.6 ML SYR SUBCUT SCH ×2 (09:17→20:39)
[2020-04-03] MEDS: Famotidine IV 10 MG/ML 2 ml VIAL (20 mg) IV SLOW PU SCH ×2 (09:17→20:37)
[2020-04-03] MEDS: Fluticasone NASAL SPRAY 50MCG 16 gm SPRAY BTL BOTH NARES SCH (09:18)
[2020-04-04] MEDS: Levothyroxine 100 MCG/5 ML VIAL IV SCH (05:18)
[2020-04-04] MEDS: Mometasone/Formoter 200/5 MDI INH SCH ×2 (07:44→19:57)
[2020-04-04] MEDS: SPIRIVA Respimat (tiotropium) 2.5 mcg/inh Inhaler INH SCH (07:45)
[2020-04-04] MEDS: CMCS:Alfuzosin ER 10 mg TAB.ER (NF) 10 MG TAB.ER PO SCH (11:05)
[2020-04-04] MEDS: Dexamethasone IV 4 MG/ML VIAL 1 ml VIAL IV SLOW PU SCH (11:05)
[2020-04-04] MEDS: Famotidine IV 10 MG/ML 2 ml VIAL (20 mg) IV SLOW PU SCH ×2 (11:07→21:03)
[2020-04-04] MEDS: Fluticasone NASAL SPRAY 50MCG 16 gm SPRAY BTL BOTH NARES SCH (11:09)
[2020-04-04] MEDS: Enoxaparin 60 MG/0.6 ML SYR SUBCUT SCH ×2 (11:14→21:03)
[2020-04-04 11:34] LABS: BUN/Creatinine Ratio 26.4 (8-20); Calcium 8.6 mg/dL (8.6-10.3); EGFR Non-African American 108.2 (>60); Potassium 4.3 mmol/L (3.5-5.0)
[2020-04-05] MEDS: Levothyroxine 100 MCG/5 ML VIAL IV SCH (05:52)
[2020-04-05] MEDS: Mometasone/Formoter 200/5 MDI INH SCH ×2 (07:54→19:47)
[2020-04-05] MEDS: SPIRIVA Respimat (tiotropium) 2.5 mcg/inh Inhaler INH SCH (07:54)
[2020-04-05] MEDS: CMCS:Alfuzosin ER 10 mg TAB.ER (NF) 10 MG TAB.ER PO SCH (09:24)
[2020-04-05] MEDS: Enoxaparin 60 MG/0.6 ML SYR SUBCUT SCH ×2 (09:25→20:50)
[2020-04-05] MEDS: Famotidine IV 10 MG/ML 2 ml VIAL (20 mg) IV SLOW PU SCH ×2 (09:25→20:50)
[2020-04-05] MEDS: Dexamethasone IV 4 MG/ML VIAL 1 ml VIAL IV SLOW PU SCH (09:25)
[2020-04-05] MEDS: Fluticasone NASAL SPRAY 50MCG 16 gm SPRAY BTL BOTH NARES SCH (09:31)
[2020-04-05 17:04] LABS: Urine Appearance Clear; Urine Bilirubin Negative (Negative); Urine Blood Negative (Negative); Urine Color Straw; Urine Glucose Negative (Negative); Urine Ketones Negative (Negative); Urine Nitrite Negative (Negative); Urine Protein Negative (Negative); Urine Specific Gravity 1.005 (1.010-1.030); Urine Urobilinogen Negative (Negative)
[2020-04-06] MEDS: Levothyroxine 100 MCG/5 ML VIAL IV SCH (05:56)
[2020-04-06] MEDS: Mometasone/Formoter 200/5 MDI INH SCH ×2 (08:06→20:07)
[2020-04-06] MEDS: SPIRIVA Respimat (tiotropium) 2.5 mcg/inh Inhaler INH SCH (08:06)
[2020-04-06] MEDS: CMCS:Alfuzosin ER 10 mg TAB.ER (NF) 10 MG TAB.ER PO SCH (10:56)
[2020-04-06] MEDS: Famotidine IV 10 MG/ML 2 ml VIAL (20 mg) IV SLOW PU SCH ×2 (10:58→21:47)
[2020-04-06] MEDS: Dexamethasone IV 4 MG/ML VIAL 1 ml VIAL IV SLOW PU SCH (10:59)
[2020-04-06] MEDS: Enoxaparin 60 MG/0.6 ML SYR SUBCUT SCH ×2 (11:08→21:47)
[2020-04-06] MEDS: Fluticasone NASAL SPRAY 50MCG 16 gm SPRAY BTL BOTH NARES SCH (11:08)
[2020-04-06] MEDS ORDERED: Al Hydrox/Mg Hydrox/Simet LIQ 30 ML UDC PO PRN (22:04)
[2020-04-07] MEDS: Levothyroxine 100 MCG/5 ML VIAL IV SCH (05:20)
[2020-04-07 07:53] LABS: BUN/Creatinine Ratio 28.2 (8-20); Calcium 8.7 mg/dL (8.6-10.3); EGFR African American 133.1 (>60); Magnesium 2.3 mg/dL (1.9-2.7)
[2020-04-07] MEDS: Mometasone/Formoter 200/5 MDI INH SCH (08:07)
[2020-04-07] MEDS: SPIRIVA Respimat (tiotropium) 2.5 mcg/inh Inhaler INH SCH (08:08)
[2020-04-07 08:32] VITALS: BP 145/72
[2020-04-07] MEDS: Enoxaparin 60 MG/0.6 ML SYR SUBCUT SCH (08:32)
[2020-04-07] MEDS: CMCS:Alfuzosin ER 10 mg TAB.ER (NF) 10 MG TAB.ER PO SCH (08:34)
[2020-04-07] MEDS: Famotidine IV 10 MG/ML 2 ml VIAL (20 mg) IV SLOW PU SCH (08:35)
[2020-04-07] MEDS: Dexamethasone IV 4 MG/ML VIAL 1 ml VIAL IV SLOW PU SCH (08:36)
== END 2020-04-07 10:20 | DRG 177 ==
LOC: ED 00:55 → ICU 04:12 → MED 03-30 15:48
PROVIDERS: ADMIT Internal Medicine Interventional Cardiology; ATTEND Internal Medicine